=== PATIENT | male | born 1935 | race Asian ===

== ENCOUNTER 2017-01-23 07:30 | Inpatient (IN) | payer MEDICARE, OTHER ==
[~2017-01-23] VITALS: Ht 160 cm; Wt 57.1 kg
[2017-01-28 06:48] VITALS: Ht 160 cm; Wt 57.1 kg
[2017-01-28 06:52] VITALS: BP 150/90; PULSE 85; RESP 16
[2017-01-28] MEDS ORDERED: EPINEPHrine 0.1 MG/ML SYG ONE (07:00)
[2017-01-28] MEDS ORDERED: SUCCINYLCHOLINE CHLORIDE 100 MG/5 ML SYG IV ONE (07:00)
[2017-01-28] MEDS ORDERED: ETOMIDATE 20 MG INJ ONE ×2 (07:00→07:26)
[2017-01-28] MEDS ORDERED: MULT-7 PO (07:08)
[2017-01-28] MEDS ORDERED: CHOL400T29 PO (07:08)
[2017-01-28] MEDS ORDERED: LIPA1CAP4 PO (07:08)
[2017-01-28] MEDS ORDERED: CALC600T5 PO (07:08)
[2017-01-28] MEDS ORDERED: SIMV20TA2 PO (07:08)
[2017-01-28] MEDS ORDERED: VITA600C2 PO (07:08)
[2017-01-28] MEDS ORDERED: ALLO300T2 PO (07:08)
[2017-01-28] MEDS ORDERED: HYDR5TAB2 PO ×2 (07:08)
[2017-01-28] MEDS ORDERED: OMEG1CAP31 PO (07:08)
[2017-01-28] MEDS ORDERED: VIT500LI PO (07:08)
[2017-01-28] MEDS ORDERED: THROMBIN 5000 UNIT VIAL ONE (07:15)
[2017-01-28] MEDS ORDERED: OXYMETAZOLINE 0.05% 15 ML NAS SPRAY NASAL ONE (07:15)
[2017-01-28] MEDS ORDERED: LIDOCAINE 1% (MPF) 30 ML INJ ONE (07:15)
[2017-01-28] MEDS ORDERED: BACITRACIN/POLYMYXIN 28.35 GM OINT TOP ONE (07:16)
[2017-01-28] MEDS ORDERED: POVIDONE IODINE 10% 28.4 GM OINT ONE (07:17)
[2017-01-28] MEDS ORDERED: ROCURONIUM 50 MG INJ ONE (07:26)
[2017-01-28] MEDS ORDERED: MIDAZOLAM 1 MG/ML 2 ML INJ ONE (07:26)
[2017-01-28] MEDS ORDERED: FENTAnyl 50 MCG/ML VIAL ONE (07:27)
[2017-01-28] MEDS ORDERED: ONDANSETRON 4 MG INJ ONE (07:27)
[2017-01-28] MEDS ORDERED: METOCLOPRAMIDE 10 MG INJ ONE (07:27)
[2017-01-28] MEDS ORDERED: HYDROCORTISONE 100 MG INJ ONE (07:27)
[2017-01-28] MEDS ORDERED: POTASSIUM CHLORIDE 20 MEQ in SOD CHLORIDE 0.9% 1,000 ML IV SCH (07:40)
--- NOTE | 2017-01-28 07:40 | HPN ---
Date/Time of Note Date/Time of Note DATE: 01/28/17 TIME: 07:39 Interval H&P Admission Note Pt. seen H&P reviewed: No system changes Neurosurgery Preop Note Extensive d/w patient and family about all available options including surgery vs no surgery. Overall risk/complications discussed in detail at preprinted in my office consent. All questions answered and no guarantees given. STONEY RICHARDSON MD Jan 28, 2017 07:40
[2017-01-28] MEDS ORDERED: niCARdipine 25 MG in SOD CHLORIDE 0.9% 240 ML IV PRN (08:00)
[2017-01-28] MEDS ORDERED: ONDANSETRON 4 MG INJ IV SCH (08:00)
[2017-01-28] MEDS ORDERED: HYDROmorphONE 1 MG/ML SYG IV PRN (08:00)
[2017-01-28] MEDS ORDERED: HYDROCORTISONE 100 MG INJ IV SCH (08:00)
[2017-01-28 10:50] VITALS: BP 165/81; RESP 16
[2017-01-28 11:50] LABS: BASOPHILS % 0.2 % (0.0-2.0); EOSINOPHILS % 0.2 % (0.0-7.0); HEMATOCRIT 26.5 % (42.0-52.0); HEMOGLOBIN 8.9 g/dl (14.0-18.0); LYMPHOCYTES # 3.4 10^3/ul (0.8-2.9); LYMPHOCYTES % 33.6 % (15.0-51.0); MEAN CORPUSCULAR HGB CONC 33.6 g/dl (32.0-37.0); MEAN CORPUSCULAR VOLUME 98.1 fl (82.0-101.0); MEAN PLATELET VOLUME 9.7 fl (7.4-10.4); MONOCYTES % 9.4 % (0.0-11.0); NEUTROPHIL # 5.6 10^3/ul (1.6-7.5); NEUTROPHILS % 55.7 % (39.0-77.0); PLATELET COUNT 154 10^3/UL (140-415); RED CELL DISTRIBUTION WIDTH 13.5 % (11.5-14.5); WHITE BLOOD COUNT 10.1 10^3/ul (4.8-10.8)
[2017-01-28 12:12] LABS: CREATININE 1.83 mg/dl (0.61-1.24); POTASSIUM 4.3 mmol/L (3.5-5.1)
[2017-01-28] MEDS: CREON (12k-38k-60k) 1 CAP PO SCH ×2 (12:15→17:51)
--- NOTE | 2017-01-28 13:10 | HP ---
DATE OF ADMISSION: 01/28/2017 HISTORY OF PRESENT ILLNESS: The patient is a 81-year-old very pleasant gentleman with medical histo ry including hypertension, hyperlipidemia, pancreatic cancer, chronic kidney disease. Patient also with a pituitary adenoma that was diagnosed in 2012. Patient underwent transsphenoidal pituitary ad enoma resection by Dr. Richardson, which was followed by yearly MRI. The patient noted has mass increase d per last MRI. Patient also noted had mass effect upon optic chiasm, the patient also with progres tomas of visual field deficits. Patient is admitted for transsphenoidal pituitary adenoma resection, and the patient will undergo MRI for further mapping and will undergo surgery tomorrow. Patient cu rrently is awake, alert, denies any fever or chills. Denies any nausea, vomiting. Denies diarrhea, constipation. Denies any chest pain, denies shortness of breath. PAST MEDICAL HISTORY: Per HPI. PAST SURGICAL HISTORY: Status post pituitary adenoma resection in September 2012, status post cholecyste ctomy, status post cataract surgery. FAMILY HISTORY: Noncontributory. SOCIAL HISTORY: Patient is a , lives with his daughter. The patient denies any history of t obacco use, alcohol use or illicit drug use. ALLERGIES: NO KNOWN ALLERGIES. MEDICATIONS: 1. Allopurinol. 2. Vitamin D. 3. Hydrocortisone 4. Creon. 5. Calcium carbonate. 6. Multivitamins. 7. [place] 3 fish oil. 8. Simvastatin. 9. Vitamin E. 10. Vitamin C. REVIEW OF SYSTEMS: A 12-point review of systems is negative unless was mentioned in the HPI. PHYSICAL ASSESSMENT: GENERAL: Well-developed, well-nourished male in no acute distress. VITAL SIGNS: Temperature 98.3, pulse is 84, blood pressure 165/81, respiratory rate 16, oxygen satu ration 98% on room air. HEENT: Head is atraumatic, normocephalic. Pupils equal, reactive to light and accommodation. Oral mucosa is pink and moist. NECK: Supple, no cervical lymphadenopathy, no thyromegaly. CHEST: Lungs clear bilaterally. There is no rhonchi, wheezes, rales noted. CARDIOVASCULAR: Normal S1, S2. No murmurs, gallops, clicks, rubs noted. ABDOMEN: Round, soft, nondistended, nontender. Bowel sounds present. There is no guarding, no orly ound tenderness. EXTREMITIES: No edema, clubbing, cyanosis. Pulses equal bilaterally 2+. SKIN: There is no rash, petechiae noted. NEUROLOGIC: Patient is awake, alert and oriented x4. No focal deficits noted. Motor strength 5/5 in all extremities. LABORATORY DATA: On admission, CBC: White blood cells 10.1, hemoglobin 8.9, hematocrit 26.5, plate lets 154. Chemistry: Glucose 136. ASSESSMENT AND PLAN: 1. Transsphenoidal pituitary adenoma, plan for resection tomorrow after the patient will undergo MR I with contrast for mapping by Dr. Richardson. N.p.o. starting midnight. Continue IV fluids. Monitor e lectrolytes. Dr. Choe is asked to see patient in endocrinology consultation for postoperative ma nagement. 2. Pancreatic cancer. The patient follows with oncologist as an outpatient. Patient is aware that he will not be able to receive any treatment for 10 days after surgery. 3. Hypertension. We will continue hydralazine p.r.n. 4. Hyperlipidemia. Continue simvastatin. 5. Chronic kidney disease. Continue to monitor BUN and creatinine. 6. Would continue sequential compression device for deep venous thrombosis, stroke prophylaxis and Pepcid for peptic ulcer disease prophylaxis. Further recommendations based on clinical course. Francisca n of care discussed with Dr. Cannon. Dictated By: TITUS JAIMES REINFORCING STEEL PLACER for MARIAN CANNON MD SR/NTS Conf#: [id number] DID#: [id number] CC: STONEY RICHARDSON MD;*EndCC*
[2017-01-28 15:12] VITALS: BP 153/78; RESP 18
--- NOTE | 2017-01-28 18:05 | CONS ---
Date/Time of Note Date/Time of Note DATE: 01/28/17 TIME: 17:44 Assessment/Plan Assessment/Plan Problems: (1) Chronic kidney disease, stage III (moderate) Status: Chronic Comment: Per primary team. (2) Essential (primary) hypertension Status: Chronic Comment: Per primary team. BP elevated right now. No anti-hypertensives on home med list. Defer to primary team (3) Hyperlipidemia Status: Chronic Comment: Per primary team. Cont. statin (4) Pancreatic cancer Status: Chronic Comment: Per oncology following d/c (5) Hyperuricemia without signs of inflammatory arthritis and tophaceous disease Status: Chronic (6) Pituitary macroadenoma Status: Chronic Comment: This will not resolve with surgery. Based on its behavior, tumor will recur over its natural history. However, given the patient's other medical problems, his prognosis makes another recurrence unlikely in his lifetime. (7) Partial hypopituitarism Status: Chronic Comment: Based on the patient's medication list, it can be inferred that someone has previously felt patient has secondary hypoadrenalism following his initial surgery or prior to that. It is unlikely that he would have secondary hypoadrenalism but not secondary hypothyroidism. The patient is not the best historian so it is impossible to tell if he has been through a thorough evaluation for this or if he was simply placed on hydrocortisone as a matter of convenience. It is also difficult to tell how long he has been taking it. Nevertheless, based again only on inference, he has likely been taking this for some time. Therefore, the dosing should not be interrupted or we would be likely to cause an adrenal insufficiency. Pt. should also receive stress dose hydrocortisone or dexamethasone perioperatively including pre, intra, and post for 24 hours. Then he can be placed on twice normal dosing before being weaned to his usual home dosage of hydrocortisone. At this time there are no clinical , biochemical, or hematologic indications of adrenal insufficiency. Will monitor this closely. (8) Optic chiasm disorder with pituitary disease Status: Acute Comment: This is the indication for surgery. Pt. to have TSC. Pt. is at risk for SIADH/DI/SIADH again over the ensuing days to week or so. Will monitor salt and free water status post-operatively. Consultation Date/Type/Reason Admit Date/Time Jan 28, 2017 at 06:15 Date of Consultation: Jan 28, 2017 Type of Consultation: Endocrinology Reason for Consultation Pituitary macroadenoma Referring Provider: TITUS JAIMES Hx of Present Illness 81 y/o P M w/ h/o pancreatic CA, HTN, hyperlipidemia, CKD stage 3. In [facility] until 5-6 years ago when he was diagnosed w/ pituitary adenoma. Followed for a period of time and then 4 years ago had transsphenoidal craniotomy (TSC) to resect it. Subsequently w/ recurrence which has been growing over the last 3 years. Now again w/ chiasmal compression and lateral visual field defects. Will return for TSC again tomorrow. Endo consulted to monitor for post-op complications including DI/SIADH Constitutional: no complaints Eyes: no complaints, No visual change ENT: no complaints Respiratory: no complaints Cardiovascular: no complaints Gastrointestinal: no complaints Genitourinary: no complaints Musculoskeletal: no complaints Neurologic: no complaints Past Medical History Medical History: cancer (pancreas), high cholesterol, hypertension, renal disease Past Surgical History Past Surgical Hx: cholecystectomy, other (TSC, cataracts) Family History Significant Family History: heart disease (father) Social History jade Diaz, in [facility] 10 y, 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, , 3 children, lives w/ 1 of his children Alcohol Use: none Smoking Status: Never smoker Drug Use: none Exam/Review of Systems Vital Signs Vitals VS - Last 72 Hours, by Label Date Time Temp Pulse Resp B/P Pulse Ox O2 Delivery O2 Flow Rate FiO2 01/28/17 15:12 98.5 73 18 153/78 99 01/28/17 10:50 98.3 84 16 165/81 98 01/28/17 06:52 96.9 85 16 150/90 99 Room Air Vital Signs Date Time Temp Pulse Resp B/P Pulse Ox O2 Delivery O2 Flow Rate FiO2 01/28/17 15:12 98.5 73 18 153/78 99 01/28/17 06:52 Room Air Exam Constitutional: alert, oriented, well developed Psych: nl mood/affect, no complaints Eyes: EOMI, nl conjunctiva, No PERRL (L pupil post-op, eccentric), No nl sclera ((+) arcus senilis) ENMT: mucosa pink and moist, nl external ears & nose Neck: non-tender, supple, No bruits, No masses, No thyromegaly Respiratory: clear to auscultation, normal air movement Cardiovascular: nl pulses, regular rate and rhythm, No edema, No murmurs/extra sounds, No rub Gastrointestinal: bowel sounds, nl liver, spleen, non-tender, soft, No mass, No rebound or guarding Musculoskeletal: nl extremities to inspection Extremities: normal pulses, No clubbing, No cyanosis, No edema 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 intact, nl mental status, nl speech, nl strength Results Result Diagram: 01/28/17 1111 01/28/17 1111 Results 24 hrs Laboratory Tests Test 01/28/17 07:16 01/28/17 11:11 Bedside Glucose 136 White Blood Count 10.1 Red Blood Count 2.70 L Hemoglobin 8.9 L Hematocrit 26.5 L Mean Corpuscular Volume 98.1 Mean Corpuscular Hemoglobin 33.0 Mean Corpuscular Hemoglobin Concent 33.6 Red Cell Distribution Width 13.5 Platelet Count 154 Mean Platelet Volume 9.7 Neutrophils % 55.7 Lymphocytes % 33.6 Monocytes % 9.4 Eosinophils % 0.2 Basophils % 0.2 Nucleated Red Blood Cells % 0.0 Neutrophils # 5.6 Lymphocytes # 3.4 H Monocytes # 1.0 H Eosinophils # 0.0 Basophils # 0.0 Nucleated Red Blood Cells # 0.0 Activated Partial Thromboplast Time 27.9 Sodium Level 143 Potassium Level 4.3 Chloride Level 114 H Carbon Dioxide Level 21 Anion Gap 12 Blood Urea Nitrogen 33 H Creatinine 1.83 H Glucose Level 103 Calcium Level 9.0 Medications Medications Current Medications Sodium Chloride (NS) 1,000 ml @ 100 mls/hr Q10H IV ; Start 01/29/17 at 00:00 Hydralazine HCl (Apresoline) 10 mg Q6H PRN IV SBP>170; Start 01/28/17 at 12:30 KING RAO MD Jan 28, 2017 18:04
--- NOTE | 2017-01-28 19:14 | CONS ---
Date/Time of Note Date/Time of Note DATE: 01/28/17 TIME: 19:14 Assessment/Plan Assessment/Plan Additional Assessment/Plan 1. Acute vs CKD III, No previous Cr available to compare 2. Transsphenoidal pituitary adenoma, plan for resection tomorrow after the patient will undergo MRI with contrast 2. Pancreatic cancer. The patient follows with oncologist as an outpatient. 3. Hypertension. 4. Hyperlipidemia. Plan: apparently there is no previous Baseline Cr available, pt doesn't know any details of chronic kidney disease. His Renal US c/w medical renal disease so he has CKD this one likely is CKD Stage III, pt estimated Creatinine clearance is around 41 -42- Pt eGFR 40-41- it is ok to do MRI with contrast. he has been explained about risk and complications of contrast exposure with MRI. he has been explained that he has 10-15% risk of having DEJON with contrast exposure- and about 1-2% risk of having DEJON that can require Renal replacement therapy. He has been explained about extra renal risks of contrast exposure also. He understood it. all questions answered appropriately, he is willing to have MRI done and subsequent plan for surgery after that for pituitary adenoma. will proceed with gettign MRI with contrast conitnue iVF hydration at this point, there was no BMP ordered today am but I ordered BMP stat to follow up on that.. Consultation Date/Type/Reason Admit Date/Time Jan 28, 2017 at 06:15 Date of Consultation: Jan 28, 2017 Type of Consultation: NEPHROLOGY Reason for Consultation Acute kidney injury vs CKD, no previous Baseline Cr available Referring Provider: MARIAN CANNON MD Hx of Present Illness 81-year-old very pleasant gentleman with medical history including hypertension , hyperlipidemia, pancreatic cancer, chronic kidney disease. Patient also with a pituitary adenoma that was diagnosed in 2012. Patient underwent transsphenoidal pituitary adenoma resection by Dr. Rodriguez, which was followed by yearly MRI. The patient noted has mass increased per last MRI. 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 Patient is admitted for transsphenoidal pituitary adenoma resection, and the patient will undergo MRI for further mapping and will undergo surgery tomorrow. pt need MRI brain with contrast tomorrow 9 am and he is noted to have Cr 1.8- Renal has been consulted to evaluate his risk of NELDA. Constitutional: no complaints Eyes: no complaints, No visual change ENT: no complaints Respiratory: no complaints Cardiovascular: no complaints Gastrointestinal: no complaints Genitourinary: no complaints Musculoskeletal: no complaints Neurologic: no complaints Psychological: nl mood/affect, no complaints Past Medical History Medical History: cancer (pancreas), high cholesterol, hypertension, renal disease Past Surgical History Past Surgical Hx: cholecystectomy, other (TSC, cataracts) Social History Alcohol Use: none Smoking Status: Never smoker Drug Use: none Exam/Review of Systems Vital Signs Vitals Vital Signs Date Time Temp Pulse Resp B/P Pulse Ox O2 Delivery O2 Flow Rate FiO2 01/28/17 15:12 98.5 73 18 153/78 99 01/28/17 06:52 Room Air Exam Constitutional: alert Head: normocephalic Eyes: nl conjunctiva ENMT: nl external ears & nose Neck: non-tender, supple Respiratory: clear to auscultation, diminished breath sounds, normal air movement Cardiovascular: regular rate and rhythm Gastrointestinal: nl liver, spleen, non-tender, soft Musculoskeletal: joint tenderness, nl extremities to inspection, nl gait and stance Neurological: 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-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 intact, nl mental status, nl speech, nl strength Results Result Diagram: 01/28/17 1111 01/28/17 1111 Results 24 hrs Laboratory Tests Test 01/28/17 07:16 01/28/17 11:11 Bedside Glucose 136 White Blood Count 10.1 Red Blood Count 2.70 L Hemoglobin 8.9 L Hematocrit 26.5 L Mean Corpuscular Volume 98.1 Mean Corpuscular Hemoglobin 33.0 Mean Corpuscular Hemoglobin Concent 33.6 Red Cell Distribution Width 13.5 Platelet Count 154 Mean Platelet Volume 9.7 Neutrophils % 55.7 Lymphocytes % 33.6 Monocytes % 9.4 Eosinophils % 0.2 Basophils % 0.2 Nucleated Red Blood Cells % 0.0 Neutrophils # 5.6 Lymphocytes # 3.4 H Monocytes # 1.0 H Eosinophils # 0.0 Basophils # 0.0 Nucleated Red Blood Cells # 0.0 Activated Partial Thromboplast Time 27.9 Sodium Level 143 Potassium Level 4.3 Chloride Level 114 H Carbon Dioxide Level 21 Anion Gap 12 Blood Urea Nitrogen 33 H Creatinine 1.83 H Glucose Level 103 Calcium Level 9.0 Medications Medications Current Medications Sodium Chloride (NS) 1,000 ml @ 100 mls/hr Q10H IV ; Start 01/29/17 at 00:00 Hydralazine HCl (Apresoline) 10 mg Q6H PRN IV SBP>170; Start 01/28/17 at 12:30 Hydrocortisone (Solu-Cortef) 50 mg Q8 IV ; Start 01/28/17 at 22:00 ISRAEL OJEDA MD Jan 28, 2017 19:14
[2017-01-28 20:08] VITALS: BP 134/77; RESP 18
[2017-01-28] MEDS: METOPROLOL 25 MG TAB PO SCH (20:53)
[2017-01-28] MEDS: CEFTRIAXONE 1 GM/50 ML (PMX) 50 ML IVPB SCH (20:53)
[2017-01-28] MEDS: HYDROCORTISONE 100 MG INJ IV SCH (21:01)
[2017-01-28 23:20] LABS: PROTEIN/CREAT RATIO 1.29 RATIO
[2017-01-29] MEDS: SOD CHLORIDE 0.9% 1,000 ML IV SCH ×4 (00:31→20:58)
--- NOTE | 2017-01-29 00:31 | RADRPT ---
PROCEDURE: Renal US. CLINICAL INDICATION: Elevated Creatinine TECHNIQUE: Multiple sonographic images of the kidneys were obtained. The images were reviewed on a PACS workstation. COMPARISON: No prior studies are available for comparison. FINDINGS: The kidneys are well visualized. The right kidney measures 8.7 cm. The left kidney measures 8.7 cm. There is mild renal cortical thinning and increased echogenicity. There are areas of mild increased echogenicity associated with the mid right renal collecting system region which may reflect small st ones, or echogenic renal pelvic fat, measuring up to 7 mm, without visualized shadowing. There is no evidence for obstructive uropathy. The urinary bladder appears unremarkable, without focal mass or irregular wall thickening. IMPRESSION: 1. No hydronephrosis. 2. Mild renal cortical thinning and increased echogenicity suggestive of early medical renal diseas e. 2. Questionable 7 mm stones in the right mid renal collecting system, versus artifact from echogeni c renal fat. RPTAT: HBST . .Wilder Salcedo MD, MD Date Time Electronically viewed and signed by .Wilder Salcedo MD, on 01/29/2017 00:30 .T/
[2017-01-29 02:19] VITALS: BP 108/55; RESP 18
[2017-01-29] MEDS: HYDROCORTISONE 100 MG INJ IV SCH ×3 (05:21→21:07)
[2017-01-29 06:33] LABS: URIC ACID 4.2 mg/dl (3.1-7.9)
[2017-01-29 07:20] VITALS: BP 114/60; RESP 16
[2017-01-29 07:51] LABS: CALCIUM 8.4 mg/dl (8.4-10.2); CREATININE 1.91 mg/dl (0.61-1.24); POTASSIUM 4.4 mmol/L (3.5-5.1)
[2017-01-29] MEDS: CREON (12k-38k-60k) 1 CAP PO SCH ×3 (08:15→18:33)
--- NOTE | 2017-01-29 08:35 | CONS ---
Date/Time of Note Date/Time of Note DATE: 01/29/17 TIME: 08:34 Assessment/Plan Assessment/Plan Chief Complaint/Hosp Course 81-year-old very pleasant gentleman with medical history including hypertension , hyperlipidemia, pancreatic cancer, chronic kidney disease. Patient also with a pituitary adenoma that was diagnosed in 2012. Patient underwent transsphenoidal pituitary adenoma resection by Dr. Rodriguez, which was followed by yearly MRI. The patient noted has mass increased per last MRI. 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 Patient is admitted for transsphenoidal pituitary adenoma resection, and the patient will undergo MRI for further mapping and will undergo surgery tomorrow. pt need MRI brain with contrast tomorrow 9 am and he is noted to have Cr 1.8- Renal has been consulted to evaluate his risk of NELDA. Problems: Additional Assessment/Plan 1. Acute vs CKD III, No previous Cr available to compare 2. Transsphenoidal pituitary adenoma, plan for resection today after the patient will undergo MRI with contrast 2. Pancreatic cancer. The patient follows with oncologist as an outpatient. 3. Hypertension. 4. Hyperlipidemia. Plan: apparently there is no previous Baseline Cr available, pt doesn't know any details of chronic kidney disease. His Renal US c/w medical renal disease so he has CKD this one likely is CKD Stage III, pt estimated Creatinine clearance is around 41 -42- Cr 1.9 today which is also the same like yesterday Pt eGFR 40-41- it is ok to do MRI with contrast. he has been explained about risk and complications of contrast exposure with MRI. he has been explained that he has 10-15% risk of having DEJON with contrast exposure- and about 1-2% risk of having DEJON that can require Renal replacement therapy. He has been explained about extra renal risks of contrast exposure also. He understood it. all questions answered appropriately, he is willing to have MRI done and subsequent plan for surgery after that for pituitary adenoma. will proceed with getting MRI with contrast conitnue iVF hydration at this point, will continue to follow up. Consultation Date/Type/Reason Admit Date/Time Jan 28, 2017 at 06:15 Initial Consult Date 01/28/17 Type of Consultation: NEPHROLOGY Referring Provider: MARIAN CANNON MD 24 HR Interval Summary Free Text/Dictation BMP showed Cr 1.9, pt has hyperchoremic acidosis due to IVF NS Exam/Review of Systems Vital Signs Vitals Vital Signs Date Time Temp Pulse Resp B/P Pulse Ox O2 Delivery O2 Flow Rate FiO2 01/29/17 07:20 98.8 73 16 114/60 99 01/28/17 06:52 Room Air Intake and Output 01/28/17 01/28/17 01/29/17 15:00 23:00 07:00 Intake Total 50 ml 500 ml Balance 50 ml 500 ml Exam Constitutional: alert Respiratory: clear to auscultation, diminished breath sounds, normal air movement Cardiovascular: regular rate and rhythm Gastrointestinal: nl liver, spleen, non-tender, soft Musculoskeletal: joint tenderness, nl extremities to inspection, nl gait and stance 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, nl mental status, nl speech, nl strength Results Result Diagram: 01/28/17 1111 01/29/17 0537 Results 24 hrs Laboratory Tests Test 01/28/17 11:11 01/28/17 19:30 01/29/17 05:37 White Blood Count 10.1 Red Blood Count 2.70 L Hemoglobin 8.9 L Hematocrit 26.5 L Mean Corpuscular Volume 98.1 Mean Corpuscular Hemoglobin 33.0 Mean Corpuscular Hemoglobin Concent 33.6 Red Cell Distribution Width 13.5 Platelet Count 154 Mean Platelet Volume 9.7 Neutrophils % 55.7 Lymphocytes % 33.6 Monocytes % 9.4 Eosinophils % 0.2 Basophils % 0.2 Nucleated Red Blood Cells % 0.0 Neutrophils # 5.6 Lymphocytes # 3.4 H Monocytes # 1.0 H Eosinophils # 0.0 Basophils # 0.0 Nucleated Red Blood Cells # 0.0 Activated Partial Thromboplast Time 27.9 Sodium Level 143 143 Potassium Level 4.3 4.4 Chloride Level 114 H 112 H Carbon Dioxide Level 21 17 L Anion Gap 12 18 H Blood Urea Nitrogen 33 H 36 H Creatinine 1.83 H 1.91 H Glucose Level 103 116 Calcium Level 9.0 8.4 Urine Eosinophils % 0.0 Urine Random Creatinine 33.22 Urine Random Sodium 114 H Urine Protein/Creatinine Ratio 1.29 Urine Total Protein 43.0 H Uric Acid 4.2 Creatine Kinase 27 Medications Medications Current Medications Sodium Chloride (NS) 1,000 ml @ 100 mls/hr Q10H IV Last administered on t 00:31; Admin Dose 100 MLS/HR; Start 01/29/17 at 00:00 Hydralazine HCl (Apresoline) 10 mg Q6H PRN IV SBP>170; Start 01/28/17 at 12:30 Hydrocortisone (Solu-Cortef) 50 mg Q8 IV Last administered on 01/29/17 05:21 ; Admin Dose 50 MG; Start 01/28/17 at 22:00 Metoprolol Tartrate 25 mg 25 mg BID PO Last administered on 01/28/17 20:53; Admin Dose 25 MG; Start 01/28/17 at 21:00 Ceftriaxone Sodium (Rocephin) 50 ml @ 100 mls/hr Q24H IVPB Last administered on 01/28/17 20:53; Admin Dose 100 MLS/HR; Start 01/28/17 at 20:00 ISRAEL OJEDA MD Jan 29, 2017 08:35
[2017-01-29] MEDS: METOPROLOL 25 MG TAB PO SCH ×2 (09:00→21:00)
--- NOTE | 2017-01-29 11:50 | RADRPT ---
PROCEDURE: MRI Brain with and without contrast. CLINICAL INDICATION: 81-year-old male with pituitary adenoma, preoperative evaluation. TECHNIQUE: An MRI of the brain was performed with contrast utilizing the following sequences: Axi al T1 weighted pre and postcontrast evaluation for the purposes of stereotactic preoperative plannin g. 5 cc of Gadavist was given intravenously without complication. The images were reviewed on a hig h-resolution PACS workstation. COMPARISON: No prior studies are available for comparison. FINDINGS: The postcontrast images demonstrate a prominent 13 x 16 x 19 mm(AP x TR x CC) pituitary macroadenoma , with extension into the suprasellar cistern and mass effect on the adjacent optic chiasm. There is subtle enhancement involving the right aspect of the cavernous sinus, with possible invasion in thi s region. No additional areas of abnormal contrast enhancement is seen. There is mild to moderate pr ominence of the cerebral sulci, lateral and third ventricles. There is mild to moderate patchy periv entricular and subcortical white matter lesions, likely related to chronic microangiopathic changes. IMPRESSION: 1. Preop evaluation for stereotactic surgical planning for resection of a pituitary macroadenoma. 2. The study is adequate for presurgical planning, and comparison with prior diagnostic study is re commended. RPTAT: HGAS .Mati John MD, MD Date Time Electronically viewed and signed by .Mati John MD, on 01/29/2017 11:50 .S/
[2017-01-29 14:15] VITALS: BP 133/63; RESP 16
--- NOTE | 2017-01-29 15:13 | PN ---
Date/Time of Note Date/Time of Note DATE: 01/29/17 TIME: 15:10 Assessment/Plan VTE Prophylaxis VTE Prophylaxis Intervention: SCD's Lines/Catheters IV [facility] (from [facility] Peripheral IV Urinary Cath still in place: No Assessment/Plan Assessment/Plan - Transsphenoidal pituitary adenoma, plan for resection tomorrow , s/p MRI with contrast for mapping by Dr. Rodriguez. N.p.o. starting midnight. Continue IV fluids. Monitor electrolytes. Dr. Choe is following in endocrinology consultation. - Pancreatic cancer. The patient follows with oncologist as an outpatient. Patient is aware that he will not be able to receive any treatment for 10 days after surgery. - Hypertension. We will continue hydralazine p.r.n. - Hyperlipidemia. Continue simvastatin. - Chronic kidney disease stage III. Continue to monitor BUN and creatinine. Dr. Yan is following in nephrology consultation. Further recommendations based on clinical course. Plan of care discussed with Dr. Schulte. Exam/Review of Systems Vital Signs Vitals Vital Signs Date Time Temp Pulse Resp B/P Pulse Ox O2 Delivery O2 Flow Rate FiO2 01/29/17 14:15 98.9 72 16 133/63 99 01/28/17 06:52 Room Air Intake and Output 01/28/17 01/28/17 01/29/17 15:00 23:00 07:00 Intake Total 50 ml 500 ml Balance 50 ml 500 ml Exam Constitutional: alert, oriented Head: normocephalic Neck: supple Respiratory: normal air movement Cardiovascular: nl pulses Gastrointestinal: non-tender, soft Genitourinary - Male: nl penis Extremities: normal pulses Neurological: nl mental status Skin: nl turgor Results Result Diagram: 01/28/17 1111 01/29/17 0537 Results 24 hrs Laboratory Tests Test 01/28/17 19:30 01/29/17 05:37 Urine Eosinophils % 0.0 Urine Random Creatinine 33.22 Urine Random Sodium 114 H Urine Protein/Creatinine Ratio 1.29 Urine Total Protein 43.0 H Sodium Level 143 Potassium Level 4.4 Chloride Level 112 H Carbon Dioxide Level 17 L Anion Gap 18 H Blood Urea Nitrogen 36 H Creatinine 1.91 H Glucose Level 116 Uric Acid 4.2 Calcium Level 8.4 Creatine Kinase 27 Medications Medications Current Medications Sodium Chloride (NS) 1,000 ml @ 100 mls/hr Q10H IV Last administered on 10:42; Admin Dose 100 MLS/HR; Start 01/29/17 at 00:00 Hydralazine HCl (Apresoline) 10 mg Q6H PRN IV SBP>170; Start 01/28/17 at 12:30 Hydrocortisone (Solu-Cortef) 50 mg Q8 IV Last administered on 01/29/17 14:23 ; Admin Dose 50 MG; Start 01/28/17 at 22:00 Metoprolol Tartrate 25 mg 25 mg BID PO Last administered on 01/28/17 20:53; Admin Dose 25 MG; Start 01/28/17 at 21:00 Ceftriaxone Sodium (Rocephin) 50 ml @ 100 mls/hr Q24H IVPB Last administered on 01/28/17 20:53; Admin Dose 100 MLS/HR; Start 01/28/17 at 20:00 TITUS JAIMES Jan 29, 2017 15:13
--- NOTE | 2017-01-29 18:05 | CONS ---
Date/Time of Note Date/Time of Note DATE: 01/29/17 TIME: 18:02 Assessment/Plan Assessment/Plan Problems: (1) Partial hypopituitarism Status: Chronic Comment: Pt. stable on hydrocortisone 50 mg IV q8 stress dose. Will continue this through procedure tomorrow. Will wean back to home doses post-op. 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 Will monitor for hormonal imbalance post-op. Consultation Date/Type/Reason Admit Date/Time Jan 28, 2017 at 06:15 Initial Consult Date 01/28/17 Type of Consultation: Endocrinology Reason for Consultation Pituitary macroadenoma Referring Provider: MARIAN CANNON MD 24 HR Interval Summary Constitutional: no complaints Detailed Summary Respiratory: no complaints Cardiovascular: no complaints Gastrointestinal: no complaints Genitourinary: no complaints Musculoskeletal: no complaints Neurologic: no complaints Exam/Review of Systems Vital Signs Vitals VS - Last 72 Hours, by Label Date Time Temp Pulse Resp B/P Pulse Ox O2 Delivery O2 Flow Rate FiO2 01/29/17 14:15 98.9 72 16 133/63 99 01/29/17 07:20 98.8 73 16 114/60 99 01/29/17 02:19 98.5 65 18 108/55 100 01/28/17 20:08 98.6 74 18 134/77 99 01/28/17 15:12 98.5 73 18 153/78 99 01/28/17 10:50 98.3 84 16 165/81 98 01/28/17 06:52 96.9 85 16 150/90 99 Room Air Vital Signs Date Time Temp Pulse Resp B/P Pulse Ox O2 Delivery O2 Flow Rate FiO2 01/29/17 14:15 98.9 72 16 133/63 99 01/28/17 06:52 Room Air Intake and Output 01/28/17 01/28/17 01/29/17 15:00 23:00 07:00 Intake Total 50 ml 500 ml Balance 50 ml 500 ml Exam Constitutional: alert, oriented, well developed Psych: nl mood/affect, no complaints Respiratory: clear to auscultation, normal air movement Cardiovascular: nl pulses, regular rate and rhythm, No edema, No murmurs/extra sounds, No rub Gastrointestinal: bowel sounds, nl liver, spleen, non-tender, soft, No mass, No rebound or guarding Musculoskeletal: nl extremities to inspection Extremities: normal pulses, No clubbing, No cyanosis, No edema Neurological: TACTICAL AIR CONTROL PARTY MANAGER II-XII intact, nl mental status, nl speech, nl strength Results Result Diagram: 01/28/17 1111 01/29/17 0537 Results 24 hrs Laboratory Tests Test 01/28/17 19:30 01/29/17 05:37 Urine Eosinophils % 0.0 Urine Random Creatinine 33.22 Urine Random Sodium 114 H Urine Protein/Creatinine Ratio 1.29 Urine Total Protein 43.0 H Sodium Level 143 Potassium Level 4.4 Chloride Level 112 H Carbon Dioxide Level 17 L Anion Gap 18 H Blood Urea Nitrogen 36 H Creatinine 1.91 H Glucose Level 116 Uric Acid 4.2 Calcium Level 8.4 Creatine Kinase 27 Medications Medications Current Medications Sodium Chloride (NS) 1,000 ml @ 100 mls/hr Q10H IV Last administered on 10:42; Admin Dose 100 MLS/HR; Start 01/29/17 at 00:00 Hydralazine HCl (Apresoline) 10 mg Q6H PRN IV SBP>170; Start 01/28/17 at 12:30 Hydrocortisone (Solu-Cortef) 50 mg Q8 IV Last administered on 01/29/17 14:23 ; Admin Dose 50 MG; Start 01/28/17 at 22:00 Metoprolol Tartrate 25 mg 25 mg BID PO Last administered on 01/28/17 20:53; Admin Dose 25 MG; Start 01/28/17 at 21:00 Ceftriaxone Sodium (Rocephin) 50 ml @ 100 mls/hr Q24H IVPB Last administered on 01/28/17 20:53; Admin Dose 100 MLS/HR; Start 01/28/17 at 20:00 KING RAO MD Jan 29, 2017 18:05
[2017-01-29 19:38] VITALS: BP 112/56; RESP 20
[2017-01-29] MEDS: CEFTRIAXONE 1 GM/50 ML (PMX) 50 ML IVPB SCH (20:58)
[2017-01-30] VITALS (20 sets, daily range): BP systolic 114–146; BP diastolic 60–73; PULSE 40–134; RESP 10–37
[2017-01-30] MEDS: SOD CHLORIDE 0.9% 1,000 ML IV SCH ×2 (05:47→16:00)
[2017-01-30] MEDS: HYDROCORTISONE 100 MG INJ IV SCH ×5 (05:47→23:23)
[2017-01-30 06:24] LABS: BASOPHILS % 0.1 % (0.0-2.0); HEMATOCRIT 24.1 % (42.0-52.0); HEMOGLOBIN 8.1 g/dl (14.0-18.0); LYMPHOCYTES # 1.9 10^3/ul (0.8-2.9); LYMPHOCYTES % 20.8 % (15.0-51.0); MEAN CORPUSCULAR HEMOGLOBIN 32.7 pg (29.0-33.0); MEAN CORPUSCULAR HGB CONC 33.6 g/dl (32.0-37.0); MEAN CORPUSCULAR VOLUME 97.2 fl (82.0-101.0); MEAN PLATELET VOLUME 10.2 fl (7.4-10.4); MONOCYTE # 0.6 10^3/ul (0.3-0.9); MONOCYTES % 6.2 % (0.0-11.0); NEUTROPHIL # 6.5 10^3/ul (1.6-7.5); NEUTROPHILS % 72.1 % (39.0-77.0); PLATELET COUNT 140 10^3/UL (140-415); RED BLOOD COUNT 2.48 10^6/ul (4.70-6.10); RED CELL DISTRIBUTION WIDTH 13.4 % (11.5-14.5)
[2017-01-30 06:57] LABS: CALCIUM 8.1 mg/dl (8.4-10.2); CREATININE 1.91 mg/dl (0.61-1.24); POTASSIUM 3.8 mmol/L (3.5-5.1)
[2017-01-30] MEDS: CREON (12k-38k-60k) 1 CAP PO SCH ×3 (07:47→17:13)
[2017-01-30] MEDS: METOPROLOL 25 MG TAB PO SCH ×2 (08:51→21:00)
--- NOTE | 2017-01-30 10:34 | PN ---
Date/Time of Note Date/Time of Note DATE: 01/30/17 TIME: 10:31 Assessment/Plan VTE Prophylaxis VTE Prophylaxis Intervention: SCD's Lines/Catheters [facility]from [facility] Peripheral IV Urinary Cath still in place: No Assessment/Plan Chief Complaint/Hosp Course No complaints, stable vital signs, pending neurosurgery today. Assessment/Plan - Transsphenoidal pituitary adenoma, plan for resection todayby Dr. Rodriguez, s/p MRI with contrast for mapping N.p.o. Continue IV fluids. Monitor electrolytes. Dr. Choe is following in endocrinology consultation. - Pancreatic cancer. The patient follows with oncologist as an outpatient. Patient is aware that he will not be able to receive any treatment for 10 days after surgery. - Hypertension. We will continue hydralazine p.r.n. - Hyperlipidemia. Continue simvastatin. - Chronic kidney disease stage III. Continue to monitor BUN and creatinine. Dr. Yan is following in nephrology consultation. Further recommendations based on clinical course. Plan of care discussed with Dr. Schulte. Problems: Exam/Review of Systems Vital Signs Vitals Vital Signs Date Time Temp Pulse Resp B/P Pulse Ox O2 Delivery O2 Flow Rate FiO2 01/30/17 07:43 98.2 77 16 120/63 99 01/28/17 06:52 Room Air Intake and Output 01/29/17 01/29/17 01/30/17 15:00 23:00 07:00 Intake Total 500 ml 1260 ml 900 ml Balance 500 ml 1260 ml 900 ml Exam Constitutional: alert, oriented Respiratory: normal air movement Cardiovascular: nl pulses Gastrointestinal: non-tender, soft Extremities: normal pulses Neurological: nl mental status Results Result Diagram: 01/30/17 0508 01/30/17 0508 Results 24 hrs Laboratory Tests Test 01/30/17 05:08 White Blood Count 9.0 Red Blood Count 2.48 L Hemoglobin 8.1 L Hematocrit 24.1 L Mean Corpuscular Volume 97.2 Mean Corpuscular Hemoglobin 32.7 Mean Corpuscular Hemoglobin Concent 33.6 Red Cell Distribution Width 13.4 Platelet Count 140 Mean Platelet Volume 10.2 Neutrophils % 72.1 Lymphocytes % 20.8 Monocytes % 6.2 Eosinophils % 0.0 Basophils % 0.1 Nucleated Red Blood Cells % 0.0 Neutrophils # 6.5 Lymphocytes # 1.9 Monocytes # 0.6 Eosinophils # 0.0 Basophils # 0.0 Nucleated Red Blood Cells # 0.0 Sodium Level 146 H Potassium Level 3.8 Chloride Level 118 H Carbon Dioxide Level 19 L Anion Gap 13 Blood Urea Nitrogen 39 H Creatinine 1.91 H Glucose Level 152 Calcium Level 8.1 L Medications Medications Current Medications Sodium Chloride (NS) 1,000 ml @ 100 mls/hr Q10H IV Last administered on 05:47; Admin Dose 100 MLS/HR; Start 01/29/17 at 00:00 Hydralazine HCl (Apresoline) 10 mg Q6H PRN IV SBP>170; Start 01/28/17 at 12:30 Hydrocortisone (Solu-Cortef) 50 mg Q8 IV Last administered on 01/30/17 05:47 ; Admin Dose 50 MG; Start 01/28/17 at 22:00 Metoprolol Tartrate 25 mg 25 mg BID PO Last administered on 01/28/17 20:53; Admin Dose 25 MG; Start 01/28/17 at 21:00 Ceftriaxone Sodium (Rocephin) 50 ml @ 100 mls/hr Q24H IVPB Last administered on 01/29/17 20:58; Admin Dose 100 MLS/HR; Start 01/28/17 at 20:00 TITUS JAIMES Jan 30, 2017 10:34
--- NOTE | 2017-01-30 12:44 | CONS ---
Date/Time of Note Date/Time of Note DATE: 01/30/17 TIME: 12:42 Assessment/Plan Assessment/Plan Problems: (1) Partial hypopituitarism Status: Chronic Comment: Continue hydrocortisone 50 mg IV q8 through surgery today. Wean to twice home dosage after 24 hours post-op. Then wean to home dose on d/c. (2) Pituitary macroadenoma Status: Chronic Comment: To OR today. 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 Comment: To OR today Consultation Date/Type/Reason Admit Date/Time Jan 28, 2017 at 06:15 Initial Consult Date 01/28/17 Type of Consultation: Endocrinology Reason for Consultation Pituitary macroadenoma Referring Provider: MARIAN CANNON MD 24 HR Interval Summary Constitutional: no complaints Detailed Summary Respiratory: no complaints Cardiovascular: no complaints Gastrointestinal: no complaints Genitourinary: no complaints Musculoskeletal: no complaints Neurologic: no complaints Exam/Review of Systems Vital Signs Vitals VS - Last 72 Hours, by Label Date Time Temp Pulse Resp B/P Pulse Ox O2 Delivery O2 Flow Rate FiO2 01/30/17 07:43 98.2 77 16 120/63 99 01/30/17 03:31 98.5 73 20 124/60 98 01/29/17 19:38 98.4 82 20 112/56 100 01/29/17 14:15 98.9 72 16 133/63 99 01/29/17 07:20 98.8 73 16 114/60 99 01/29/17 02:19 98.5 65 18 108/55 100 01/28/17 20:08 98.6 74 18 134/77 99 01/28/17 15:12 98.5 73 18 153/78 99 01/28/17 10:50 98.3 84 16 165/81 98 01/28/17 06:52 96.9 85 16 150/90 99 Room Air Vital Signs Date Time Temp Pulse Resp B/P Pulse Ox O2 Delivery O2 Flow Rate FiO2 01/30/17 07:43 98.2 77 16 120/63 99 01/28/17 06:52 Room Air Intake and Output 01/29/17 01/29/17 01/30/17 15:00 23:00 07:00 Intake Total 500 ml 1260 ml 900 ml Balance 500 ml 1260 ml 900 ml Exam Constitutional: alert, oriented, well developed Psych: nl mood/affect, no complaints Respiratory: clear to auscultation, normal air movement Cardiovascular: nl pulses, regular rate and rhythm, No edema, No murmurs/extra sounds, No rub Gastrointestinal: bowel sounds, nl liver, spleen, non-tender, soft, No mass, No rebound or guarding Musculoskeletal: nl extremities to inspection Extremities: normal pulses, No clubbing, No cyanosis, No edema Neurological: PALLET RECTIFIER II-XII intact, nl mental status, nl speech, nl strength Results Result Diagram: 01/30/17 0508 01/30/17 0508 Results 24 hrs Laboratory Tests Test 01/30/17 05:08 White Blood Count 9.0 Red Blood Count 2.48 L Hemoglobin 8.1 L Hematocrit 24.1 L Mean Corpuscular Volume 97.2 Mean Corpuscular Hemoglobin 32.7 Mean Corpuscular Hemoglobin Concent 33.6 Red Cell Distribution Width 13.4 Platelet Count 140 Mean Platelet Volume 10.2 Neutrophils % 72.1 Lymphocytes % 20.8 Monocytes % 6.2 Eosinophils % 0.0 Basophils % 0.1 Nucleated Red Blood Cells % 0.0 Neutrophils # 6.5 Lymphocytes # 1.9 Monocytes # 0.6 Eosinophils # 0.0 Basophils # 0.0 Nucleated Red Blood Cells # 0.0 Sodium Level 146 H Potassium Level 3.8 Chloride Level 118 H Carbon Dioxide Level 19 L Anion Gap 13 Blood Urea Nitrogen 39 H Creatinine 1.91 H Glucose Level 152 Calcium Level 8.1 L Medications Medications Current Medications Sodium Chloride (NS) 1,000 ml @ 100 mls/hr Q10H IV Last administered on 05:47; Admin Dose 100 MLS/HR; Start 01/29/17 at 00:00 Hydralazine HCl (Apresoline) 10 mg Q6H PRN IV SBP>170; Start 01/28/17 at 12:30 Hydrocortisone (Solu-Cortef) 50 mg Q8 IV Last administered on 01/30/17 05:47 ; Admin Dose 50 MG; Start 01/28/17 at 22:00 Metoprolol Tartrate 25 mg 25 mg BID PO Last administered on 01/28/17 20:53; Admin Dose 25 MG; Start 01/28/17 at 21:00 Ceftriaxone Sodium (Rocephin) 50 ml @ 100 mls/hr Q24H IVPB Last administered on 01/29/17t 20:58; Admin Dose 100 MLS/HR; Start 01/28/17 at 20:00 KING RAO MD Jan 30, 2017 12:44
[2017-01-30] MEDS ORDERED: OXYMETAZOLINE 0.05% 15 ML NAS SPRAY NASAL ONE (14:06)
[2017-01-30] MEDS ORDERED: LIDOCAINE 1% (MPF) 30 ML INJ ONE (14:06)
[2017-01-30] MEDS ORDERED: THROMBIN 5000 UNIT VIAL ONE (14:06)
[2017-01-30] MEDS ORDERED: BACITRACIN/POLYMYXIN 28.35 GM OINT TOP ONE (14:07)
--- NOTE | 2017-01-30 14:24 | HPN ---
Date/Time of Note Date/Time of Note DATE: 01/30/17 TIME: 14:22 Interval H&P Admission Note Pt. seen H&P reviewed: No system changes Neurosurgery Brief Preop Note Pt Scheduled yesterday but per RN (Gely) accidently given food after 8am Pt completed MRI [facility] with fiducials and NPO since MN. ICU post op Extensive d/w patient and family previously about all available options including surgery vs no surgery Overall risk/complications thoroughly discussed. All questions answered and no guarantees given. STONEY RICHARDSON MD Jan 30, 2017 14:24
--- NOTE | 2017-01-30 14:33 | CONS ---
Date/Time of Note Date/Time of Note DATE: 01/30/17 TIME: 14:30 Assessment/Plan Assessment/Plan Additional Assessment/Plan 1. Acute vs CKD III, No previous Cr available to compare 2. Transsphenoidal pituitary adenoma, plan for resection today after the patient will undergo MRI with contrast 2. Pancreatic cancer. The patient follows with oncologist as an outpatient. 3. Hypertension. 4. Hyperlipidemia. Plan: apparently there is no previous Baseline Cr available, pt doesn't know any details of chronic kidney disease. His Renal US c/w medical renal disease so he has CKD this one likely is CKD Stage III, pt estimated Creatinine clearance is around 41 -42- s/p MRI contrast Cr stable, Na 146, Hco3 19- continue current care plan for surgery today, we will continue to follow up and monitor his Cr Consultation Date/Type/Reason Admit Date/Time Jan 28, 2017 at 06:15 Initial Consult Date 01/28/17 Type of Consultation: NEPHROLOGY Referring Provider: MARIAN CANNON MD 24 HR Interval Summary Free Text/Dictation s/p MRI with contrast Cr 1.9- BP stable, Na 146, HCo3 18 Exam/Review of Systems Vital Signs Vitals Vital Signs Date Time Temp Pulse Resp B/P Pulse Ox O2 Delivery O2 Flow Rate FiO2 01/30/17 13:15 97.9 66 142/67 98 01/30/17 07:43 16 01/28/17 06:52 Room Air Intake and Output 01/29/17 01/29/17 01/30/17 15:00 23:00 07:00 Intake Total 500 ml 1260 ml 900 ml Balance 500 ml 1260 ml 900 ml Exam Constitutional: alert Respiratory: clear to auscultation, diminished breath sounds, normal air movement Cardiovascular: regular rate and rhythm Gastrointestinal: nl liver, spleen, non-tender, soft Musculoskeletal: joint tenderness, nl extremities to inspection, nl gait and stance Neurological: STOCK CRANE OPERATOR II-XII intact, nl mental status, nl speech, nl strength Results Result Diagram: 01/30/17 0508 01/30/17 0508 Results 24 hrs Laboratory Tests Test 01/30/17 05:08 White Blood Count 9.0 Red Blood Count 2.48 L Hemoglobin 8.1 L Hematocrit 24.1 L Mean Corpuscular Volume 97.2 Mean Corpuscular Hemoglobin 32.7 Mean Corpuscular Hemoglobin Concent 33.6 Red Cell Distribution Width 13.4 Platelet Count 140 Mean Platelet Volume 10.2 Neutrophils % 72.1 Lymphocytes % 20.8 Monocytes % 6.2 Eosinophils % 0.0 Basophils % 0.1 Nucleated Red Blood Cells % 0.0 Neutrophils # 6.5 Lymphocytes # 1.9 Monocytes # 0.6 Eosinophils # 0.0 Basophils # 0.0 Nucleated Red Blood Cells # 0.0 Sodium Level 146 H Potassium Level 3.8 Chloride Level 118 H Carbon Dioxide Level 19 L Anion Gap 13 Blood Urea Nitrogen 39 H Creatinine 1.91 H Glucose Level 152 Calcium Level 8.1 L Medications Medications Current Medications Sodium Chloride (NS) 1,000 ml @ 100 mls/hr Q10H IV Last administered on 05:47; Admin Dose 100 MLS/HR; Start 01/29/17 at 00:00 Hydralazine HCl (Apresoline) 10 mg Q6H PRN IV SBP>170; Start 01/28/17 at 12:30 Hydrocortisone (Solu-Cortef) 50 mg Q8 IV Last administered on 01/30/17 13:38 ; Admin Dose 50 MG; Start 01/28/17 at 22:00 Metoprolol Tartrate 25 mg 25 mg BID PO Last administered on 01/28/17 20:53; Admin Dose 25 MG; Start 01/28/17 at 21:00 Ceftriaxone Sodium (Rocephin) 50 ml @ 100 mls/hr Q24H IVPB Last administered on 01/29/17 20:58; Admin Dose 100 MLS/HR; Start 01/28/17 at 20:00 ISRAEL OJEDA MD Jan 30, 2017 14:33
[2017-01-30] MEDS ORDERED: MIDAZOLAM 1 MG/ML 2 ML INJ ONE (15:18)
[2017-01-30] MEDS ORDERED: PHENYLephrine (100 MCG/ML) 5ML SYG ONE ×2 (15:22→16:36)
[2017-01-30] MEDS ORDERED: HYDROCORTISONE 100 MG INJ ONE (15:43)
[2017-01-30] MEDS ORDERED: LIDOCAINE 1%/EPI 30 ML INJ ONE (15:44)
[2017-01-30] MEDS ORDERED: POVIDONE IODINE 10% 28.4 GM OINT ONE (15:44)
[2017-01-30] MEDS ORDERED: hydrALAzine 20 MG INJ ONE ×2 (16:10→17:34)
[2017-01-30] MEDS ORDERED: GELATIN SIZE 100 SPONGE ONE (17:07)
[2017-01-30] MEDS ORDERED: BACITRACIN 50000 UNITS INJ ONE (17:11)
[2017-01-30] MEDS ORDERED: SODIUM CL BACTERIOSTATIC 30 ML INJ ONE (17:13)
[2017-01-30] MEDS ORDERED: ONDANSETRON 4 MG INJ ONE (17:27)
--- NOTE | 2017-01-30 17:38 | OPPN ---
Date/Time of Note Date/Time of Note DATE: 01/30/17 TIME: 17:36 Operative Report Preoperative Diagnosis Pituitary Adenoma - recurrent Postoperative Diagnosis same Operation/Procedure Performed Transsphenoidal Pituitary Adenoma Resection Surgeon see signature line assistant store manager sales MCKAYLA Bernal, ACNP-BC, Anesthesia: general Estimated blood loss: 0 - 10 ml's Transfusion Required none Specimen Pituitary Adenoma Grafts/Implants none Complications none STONEY RICHARDSON MD Jan 30, 2017 17:38
[2017-01-30] MEDS ORDERED: LIDOCAINE 2% (SDV) 5 ML INJ ONE (17:49)
[2017-01-30] MEDS ORDERED: ETOMIDATE 20 MG INJ ONE (17:49)
[2017-01-30] MEDS ORDERED: GLYCOPYRROLATE 0.4 MG INJ ONE (17:49)
[2017-01-30] MEDS ORDERED: ROCURONIUM 50 MG INJ ONE (17:49)
[2017-01-30] MEDS ORDERED: NEOSTIGMINE 3 MG/3 ML SYRINGE ONE (17:49)
[2017-01-30] MEDS ORDERED: ONDANSETRON 4 MG INJ IV PRN (19:00)
[2017-01-30] MEDS ORDERED: LORAZEPAM 2 MG INJ IV PRN (19:00)
[2017-01-30] MEDS ORDERED: morphine (1 MG/ML) 10ML SYRINGE IV PRN ×2 (19:00)
[2017-01-30] MEDS ORDERED: hydrALAzine 20 MG INJ IV PRN (19:00)
[2017-01-30] MEDS ORDERED: MIDAZOLAM 1 MG/ML 2 ML INJ IV PRN (19:00)
[2017-01-30] MEDS ORDERED: LABETALOL HCL 20MG INJ IV PRN (19:00)
[2017-01-30] MEDS: NS + KCL 20 MEQ 1,000 ML IV SCH (19:52)
[2017-01-30] MEDS: CEFTRIAXONE 1 GM/50 ML (PMX) 50 ML IVPB SCH (19:56)
[2017-01-30] MEDS: hydrALAzine 20 MG INJ IV PRN (19:57)
[2017-01-30 21:10] LABS: AADO2 Arterial 187.7 mmHg (7.0-24.0); Allen Test ACCEPTAB; Arterial Base Excess -12.4 mmol/L (-3.0-3); Arterial COHb 0.3 % (0.0-3.0); Arterial Fraction of Oxyhgb 95.6 % (93.0-99.0); Arterial HCO3 12.8 mmol/L (22.0-26.0); Arterial MetHb 0.3 % (0.0-1.5); Arterial Total Hemglobin 10.1 g/dl (12.0-18.0); Blood Gas PS 10; MODE MASK - CPAP
--- NOTE | 2017-01-30 22:00 | RADRPT ---
PROCEDURE: XR Chest. CLINICAL INDICATION: ETT placement TECHNIQUE: Single frontal view of the chest was obtained. COMPARISON: None available FINDINGS: The cardiomediastinal silhouette is normal size. Pulmonary vasculature is within normal limits. Th e lungs are clear. There is an endotracheal tube placed 4.5 cm from the omid. There is moderate to prominent aortic calcification. No signs of pleural fluid or pneumothorax are seen. There is an old right posterior upper rib deform ity. IMPRESSION: 1. Endotracheal tube in place, 4.5 cm from the omid. 2. Moderate to prominent aortic calcification. 3. No visualized consolidation or edema. RPTAT: HBST .Wilder Salcedo MD, Date Time Electronically viewed and signed by .Wilder Salcedo MD, on 01/30/2017 21:59 .T/
--- NOTE | 2017-01-30 22:17 | RADRPT ---
PROCEDURE: CT Head without. CLINICAL INDICATION: Postop evaluation. TECHNIQUE: The study was performed utilizing a multi-slice, multidetector CT scanner. Direct spira l 1 mm axial sections were obtained through the head without the use of intravenous contrast materia l. 1 or more of the following dose reduction techniques were utilized: Automated exposure control, adjustment of the mA and/or kV according to patient's size, iterative reconstruction technique. Co aide and sagittal reformations were obtained. The images were reviewed on a PACS workstation. DICOM images are available. RADIATION DOSE: CTDIvol: 43.6 mGyDLP: 720.2 mGy-cm COMPARISON: MRI brain 01/29/2017 FINDINGS: There are postoperative changes from transphenoidal resection of pituitary mass. There are pledgets in the bilateral nasal cavities. There is fluid/postoperative changes involving the sella turcica, w ith subtle hyperdense postoperative changes in the sella turcica. There is mild swelling of the infu ndibulum (coronal series image 47), measuring 6 mm diameter. There is no intracranial hemorrhage, ex tra-axial fluid collection, mass lesion, midline shift or hydrocephalus. There is mild prominence o f the cerebral sulci, lateral and third ventricles. There is mild periventricular and subcortical w surjit matter hypodensity. There is mild arteriosclerotic calcification of the parasellar internal ca rotid arteries. The chavez-white matter differentiation is preserved. The basal cisterns are patent. The midline structures are intact. There is bilateral aphakia. The orbits, calvarium and extracr anial soft tissues are normal in appearance. The visualized paranasal sinuses, mastoid air cells and middle ear cavities are normally aerated. IMPRESSION: 1. Postoperative changes from transphenoidal resection of pituitary mass, with postoperative change s in the sella bilateral sphenoid sinuses. 2. No acute intracranial abnormality. No intracranial hemorrhage, extra-axial fluid collection, ma ss lesion or hydrocephalous. 3. Mild peripheral and central cerebral volume loss. 4. Mild periventricular and subcortical white matter hypodensity, likely related to chronic microan giopathic changes. RPTAT: HGAS .Mati John MD, Date Time Electronically viewed and signed by .Mati John MD, on 01/30/2017 22:16 .S/
--- NOTE | 2017-01-30 22:59 | RADRPT ---
PROCEDURE: XR Chest. CLINICAL INDICATION: Shortness of breath. TECHNIQUE: AP Portable chest. COMPARISON: No pertinent prior examinations were submitted for comparison. FINDINGS: There is mild cardiomegaly. The lungs are clear. The osseous structures are unremarkable. An endotracheal tube tip is in the mid trachea. IMPRESSION: No acute findings. RPTAT: HIKT .Art Miller MD, MD Date Time Electronically viewed and signed by .Art Miller MD, MD on 01/30/2017 22:59 .T/
[2017-01-30] MEDS ORDERED: morphine 2 MG INJ IV PRN (23:30)
[2017-01-31] VITALS (41 sets, daily range): BP systolic 110–135; BP diastolic 66–73; PULSE 63–102; RESP 7–21
[2017-01-31] MEDS: SOD CHLORIDE 0.9% 1,000 ML IV SCH (02:00)
[2017-01-31 03:37] LABS: AADO2 Arterial 252.7 mmHg (7.0-24.0); Allen Test ACCEPTAB; Arterial Base Excess -15.3 mmol/L (-3.0-3); Arterial COHb 0.3 % (0.0-3.0); Arterial Fraction of Oxyhgb 98.2 % (93.0-99.0); Arterial HCO3 10.4 mmol/L (22.0-26.0); Arterial MetHb 0.3 % (0.0-1.5); Arterial Total Hemglobin 9.9 g/dl (12.0-18.0); MODE VENT - AC
[2017-01-31] MEDS: NS + KCL 20 MEQ 1,000 ML IV SCH ×2 (04:00→07:24)
[2017-01-31] MEDS: HYDROCORTISONE 100 MG INJ IV SCH ×3 (05:57→18:15)
[2017-01-31 06:42] LABS: ABNORMAL IP MESSAGE 1; BASOPHILS % 0.1 % (0.0-2.0); HEMATOCRIT 27.1 % (42.0-52.0); HEMOGLOBIN 8.8 g/dl (14.0-18.0); LYMPHOCYTES # 1.1 10^3/ul (0.8-2.9); LYMPHOCYTES % 6.1 % (15.0-51.0); MEAN CORPUSCULAR HEMOGLOBIN 32.5 pg (29.0-33.0); MEAN CORPUSCULAR HGB CONC 32.5 g/dl (32.0-37.0); MONOCYTE # 1.6 10^3/ul (0.3-0.9); MONOCYTES % 9.2 % (0.0-11.0); NEUTROPHIL # 14.5 10^3/ul (1.6-7.5); NEUTROPHILS % 83.2 % (39.0-77.0); NUCLEATED RED BLOOD CELLS% 0.1 /100WBC (0.0-0.0); PLATELET COUNT 134 10^3/UL (140-415); POSITIVE DIFF @See below; RED BLOOD COUNT 2.71 10^6/ul (4.70-6.10); RED CELL DISTRIBUTION WIDTH 14.6 % (11.5-14.5); WHITE BLOOD COUNT 17.4 10^3/ul (4.8-10.8)
[2017-01-31 07:13] LABS: CALCIUM 7.7 mg/dl (8.4-10.2); CREATININE 1.91 mg/dl (0.61-1.24); POTASSIUM 4.2 mmol/L (3.5-5.1)
[2017-01-31] MEDS: CREON (12k-38k-60k) 1 CAP PO SCH ×3 (07:35→16:23)
[2017-01-31] MEDS: METOPROLOL 25 MG TAB PO SCH ×2 (09:00→21:00)
--- NOTE | 2017-01-31 09:41 | PN ---
Date/Time of Note Date/Time of Note DATE: 01/31/17 TIME: 09:37 Assessment/Plan VTE Prophylaxis VTE Prophylaxis Intervention: SCD's Lines/Catheters IV Catheter Type (from Nrs): Peripheral IV Central line still needed: Yes Urinary Cath still in place: Yes Reason Cath still needed: urinary retention Assessment/Plan Assessment/Plan Impression s/p Transsphenoidal tumor resection . POD #1 Reintubated last night Plan Subjective 24 Hr Interval Summary Free Text/Dictation Neurosurgery S: S/P Transsphenoidal Pituitary Adenoma Resection (Recurrent) . POD #1 Required reintubation last night d/w RN Exam/Review of Systems Vital Signs Vitals Vital Signs Date Time Temp Pulse Resp B/P Pulse Ox O2 Delivery O2 Flow Rate FiO2 01/31/17 09:00 73 10 122/70 100 Mechanical Ventilator 01/31/17 07:45 97.8 01/31/17 05:12 40 01/30/17 22:00 10.0 Intake and Output 01/30/17 01/30/17 01/31/17 14:59 22:59 06:59 Intake Total 800 ml 1050 ml 800 ml Output Total 750 ml 1150 ml 390 ml Balance 50 ml -100 ml 410 ml Exam Neurological: other (Gen: intubated MS: opening eyes spont. regards examiner CN; EFRAIN M: FC x 4, no focal def. noted. ) Results [place] [address] Radiology Main Line: [phone] DIAGNOSTIC IMAGING REPORT Patient: JEFFERY PUCKETT : 1935 Age: 81 Sex: M MR #: [id number] DOS: 01/30/17 0000 Ordering MD: STONEY RICHARDSON MD Location: ICU Room/Bed: [facility] ([place]) PROCEDURE: CT Head without. CLINICAL INDICATION: Postop evaluation. TECHNIQUE: The study was performed utilizing a multi-slice, multidetector CT scanner. Direct spiral 1 mm axial sections were obtained through the head without the use of intravenous contrast material. 1 or more of the following dose reduction techniques were utilized: Automated exposure control, adjustment of the mA and/or kV according to patient's size, iterative reconstruction technique. Coronal and sagittal reformations were obtained. The images were reviewed on a PACS workstation. DICOM images are available. RADIATION DOSE: CTDIvol: 43.6 mGy DLP: 720.2 mGy-cm COMPARISON: MRI brain 01/29/2017 FINDINGS: There are postoperative changes from transphenoidal resection of pituitary mass. There are pledgets in the bilateral nasal cavities. There is fluid/ postoperative changes involving the sella turcica, with subtle hyperdense postoperative changes in the sella turcica. There is mild swelling of the infundibulum (coronal series image 47), measuring 6 mm diameter. There is no intracranial hemorrhage, extra-axial fluid collection, mass lesion, midline shift or hydrocephalus. There is mild prominence of the cerebral sulci, lateral and third ventricles. There is mild periventricular and subcortical white matter hypodensity. There is mild arteriosclerotic calcification of the parasellar internal carotid arteries. The chavez-white matter differentiation is preserved. The basal cisterns are patent. The midline structures are intact. There is bilateral aphakia. The orbits, calvarium and extracranial soft tissues are normal in appearance. The visualized paranasal sinuses, mastoid air cells and middle ear cavities are normally aerated. IMPRESSION: 1. Postoperative changes from transphenoidal resection of pituitary mass, with postoperative changes in the sella bilateral sphenoid sinuses. 2. No acute intracranial abnormality. No intracranial hemorrhage, extra-axial fluid collection, mass lesion or hydrocephalous. 3. Mild peripheral and central cerebral volume loss. 4. Mild periventricular and subcortical white matter hypodensity, likely related to chronic microangiopathic changes. Result Diagram: 01/31/17 0548 01/31/17 0548 Results 24 hrs Laboratory Tests Test 01/30/17 21:00 01/30/17 23:15 01/31/17 05:48 Blood Gas Specimen Source Blood arterial Blood arterial Arterial Blood Date Drawn 01/30/2017 9:00:57 PM 01/30/2017 11:58:23 PM Arterial Blood pH (Temp corrected) 7.289 *L 7.246 *L Arterial Blood pCO2 (Temp correct) 27.3 L 24.6 L Arterial Blood pO2 (Temp corrected) 102.1 H 435.7 H Arterial Blood HCO3 12.8 L 10.4 L Arterial Blood Base Excess -12.4 L -15.3 L Arterial Blood Oxygen Saturation 96.2 98.8 Yuri Test ACCEPTAB ACCEPTAB Arterial Blood Gas Puncture Site Right Radial Right Radial Arterial Blood Carboxyhemoglobin 0.3 0.3 Arterial Blood Methemoglobin 0.3 0.3 Blood Gas A-a O2 Differential 187.7 H 252.7 H Oxyhemoglobin Percent 95.6 98.2 Total Hemoglobin 10.1 L 9.9 L Blood Gas Temperature 37.0 37.0 Blood Gas Actual Respiration Rate 19 20 Blood Gas Modality MASK - CPAP VENT - AC FiO2 45.0 100.0 Blood Gas Low PEEP Setting 5.0 Blood Gas Pressure Support 10 Blood Gas Critical Value Read Back SGRAY KWABENA CHAVEZ,KWABENA Blood Gas Notified Whom MA MG Blood Gas Notified Time 01/30/2017 9:10:43 PM 01/31/2017 12:09:53 AM Blood Gas Respiration Rate 14.0 Blood Gas Tidal Volume 500.0 Blood Gas Inspiratory Pressure 15.0 White Blood Count 17.4 #H Red Blood Count 2.71 L Hemoglobin 8.8 L Hematocrit 27.1 L Mean Corpuscular Volume 100.0 Mean Corpuscular Hemoglobin 32.5 Mean Corpuscular Hemoglobin Concent 32.5 Red Cell Distribution Width 14.6 H Platelet Count 134 L Mean Platelet Volume 10.0 Neutrophils % 83.2 H Lymphocytes % 6.1 L Monocytes % 9.2 Eosinophils % 0.0 Basophils % 0.1 Nucleated Red Blood Cells % 0.1 H Neutrophils # 14.5 H Lymphocytes # 1.1 Monocytes # 1.6 H Eosinophils # 0.0 Basophils # 0.0 Nucleated Red Blood Cells # 0.0 Sodium Level 149 H Potassium Level 4.2 Chloride Level 119 H Carbon Dioxide Level 13 L Anion Gap 21 #H Blood Urea Nitrogen 34 H Creatinine 1.91 H Glucose Level 172 Calcium Level 7.7 L Medications Medications Current Medications Sodium Chloride (NS) 1,000 ml @ 100 mls/hr Q10H IV Last administered on 05:47; Admin Dose 100 MLS/HR; Start 01/29/17 at 00:00 Hydralazine HCl (Apresoline) 10 mg Q6H PRN IV SBP>170 Last administered on 19:57; Admin Dose 10 MG; Start 01/28/17 at 12:30 Metoprolol Tartrate 25 mg 25 mg BID PO Last administered on 01/28/17 20:53; Admin Dose 25 MG; Start 01/28/17 at 21:00 Ceftriaxone Sodium 50 ml @ 100 mls/hr Q24H IVPB Last administered on 19:56; Admin Dose 100 MLS/HR; Start 01/28/17 at 20:00 Potassium Chloride/Sodium Chloride (NS-KCl 20 Meq) 1,000 ml @ 100 mls/hr Q10H IV Last administered on 01/31/17 07:24; Admin Dose 100 MLS/HR; Start at 18:00 Hydrocortisone (Solu-Cortef) 50 mg Q6H IV Last administered on 01/31/17 05:57 ; Admin Dose 50 MG; Start 01/30/17 at 18:00 Morphine Sulfate (morphine) 2 mg Q2H PRN IV PAIN Last administered on 23:34; Admin Dose 2 MG; Start 01/30/17 at 23:30 Famotidine (Pepcid Iv) 10 mg DAILY IV ; Start 01/31/17 at 09:30 STONEY RICHARDSON MD Jan 31, 2017 09:41
--- NOTE | 2017-01-31 11:47 | CONS ---
DATE OF ADMISSION: 01/28/2017 DATE OF CONSULTATION: 01/31/2017 REASON FOR CONSULTATION: Respiratory failure. Thank you, Dr. Schulte, for this consultation. HISTORY OF PRESENT ILLNESS: This is a 81-year-old gentleman with history of hypertension, hyperlipi demia, pancreatic cancer, pituitary adenoma, underwent transsphenoidal adenoma resection yesterday. Post-extubation in recovery, had respiratory distress requiring emergent reintubation, transferred to intensive care unit where he was maintained on mechanical ventilation. This morning, he is awake , alert and oriented. CPAP trial was attempted; however, patient became immediately apneic, requiri ng resumption of assist controlled mechanical ventilation. PAST MEDICAL HISTORY: Pituitary adenoma, history of cholecystectomy, history of cataract surgery. MEDICATIONS: Per chart. ALLERGIES: NONE. SOCIAL HISTORY: Nonsmoker, no alcohol, no history of drug use. FAMILY HISTORY: Noncontributory. SYSTEMS REVIEW: A 12-point review of systems was negative other than that mentioned above. PHYSICAL EXAMINATION: GENERAL: Well-nourished, well-developed gentleman, comfortable at rest, no acute distress. VITAL SIGNS: Currently afebrile, pulse is 73, blood pressure 122/70, O2 sat 96% on FIO2 of 40%. NECK: Supple. No JVD or lymphadenopathy. CARDIAC: S1, S2, no added sounds or murmurs. CHEST: Diminished air entry bilaterally. ABDOMEN: Soft, nontender. No guarding or rebound. EXTREMITIES: No cyanosis, clubbing, 1+ edema. NEUROLOGIC: Unable to assess. LABORATORY DATA: White count 17.4, hemoglobin 8.8, platelets 134. BUN 34, creatinine 1.91. ABG: pH 7.24, pCO2 of 24, pO2 of 435, bicarb was 10. IMAGING: Chest x-ray was clear, no infiltrates or effusions. IMPRESSION AND PLAN: 1. Status post transsphenoidal pituitary tumor resection. 2. Significant metabolic acidosis, unclear etiology. 3. Chronic renal insufficiency. 4. Hypoxemic respiratory failure. 5. Apneic episodes, possibly secondary to cerebral edema, although patient remains neurologically i ntact. PLAN: 1. Continue mechanical ventilation. 2. Repeat arterial blood gas. 3. Trial of SIMV. 4. Neurosurgical recommendations. 5. DVT and GI prophylaxis. Dictated By: STEF WOOD/MARLON Conf#: [id number] DID#: [id number] CC: STONEY RICHARDSON MD;*[facility]*
--- NOTE | 2017-01-31 12:26 | CONS ---
Date/Time of Note Date/Time of Note DATE: 01/31/17 TIME: 12:18 Assessment/Plan Assessment/Plan Additional Assessment/Plan 1. Acute vs CKD III, No previous Cr available to compare 2. Transsphenoidal pituitary adenoma, s/p Transsphenoidal resection of pituiatry adenoma on 01/30/17 2. Pancreatic cancer. The patient follows with oncologist as an outpatient. 3. Hypertension. 4. Hyperlipidemia. 5. Hypernatremia 6. Metabolic acidosis 7. Post Failed extubation- pt had a code blue and required reintubation- currently on ventilator Plan: apparently there is no previous Baseline Cr available, pt doesn't know any details of chronic kidney disease. His Renal US c/w medical renal disease so he has CKD this one likely is CKD Stage III, pt estimated Creatinine clearance is around 41 -42- Cr 1.91, Na trending up ,Hco3 low Afebrile will d/c NS with KCL start D5W with 10meQ KCL at 80 cc/hr will continue follow up Consultation Date/Type/Reason Admit Date/Time Jan 28, 2017 at 06:15 Initial Consult Date 01/28/17 Type of Consultation: NEPHROLOGY Referring Provider: MARIAN CANNON MD 24 HR Interval Summary Free Text/Dictation s/p Pituitary adenoma resectio, Na trending up, HCo3 low pt is on IVF NS - pt had a code blue yesterday for apnea after extuation postop- he is intubated on ventilator again Exam/Review of Systems Vital Signs Vitals Vital Signs Date Time Temp Pulse Resp B/P Pulse Ox O2 Delivery O2 Flow Rate FiO2 01/31/17 11:34 70 16 100 40 01/31/17 09:00 122/70 Mechanical Ventilator 01/31/17 07:45 97.8 01/30/17 22:00 10.0 Intake and Output 01/30/17 01/30/17 01/31/17 15:00 23:00 07:00 Intake Total 800 ml 1150 ml 700 ml Output Total 750 ml 1200 ml 340 ml Balance 50 ml -50 ml 360 ml Exam Constitutional: alert HEENT: ET tube in place , No JVD Respiratory: Bilateral Coarse BS+ Cardiovascular: regular rate and rhythm Gastrointestinal: nl liver, spleen, non-tender, soft Musculoskeletal: joint tenderness, nl extremities to inspection, nl gait and stance Neurological: awake,alert, Results Result Diagram: 01/31/17 0548 01/31/17 0548 Results 24 hrs Laboratory Tests Test 01/30/17 21:00 01/30/17 23:15 01/31/17 05:48 Blood Gas Specimen Source Blood arterial Blood arterial Arterial Blood Date Drawn 01/30/2017 9:00:57 PM 01/30/2017 11:58:23 PM Arterial Blood pH (Temp corrected) 7.289 *L 7.246 *L Arterial Blood pCO2 (Temp correct) 27.3 L 24.6 L Arterial Blood pO2 (Temp corrected) 102.1 H 435.7 H Arterial Blood HCO3 12.8 L 10.4 L Arterial Blood Base Excess -12.4 L -15.3 L Arterial Blood Oxygen Saturation 96.2 98.8 Yuri Test ACCEPTAB ACCEPTAB Arterial Blood Gas Puncture Site Right Radial Right Radial Arterial Blood Carboxyhemoglobin 0.3 0.3 Arterial Blood Methemoglobin 0.3 0.3 Blood Gas A-a O2 Differential 187.7 H 252.7 H Oxyhemoglobin Percent 95.6 98.2 Total Hemoglobin 10.1 L 9.9 L Blood Gas Temperature 37.0 37.0 Blood Gas Actual Respiration Rate 19 20 Blood Gas Modality MASK - CPAP VENT - AC FiO2 45.0 100.0 Blood Gas Low PEEP Setting 5.0 Blood Gas Pressure Support 10 Blood Gas Critical Value Read Back SGRAY KWABENA EPSTEIN RN Blood Gas Notified Whom [place] MG Blood Gas Notified Time 01/30/2017 9:10:43 PM 01/31/2017 12:09:53 AM Blood Gas Respiration Rate 14.0 Blood Gas Tidal Volume 500.0 Blood Gas Inspiratory Pressure 15.0 White Blood Count 17.4 #H Red Blood Count 2.71 L Hemoglobin 8.8 L Hematocrit 27.1 L Mean Corpuscular Volume 100.0 Mean Corpuscular Hemoglobin 32.5 Mean Corpuscular Hemoglobin Concent 32.5 Red Cell Distribution Width 14.6 H Platelet Count 134 L Mean Platelet Volume 10.0 Neutrophils % 83.2 H Lymphocytes % 6.1 L Monocytes % 9.2 Eosinophils % 0.0 Basophils % 0.1 Nucleated Red Blood Cells % 0.1 H Neutrophils # 14.5 H Lymphocytes # 1.1 Monocytes # 1.6 H Eosinophils # 0.0 Basophils # 0.0 Nucleated Red Blood Cells # 0.0 Sodium Level 149 H Potassium Level 4.2 Chloride Level 119 H Carbon Dioxide Level 13 L Anion Gap 21 #H Blood Urea Nitrogen 34 H Creatinine 1.91 H Glucose Level 172 Calcium Level 7.7 L Medications Medications Current Medications Hydralazine HCl (Apresoline) 10 mg Q6H PRN IV SBP>170 Last administered on 19:57; Admin Dose 10 MG; Start 01/28/17 at 12:30 Metoprolol Tartrate 25 mg 25 mg BID PO Last administered on 01/28/17 20:53; Admin Dose 25 MG; Start 01/28/17 at 21:00 Ceftriaxone Sodium 50 ml @ 100 mls/hr Q24H IVPB Last administered on 19:56; Admin Dose 100 MLS/HR; Start 01/28/17 at 20:00 Potassium Chloride/Sodium Chloride (NS-KCl 20 Meq) 1,000 ml @ 100 mls/hr Q10H IV Last administered on 01/31/17 07:24; Admin Dose 100 MLS/HR; Start at 18:00 Hydrocortisone (Solu-Cortef) 50 mg Q6H IV Last administered on 01/31/17 05:57 ; Admin Dose 50 MG; Start 01/30/17 at 18:00 Morphine Sulfate (morphine) 2 mg Q2H PRN IV PAIN Last administered on 23:34; Admin Dose 2 MG; Start 01/30/17 at 23:30 Famotidine (Pepcid Iv) 10 mg DAILY IV ; Start 01/31/17 at 09:30 ISRAEL OJEDA MD Jan 31, 2017 12:26
[2017-01-31 12:40] LABS: AADO2 Arterial 81.5 mmHg (7.0-24.0); Allen Test ACCEPTAB; Arterial Base Excess -7.6 mmol/L (-3.0-3); Arterial COHb 0 % (0.0-3.0); Arterial Fraction of Oxyhgb 97.9 % (93.0-99.0); Arterial HCO3 15.7 mmol/L (22.0-26.0); Arterial MetHb 0.3 % (0.0-1.5); Arterial Total Hemglobin 8.9 g/dl (12.0-18.0); MODE VENT - AC
--- NOTE | 2017-01-31 13:24 | EN ---
Date/Time of Note Date/Time of Note DATE: 01/30/17 TIME: 10:00PM ER Progress Note S: A CODE BLUE was called and I went to the patient's bedside. I assumed care at that time. Briefly, this is a 81-year-old male with a past medical history of hypertension, hyperlipidemia, pancreatic cancer, chronic kidney disease and a pituitary adenoma requiring repeat transsphenoidal resection during this admission who is presenting in cardiac arrest. When I arrived. The patient had been given 1 round of epinephrine, and compressions were being completed. Reportedly, the patient was extubated this morning and had been doing very well. However, he had an event of apnea with bradycardia and the patient went into a PEA arrest at that time reportedly. He was found to be pulseless and chest compressions were initiated. EMR: Reviewed O: Vital signs reviewed Const: Unresponsive, in Cardiac Arrest Head: Normocephalic, Atraumatic Eyes: Normal Conjunctiva. ENT: Normal External Ears. Dry mucous membranes. Scant bleeding around the nares at surgical site. Resp: Symmetric chest wall colmenares with BVM ventilations Cardio: Heartbeat was not initially auscultated Abd: Non distended Skin: No petechiae or rashes Ext: No cyanosis, or edema Neur: Initially unresponsive, but started to move his arms spontaneously. Psych: Normal mood and affect A: PEA Cardiac Arrest, AHRF, status post transsphenoidal pituitary adenoma resection MDM The patient's presentation warrants further investigation. The patient presented and PEA cardiac arrest. 1 mg of epinephrine had already been given immediately prior to my arrival. I requested that I be notified after 2 minutes for a pulse check. The patient was being bag valve masked. His oxygen levels were initially in the 80s. While setting up for intubation, the patient started to move his extremities. CPR was stopped and a pulse check was completed at that time. He did have pulses. He was still unresponsive, and there was concern of him protecting his airway. The decision was made at this time to intubate. I initially attempted intubation without RSI medications as the patient was unresponsive. However, the patient was breathing on his own with vocal cord movement. I do not want to damage his vocal cords. The decision was made at that time to utilize the RSI protocol. Endotracheal Intubation by me: Pre assessment performed. Pre-oxygenation performed with 100% oxygen RSI: Performed w/o complication or hypoxic events. Medications as ordered. Blade: Glidoscope ET Tube: 7.5 Depth: 23 cm at the lip Intubation confirmed by colorimetric CO2, equal breath sounds, quiet over the stomach. LABS: Reviewed TREATMENT/DISPOSITION During resuscitative efforts, Dr. Fang, the on-call hospitalist in the evening did also come to bedside. After intubation, the patient was with stable vital signs and oxygenating very well. Dr. Fang assumed care at this time. CRITICAL CARE NOTE Time: 30 minutes excluding all billable procedures. Treatments/Evaluations: Evaluation of the patient's medical record including previous records & current laboratory/imaging studies, close monitoring, potential interventions if hemodynamically unstable or cardiopulmonary decline or neurologic decline, maintaining tight fluid balance, any discussions with the family regarding the patient's status and prognosis. Disclaimer: Inadvertent spelling and grammatical errors are likely due to EHR/ dictation software use and do not reflect on the overall quality of patient care. Note that the electronic time recorded on this note does not necessarily reflect the actual time of the patient encounter. LAYO TORO MD Jan 31, 2017 13:23
--- NOTE | 2017-01-31 13:35 | PN ---
Date/Time of Note Date/Time of Note DATE: 01/31/17 TIME: 13:29 Assessment/Plan VTE Prophylaxis VTE Prophylaxis Intervention: SCD's Lines/Catheters IV C[facility]ter Type (from [facility]): Peripheral IV Urinary Cath still in place: Yes Reason Cath still needed: urinary retention Assessment/Plan Chief Complaint/Hosp Course Patient was extubated last night however had CODE BLUE overnight and required reintubation. Patient is currently on ventilatory support awake alert denies pain. Assessment/Plan - Transsphenoidal pituitary adenoma, s/p transsphenoidal tumor resection on by Dr. Rodriguez. Dr. Choe is following in endocrinology consultation. - Postoperative respiratory failure requiring reintubation, s/p code blue - Metabolic acidosis - Pancreatic cancer. The patient follows with oncologist as an outpatient. Patient is aware that he will not be able to receive any treatment for 10 days after surgery. - Hypertension. We will continue hydralazine p.r.n. - Hyperlipidemia. Continue simvastatin. - Chronic kidney disease stage III. Continue to monitor BUN and creatinine. Dr. Yan is following in nephrology consultation. Further recommendations based on clinical course. Plan of care discussed with Dr. Schulte. Problems: Exam/Review of Systems Vital Signs Vitals Vital Signs Date Time Temp Pulse Resp B/P Pulse Ox O2 Delivery O2 Flow Rate FiO2 01/31/17 11:34 70 16 100 40 01/31/17 09:00 122/70 Mechanical Ventilator 01/31/17 07:45 97.8 01/30/17 22:00 10.0 Intake and Output 01/30/17 01/30/17 01/31/17 15:00 23:00 07:00 Intake Total 800 ml 1150 ml 700 ml Output Total 750 ml 1200 ml 340 ml Balance 50 ml -50 ml 360 ml Exam Constitutional: alert ENMT: other (ETT to vent ) Respiratory: clear to auscultation Cardiovascular: nl pulses, regular rate and rhythm Gastrointestinal: non-tender, soft Extremities: normal pulses Neurological: nl mental status Skin: nl turgor Results Result Diagram: 01/31/17 0548 01/31/1748 Results 24 hrs Laboratory Tests Test 01/30/17 21:00 01/30/17 23:15 01/31/17 05:48 01/31/17 11:30 Blood Gas Specimen Source Blood arterial Blood arterial Blood arterial Arterial Blood Date Drawn 01/30/2017 9:00:57 PM 01/30/2017 11:58:23 PM 01/31/2017 12:25:01 PM Arterial Blood pH (Temp corrected) 7.289 *L 7.246 *L 7.422 Arterial Blood pCO2 (Temp correct) 27.3 L 24.6 L 24.6 L Arterial Blood pO2 (Temp corrected) 102.1 H 435.7 H 175.4 H Arterial Blood HCO3 12.8 L 10.4 L 15.7 L Arterial Blood Base Excess -12.4 L -15.3 L -7.6 L Arterial Blood Oxygen Saturation 96.2 98.8 98.2 Yuri Test ACCEPTAB ACCEPTAB ACCEPTAB Arterial Blood Gas Puncture Site Right Radial Right Radial Right Radial Arterial Blood Carboxyhemoglobin 0.3 0.3 0 Arterial Blood Methemoglobin 0.3 0.3 0.3 Blood Gas A-a O2 Differential 187.7 H 252.7 H 81.5 H Oxyhemoglobin Percent 95.6 98.2 97.9 Total Hemoglobin 10.1 L 9.9 L 8.9 L Blood Gas Temperature 37.0 37.0 37.0 Blood Gas Actual Respiration Rate 19 20 16 Blood Gas Modality MASK - CPAP VENT - AC VENT - AC FiO2 45.0 100.0 40.0 Blood Gas Low PEEP Setting 5.0 5.0 Blood Gas Pressure Support 10 Blood Gas Critical Value Read Back SGRAY KWABENA EPSTEIN,RN Blood Gas Notified Whom LAN FISHER JLD Blood Gas Notified Time 01/30/2017 9:10:43 PM 01/31/2017 12:09:53 AM 01/31/2017 12:40:42 PM Blood Gas Respiration Rate 14.0 10.0 Blood Gas Tidal Volume 500.0 500.0 Blood Gas Inspiratory Pressure 15.0 White Blood Count 17.4 #H Red Blood Count 2.71 L Hemoglobin 8.8 L Hematocrit 27.1 L Mean Corpuscular Volume 100.0 Mean Corpuscular Hemoglobin 32.5 Mean Corpuscular Hemoglobin Concent 32.5 Red Cell Distribution Width 14.6 H Platelet Count 134 L Mean Platelet Volume 10.0 Neutrophils % 83.2 H Lymphocytes % 6.1 L Monocytes % 9.2 Eosinophils % 0.0 Basophils % 0.1 Nucleated Red Blood Cells % 0.1 H Neutrophils # 14.5 H Lymphocytes # 1.1 Monocytes # 1.6 H Eosinophils # 0.0 Basophils # 0.0 Nucleated Red Blood Cells # 0.0 Sodium Level 149 H Potassium Level 4.2 Chloride Level 119 H Carbon Dioxide Level 13 L Anion Gap 21 #H Blood Urea Nitrogen 34 H Creatinine 1.91 H Glucose Level 172 Calcium Level 7.7 L Medications Medications Current Medications Hydralazine HCl (Apresoline) 10 mg Q6H PRN IV SBP>170 Last administered on 19:57; Admin Dose 10 MG; Start 01/28/17 at 12:30 Metoprolol Tartrate 25 mg 25 mg BID PO Last administered on 01/28/17 20:53; Admin Dose 25 MG; Start 01/28/17 at 21:00 Ceftriaxone Sodium (Rocephin) 50 ml @ 100 mls/hr Q24H IVPB Last administered on 01/30/17 19:56; Admin Dose 100 MLS/HR; Start 01/28/17 at 20:00 Hydrocortisone (Solu-Cortef) 50 mg Q6H IV Last administered on 01/31/17 05:57 ; Admin Dose 50 MG; Start 01/30/17 at 18:00 Morphine Sulfate (morphine) 2 mg Q2H PRN IV PAIN Last administered on 23:34; Admin Dose 2 MG; Start 01/30/17 at 23:30 Famotidine 10 mg 10 mg DAILY IV ; Start 01/31/17 at 09:30 Potassium Chloride/Dextrose (KCl/D5W) 1,005 ml @ 80 mls/hr [id number] IV ; Start 01/31/17 at 14:00 TITUS JAIMES Jan 31, 2017 13:35
[2017-01-31] MEDS: FAMOTIDINE 20 MG INJ IV SCH (13:51)
[2017-01-31] MEDS: POTASSIUM CHLORIDE 10 MEQ in DEXTROSE 5% 1,000 ML IV SCH (14:01)
--- NOTE | 2017-01-31 14:06 | CONS ---
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 Sodium 149 mEq/dL this am. Reeval now and make sure not rising or falling acutely. (2) Partial hypopituitarism Status: Chronic Comment: Pt. w/ code blue last night, PEA and required chest compressions and intubation. Given acuity of patient's condition, would increase hydrocortisone from 50 mg to 100 mg IV q6. Can be weaned when pt. more stable. Consultation Date/Type/Reason Admit Date/Time Jan 28, 2017 at 06:15 Initial Consult Date 01/28/17 Type of Consultation: Endocrinology Reason for Consultation Pituitary macroadenoma Referring Provider: MARIAN CANNON MD 24 HR Interval Summary Subjective hx not possible: pt non-verbal, pt critical status Exam/Review of Systems Vital Signs Vitals VS - Last 72 Hours, by Label Date Time Temp Pulse Resp B/P Pulse Ox O2 Delivery O2 Flow Rate FiO2 01/31/17 13:38 81 12 100 40 01/31/17 11:34 70 16 100 40 01/31/17 10:16 10 40 01/31/17 10:03 65 10 100 40 01/31/17 09:55 68 8 100 40 01/31/17 09:00 73 10 122/70 100 Mechanical Ventilator 01/31/17 08:30 74 11 125/69 100 Mechanical Ventilator 01/31/17 08:10 76 13 100 40 01/31/17 08:00 Bag Valve Mask 01/31/17 08:00 69 01/31/17 08:00 71 10 118/68 100 Mechanical Ventilator 01/31/17 07:45 97.8 70 10 100 01/31/17 07:30 67 10 122/67 100 Mechanical Ventilator 01/31/17 06:00 79 11 119/71 100 Mechanical Ventilator 01/31/17 05:12 71 16 100 40 01/31/17 05:00 72 15 111/69 100 Mechanical Ventilator 01/31/17 04:00 97.5 96 21 127/71 100 Mechanical Ventilator 01/31/17 04:00 50 01/31/17 04:00 Bag Valve Mask 01/31/17 04:00 102 01/31/17 03:04 78 21 100 40 01/31/17 03:00 84 15 118/70 100 Mechanical Ventilator 01/31/17 02:00 85 10 135/71 100 Mechanical Ventilator 01/31/17 01:44 80 18 100 50 01/31/17 01:00 90 20 134/72 100 Mechanical Ventilator 01/31/17 00:25 87 20 100 50 01/31/17 00:00 97.9 85 21 133/72 100 Mechanical Ventilator 01/31/17 00:00 82 01/31/17 00:00 Bag Valve Mask 01/31/17 00:00 50 01/30/17 23:50 87 20 100 100 01/30/17 23:00 86 20 127/72 100 Mechanical Ventilator 01/30/17 22:30 93 16 100 100 01/30/17 22:11 133 01/30/17 22:10 50 01/30/17 22:08 40 01/30/17 22:08 134 01/30/17 22:04 90 01/30/17 22:03 111 01/30/17 22:00 97 37 146/72 98 Mechanical Ventilator 01/30/17 22:00 100 10.0 01/30/17 22:00 100 10.0 60 01/30/17 21:53 82 01/30/17 21:37 80 01/30/17 21:00 80 17 114/65 100 Mechanical Ventilator 01/30/17 20:15 79 17 100 45 01/30/17 20:00 40 01/30/17 20:00 74 01/30/17 20:00 Bag Valve Mask 01/30/17 20:00 97.8 75 17 135/73 100 Mechanical Ventilator 01/30/17 19:09 75 14 100 100 01/30/17 19:00 78 13 127/70 100 Mechanical Ventilator 01/30/17 18:50 82 01/30/17 18:37 82 10 100 100 01/30/17 13:15 97.9 66 142/67 98 01/30/17 07:43 98.2 77 16 120/63 99 01/30/17 03:31 98.5 73 20 124/60 98 01/29/17 19:38 98.4 82 20 112/56 100 01/29/17 14:15 98.9 72 16 133/63 99 01/29/17 07:20 98.8 73 16 114/60 99 01/29/17 02:19 98.5 65 18 108/55 100 01/28/17 20:08 98.6 74 18 134/77 99 01/28/17 15:12 98.5 73 18 153/78 99 Vital Signs Date Time Temp Pulse Resp B/P Pulse Ox O2 Delivery O2 Flow Rate FiO2 01/31/17 13:38 81 12 100 40 01/31/17 09:00 122/70 Mechanical Ventilator 01/31/17 07:45 97.8 01/30/17 22:00 10.0 Intake and Output 01/30/17 01/30/17 01/31/17 15:00 23:00 07:00 Intake Total 800 ml 1150 ml 700 ml Output Total 750 ml 1200 ml 340 ml Balance 50 ml -50 ml 360 ml Exam Constitutional: alert, oriented, well developed Psych: nl mood/affect, no complaints ENMT: intubated Respiratory: clear to auscultation, normal air movement Cardiovascular: nl pulses, regular rate and rhythm, No edema, No murmurs/extra sounds, No rub Gastrointestinal: bowel sounds, nl liver, spleen, non-tender, soft, No mass, No rebound or guarding Musculoskeletal: nl extremities to inspection Extremities: normal pulses, No cyanosis, No edema, No pitting pedal edema Neurological: [employer] II-XII intact, nl mental status, nl speech, nl strength Results Result Diagram: 01/31/17 0548 01/31/17 0548 Results 24 hrs Laboratory Tests Test 01/30/17 21:00 01/30/17 23:15 01/31/17 05:48 01/31/17 11:30 Blood Gas Specimen Source Blood arterial Blood arterial Blood arterial Arterial Blood Date Drawn 01/30/2017 9:00:57 PM 01/30/2017 11:58:23 PM 01/31/2017 12:25:01 PM Arterial Blood pH (Temp corrected) 7.289 *L 7.246 *L 7.422 Arterial Blood pCO2 (Temp correct) 27.3 L 24.6 L 24.6 L Arterial Blood pO2 (Temp corrected) 102.1 H 435.7 H 175.4 H Arterial Blood HCO3 12.8 L 10.4 L 15.7 L Arterial Blood Base Excess -12.4 L -15.3 L -7.6 L Arterial Blood Oxygen Saturation 96.2 98.8 98.2 Yuri Test ACCEPTAB ACCEPTAB ACCEPTAB Arterial Blood Gas Puncture Site Right Radial Right Radial Right Radial Arterial Blood Carboxyhemoglobin 0.3 0.3 0 Arterial Blood Methemoglobin 0.3 0.3 0.3 Blood Gas A-a O2 Differential 187.7 H 252.7 H 81.5 H Oxyhemoglobin Percent 95.6 98.2 97.9 Total Hemoglobin 10.1 L 9.9 L 8.9 L Blood Gas Temperature 37.0 37.0 37.0 Blood Gas Actual Respiration Rate 19 20 16 Blood Gas Modality MASK - CPAP VENT - AC VENT - AC FiO2 45.0 100.0 40.0 Blood Gas Low PEEP Setting 5.0 5.0 Blood Gas Pressure Support 10 Blood Gas Critical Value Read Back SGRAY KWABENA EPSTEIN,RN Blood Gas Notified Whom LAN FISHER JLMerrill Blood Gas Notified Time 01/30/2017 9:10:43 PM 01/31/2017 12:09:53 AM 01/31/2017 12:40:42 PM Blood Gas Respiration Rate 14.0 10.0 Blood Gas Tidal Volume 500.0 500.0 Blood Gas Inspiratory Pressure 15.0 White Blood Count 17.4 #H Red Blood Count 2.71 L Hemoglobin 8.8 L Hematocrit 27.1 L Mean Corpuscular Volume 100.0 Mean Corpuscular Hemoglobin 32.5 Mean Corpuscular Hemoglobin Concent 32.5 Red Cell Distribution Width 14.6 H Platelet Count 134 L Mean Platelet Volume 10.0 Neutrophils % 83.2 H Lymphocytes % 6.1 L Monocytes % 9.2 Eosinophils % 0.0 Basophils % 0.1 Nucleated Red Blood Cells % 0.1 H Neutrophils # 14.5 H Lymphocytes # 1.1 Monocytes # 1.6 H Eosinophils # 0.0 Basophils # 0.0 Nucleated Red Blood Cells # 0.0 Sodium Level 149 H Potassium Level 4.2 Chloride Level 119 H Carbon Dioxide Level 13 L Anion Gap 21 #H Blood Urea Nitrogen 34 H Creatinine 1.91 H Glucose Level 172 Calcium Level 7.7 L Medications Medications Current Medications Hydralazine HCl (Apresoline) 10 mg Q6H PRN IV SBP>170 Last administered on t 19:57; Admin Dose 10 MG; Start 01/28/17 at 12:30 Metoprolol Tartrate 25 mg 25 mg BID PO Last administered on 01/28/17 20:53; Admin Dose 25 MG; Start 01/28/17 at 21:00 Ceftriaxone Sodium (Rocephin) 50 ml @ 100 mls/hr Q24H IVPB Last administered on 01/30/17 19:56; Admin Dose 100 MLS/HR; Start 01/28/17 at 20:00 Morphine Sulfate (morphine) 2 mg Q2H PRN IV PAIN Last administered on 23:34; Admin Dose 2 MG; Start 01/30/17 at 23:30 Famotidine 10 mg 10 mg DAILY IV Last administered on 01/31/17 13:51; Admin Dose 10 MG; Start 01/31/17 at 09:30 Potassium Chloride/Dextrose (KCl/D5W) 1,005 ml @ 80 mls/hr [id number] IV ; Start 01/31/17 at 14:00 Hydrocortisone (Solu-Cortef) 100 mg Q6H IV ; Start 01/31/17 at 18:00; Status KING HECTOR MD Jan 31, 2017 14:06
[2017-01-31 14:22] LABS: CALCIUM 8.3 mg/dl (8.4-10.2); CREATININE 2.04 mg/dl (0.61-1.24)
[2017-01-31] MEDS: CEFTRIAXONE 1 GM/50 ML (PMX) 50 ML IVPB SCH (20:26)
[2017-01-31 20:30] LABS: CALCIUM 7.9 mg/dl (8.4-10.2); CREATININE 2.1 mg/dl (0.61-1.24); POTASSIUM 4.3 mmol/L (3.5-5.1)
[2017-02-01] VITALS (34 sets, daily range): BP systolic 117–150; BP diastolic 66–84; PULSE 64–76; RESP 9–18
[2017-02-01 00:23] LABS: CREATININE 2.02 mg/dl (0.61-1.24); POTASSIUM 3.9 mmol/L (3.5-5.1)
[2017-02-01] MEDS: HYDROCORTISONE 100 MG INJ IV SCH ×4 (00:42→18:06)
[2017-02-01] MEDS: POTASSIUM CHLORIDE 10 MEQ in DEXTROSE 5% 1,000 ML IV SCH ×2 (03:18→15:50)
[2017-02-01] MEDS: CREON (12k-38k-60k) 1 CAP PO SCH ×3 (06:08→17:35)
[2017-02-01 06:25] LABS: BASOPHILS % 0.1 % (0.0-2.0); HEMATOCRIT 25.7 % (42.0-52.0); HEMOGLOBIN 8.6 g/dl (14.0-18.0); LYMPHOCYTES # 1.2 10^3/ul (0.8-2.9); LYMPHOCYTES % 9.9 % (15.0-51.0); MEAN CORPUSCULAR HEMOGLOBIN 33.2 pg (29.0-33.0); MEAN CORPUSCULAR HGB CONC 33.5 g/dl (32.0-37.0); MEAN CORPUSCULAR VOLUME 99.2 fl (82.0-101.0); MEAN PLATELET VOLUME 10.5 fl (7.4-10.4); MONOCYTE # 0.5 10^3/ul (0.3-0.9); MONOCYTES % 3.8 % (0.0-11.0); NEUTROPHIL # 10.1 10^3/ul (1.6-7.5); NEUTROPHILS % 85.4 % (39.0-77.0); PLATELET COUNT 103 10^3/UL (140-415); RED BLOOD COUNT 2.59 10^6/ul (4.70-6.10); RED CELL DISTRIBUTION WIDTH 14.6 % (11.5-14.5); WHITE BLOOD COUNT 11.8 10^3/ul (4.8-10.8)
[2017-02-01 07:28] LABS: CREATININE 2.03 mg/dl (0.61-1.24); PHOSPHORUS 4.2 mg/dl (2.5-4.9)
--- NOTE | 2017-02-01 07:33 | CONS ---
Date/Time of Note Date/Time of Note DATE: 02/01/17 TIME: 07:28 Assessment/Plan Assessment/Plan Problems: (1) S/P transsphenoidal hypophysectomy Onset Date: ~ 01/30/2017 Status: Acute Comment: At this time he appears to be more stable. Etiology behind the respiratory failure requiring reintubation is not immediately clear to this practitioner. He is being treated presumptively for adrenal insufficiency on the basis of the pituitary surgery. Once he is stabilized and we can look at tapering down on a steroid dosing. It does not appear to be having diabetes insipidus at this time. (2) Open-angle glaucoma Status: Chronic Qualifiers: Open angle glaucoma type: primary Laterality: bilateral Glaucoma stage: mild stage Qualified Code: H40.1131 - Primary open angle glaucoma (POAG) of both eyes, mild stage (3) Diabetic nephropathy associated with type 2 diabetes mellitus Status: Chronic Comment: Reading through the preop H&P that was sent over for him it appears this is a chronic issue and in fact his outpatient creatinine was 2.17 on January 21, 2017. There is implication in reading that note that this is stable although we were given any further data from the primary team that was taking care of him at [facility] (4) Chronic kidney disease, stage III (moderate) Status: Chronic Comment: As above. Nephrology is following the patient that he appears to be stable (5) Essential (primary) hypertension Status: Chronic Comment: Adequate control. 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 Resumption of allopurinol after he is extubated. (8) Optic chiasm disorder with pituitary disease Status: Resolved Comment: Noted. He is now postop and hopefully this will be improved. (9) Pituitary macroadenoma Status: Chronic Comment: Again he is postop. (10) Diabetes mellitus type 2 in nonobese Status: Chronic Comment: Follow Accu-Cheks. (11) Pancreatic cancer Status: Chronic Comment: The status on this is unclear. Certainly this is an ominous historical finding Qualifiers: Pancreatic malignancy location: unspecified Qualified Code: C25.9 - Malignant neoplasm of pancreas, unspecified location of malignancy Consultation Date/Type/Reason Admit Date/Time Jan 28, 2017 at 06:15 Initial Consult Date 01/28/17 Type of Consultation: Endocrinology Reason for Consultation Charming gentleman who is awake and responsive appropriately but is intubated. He indicates no headache he denies any chest pain denies shortness of breath denies any abdominal pain or nausea Referring Provider: MARIAN CANNON MD 24 HR Interval Summary Constitutional: no complaints Detailed Summary ENT: sore throat (Secondary to intubation) Respiratory: no complaints Cardiovascular: no complaints Gastrointestinal: no complaints Musculoskeletal: no complaints Exam/Review of Systems Vital Signs Vitals Vital Signs Date Time Temp Pulse Resp B/P Pulse Ox O2 Delivery O2 Flow Rate FiO2 02/01/17 05:52 76 15 100 30 02/01/17 04:00 97.6 127/69 Mechanical Ventilator 01/30/17 22:00 10.0 Intake and Output 01/31/17 01/31/17 02/01/17 15:00 23:00 07:00 Intake Total 460 ml 610 ml 560 ml Output Total 335 ml 420 ml 290 ml Balance 125 ml 190 ml 270 ml Exam Constitutional: alert, non-verbal, oriented ENMT: intubated Respiratory: clear to auscultation, normal air movement Cardiovascular: nl pulses, regular rate and rhythm Gastrointestinal: nl liver, spleen, non-tender, soft Results Result Diagram: 01/31/17 0548 01/31/17 2356 Results 24 hrs Laboratory Tests Test 01/31/17 11:30 01/31/17 13:37 01/31/17 19:46 01/31/17 23:56 Blood Gas Specimen Source Blood arterial Arterial Blood Date Drawn 01/31/2017 12:25:01 PM Arterial Blood pH (Temp corrected) 7.422 Arterial Blood pCO2 (Temp correct) 24.6 L Arterial Blood pO2 (Temp corrected) 175.4 H Arterial Blood HCO3 15.7 L Arterial Blood Base Excess -7.6 L Arterial Blood Oxygen Saturation 98.2 Yuri Test ACCEPTAB Arterial Blood Gas Puncture Site Right Radial Arterial Blood Carboxyhemoglobin 0 Arterial Blood Methemoglobin 0.3 Blood Gas A-a O2 Differential 81.5 H Oxyhemoglobin Percent 97.9 Total Hemoglobin 8.9 L Blood Gas Temperature 37.0 Blood Gas Respiration Rate 10.0 Blood Gas Actual Respiration Rate 16 Blood Gas Modality VENT - AC FiO2 40.0 Blood Gas Tidal Volume 500.0 Blood Gas Low PEEP Setting 5.0 Blood Gas Notified Whom JLD Blood Gas Notified Time 01/31/2017 12:40:42 PM Sodium Level 149 H 149 H 144 Potassium Level 4.0 4.3 3.9 Chloride Level 121 H 118 H 118 H Carbon Dioxide Level 17 L 18 L 18 L Anion Gap 15 17 H 12 Blood Urea Nitrogen 35 H 35 H 36 H Creatinine 2.04 H 2.10 H 2.02 H Glucose Level 133 166 169 Calcium Level 8.3 L 7.9 L 8.0 L Test 02/01/17 06:14 White Blood Count Pending Red Blood Count Pending Hemoglobin Pending Hematocrit Pending Mean Corpuscular Volume Pending Mean Corpuscular Hemoglobin Pending Mean Corpuscular Hemoglobin Concent Pending Red Cell Distribution Width Pending Platelet Count Pending Mean Platelet Volume Pending Medications Medications Current Medications Hydralazine HCl (Apresoline) 10 mg Q6H PRN IV SBP>170 Last administered on 19:57; Admin Dose 10 MG; Start 01/28/17 at 12:30 Metoprolol Tartrate 25 mg 25 mg BID PO Last administered on 01/28/17 20:53; Admin Dose 25 MG; Start 01/28/17 at 21:00 Ceftriaxone Sodium (Rocephin) 50 ml @ 100 mls/hr Q24H IVPB Last administered on 01/31/17 20:26; Admin Dose 100 MLS/HR; Start 01/28/17 at 20:00 Morphine Sulfate (morphine) 2 mg Q2H PRN IV PAIN Last administered on 23:34; Admin Dose 2 MG; Start 01/30/17 at 23:30 Famotidine 10 mg 10 mg DAILY IV Last administered on 01/31/17 13:51; Admin Dose 10 MG; Start 01/31/17 at 09:30 Potassium Chloride/Dextrose (KCl/D5W) 1,005 ml @ 80 mls/hr [id number] IV Last administered on 02/01/17 03:18; Admin Dose 80 MLS/HR; Start 01/31/17 at 14:00 Hydrocortisone (Solu-Cortef) 100 mg Q6 IV Last administered on 02/01/17t 06:08 ; Admin Dose 100 MG; Start 01/31/17 at 18:00 STEPHANIE ZAMORA MD Feb 01, 2017 07:33
[2017-02-01] MEDS ORDERED: INSULIN ASPART [NOVOLOG] 3 ML PEN SC SCH (07:35)
[2017-02-01] MEDS ORDERED: DEXTROSE 50% 50 ML SYRINGE IV PRN ×2 (08:00)
[2017-02-01] MEDS ORDERED: GLUCOSE GEL 15 GRAM TUBE PO PRN ×2 (08:00)
[2017-02-01] MEDS ORDERED: GLUCAGON 1 MG INJ IM PRN (08:00)
[2017-02-01] MEDS ORDERED: GLUCOSE GEL 15 GRAM TUBE BUCCAL PRN (08:00)
[2017-02-01] MEDS: METOPROLOL 25 MG TAB PO SCH ×2 (09:00→20:24)
--- NOTE | 2017-02-01 09:07 | PN ---
Date/Time of Note Date/Time of Note DATE: 02/01/17 TIME: 09:03 Assessment/Plan VTE Prophylaxis VTE Prophylaxis Intervention: SCD's Lines/Catheters IV Catheter Type (from Nrsg): Peripheral IV Urinary Cath still in place: Yes Reason Cath still needed: urinary retention Assessment/Plan Assessment/Plan s/p transsphenoidal tumor resection. POD #2 failed weaning trials per staff yesterday plan cont supportive care discuss with icu team and will keep intubated overnight and attempt to wean in am Endo following for possible post op DI and steroid management. Nasal Packing removal on POD #3-4 Subjective 24 Hr Interval Summary Free Text/Dictation S: s/p Transsphenoidal tumor resection. POD #2 failed weaning trials yesterday remains intubated. Exam/Review of Systems Vital Signs Vitals Vital Signs Date Time Temp Pulse Resp B/P Pulse Ox O2 Delivery O2 Flow Rate FiO2 02/01/17 05:52 76 15 100 30 02/01/17 04:00 97.6 127/69 Mechanical Ventilator 01/30/17 22:00 10.0 Intake and Output 01/31/17 01/31/17 02/01/17 14:59 22:59 06:59 Intake Total 380 ml 610 ml 640 ml Output Total 305 ml 400 ml 340 ml Balance 75 ml 210 ml 300 ml Exam Neurological: other (Gen: intubated, awake MS: opening eyes spont. regards examiner M: fc x 4 , no focal def. ) Results Result Diagram: 02/01/17 0614 02/01/17 0614 Results 24 hrs Laboratory Tests Test 01/31/17 11:30 01/31/17 13:37 01/31/17 19:46 01/31/17 23:56 Blood Gas Specimen Source Blood arterial Arterial Blood Date Drawn 01/31/2017 12:25:01 PM Arterial Blood pH (Temp corrected) 7.422 Arterial Blood pCO2 (Temp correct) 24.6 L Arterial Blood pO2 (Temp corrected) 175.4 H Arterial Blood HCO3 15.7 L Arterial Blood Base Excess -7.6 L Arterial Blood Oxygen Saturation 98.2 Yuri Test ACCEPTAB Arterial Blood Gas Puncture Site Right Radial Arterial Blood Carboxyhemoglobin 0 Arterial Blood Methemoglobin 0.3 Blood Gas A-a O2 Differential 81.5 H Oxyhemoglobin Percent 97.9 Total Hemoglobin 8.9 L Blood Gas Temperature 37.0 Blood Gas Respiration Rate 10.0 Blood Gas Actual Respiration Rate 16 Blood Gas Modality VENT - AC FiO2 40.0 Blood Gas Tidal Volume 500.0 Blood Gas Low PEEP Setting 5.0 Blood Gas Notified Whom JLD Blood Gas Notified Time 01/31/2017 12:40:42 PM Sodium Level 149 H 149 H 144 Potassium Level 4.0 4.3 3.9 Chloride Level 121 H 118 H 118 H Carbon Dioxide Level 17 L 18 L 18 L Anion Gap 15 17 H 12 Blood Urea Nitrogen 35 H 35 H 36 H Creatinine 2.04 H 2.10 H 2.02 H Glucose Level 133 166 169 Calcium Level 8.3 L 7.9 L 8.0 L Test 02/01/17 06:14 White Blood Count 11.8 #H Red Blood Count 2.59 L Hemoglobin 8.6 L Hematocrit 25.7 L Mean Corpuscular Volume 99.2 Mean Corpuscular Hemoglobin 33.2 H Mean Corpuscular Hemoglobin Concent 33.5 Red Cell Distribution Width 14.6 H Platelet Count 103 #L Mean Platelet Volume 10.5 H Neutrophils % 85.4 H Lymphocytes % 9.9 L Monocytes % 3.8 Eosinophils % 0.0 Basophils % 0.1 Nucleated Red Blood Cells % 0.0 Neutrophils # 10.1 H Lymphocytes # 1.2 Monocytes # 0.5 Eosinophils # 0.0 Basophils # 0.0 Nucleated Red Blood Cells # 0.0 Sodium Level 146 H Potassium Level 4.0 Chloride Level 116 H Carbon Dioxide Level 17 L Anion Gap 17 H Blood Urea Nitrogen 36 H Creatinine 2.03 H Glucose Level 178 Calcium Level 8.0 L Phosphorus Level 4.2 Magnesium Level 2.0 Medications Medications Current Medications Hydralazine HCl (Apresoline) 10 mg Q6H PRN IV SBP>170 Last administered on 19:57; Admin Dose 10 MG; Start 01/28/17 at 12:30 Metoprolol Tartrate 25 mg 25 mg BID PO Last administered on 01/28/17 20:53; Admin Dose 25 MG; Start 01/28/17 at 21:00 Ceftriaxone Sodium (Rocephin) 50 ml @ 100 mls/hr Q24H IVPB Last administered on 01/31/17 20:26; Admin Dose 100 MLS/HR; Start 01/28/17 at 20:00 Morphine Sulfate (morphine) 2 mg Q2H PRN IV PAIN Last administered on 23:34; Admin Dose 2 MG; Start 01/30/17 at 23:30 Famotidine 10 mg 10 mg DAILY IV Last administered on 01/31/17 13:51; Admin Dose 10 MG; Start 01/31/17 at 09:30 Potassium Chloride/Dextrose (KCl/D5W) 1,005 ml @ 80 mls/hr [id number] IV Last administered on 02/01/17 03:18; Admin Dose 80 MLS/HR; Start 01/31/17 at 14:00 Hydrocortisone (Solu-Cortef) 100 mg Q6 IV Last administered on 02/01/17 06:08 ; Admin Dose 100 MG; Start 01/31/17 at 18:00 Dorzolamide/ Timolol (Cosopt) 1 drop BID BOTH EYES ; Start 02/01/17 at 09:00 Allopurinol (Zyloprim) 300 mg DAILY PO ; Start 02/02/17 at 09:00 Atorvastatin Calcium (Lipitor) 20 mg HS PO ; Start 02/01/17 at 21:00 Miscellaneous Information 1 ea NOTE XX ; Start 02/01/17 at 08:00 Glucose (Glutose) 15 gm Q15M PRN PO DECREASED GLUCOSE; Start 02/01/17 at 08:00 Glucose (Glutose) 22.5 gm Q15M PRN PO DECREASED GLUCOSE; Start 02/01/17 at 08: 00 Dextrose (D50w Syringe) 25 ml Q15M PRN IV DECREASED GLUCOSE; Start 02/01/17 at 08:00 Dextrose (D50w Syringe) 50 ml Q15M PRN IV DECREASED GLUCOSE; Start 02/01/17 at 08:00 Glucagon (Glucagen) 1 mg Q15M PRN IM DECREASED GLUCOSE; Start 02/01/17 at 08: 00 Glucose (Glutose) 15 gm Q15M PRN BUCCAL DECREASED GLUCOSE; Start 02/01/17 at 08:00 Insulin Aspart (Novolog Insulin Pen) NOVOLOG *MILD* ALGORI... Q6 SC ; Start at 12:00 AGNIESZKA MUNGUIA NP Feb 01, 2017 09:07
--- NOTE | 2017-02-01 09:07 | RADRPT ---
PROCEDURE: XR Chest. CLINICAL INDICATION: Pneumonia. CHF. TECHNIQUE: Frontal chest x-ray was obtained. COMPARISON: Chest x-ray January 30 FINDINGS: There is an endotracheal tube with the tip 3 cm above the oimd. Heart is not enlarged. Mediastinum is not widened. No hilar masses seen. Lungs are clear of any infi ltrates. There is no effusion or pneumothorax. IMPRESSION: No evidence for active cardiopulmonary disease. .Alexis Diamond MD, MD Date Time Electronically viewed and signed by .Alexis Diamond MD, on 02/01/2017 09:07 .A/
[2017-02-01 09:15] LABS: AADO2 Arterial 35.1 mmHg (7.0-24.0); Allen Test ACCEPTAB; Arterial COHb 0 % (0.0-3.0); Arterial Fraction of Oxyhgb 97.7 % (93.0-99.0); Arterial HCO3 17.5 mmol/L (22.0-26.0); Arterial MetHb 0.3 % (0.0-1.5); Arterial Total Hemglobin 10.1 g/dl (12.0-18.0); MODE VENT - AC
[2017-02-01] MEDS ORDERED: ACCU-CHEK XX SCH (09:35)
[2017-02-01] MEDS: FAMOTIDINE 20 MG INJ IV SCH (10:01)
[2017-02-01] MEDS: DORZOLAMIDE/TIMOLOL 10 ML OPH BOTH EYES SCH ×2 (10:01→20:20)
--- NOTE | 2017-02-01 11:05 | CONS ---
Date/Time of Note Date/Time of Note DATE: 02/01/17 TIME: 11:02 Assessment/Plan Assessment/Plan Additional Assessment/Plan Chest x-ray was reviewed from today which is totally clear. Ventilator setting; AC of 10, tidal volume 500, PEEP of 5, 30% FiO2. Assessment and recommendations; 1. Patient admitted for transsphenoidal pituitary surgery for adenoma, surgery was uneventful. Patient however has been unable to be weaned off from ventilator due to severe apnea. 2. Patient again was given a CPAP trial at bedside but has low spontaneous minute ventilation due to low spontaneous respiratory rate. Next 3. Mild anemia and thrombocytopenia. 4. Patient on replacement corticosteroid therapy. 5. History of hypertension, pancreatic insufficiency and gout. Continue current ventilator settings. Patient will be given a weaning trial in another 24 hours. Consultation Date/Type/Reason Admit Date/Time Jan 28, 2017 at 06:15 Initial Consult Date 01/28/17 Type of Consultation: Pulmonary/critical care Referring Provider: MARIAN CANNON MD 24 HR Interval Summary Free Text/Dictation Patient condition is stable. Remains completely awake and alert. Patient however has been unable to be weaned off from invasive mechanical ventilation due to apneic episodes. Patient has failed postop extubation trial. General exam; elderly male, orally intubated, awake and alert. Currently in no distress. Exam/Review of Systems Vital Signs Vitals Vital Signs Date Time Temp Pulse Resp B/P Pulse Ox O2 Delivery O2 Flow Rate FiO2 02/01/17 10:00 69 11 136/75 100 Mechanical Ventilator 02/01/17 08:00 99.2 02/01/17 05:52 30 01/30/17 22:00 10.0 Intake and Output 01/31/17 01/31/17 02/01/17 14:59 22:59 06:59 Intake Total 380 ml 610 ml 640 ml Output Total 305 ml 400 ml 340 ml Balance 75 ml 210 ml 300 ml Exam HEENT exam; supple neck, no JVD. No lymphadenopathy. Midline trachea. No thyromegaly. Orally intubated. Bilateral nasal packing is in place. Chest exam; clear to auscultation. S1-S2 audible, no murmurs. Regular rhythm. Abdomen exam; soft, nontender. No organomegaly. Bowel sounds audible. Extremity exam; no peripheral edema. Pulses 1+ bilaterally. [employer]IT[employer] exam; no focal deficit. Results Result Diagram: 02/01/17 0614 02/01/17 0614 Results 24 hrs Laboratory Tests Test 01/31/17 11:30 01/31/17 13:37 01/31/17 19:46 01/31/17 23:56 Blood Gas Specimen Source Blood arterial Arterial Blood Date Drawn 01/31/2017 12:25:01 PM Arterial Blood pH (Temp corrected) 7.422 Arterial Blood pCO2 (Temp correct) 24.6 L Arterial Blood pO2 (Temp corrected) 175.4 H Arterial Blood HCO3 15.7 L Arterial Blood Base Excess -7.6 L Arterial Blood Oxygen Saturation 98.2 Yuri Test ACCEPTAB Arterial Blood Gas Puncture Site Right Radial Arterial Blood Carboxyhemoglobin 0 Arterial Blood Methemoglobin 0.3 Blood Gas A-a O2 Differential 81.5 H Oxyhemoglobin Percent 97.9 Total Hemoglobin 8.9 L Blood Gas Temperature 37.0 Blood Gas Respiration Rate 10.0 Blood Gas Actual Respiration Rate 16 Blood Gas Modality VENT - AC FiO2 40.0 Blood Gas Tidal Volume 500.0 Blood Gas Low PEEP Setting 5.0 Blood Gas Notified Whom JLD Blood Gas Notified Time 01/31/2017 12:40:42 PM Sodium Level 149 H 149 H 144 Potassium Level 4.0 4.3 3.9 Chloride Level 121 H 118 H 118 H Carbon Dioxide Level 17 L 18 L 18 L Anion Gap 15 17 H 12 Blood Urea Nitrogen 35 H 35 H 36 H Creatinine 2.04 H 2.10 H 2.02 H Glucose Level 133 166 169 Calcium Level 8.3 L 7.9 L 8.0 L Test 02/01/17 06:14 02/01/17 07:00 White Blood Count 11.8 #H Red Blood Count 2.59 L Hemoglobin 8.6 L Hematocrit 25.7 L Mean Corpuscular Volume 99.2 Mean Corpuscular Hemoglobin 33.2 H Mean Corpuscular Hemoglobin Concent 33.5 Red Cell Distribution Width 14.6 H Platelet Count 103 #L Mean Platelet Volume 10.5 H Neutrophils % 85.4 H Lymphocytes % 9.9 L Monocytes % 3.8 Eosinophils % 0.0 Basophils % 0.1 Nucleated Red Blood Cells % 0.0 Neutrophils # 10.1 H Lymphocytes # 1.2 Monocytes # 0.5 Eosinophils # 0.0 Basophils # 0.0 Nucleated Red Blood Cells # 0.0 Sodium Level 146 H Potassium Level 4.0 Chloride Level 116 H Carbon Dioxide Level 17 L Anion Gap 17 H Blood Urea Nitrogen 36 H Creatinine 2.03 H Glucose Level 178 Calcium Level 8.0 L Phosphorus Level 4.2 Magnesium Level 2.0 Blood Gas Specimen Source Blood arterial Arterial Blood Date Drawn 02/01/2017 8:50:25 AM Arterial Blood pH (Temp corrected) 7.416 Arterial Blood pCO2 (Temp correct) 27.8 L Arterial Blood pO2 (Temp corrected) 146.1 H Arterial Blood HCO3 17.5 L Arterial Blood Base Excess -6.0 L Arterial Blood Oxygen Saturation 98.0 Yuri Test ACCEPTAB Arterial Blood Gas Puncture Site Right Radial Arterial Blood Carboxyhemoglobin 0 Arterial Blood Methemoglobin 0.3 Blood Gas A-a O2 Differential 35.1 H Oxyhemoglobin Percent 97.7 Total Hemoglobin 10.1 L Blood Gas Temperature 37.0 Blood Gas Respiration Rate 10.0 Blood Gas Actual Respiration Rate 16 Blood Gas Modality VENT - AC FiO2 30.0 Blood Gas Tidal Volume 500.0 Blood Gas Low PEEP Setting 5.0 Blood Gas Notified Whom DT Blood Gas Notified Time 02/01/2017 9:14:25 AM Medications Medications Current Medications Hydralazine HCl (Apresoline) 10 mg Q6H PRN IV SBP>170 Last administered on 19:57; Admin Dose 10 MG; Start 01/28/17 at 12:30 Metoprolol Tartrate 25 mg 25 mg BID PO Last administered on 01/28/17 20:53; Admin Dose 25 MG; Start 01/28/17 at 21:00 Ceftriaxone Sodium (Rocephin) 50 ml @ 100 mls/hr Q24H IVPB Last administered on 01/31/17 20:26; Admin Dose 100 MLS/HR; Start 01/28/17 at 20:00 Morphine Sulfate (morphine) 2 mg Q2H PRN IV PAIN Last administered on 23:34; Admin Dose 2 MG; Start 01/30/17 at 23:30 Famotidine 10 mg 10 mg DAILY IV Last administered on 02/01/17 10:01; Admin Dose 10 MG; Start 01/31/17 at 09:30 Potassium Chloride/Dextrose (KCl/D5W) 1,005 ml @ 80 mls/hr [id number] IV Last administered on 02/01/17 03:18; Admin Dose 80 MLS/HR; Start 01/31/17 at 14:00 Hydrocortisone (Solu-Cortef) 100 mg Q6 IV Last administered on 02/01/17 06:08 ; Admin Dose 100 MG; Start 01/31/17 at 18:00 Dorzolamide/ Timolol (Cosopt) 1 drop BID BOTH EYES Last administered on 10:01; Admin Dose 1 DROP; Start 02/01/17 at 09:00 Allopurinol (Zyloprim) 300 mg DAILY PO ; Start 02/02/17 at 09:00 Atorvastatin Calcium (Lipitor) 20 mg HS PO ; Start 02/01/17 at 21:00 Miscellaneous Information 1 ea NOTE XX ; Start 02/01/17 at 08:00 Glucose (Glutose) 15 gm Q15M PRN PO DECREASED GLUCOSE; Start 02/01/17 at 08:00 Glucose (Glutose) 22.5 gm Q15M PRN PO DECREASED GLUCOSE; Start 02/01/17 at 08: 00 Dextrose (D50w Syringe) 25 ml Q15M PRN IV DECREASED GLUCOSE; Start 02/01/17 at 08:00 Dextrose (D50w Syringe) 50 ml Q15M PRN IV DECREASED GLUCOSE; Start 02/01/17 at 08:00 Glucagon (Glucagen) 1 mg Q15M PRN IM DECREASED GLUCOSE; Start 02/01/17 at 08: 00 Glucose (Glutose) 15 gm Q15M PRN BUCCAL DECREASED GLUCOSE; Start 02/01/17 at 08:00 Insulin Aspart (Novolog Insulin Pen) NOVOLOG *MILD* ALGORI... Q6 SC ; Start at 12:00 RUBY KHAN Feb 01, 2017 11:05
--- NOTE | 2017-02-01 12:16 | CONS ---
Date/Time of Note Date/Time of Note DATE: 02/01/17 TIME: 12:14 Assessment/Plan Assessment/Plan Additional Assessment/Plan 1. Acute vs CKD III, No previous Cr available to compare 2. Transsphenoidal pituitary adenoma, s/p Transsphenoidal resection of pituiatry adenoma on 01/30/17 2. Pancreatic cancer. The patient follows with oncologist as an outpatient. 3. Hypertension. 4. Hyperlipidemia. 5. Hypernatremia 6. Metabolic acidosis 7. Post Failed extubation- pt had a code blue and required reintubation- currently on ventilator Plan: Cr 2.03, Na 146- pt has hyperchloremic metabolic acidosis- continue D5W with KCL 10mEQ at 80 cc.hr , good urine output 1045ml pt remains intubated because he becomes apneic on CPAP trial continue D5W with 10meQ KCL at 80 cc/hr will continue follow up Consultation Date/Type/Reason Admit Date/Time Jan 28, 2017 at 06:15 Initial Consult Date 01/28/17 Type of Consultation: NEPHROLOGY Referring Provider: MARIAN CANNON MD 24 HR Interval Summary Free Text/Dictation Na improved to 144 then again 146, HCo3 stable, pt still has hypechloremic metabolic acidosis pt remains intubated because he becomes apneic on CPAP trial Exam/Review of Systems Vital Signs Vitals Vital Signs Date Time Temp Pulse Resp B/P Pulse Ox O2 Delivery O2 Flow Rate FiO2 02/01/17 10:00 69 11 136/75 100 Mechanical Ventilator 02/01/17 08:00 30 02/01/17 08:00 99.2 01/30/17 22:00 10.0 Intake and Output 01/31/17 01/31/17 02/01/17 15:00 23:00 07:00 Intake Total 460 ml 610 ml 640 ml Output Total 335 ml 420 ml 290 ml Balance 125 ml 190 ml 350 ml Exam Constitutional: alert HEENT: ET tube in place , No JVD Respiratory: Bilateral Coarse BS+ Cardiovascular: regular rate and rhythm Gastrointestinal: nl liver, spleen, non-tender, soft Musculoskeletal: joint tenderness, nl extremities to inspection, nl gait and stance Neurological: awake,alert, Results Result Diagram: 02/01/17 0614 02/01/17 0614 Results 24 hrs Laboratory Tests Test 01/31/17 13:37 01/31/17 19:46 01/31/17 23:56 02/01/17 06:14 Sodium Level 149 H 149 H 144 146 H Potassium Level 4.0 4.3 3.9 4.0 Chloride Level 121 H 118 H 118 H 116 H Carbon Dioxide Level 17 L 18 L 18 L 17 L Anion Gap 15 17 H 12 17 H Blood Urea Nitrogen 35 H 35 H 36 H 36 H Creatinine 2.04 H 2.10 H 2.02 H 2.03 H Glucose Level 133 166 169 178 Calcium Level 8.3 L 7.9 L 8.0 L 8.0 L White Blood Count 11.8 #H Red Blood Count 2.59 L Hemoglobin 8.6 L Hematocrit 25.7 L Mean Corpuscular Volume 99.2 Mean Corpuscular Hemoglobin 33.2 H Mean Corpuscular Hemoglobin Concent 33.5 Red Cell Distribution Width 14.6 H Platelet Count 103 #L Mean Platelet Volume 10.5 H Neutrophils % 85.4 H Lymphocytes % 9.9 L Monocytes % 3.8 Eosinophils % 0.0 Basophils % 0.1 Nucleated Red Blood Cells % 0.0 Neutrophils # 10.1 H Lymphocytes # 1.2 Monocytes # 0.5 Eosinophils # 0.0 Basophils # 0.0 Nucleated Red Blood Cells # 0.0 Phosphorus Level 4.2 Magnesium Level 2.0 Test 02/01/17 07:00 Blood Gas Specimen Source Blood arterial Arterial Blood Date Drawn 02/01/2017 8:50:25 AM Arterial Blood pH (Temp corrected) 7.416 Arterial Blood pCO2 (Temp correct) 27.8 L Arterial Blood pO2 (Temp corrected) 146.1 H Arterial Blood HCO3 17.5 L Arterial Blood Base Excess -6.0 L Arterial Blood Oxygen Saturation 98.0 Yuri Test ACCEPTAB Arterial Blood Gas Puncture Site Right Radial Arterial Blood Carboxyhemoglobin 0 Arterial Blood Methemoglobin 0.3 Blood Gas A-a O2 Differential 35.1 H Oxyhemoglobin Percent 97.7 Total Hemoglobin 10.1 L Blood Gas Temperature 37.0 Blood Gas Respiration Rate 10.0 Blood Gas Actual Respiration Rate 16 Blood Gas Modality VENT - AC FiO2 30.0 Blood Gas Tidal Volume 500.0 Blood Gas Low PEEP Setting 5.0 Blood Gas Notified Whom DT Blood Gas Notified Time 02/01/2017 9:14:25 AM Medications Medications Current Medications Hydralazine HCl (Apresoline) 10 mg Q6H PRN IV SBP>170 Last administered on 19:57; Admin Dose 10 MG; Start 01/28/17 at 12:30 Metoprolol Tartrate 25 mg 25 mg BID PO Last administered on 01/28/17 20:53; Admin Dose 25 MG; Start 01/28/17 at 21:00 Ceftriaxone Sodium (Rocephin) 50 ml @ 100 mls/hr Q24H IVPB Last administered on 01/31/17 20:26; Admin Dose 100 MLS/HR; Start 01/28/17 at 20:00 Morphine Sulfate (morphine) 2 mg Q2H PRN IV PAIN Last administered on 23:34; Admin Dose 2 MG; Start 01/30/17 at 23:30 Famotidine 10 mg 10 mg DAILY IV Last administered on 02/01/17 10:01; Admin Dose 10 MG; Start 01/31/17 at 09:30 Potassium Chloride/Dextrose (KCl/D5W) 1,005 ml @ 80 mls/hr [id number] IV Last administered on 02/01/17 03:18; Admin Dose 80 MLS/HR; Start 01/31/17 at 14:00 Hydrocortisone (Solu-Cortef) 100 mg Q6 IV Last administered on 02/01/17 06:08 ; Admin Dose 100 MG; Start 01/31/17 at 18:00 Dorzolamide/ Timolol (Cosopt) 1 drop BID BOTH EYES Last administered on 10:01; Admin Dose 1 DROP; Start 02/01/17 at 09:00 Allopurinol (Zyloprim) 300 mg DAILY PO ; Start 02/02/17 at 09:00 Atorvastatin Calcium (Lipitor) 20 mg HS PO ; Start 02/01/17 at 21:00 Miscellaneous Information 1 ea NOTE XX ; Start 02/01/17 at 08:00 Glucose (Glutose) 15 gm Q15M PRN PO DECREASED GLUCOSE; Start 02/01/17 at 08:00 Glucose (Glutose) 22.5 gm Q15M PRN PO DECREASED GLUCOSE; Start 02/01/17 at 08: 00 Dextrose (D50w Syringe) 25 ml Q15M PRN IV DECREASED GLUCOSE; Start 02/01/17 at 08:00 Dextrose (D50w Syringe) 50 ml Q15M PRN IV DECREASED GLUCOSE; Start 02/01/17 at 08:00 Glucagon (Glucagen) 1 mg Q15M PRN IM DECREASED GLUCOSE; Start 02/01/17 at 08: 00 Glucose (Glutose) 15 gm Q15M PRN BUCCAL DECREASED GLUCOSE; Start 02/01/17 at 08:00 Insulin Aspart (Novolog Insulin Pen) NOVOLOG *MILD* ALGORI... Q6 SC ; Start at 12:00 ISRAEL OJEDA MD Feb 01, 2017 12:16
[2017-02-01] MEDS: INSULIN ASPART [NOVOLOG] 3 ML PEN SC SCH ×2 (12:25→18:13)
[2017-02-01] MEDS: CEFTRIAXONE 1 GM/50 ML (PMX) 50 ML IVPB SCH (20:20)
[2017-02-01] MEDS: ATORVASTATIN 20 MG TAB PO SCH (20:24)
[2017-02-02] VITALS (35 sets, daily range): BP systolic 123–161; BP diastolic 70–86; PULSE 55–75; RESP 5–16
[2017-02-02] MEDS: HYDROCORTISONE 100 MG INJ IV SCH ×4 (00:24→18:32)
[2017-02-02] MEDS: INSULIN ASPART [NOVOLOG] 3 ML PEN SC SCH ×4 (00:27→18:40)
[2017-02-02] MEDS ORDERED: ACCU-CHEK XX SCH ×2 (02:00)
[2017-02-02] MEDS: POTASSIUM CHLORIDE 10 MEQ in DEXTROSE 5% 1,000 ML IV SCH ×2 (04:13→18:32)
[2017-02-02] MEDS: CREON (12k-38k-60k) 1 CAP PO SCH ×3 (07:35→17:35)
--- NOTE | 2017-02-02 08:49 | CONS ---
Date/Time of Note Date/Time of Note DATE: 02/02/17 TIME: 08:46 Assessment/Plan Assessment/Plan Problems: (1) S/P transsphenoidal hypophysectomy Onset Date: ~ 01/30/2017 Status: Acute Comment: He had respiratory failure postop and was intubated. They had some difficulty and challenges getting him extubated in that when he put him on CPAP trial he appears not to breathe very well. He is otherwise fully awake alert oriented and neurologically intact. To repeat the study. However he is not on any medications that should interfere with his ability to be extubated (2) Hyperuricemia Status: Chronic Comment: Noted. When he is able to swallow he will go back on his allopurinol (3) Diabetic nephropathy associated with type 2 diabetes mellitus Status: Chronic Comment: Noted. His renal function appears to be stable within the limits of the information we have (4) Diabetes mellitus type 2 in nonobese Status: Chronic Comment: Adequate control under the current circumstances (5) E. 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 (9) Pancreatic cancer Status: Chronic Comment: He is treated at the [facility]. Management will be as per their expertise Qualifiers: Pancreatic malignancy location: unspecified Qualified Code: C25.9 - Malignant neoplasm of pancreas, unspecified location of malignancy Consultation Date/Type/Reason Admit Date/Time Jan 28, 2017 at 06:15 Initial Consult Date 01/28/17 Type of Consultation: Endocrinology Reason for Consultation Status post transsphenoidal hypophysectomy Referring Provider: MARIAN CANNON MD 24 HR Interval Summary Free Text/Dictation She is intubated but is able to communicate. Responds to questions appropriately. Subjective hx not possible: pt non-verbal Detailed Summary Respiratory: no complaints Cardiovascular: no complaints Gastrointestinal: no complaints Genitourinary: no complaints Neurologic: no complaints Exam/Review of Systems Vital Signs Vitals Vital Signs Date Time Temp Pulse Resp B/P Pulse Ox O2 Delivery O2 Flow Rate FiO2 02/02/17 06:00 62 12 130/74 100 Mechanical Ventilator 02/02/17 05:41 30 02/02/17 04:00 98.0 01/30/17 22:00 10.0 Intake and Output 02/01/17 02/01/17 02/02/17 14:59 22:59 06:59 Intake Total 640 ml 588 ml 640 ml Output Total 600 ml 520 ml 350 ml Balance 40 ml 68 ml 290 ml Exam Constitutional: alert Eyes: EOMI, PERRL, nl conjunctiva, nl lids, nl sclera ENMT: intubated, mucosa pink and moist, nl external ears & nose, nl lips & teeth, other (Bilateral nasal packings) Respiratory: clear to auscultation, normal air movement Cardiovascular: nl pulses, regular rate and rhythm Gastrointestinal: nl liver, spleen, non-tender, soft Results Result Diagram: 02/01/17 0614 02/02/17 0047 Results 24 hrs Laboratory Tests Test 02/01/17 12:21 02/01/17 14:06 02/01/17 16:35 02/01/17 18:05 Bedside Glucose 192 167 Sodium Level 144 142 Test 02/01/17 21:16 02/02/17 00:23 02/02/17 00:47 02/02/17 06:43 Sodium Level 141 140 Bedside Glucose 175 178 Medications Medications Current Medications Hydralazine HCl (Apresoline) 10 mg Q6H PRN IV SBP>170 Last administered on 19:57; Admin Dose 10 MG; Start 01/28/17 at 12:30 Metoprolol Tartrate 25 mg 25 mg BID PO Last administered on 01/28/17 20:53; Admin Dose 25 MG; Start 01/28/17 at 21:00 Ceftriaxone Sodium (Rocephin) 50 ml @ 100 mls/hr Q24H IVPB Last administered on 02/01/17 20:20; Admin Dose 100 MLS/HR; Start 01/28/17 at 20:00 Morphine Sulfate (morphine) 2 mg Q2H PRN IV PAIN Last administered on 23:34; Admin Dose 2 MG; Start 01/30/17 at 23:30 Famotidine 10 mg 10 mg DAILY IV Last administered on 02/01/17 10:01; Admin Dose 10 MG; Start 01/31/17 at 09:30 Potassium Chloride/Dextrose (KCl/D5W) 1,005 ml @ 80 mls/hr [id number] IV Last administered on 02/02/17 04:13; Admin Dose 80 MLS/HR; Start 01/31/17 at 14:00 Hydrocortisone (Solu-Cortef) 100 mg Q6 IV Last administered on 02/02/17 06:43 ; Admin Dose 100 MG; Start 01/31/17 at 18:00 Dorzolamide/ Timolol (Cosopt) 1 drop BID BOTH EYES Last administered on 20:20; Admin Dose 1 DROP; Start 02/01/17 at 09:00 Allopurinol (Zyloprim) 300 mg DAILY PO ; Start 02/02/17 at 09:00 Atorvastatin Calcium (Lipitor) 20 mg HS PO ; Start 02/01/17 at 21:00 Miscellaneous Information 1 ea NOTE XX ; Start 02/01/17 at 08:00 Glucose (Glutose) 15 gm Q15M PRN PO DECREASED GLUCOSE; Start 02/01/17 at 08:00 Glucose (Glutose) 22.5 gm Q15M PRN PO DECREASED GLUCOSE; Start 02/01/17 at 08: 00 Dextrose (D50w Syringe) 25 ml Q15M PRN IV DECREASED GLUCOSE; Start 02/01/17 at 08:00 Dextrose (D50w Syringe) 50 ml Q15M PRN IV DECREASED GLUCOSE; Start 02/01/17 at 08:00 Glucagon (Glucagen) 1 mg Q15M PRN IM DECREASED GLUCOSE; Start 02/01/17 at 08: 00 Glucose (Glutose) 15 gm Q15M PRN BUCCAL DECREASED GLUCOSE; Start 02/01/17 at 08:00 Insulin Aspart (Novolog Insulin Pen) NOVOLOG *MILD* ALGORI... Q6 SC Last administered on 02/02/17 06:52; Admin Dose 1 UNIT; Start 02/01/17 at 12:00 STEPHANIE ZAMORA MD Feb 02, 2017 08:49
[2017-02-02 08:59] LABS: ABNORMAL IP MESSAGE 1; HEMATOCRIT 22.2 % (42.0-52.0); HEMOGLOBIN 7.7 g/dl (14.0-18.0); MEAN CORPUSCULAR HEMOGLOBIN 33.2 pg (29.0-33.0); MEAN CORPUSCULAR HGB CONC 34.7 g/dl (32.0-37.0); MEAN CORPUSCULAR VOLUME 95.7 fl (82.0-101.0); MEAN PLATELET VOLUME 10.5 fl (7.4-10.4); PLATELET COUNT 86 10^3/UL (140-415); POSITIVE DIFF @See below; RED BLOOD COUNT 2.32 10^6/ul (4.70-6.10); RED CELL DISTRIBUTION WIDTH 13.9 % (11.5-14.5); WHITE BLOOD COUNT 8.8 10^3/ul (4.8-10.8)
[2017-02-02] MEDS: METOPROLOL 25 MG TAB PO SCH ×2 (09:00→20:44)
[2017-02-02] MEDS: ALLOPURINOL 300 MG TAB PO SCH (09:00)
[2017-02-02 09:11] LABS: ALBUMIN 2.5 g/dl (3.3-4.9); ALBUMIN/GLOBULIN RATIO 0.89; BILIRUBIN,INDIRECT 0.2 mg/dl (0-1.1); BILIRUBIN,TOTAL 0.2 mg/dl (0.2-1.3); CALCIUM 7.9 mg/dl (8.4-10.2); CREATININE 1.73 mg/dl (0.61-1.24); POTASSIUM 3.5 mmol/L (3.5-5.1); TOTAL PROTEIN 5.3 g/dl (6.1-8.1)
[2017-02-02 09:44] LABS: ANISOCYTOSIS 1+ (0-0); BURR CELLS 1+ (0-0); MONOCYTES % (M) 5 % (0-11); OVALOCYTES 1+ (0-0); PLATELET ESTIMATE DECREASED; POIKILOCYTOSIS 2+ (0-0); POLYCHROMASIA 1+ (0-0)
[2017-02-02] MEDS: DORZOLAMIDE/TIMOLOL 10 ML OPH BOTH EYES SCH ×2 (09:51→20:43)
[2017-02-02] MEDS: FAMOTIDINE 20 MG INJ IV SCH (09:51)
--- NOTE | 2017-02-02 10:50 | CONS ---
Date/Time of Note Date/Time of Note DATE: 02/02/17 TIME: 10:47 Assessment/Plan Assessment/Plan Additional Assessment/Plan Ventilator setting; AC of 10, tidal volume 500, PEEP of 5, 30% FiO2. Assessment and recommendations; 1. Patient admitted for trans sphenoidal pituitary surgery due to adenoma. Surgery was uneventful. 2. Patient has been unable to be extubated and failed one extubation trial due to severe apnea. Etiology of apneic episodes is unclear at this point. 3. Anemia and thrombocytopenia. 4. Mild renal insufficiency. Give the patient another CPAP trial. Failing that, I would recommend switching him to SIMV mode with a rate of 12, and pressure support of 10. Meanwhile continue current supportive care. Consultation Date/Type/Reason Admit Date/Time Jan 28, 2017 at 06:15 Initial Consult Date 01/28/17 Type of Consultation: Pulmonary/critical care Referring Provider: MARIAN CANNON MD 24 HR Interval Summary Free Text/Dictation Patient's condition remains tenuous at best. Patient however has remained hemodynamically stable. Remains completely awake and alert. Patient however has been unable to be weaned off from invasive Ventilation due to episodes of apnea. General exam; elderly male, awake alert, orally intubated, currently in no distress. Exam/Review of Systems Vital Signs Vitals Vital Signs Date Time Temp Pulse Resp B/P Pulse Ox O2 Delivery O2 Flow Rate FiO2 02/02/17 08:00 64 02/02/17 06:00 12 130/74 100 Mechanical Ventilator 02/02/17 05:41 30 02/02/17 04:00 98.0 01/30/17 22:00 10.0 Intake and Output 02/01/17 02/01/17 02/02/17 15:00 23:00 07:00 Intake Total 640 ml 588 ml 560 ml Output Total 600 ml 570 ml 300 ml Balance 40 ml 18 ml 260 ml Exam HEENT exam; supple neck, no JVD. No lymphadenopathy. Midline trachea. No thyromegaly. Orally intubated. Bilateral nasal packing is in place. Chest exam; clear to auscultation. S1-S2 audible, no murmurs. Regular rhythm. Abdomen exam; soft, nontender. No organomegaly. Bowel sounds audible. Extremity exam; no edema. [employer] exam; no focal deficit. Results Result Diagram: 02/02/17 0839 02/02/17 0839 Results 24 hrs Laboratory Tests Test 02/01/17 12:21 02/01/17 14:06 02/01/17 16:35 02/01/17 18:05 Bedside Glucose 192 167 Sodium Level 144 142 Test 02/01/17 21:16 02/02/17 00:23 02/02/17 00:47 02/02/17 06:43 Sodium Level 141 140 Bedside Glucose 175 178 Test 02/02/17 08:39 White Blood Count 8.8 # Red Blood Count 2.32 L Hemoglobin 7.7 L Hematocrit 22.2 L Mean Corpuscular Volume 95.7 Mean Corpuscular Hemoglobin 33.2 H Mean Corpuscular Hemoglobin Concent 34.7 Red Cell Distribution Width 13.9 Platelet Count 86 L Mean Platelet Volume 10.5 H Neutrophils % Segmented Neutrophils % (Manual) 88 H Lymphocytes % Lymphocytes % (Manual) 7 L Monocytes % Monocytes % (Manual) 5 Eosinophils % Basophils % Nucleated Red Blood Cells % 0.0 Neutrophils # Absolute Lymphocytes (Manual) 0.6 L Lymphocytes # Monocytes # Absolute Monocytes (Manual) 0.4 Eosinophils # Basophils # Nucleated Red Blood Cells # Platelet Estimate DECREASED Polychromasia 1+ Poikilocytosis 2+ Anisocytosis 1+ Ovalocytes 1+ Sodium Level 138 Potassium Level 3.5 Chloride Level 111 H Carbon Dioxide Level 19 L Anion Gap 12 Blood Urea Nitrogen 36 H Creatinine 1.73 H Glucose Level 175 Calcium Level 7.9 L Total Bilirubin 0.2 Direct Bilirubin 0.00 Indirect Bilirubin 0.2 Aspartate Amino Transf (AST/SGOT) 39 Alanine Aminotransferase (ALT/SGPT) 66 Alkaline Phosphatase 39 L Total Protein 5.3 L Albumin 2.5 L Globulin 2.80 Albumin/Globulin Ratio 0.89 Medications Medications Current Medications Hydralazine HCl (Apresoline) 10 mg Q6H PRN IV SBP>170 Last administered on 19:57; Admin Dose 10 MG; Start 01/28/17 at 12:30 Metoprolol Tartrate 25 mg 25 mg BID PO Last administered on 01/28/17 20:53; Admin Dose 25 MG; Start 01/28/17 at 21:00 Ceftriaxone Sodium (Rocephin) 50 ml @ 100 mls/hr Q24H IVPB Last administered on 02/01/17 20:20; Admin Dose 100 MLS/HR; Start 01/28/17 at 20:00 Morphine Sulfate (morphine) 2 mg Q2H PRN IV PAIN Last administered on 23:34; Admin Dose 2 MG; Start 01/30/17 at 23:30 Famotidine 10 mg 10 mg DAILY IV Last administered on 02/02/17 09:51; Admin Dose 10 MG; Start 01/31/17 at 09:30 Potassium Chloride/Dextrose (KCl/D5W) 1,005 ml @ 80 mls/hr [id number] IV Last administered on 02/02/17 04:13; Admin Dose 80 MLS/HR; Start 01/31/17 at 14:00 Hydrocortisone (Solu-Cortef) 100 mg Q6 IV Last administered on 02/02/17 06:43 ; Admin Dose 100 MG; Start 01/31/17 at 18:00 Dorzolamide/ Timolol (Cosopt) 1 drop BID BOTH EYES Last administered on 09:51; Admin Dose 1 DROP; Start 02/01/17 at 09:00 Allopurinol (Zyloprim) 300 mg DAILY PO ; Start 02/02/17 at 09:00 Atorvastatin Calcium (Lipitor) 20 mg HS PO ; Start 02/01/17 at 21:00 Miscellaneous Information 1 ea NOTE XX ; Start 02/01/17 at 08:00 Glucose (Glutose) 15 gm Q15M PRN PO DECREASED GLUCOSE; Start 02/01/17 at 08:00 Glucose (Glutose) 22.5 gm Q15M PRN PO DECREASED GLUCOSE; Start 02/01/17 at 08: 00 Dextrose (D50w Syringe) 25 ml Q15M PRN IV DECREASED GLUCOSE; Start 02/01/17 at 08:00 Dextrose (D50w Syringe) 50 ml Q15M PRN IV DECREASED GLUCOSE; Start 02/01/17 at 08:00 Glucagon (Glucagen) 1 mg Q15M PRN IM DECREASED GLUCOSE; Start 02/01/17 at 08: 00 Glucose (Glutose) 15 gm Q15M PRN BUCCAL DECREASED GLUCOSE; Start 02/01/17 at 08:00 Insulin Aspart (Novolog Insulin Pen) NOVOLOG *MILD* ALGORI... Q6 SC Last administered on 02/02/17 06:52; Admin Dose 1 UNIT; Start 02/01/17 at 12:00 RUBY KHAN Feb 02, 2017 10:50
--- NOTE | 2017-02-02 11:29 | CONS ---
Date/Time of Note Date/Time of Note DATE: 02/02/17 TIME: 11:26 Assessment/Plan Assessment/Plan Additional Assessment/Plan 1. Acute kidney injury vs DEJON on CKD III, No previous Cr available to compare 2. Transsphenoidal pituitary adenoma, s/p Transsphenoidal resection of pituiatry adenoma on 01/30/17 2. Pancreatic cancer. The patient follows with oncologist as an outpatient. 3. Hypertension. 4. Hyperlipidemia. 5. Hypernatremia 6. Metabolic acidosis 7. Post Failed extubation- pt had a code blue and required reintubation- currently on ventilator Plan: Cr 1.73, Na 138,HCo3 19- - continue D5W with KCL 10mEQ at 80 cc.hr , good urine output 1470 ml pt remains intubated because he becomes apneic on CPAP trial - weanign plan as per pulmonary will continue follow up Consultation Date/Type/Reason Admit Date/Time Jan 28, 2017 at 06:15 Initial Consult Date 01/28/17 Type of Consultation: NEPHROLOGY Referring Provider: MARIAN CANNON MD 24 HR Interval Summary Free Text/Dictation pt remained on ventilator, Na normal today, BUN/Cr improving,g ood urine output Exam/Review of Systems Vital Signs Vitals Vital Signs Date Time Temp Pulse Resp B/P Pulse Ox O2 Delivery O2 Flow Rate FiO2 02/02/17 11:00 61 12 136/72 100 Mechanical Ventilator 02/02/17 08:00 99.2 02/02/17 08:00 30 01/30/17 22:00 10.0 Intake and Output 02/01/17 02/01/17 02/02/17 15:00 23:00 07:00 Intake Total 640 ml 588 ml 560 ml Output Total 600 ml 570 ml 300 ml Balance 40 ml 18 ml 260 ml Exam Constitutional: alert HEENT: ET tube in place , No JVD Respiratory: Bilateral Coarse BS+ Cardiovascular: regular rate and rhythm Gastrointestinal: nl liver, spleen, non-tender, soft Musculoskeletal: no clubbing/cyanosis/edema Neurological: awake,alert, Results Result Diagram: 02/02/17 0839 02/02/17 0839 Results 24 hrs Laboratory Tests Test 02/01/17 12:21 02/01/17 14:06 02/01/17 16:35 02/01/17 18:05 Bedside Glucose 192 167 Sodium Level 144 142 Test 02/01/17 21:16 02/02/17 00:23 02/02/17 00:47 02/02/17 06:43 Sodium Level 141 140 Bedside Glucose 175 178 Test 02/02/17 08:39 White Blood Count 8.8 # Red Blood Count 2.32 L Hemoglobin 7.7 L Hematocrit 22.2 L Mean Corpuscular Volume 95.7 Mean Corpuscular Hemoglobin 33.2 H Mean Corpuscular Hemoglobin Concent 34.7 Red Cell Distribution Width 13.9 Platelet Count 86 L Mean Platelet Volume 10.5 H Neutrophils % Segmented Neutrophils % (Manual) 88 H Lymphocytes % Lymphocytes % (Manual) 7 L Monocytes % Monocytes % (Manual) 5 Eosinophils % Basophils % Nucleated Red Blood Cells % 0.0 Neutrophils # Absolute Lymphocytes (Manual) 0.6 L Lymphocytes # Monocytes # Absolute Monocytes (Manual) 0.4 Eosinophils # Basophils # Nucleated Red Blood Cells # Platelet Estimate DECREASED Polychromasia 1+ Poikilocytosis 2+ Anisocytosis 1+ Ovalocytes 1+ Sodium Level 138 Potassium Level 3.5 Chloride Level 111 H Carbon Dioxide Level 19 L Anion Gap 12 Blood Urea Nitrogen 36 H Creatinine 1.73 H Glucose Level 175 Calcium Level 7.9 L Total Bilirubin 0.2 Direct Bilirubin 0.00 Indirect Bilirubin 0.2 Aspartate Amino Transf (AST/SGOT) 39 Alanine Aminotransferase (ALT/SGPT) 66 Alkaline Phosphatase 39 L Total Protein 5.3 L Albumin 2.5 L Globulin 2.80 Albumin/Globulin Ratio 0.89 Medications Medications Current Medications Hydralazine HCl (Apresoline) 10 mg Q6H PRN IV SBP>170 Last administered on 19:57; Admin Dose 10 MG; Start 01/28/17 at 12:30 Metoprolol Tartrate 25 mg 25 mg BID PO Last administered on 01/28/17 20:53; Admin Dose 25 MG; Start 01/28/17 at 21:00 Ceftriaxone Sodium (Rocephin) 50 ml @ 100 mls/hr Q24H IVPB Last administered on 02/01/17 20:20; Admin Dose 100 MLS/HR; Start 01/28/17 at 20:00 Morphine Sulfate (morphine) 2 mg Q2H PRN IV PAIN Last administered on 23:34; Admin Dose 2 MG; Start 01/30/17 at 23:30 Famotidine 10 mg 10 mg DAILY IV Last administered on 02/02/17 09:51; Admin Dose 10 MG; Start 01/31/17 at 09:30 Potassium Chloride/Dextrose (KCl/D5W) 1,005 ml @ 80 mls/hr [id number] IV Last administered on 02/02/17 04:13; Admin Dose 80 MLS/HR; Start 01/31/17 at 14:00 Hydrocortisone (Solu-Cortef) 100 mg Q6 IV Last administered on 02/02/17 06:43 ; Admin Dose 100 MG; Start 01/31/17 at 18:00 Dorzolamide/ Timolol (Cosopt) 1 drop BID BOTH EYES Last administered on 09:51; Admin Dose 1 DROP; Start 02/01/17 at 09:00 Allopurinol (Zyloprim) 300 mg DAILY PO ; Start 02/02/17 at 09:00 Atorvastatin Calcium (Lipitor) 20 mg HS PO ; Start 02/01/17 at 21:00 Miscellaneous Information 1 ea NOTE XX ; Start 02/01/17 at 08:00 Glucose (Glutose) 15 gm Q15M PRN PO DECREASED GLUCOSE; Start 02/01/17 at 08:00 Glucose (Glutose) 22.5 gm Q15M PRN PO DECREASED GLUCOSE; Start 02/01/17 at 08: 00 Dextrose (D50w Syringe) 25 ml Q15M PRN IV DECREASED GLUCOSE; Start 02/01/17 at 08:00 Dextrose (D50w Syringe) 50 ml Q15M PRN IV DECREASED GLUCOSE; Start 02/01/17 at 08:00 Glucagon (Glucagen) 1 mg Q15M PRN IM DECREASED GLUCOSE; Start 02/01/17 at 08: 00 Glucose (Glutose) 15 gm Q15M PRN BUCCAL DECREASED GLUCOSE; Start 02/01/17 at 08:00 Insulin Aspart (Novolog Insulin Pen) NOVOLOG *MILD* ALGORI... Q6 SC Last administered on 02/02/17 06:52; Admin Dose 1 UNIT; Start 02/01/17 at 12:00 ISRAEL OJEDA MD Feb 02, 2017 11:29
--- NOTE | 2017-02-02 19:00 | PN ---
Date/Time of Note Date/Time of Note DATE: 02/02/17 TIME: 18:58 Assessment/Plan VTE Prophylaxis VTE Prophylaxis Intervention: other Lines/Catheters IV [facility] Peripheral IV Urinary Cath still in place: Yes Reason Cath still needed: urinary retention Assessment/Plan Assessment/Plan - Transsphenoidal pituitary adenoma, s/p transsphenoidal tumor resection on by Dr. Rodriguez. - per endocrinology - Postoperative respiratory failure requiring reintubation, s/p code blue - Metabolic acidosis - Pancreatic cancer. The patient follows with oncologist as an outpatient. Patient is aware that he will not be able to receive any treatment for 10 days after surgery. - Hypertension. We will continue hydralazine p.r.n. - Hyperlipidemia. Continue simvastatin. - Chronic kidney disease stage III. Continue to monitor BUN and creatinine. - per nephrology consultation. Further recommendations based on clinical course. Total critical care time spent is 40 mins. Plan of care discussed with Dr. Schulte. Subjective 24 Hr Interval Summary Free Text/Dictation remains orally intubated, alert, responsive, denies any complaints- staff Constitutional: requiring IVF Respiratory: no complaints Cardiovascular: no complaints Gastrointestinal: no complaints Genitourinary: no complaints Exam/Review of Systems Vital Signs Vitals Vital Signs Date Time Temp Pulse Resp B/P Pulse Ox O2 Delivery O2 Flow Rate FiO2 02/02/17 16:00 59 02/02/17 15:50 13 100 30 02/02/17 14:00 153/78 Mechanical Ventilator 02/02/17 12:00 99.0 01/30/17 22:00 10.0 Intake and Output 02/01/17 02/01/17 02/02/17 14:59 22:59 06:59 Intake Total 640 ml 588 ml 640 ml Output Total 600 ml 520 ml 350 ml Balance 40 ml 68 ml 290 ml Exam Constitutional: alert Psych: nl mood/affect Respiratory: diminished breath sounds Cardiovascular: nl pulses Gastrointestinal: non-tender, soft Musculoskeletal: nl extremities to inspection Extremities: normal pulses Neurological: nl mental status Results Result Diagram: 02/02/17 0839 02/02/17 1753 Results 24 hrs Laboratory Tests Test 02/01/17 21:16 02/02/17 00:23 02/02/17 00:47 02/02/17 06:43 Sodium Level 141 140 Bedside Glucose 175 178 Test 02/02/17 08:39 02/02/17 13:01 02/02/17 13:52 02/02/17 17:53 White Blood Count 8.8 # Red Blood Count 2.32 L Hemoglobin 7.7 L Hematocrit 22.2 L Mean Corpuscular Volume 95.7 Mean Corpuscular Hemoglobin 33.2 H Mean Corpuscular Hemoglobin Concent 34.7 Red Cell Distribution Width 13.9 Platelet Count 86 L Mean Platelet Volume 10.5 H Neutrophils % Segmented Neutrophils % (Manual) 88 H Lymphocytes % Lymphocytes % (Manual) 7 L Monocytes % Monocytes % (Manual) 5 Eosinophils % Basophils % Nucleated Red Blood Cells % 0.0 Neutrophils # Absolute Lymphocytes (Manual) 0.6 L Lymphocytes # Monocytes # Absolute Monocytes (Manual) 0.4 Eosinophils # Basophils # Nucleated Red Blood Cells # Platelet Estimate DECREASED Polychromasia 1+ Poikilocytosis 2+ Anisocytosis 1+ Ovalocytes 1+ Sodium Level 138 138 141 Potassium Level 3.5 Chloride Level 111 H Carbon Dioxide Level 19 L Anion Gap 12 Blood Urea Nitrogen 36 H Creatinine 1.73 H Glucose Level 175 Calcium Level 7.9 L Total Bilirubin 0.2 Direct Bilirubin 0.00 Indirect Bilirubin 0.2 Aspartate Amino Transf (AST/SGOT) 39 Alanine Aminotransferase (ALT/SGPT) 66 Alkaline Phosphatase 39 L Total Protein 5.3 L Albumin 2.5 L Globulin 2.80 Albumin/Globulin Ratio 0.89 Bedside Glucose 180 Test 02/02/17 18:31 Bedside Glucose 179 Medications Medications Current Medications Hydralazine HCl (Apresoline) 10 mg Q6H PRN IV SBP>170 Last administered on 19:57; Admin Dose 10 MG; Start 01/28/17 at 12:30 Metoprolol Tartrate 25 mg 25 mg BID PO Last administered on 01/28/17 20:53; Admin Dose 25 MG; Start 01/28/17 at 21:00 Ceftriaxone Sodium (Rocephin) 50 ml @ 100 mls/hr Q24H IVPB Last administered on 02/01/17 20:20; Admin Dose 100 MLS/HR; Start 01/28/17 at 20:00 Morphine Sulfate (morphine) 2 mg Q2H PRN IV PAIN Last administered on 23:34; Admin Dose 2 MG; Start 01/30/17 at 23:30 Famotidine 10 mg 10 mg DAILY IV Last administered on 02/02/17 09:51; Admin Dose 10 MG; Start 01/31/17 at 09:30 Potassium Chloride/Dextrose (KCl/D5W) 1,005 ml @ 80 mls/hr [id number] IV Last administered on 02/02/17 18:32; Admin Dose 80 MLS/HR; Start 01/31/17 at 14:00 Hydrocortisone (Solu-Cortef) 100 mg Q6 IV Last administered on 02/02/17 18:32 ; Admin Dose 100 MG; Start 01/31/17 at 18:00 Dorzolamide/ Timolol (Cosopt) 1 drop BID BOTH EYES Last administered on 09:51; Admin Dose 1 DROP; Start 02/01/17 at 09:00 Allopurinol (Zyloprim) 300 mg DAILY PO ; Start 02/02/17 at 09:00 Atorvastatin Calcium (Lipitor) 20 mg HS PO ; Start 02/01/17 at 21:00 Miscellaneous Information 1 ea NOTE XX ; Start 02/01/17 at 08:00 Glucose (Glutose) 15 gm Q15M PRN PO DECREASED GLUCOSE; Start 02/01/17 at 08:00 Glucose (Glutose) 22.5 gm Q15M PRN PO DECREASED GLUCOSE; Start 02/01/17 at 08: 00 Dextrose (D50w Syringe) 25 ml Q15M PRN IV DECREASED GLUCOSE; Start 02/01/17 at 08:00 Dextrose (D50w Syringe) 50 ml Q15M PRN IV DECREASED GLUCOSE; Start 02/01/17 at 08:00 Glucagon (Glucagen) 1 mg Q15M PRN IM DECREASED GLUCOSE; Start 02/01/17 at 08: 00 Glucose (Glutose) 15 gm Q15M PRN BUCCAL DECREASED GLUCOSE; Start 02/01/17 at 08:00 Insulin Aspart (Novolog Insulin Pen) NOVOLOG *MILD* ALGORI... Q6 SC Last administered on 02/02/17 18:40; Admin Dose 1 UNIT; Start 02/01/17 at 12:[address] Feb 02, 2017 19:00
--- NOTE | 2017-02-02 19:14 | PN ---
Date/Time of Note Date/Time of Note DATE: 02/02/17 TIME: 19:13 Assessment/Plan VTE Prophylaxis VTE Prophylaxis Intervention: SCD's Lines/Catheters IV Catheter Type (from Nrs): Peripheral IV Central line still needed: No Urinary Cath still in place: Yes Reason Cath still needed: urinary retention Assessment/Plan Assessment/Plan impression s/p Transsphenoidal tumor resection. POD #3 intubated for resp failure . Failed weaned vent trials but lasted longer per RN following commands plan cont supportive care dc nasal packing in am resp and endo following Subjective 24 Hr Interval Summary Free Text/Dictation S: s/p Transsphenoidal tumor resection (recurrent) . POD #3 nasal packing intact. Per staffing clerk, pt did better today with vent weaning trials Exam/Review of Systems Vital Signs Vitals Vital Signs Date Time Temp Pulse Resp B/P Pulse Ox O2 Delivery O2 Flow Rate FiO2 02/02/17 19:00 67 16 154/84 100 Mechanical Ventilator 02/02/17 16:00 98.9 02/02/17 15:50 30 01/30/17 22:00 10.0 Intake and Output 02/01/17 02/01/17 02/02/17 15:00 23:00 07:00 Intake Total 640 ml 588 ml 640 ml Output Total 600 ml 570 ml 300 ml Balance 40 ml 18 ml 340 ml Exam Neurological: other (MS: Intubated, opening eyes spont, regards examiner CN : JELENA ZUNIGA M: FC x4, no focal def. ) Results Result Diagram: 02/02/17 0839 02/02/17 1753 Results 24 hrs Laboratory Tests Test 02/01/17 21:16 02/02/17 00:23 02/02/17 00:47 02/02/17 06:43 Sodium Level 141 140 Bedside Glucose 175 178 Test 02/02/17 08:39 02/02/17 13:01 02/02/17 13:52 02/02/17 17:53 White Blood Count 8.8 # Red Blood Count 2.32 L Hemoglobin 7.7 L Hematocrit 22.2 L Mean Corpuscular Volume 95.7 Mean Corpuscular Hemoglobin 33.2 H Mean Corpuscular Hemoglobin Concent 34.7 Red Cell Distribution Width 13.9 Platelet Count 86 L Mean Platelet Volume 10.5 H Neutrophils % Segmented Neutrophils % (Manual) 88 H Lymphocytes % Lymphocytes % (Manual) 7 L Monocytes % Monocytes % (Manual) 5 Eosinophils % Basophils % Nucleated Red Blood Cells % 0.0 Neutrophils # Absolute Lymphocytes (Manual) 0.6 L Lymphocytes # Monocytes # Absolute Monocytes (Manual) 0.4 Eosinophils # Basophils # Nucleated Red Blood Cells # Platelet Estimate DECREASED Polychromasia 1+ Poikilocytosis 2+ Anisocytosis 1+ Ovalocytes 1+ Sodium Level 138 138 141 Potassium Level 3.5 Chloride Level 111 H Carbon Dioxide Level 19 L Anion Gap 12 Blood Urea Nitrogen 36 H Creatinine 1.73 H Glucose Level 175 Calcium Level 7.9 L Total Bilirubin 0.2 Direct Bilirubin 0.00 Indirect Bilirubin 0.2 Aspartate Amino Transf (AST/SGOT) 39 Alanine Aminotransferase (ALT/SGPT) 66 Alkaline Phosphatase 39 L Total Protein 5.3 L Albumin 2.5 L Globulin 2.80 Albumin/Globulin Ratio 0.89 Bedside Glucose 180 Test 02/02/17 18:31 Bedside Glucose 179 Medications Medications Current Medications Hydralazine HCl (Apresoline) 10 mg Q6H PRN IV SBP>170 Last administered on 19:57; Admin Dose 10 MG; Start 01/28/17 at 12:30 Metoprolol Tartrate 25 mg 25 mg BID PO Last administered on 01/28/17 20:53; Admin Dose 25 MG; Start 01/28/17 at 21:00 Ceftriaxone Sodium (Rocephin) 50 ml @ 100 mls/hr Q24H IVPB Last administered on 02/01/17 20:20; Admin Dose 100 MLS/HR; Start 01/28/17 at 20:00 Morphine Sulfate (morphine) 2 mg Q2H PRN IV PAIN Last administered on 23:34; Admin Dose 2 MG; Start 01/30/17 at 23:30 Famotidine 10 mg 10 mg DAILY IV Last administered on 02/02/17 09:51; Admin Dose 10 MG; Start 01/31/17 at 09:30 Potassium Chloride/Dextrose (KCl/D5W) 1,005 ml @ 80 mls/hr [id number] IV Last administered on 02/02/17 18:32; Admin Dose 80 MLS/HR; Start 01/31/17 at 14:00 Hydrocortisone (Solu-Cortef) 100 mg Q6 IV Last administered on 02/02/17 18:32 ; Admin Dose 100 MG; Start 01/31/17 at 18:00 Dorzolamide/ Timolol (Cosopt) 1 drop BID BOTH EYES Last administered on 09:51; Admin Dose 1 DROP; Start 02/01/17 at 09:00 Allopurinol (Zyloprim) 300 mg DAILY PO ; Start 02/02/17 at 09:00 Atorvastatin Calcium (Lipitor) 20 mg HS PO ; Start 02/01/17 at 21:00 Miscellaneous Information 1 ea NOTE XX ; Start 02/01/17 at 08:00 Glucose (Glutose) 15 gm Q15M PRN PO DECREASED GLUCOSE; Start 02/01/17 at 08:00 Glucose (Glutose) 22.5 gm Q15M PRN PO DECREASED GLUCOSE; Start 02/01/17 at 08: 00 Dextrose (D50w Syringe) 25 ml Q15M PRN IV DECREASED GLUCOSE; Start 02/01/17 at 08:00 Dextrose (D50w Syringe) 50 ml Q15M PRN IV DECREASED GLUCOSE; Start 02/01/17 at 08:00 Glucagon (Glucagen) 1 mg Q15M PRN IM DECREASED GLUCOSE; Start 02/01/17 at 08: 00 Glucose (Glutose) 15 gm Q15M PRN BUCCAL DECREASED GLUCOSE; Start 02/01/17 at 08:00 Insulin Aspart (Novolog Insulin Pen) NOVOLOG *MILD* ALGORI... Q6 SC Last administered on 02/02/17 18:40; Admin Dose 1 UNIT; Start 02/01/17 at 12:00 AGNIESZKA MUNGUIA NP Feb 02, 2017 19:14
[2017-02-02] MEDS: CEFTRIAXONE 1 GM/50 ML (PMX) 50 ML IVPB SCH (20:42)
[2017-02-02] MEDS: ATORVASTATIN 20 MG TAB PO SCH (20:43)
[2017-02-03] VITALS (37 sets, daily range): BP systolic 142–176; BP diastolic 69–97; PULSE 50–97; RESP 7–23
[2017-02-03] MEDS: HYDROCORTISONE 100 MG INJ IV SCH ×4 (00:45→17:52)
[2017-02-03] MEDS: INSULIN ASPART [NOVOLOG] 3 ML PEN SC SCH ×4 (00:49→17:46)
[2017-02-03] MEDS: POTASSIUM CHLORIDE 10 MEQ in DEXTROSE 5% 1,000 ML IV SCH ×3 (05:54→20:51)
[2017-02-03 06:39] LABS: BASOPHILS % 0.1 % (0.0-2.0); HEMATOCRIT 29.2 % (42.0-52.0); HEMOGLOBIN 9.9 g/dl (14.0-18.0); LYMPHOCYTES # 1.2 10^3/ul (0.8-2.9); LYMPHOCYTES % 9.9 % (15.0-51.0); MEAN CORPUSCULAR HEMOGLOBIN 32.1 pg (29.0-33.0); MEAN CORPUSCULAR HGB CONC 33.9 g/dl (32.0-37.0); MEAN CORPUSCULAR VOLUME 94.8 fl (82.0-101.0); MEAN PLATELET VOLUME 10.8 fl (7.4-10.4); MONOCYTE # 0.4 10^3/ul (0.3-0.9); MONOCYTES % 3.4 % (0.0-11.0); NEUTROPHILS % 85.6 % (39.0-77.0); PLATELET COUNT 113 10^3/UL (140-415); RED BLOOD COUNT 3.08 10^6/ul (4.70-6.10); RED CELL DISTRIBUTION WIDTH 13.4 % (11.5-14.5); WHITE BLOOD COUNT 11.7 10^3/ul (4.8-10.8)
[2017-02-03 07:28] LABS: CALCIUM 8.2 mg/dl (8.4-10.2); CREATININE 1.6 mg/dl (0.61-1.24); POTASSIUM 3.3 mmol/L (3.5-5.1)
--- NOTE | 2017-02-03 07:28 | PN ---
DATE: 02/01/2017 SUBJECTIVE AND INTERVAL HISTORY: Follow up on transsphenoidal pituitary tumor resection, postop res piratory failure, dyslipidemia, history pancreatic cancer, chronic kidney disease and anemia. The p atient postoperatively had multiple failed attempts at weaning, in fact this morning also was tried on CPAP but could not maintain oxygenation, in fact could not breathe. The patient will be continue d on vent support. The patient remains awake, alert and is moving all extremities and is following simple commands. No reported fever or chills. No reported vomiting. No reported abdominal distent ion, no acute skin rash. PHYSICAL EXAMINATION: GENERAL: The patient is conscious, awake, alert. VITAL SIGNS: Temperature 97.6, pulse 72, respirations 16. Patient is on assist control at 10 and i s not overbreathing the vent, blood pressure 127/69, O2 saturation 100% on FIO2 of 30%. HEENT: Conjunctivae and lids normal. Extraocular movement intact. NECK: No mass, no JVD. CHEST: Fairly clear. No use of accessory muscles. CARDIOVASCULAR: Regular rate and rhythm. S1, S2 normal. No murmur, gallop, or rub. ABDOMEN: Soft, nondistended, nontender. No palpable mass. EXTREMITIES: No leg edema. Pedal pulses palpable. SKIN: Without acute rash. NEUROLOGIC: The patient is awake, alert, follows simple commands. LABORATORY DATA: WBC 11.8, hemoglobin 8.6, platelets 103, down from 134. Sodium 146, potassium 4, BUN 36, creatinine 2, magnesium 2, phosphorus 4.2, calcium 8. IMPRESSION: 1. Postoperative acute respiratory failure. Continue ventilator support. The patient is being see n by Dr. Jorge from pulmonary standpoint. 2. Status post transsphenoidal , continue stress dose of steroids. 3. Diabetes. Continue sliding scale insulin. The patient is being followed by chef de partie. 4. Hypertension. Continue metoprolol. 5. Chronic kidney disease stage III. The patient is seen by Dr. Huong Yan. We will continue to mon itor electrolytes closely. 6. Hyperuricemia. Continue allopurinol. 7. Dyslipidemia. Continue Lipitor. 8. Recent urinary tract infection sensitive to Rocephin. Continue IV Rocephin. Plan of care discu ssed with nursing staff. The patient remains in ICU. Total critical care time spent 35 minutes. Dictated By: MARIAN RICH/MARLON Conf#: [id number] DID#: [id number] CC: STONEY RICHARDSON MD;*EndCC*
[2017-02-03] MEDS: CREON (12k-38k-60k) 1 CAP PO SCH ×3 (07:35→17:16)
[2017-02-03] MEDS: METOPROLOL 25 MG TAB PO SCH ×2 (09:00→20:49)
[2017-02-03] MEDS: ALLOPURINOL 300 MG TAB PO SCH (09:00)
--- NOTE | 2017-02-03 09:15 | CONS ---
Date/Time of Note Date/Time of Note DATE: 02/03/17 TIME: 09:13 Consult Date/Type/Reason Admit Date/Time Jan 28, 2017 at 06:15 Initial Consult Date 01/28/17 Type of Consultation: Pulmonary Ordering Provider: MARIAN CANNON MD Subjective Awake alert on mechanical ventilation. Follow simple commands. Apneic on CPAP weaning trial. Objective Vital Signs Date Time Temp Pulse Resp B/P Pulse Ox O2 Delivery O2 Flow Rate FiO2 02/03/17 08:00 98.5 81 23 158/97 100 Mechanical Ventilator 02/03/17 05:20 30 01/30/17 22:00 10.0 Intake and Output 02/02/17 02/02/17 02/03/17 14:59 22:59 06:59 Intake Total 640 ml 495 ml 640 ml Output Total 430 ml 995 ml 465 ml Balance 210 ml -500 ml 175 ml Results/Medications Result Diagram: 02/03/17 0555 02/03/17 0555 Results 24 hrs Laboratory Tests Test 02/02/17 13:01 02/02/17 13:52 02/02/17 17:53 02/02/17 18:31 Bedside Glucose 180 179 Sodium Level 138 141 Test 02/03/17 00:47 02/03/17 05:52 02/03/17 05:55 Bedside Glucose 194 200 White Blood Count 11.7 #H Red Blood Count 3.08 #L Hemoglobin 9.9 #L Hematocrit 29.2 #L Mean Corpuscular Volume 94.8 Mean Corpuscular Hemoglobin 32.1 Mean Corpuscular Hemoglobin Concent 33.9 Red Cell Distribution Width 13.4 Platelet Count 113 #L Mean Platelet Volume 10.8 H Neutrophils % 85.6 H Lymphocytes % 9.9 L Monocytes % 3.4 Eosinophils % 0.0 Basophils % 0.1 Nucleated Red Blood Cells % 0.0 Neutrophils # 10.0 H Lymphocytes # 1.2 Monocytes # 0.4 Eosinophils # 0.0 Basophils # 0.0 Nucleated Red Blood Cells # 0.0 Sodium Level 139 Potassium Level 3.3 L Chloride Level 108 Carbon Dioxide Level 21 Anion Gap 13 Blood Urea Nitrogen 35 H Creatinine 1.60 H Glucose Level 169 Calcium Level 8.2 L Medications Current Medications Hydralazine HCl (Apresoline) 10 mg Q6H PRN IV SBP>170 Last administered on 19:57; Admin Dose 10 MG; Start 01/28/17 at 12:30 Metoprolol Tartrate 25 mg 25 mg BID PO Last administered on 01/28/17 20:53; Admin Dose 25 MG; Start 01/28/17 at 21:00 Ceftriaxone Sodium (Rocephin) 50 ml @ 100 mls/hr Q24H IVPB Last administered on 02/02/17 20:42; Admin Dose 100 MLS/HR; Start 01/28/17 at 20:00 Morphine Sulfate (morphine) 2 mg Q2H PRN IV PAIN Last administered on 23:34; Admin Dose 2 MG; Start 01/30/17 at 23:30 Famotidine 10 mg 10 mg DAILY IV Last administered on 02/02/17 09:51; Admin Dose 10 MG; Start 01/31/17 at 09:30 Potassium Chloride/Dextrose (KCl/D5W) 1,005 ml @ 80 mls/hr [id number] IV Last administered on 02/03/17 05:54; Admin Dose 80 MLS/HR; Start 01/31/17 at 14:00 Dorzolamide/ Timolol (Cosopt) 1 drop BID BOTH EYES Last administered on 20:43; Admin Dose 1 DROP; Start 02/01/17 at 09:00 Allopurinol (Zyloprim) 300 mg DAILY PO ; Start 02/02/17 at 09:00 Atorvastatin Calcium (Lipitor) 20 mg HS PO ; Start 02/01/17 at 21:00 Miscellaneous Information 1 ea NOTE XX ; Start 02/01/17 at 08:00 Glucose (Glutose) 15 gm Q15M PRN PO DECREASED GLUCOSE; Start 02/01/17 at 08:00 Glucose (Glutose) 22.5 gm Q15M PRN PO DECREASED GLUCOSE; Start 02/01/17 at 08: 00 Dextrose (D50w Syringe) 25 ml Q15M PRN IV DECREASED GLUCOSE; Start 02/01/17 at 08:00 Dextrose (D50w Syringe) 50 ml Q15M PRN IV DECREASED GLUCOSE; Start 02/01/17 at 08:00 Glucagon (Glucagen) 1 mg Q15M PRN IM DECREASED GLUCOSE; Start 02/01/17 at 08: 00 Glucose (Glutose) 15 gm Q15M PRN BUCCAL DECREASED GLUCOSE; Start 02/01/17 at 08:00 Insulin Aspart (Novolog Insulin Pen) NOVOLOG *MILD* ALGORI... Q6 SC Last administered on 02/03/17t 06:02; Admin Dose 2 UNIT; Start 02/01/17 at 12:00 Hydrocortisone (Solu-Cortef) 50 mg Q6 IV ; Start 02/03/17 at 12:00; Status UNV Assessment/Plan Chief Complaint/Hosp Course Assessment 1. Status post resection of pituitary adenoma 2. Postop respiratory failure on mechanical ventilation. Patient has significant apnea despite neurologically intact. Plan 1. CPAP trial again. If fails will attempt SIMV. Hopefully this will stimulate patient to breathe. 2. Remove nasal packing. 3. Tube feeding as tolerated. Problems: STEF AGUILAR MD, [facility] Feb 03, 2017 09:15
[2017-02-03] MEDS: DORZOLAMIDE/TIMOLOL 10 ML OPH BOTH EYES SCH ×2 (09:26→20:49)
[2017-02-03] MEDS: FAMOTIDINE 20 MG INJ IV SCH (09:26)
[2017-02-03] MEDS ORDERED: POTASSIUM CHLORIDE 250 ML IVPB ONE (10:00)
--- NOTE | 2017-02-03 11:16 | CONS ---
Date/Time of Note Date/Time of Note DATE: 02/03/17 TIME: 11:10 Assessment/Plan Assessment/Plan Problems: (1) Partial hypopituitarism Status: Chronic Comment: Although remains intubated w/ apneas on CPAP setting, pt. is well enough to tolerate a reduction in hydrocortisone. Will decrease from 100 mg IV q6 to 50 mg IV q6. Plan to wean again tomorrow if stable. (2) Pituitary macroadenoma Status: Chronic Comment: S/p TSC for this. Sodium has normalized. However, RN reports increased UOP, possibly due to glucose but more likely due to DI. Monitor sodium and insure that does not rise. If it does, will add free H2O (3) Diabetes mellitus type 2 in nonobese Status: Chronic Comment: BG slightly above goal due to hydrocortisone. Begin weaning dose and monitor BG Consultation Date/Type/Reason Admit Date/Time Jan 28, 2017 at 06:15 Initial Consult Date 01/28/17 Type of Consultation: Endocrinology Reason for Consultation Pituitary macroadenoma Referring Provider: MARIAN CANNON MD 24 HR Interval Summary Subjective hx not possible: pt non-verbal, pt critical status Exam/Review of Systems Vital Signs Vitals VS - Last 72 Hours, by Label Date Time Temp Pulse Resp B/P Pulse Ox O2 Delivery O2 Flow Rate FiO2 02/03/17 08:00 30 02/03/17 08:00 84 02/03/17 08:00 98.5 81 23 158/97 100 Mechanical Ventilator 02/03/17 07:00 77 12 149/86 100 Mechanical Ventilator 02/03/17 06:01 97 17 154/91 100 Mechanical Ventilator 02/03/17 05:20 57 12 100 30 02/03/17 05:00 57 12 143/75 100 Mechanical Ventilator 02/03/17 04:00 50 02/03/17 04:00 98.0 58 11 154/75 100 Mechanical Ventilator 02/03/17 03:05 59 15 100 30 02/03/17 03:00 60 13 153/76 100 Mechanical Ventilator 02/03/17 02:00 56 13 149/69 100 Mechanical Ventilator 02/03/17 01:05 58 12 100 30 02/03/17 01:00 60 14 149/72 100 Mechanical Ventilator 02/03/17 00:00 97.6 65 17 161/87 100 Mechanical Ventilator 02/03/17 00:00 58 02/02/17 23:20 56 13 100 30 02/02/17 23:00 58 12 157/78 100 Mechanical Ventilator 02/02/17 22:00 55 10 156/74 100 Mechanical Ventilator 02/02/17 21:20 57 12 100 30 02/02/17 21:00 60 13 156/75 100 Mechanical Ventilator 02/02/17 20:00 98.0 69 15 158/78 100 Mechanical Ventilator 02/02/17 20:00 30 02/02/17 19:40 67 16 100 30 02/02/17 19:00 67 16 154/84 100 Mechanical Ventilator 02/02/17 18:00 61 13 161/84 100 Mechanical Ventilator 02/02/17 17:00 63 14 155/75 100 Mechanical Ventilator 02/02/17 16:00 59 02/02/17 16:00 98.9 59 15 149/76 100 Mechanical Ventilator 02/02/17 15:50 59 13 100 30 02/02/17 15:00 65 15 153/74 100 Mechanical Ventilator 02/02/17 14:00 66 12 153/78 100 Mechanical Ventilator 02/02/17 13:00 56 13 131/73 100 Mechanical Ventilator 02/02/17 12:52 61 13 100 30 02/02/17 12:50 58 13 100 30 02/02/17 12:00 59 02/02/17 12:00 99.0 61 5 143/74 100 Mechanical Ventilator 02/02/17 11:35 61 12 100 30 02/02/17 11:25 30 02/02/17 11:00 61 12 136/72 100 Mechanical Ventilator 02/02/17 10:00 60 9 131/73 100 Mechanical Ventilator 02/02/17 09:45 60 10 100 02/02/17 09:00 63 11 129/70 100 Mechanical Ventilator 02/02/17 08:00 99.2 64 12 140/76 100 Mechanical Ventilator 02/02/17 08:00 30 02/02/17 08:00 64 02/02/17 07:00 70 16 137/76 100 Mechanical Ventilator 02/02/17 07:00 63 12 100 30 02/02/17 06:00 62 12 130/74 100 Mechanical Ventilator 02/02/17 05:41 64 12 99 30 02/02/17 05:00 63 11 133/76 100 Mechanical Ventilator 02/02/17 04:00 65 11/19/17 04:00 98.0 75 13 139/86 100 Mechanical Ventilator 02/02/17 03:17 68 11 100 30 02/02/17 03:00 64 11 134/73 100 Mechanical Ventilator 02/02/17 02:00 63 10 128/71 100 Mechanical Ventilator 02/02/17 01:18 65 12 100 30 02/02/17 01:00 66 12 132/75 100 Mechanical Ventilator 02/02/17 00:00 97.8 65 10 123/70 100 Mechanical Ventilator 02/02/17 00:00 68 17 23:15 66 16 100 30 17 23:00 65 10 126/66 100 Mechanical Ventilator 02/01/17 22:00 71 11 132/74 100 Mechanical Ventilator 17 21:22 67 14 100 30 17 21:00 66 9 138/74 100 Mechanical Ventilator 02/01/17 20:00 68 02/01/17 20:00 97.4 66 10 150/77 100 Mechanical Ventilator 02/01/17 20:00 30 02/01/17 19:52 64 11 100 30 17 18:00 64 11 136/77 100 Mechanical Ventilator 17 17:15 70 16 100 30 17 17:00 68 10 142/78 100 Mechanical Ventilator 17 16:00 67 02/01/17 16:00 98.9 68 11 135/70 100 Mechanical Ventilator 02/01/17 15:12 74 18 100 30 17 15:00 71 11 146/84 100 Mechanical Ventilator 02/01/17 14:00 72 10 140/80 100 Mechanical Ventilator 17 13:05 76 12 100 30 17 13:00 68 10 143/81 100 Mechanical Ventilator 17 12:00 98.9 74 12 145/81 100 Mechanical Ventilator 17 12:00 74 17 11:00 67 11 137/76 100 Mechanical Ventilator 18/17 11:00 70 11 100 30 17 10:00 69 11 136/75 100 Mechanical Ventilator 1817 09:08 69 13 100 30 18/17 09:00 73 11 133/75 100 Mechanical Ventilator 18/17 08:00 30 11/18/17 08:00 74 02/01/17 08:00 99.2 73 11 133/73 100 Mechanical Ventilator 02/01/17 07:10 71 15 100 30 02/01/17 07:00 69 10 128/76 100 Mechanical Ventilator 02/01/17 06:00 74 10 130/72 100 Mechanical Ventilator 02/01/17 05:52 76 15 100 30 02/01/17 05:00 68 11 123/74 100 Mechanical Ventilator 02/01/17 04:00 97.6 72 11 127/69 100 Mechanical Ventilator 02/01/17 04:00 50 02/01/17 04:00 76 02/01/17 03:20 79 15 100 30 02/01/17 03:00 72 15 118/67 100 Mechanical Ventilator 02/01/17 02:00 68 11 119/75 100 Mechanical Ventilator 02/01/17 01:55 68 14 100 30 02/01/17 01:00 67 10 121/74 100 Mechanical Ventilator 02/01/17 00:00 97.6 69 10 117/66 100 Mechanical Ventilator 02/01/17 00:00 67 02/01/17 00:00 50 01/31/17 23:20 65 12 100 40 01/31/17 23:00 63 11 110/70 100 Mechanical Ventilator 01/31/17 22:00 63 7 118/67 100 Mechanical Ventilator 01/31/17 21:03 64 13 100 40 01/31/17 21:00 50 01/31/17 21:00 66 10 117/69 100 01/31/17 20:00 98.2 75 12 119/73 100 Mechanical Ventilator 01/31/17 20:00 71 01/31/17 19:16 69 16 100 40 01/31/17 19:00 68 10 115/67 100 Mechanical Ventilator 01/31/17 18:00 68 10 126/68 100 Mechanical Ventilator 01/31/17 17:10 66 11 100 40 01/31/17 17:00 70 12 124/73 100 Mechanical Ventilator 01/31/17 16:52 50 17 16:00 65 01/31/17 16:00 98.8 64 14 128/70 100 Mechanical Ventilator 01/31/17 15:35 69 10 100 40 17 15:00 65 12 121/68 100 Mechanical Ventilator 01/31/17 14:00 65 12 122/68 100 Mechanical Ventilator 01/31/17 13:38 81 12 100 40 01/31/17 13:00 66 12 100 Mechanical Ventilator 01/31/17 12:00 50 01/31/17 12:00 98.4 65 127/66 100 Mechanical Ventilator 01/31/17 12:00 66 01/31/17 11:34 70 16 100 40 Vital Signs Date Time Temp Pulse Resp B/P Pulse Ox O2 Delivery O2 Flow Rate FiO2 02/03/17 08:00 30 02/03/17 08:00 84 02/03/17 08:00 98.5 23 158/97 100 Mechanical Ventilator 01/30/17 22:00 10.0 Intake and Output 02/02/17 02/02/17 02/03/17 14:59 22:59 06:59 Intake Total 640 ml 495 ml 640 ml Output Total 430 ml 995 ml 465 ml Balance 210 ml -500 ml 175 ml Exam Constitutional: alert ENMT: intubated Respiratory: clear to auscultation, normal air movement Cardiovascular: nl pulses, regular rate and rhythm, No edema, No murmurs/extra sounds, No rub Gastrointestinal: bowel sounds, nl liver, spleen, non-tender, soft, No mass, No rebound or guarding Musculoskeletal: nl extremities to inspection Extremities: normal pulses, No clubbing, No cyanosis, No edema Neurological: [employer] II-XII intact, nl mental status, nl speech, nl strength Additional Comments Bedside Glucose - 72 Hours Test 02/01/17 12:21 02/01/17 18:05 02/02/17 00:23 02/02/17 06:43 Bedside Glucose 192mg/dL (70-220) 167mg/dL (70-220) 175mg/dL (70-220) 178mg/dL (70-220) Test 02/02/17 13:01 02/02/17 18:31 02/03/17 00:47 02/03/17 05:52 Bedside Glucose 180mg/dL (70-220) 179mg/dL (70-220) 194mg/dL (70-220) 200mg/dL (70-220) Results Result Diagram: 02/03/17 0555 02/03/17 0555 Results 24 hrs Laboratory Tests Test 02/02/17 13:01 02/02/17 13:52 02/02/17 17:53 02/02/17 18:31 Bedside Glucose 180 179 Sodium Level 138 141 Test 02/03/17 00:47 02/03/17 05:52 02/03/17 05:55 Bedside Glucose 194 200 White Blood Count 11.7 #H Red Blood Count 3.08 #L Hemoglobin 9.9 #L Hematocrit 29.2 #L Mean Corpuscular Volume 94.8 Mean Corpuscular Hemoglobin 32.1 Mean Corpuscular Hemoglobin Concent 33.9 Red Cell Distribution Width 13.4 Platelet Count 113 #L Mean Platelet Volume 10.8 H Neutrophils % 85.6 H Lymphocytes % 9.9 L Monocytes % 3.4 Eosinophils % 0.0 Basophils % 0.1 Nucleated Red Blood Cells % 0.0 Neutrophils # 10.0 H Lymphocytes # 1.2 Monocytes # 0.4 Eosinophils # 0.0 Basophils # 0.0 Nucleated Red Blood Cells # 0.0 Sodium Level 139 Potassium Level 3.3 L Chloride Level 108 Carbon Dioxide Level 21 Anion Gap 13 Blood Urea Nitrogen 35 H Creatinine 1.60 H Glucose Level 169 Calcium Level 8.2 L Medications Medications Current Medications Hydralazine HCl (Apresoline) 10 mg Q6H PRN IV SBP>170 Last administered on 19:57; Admin Dose 10 MG; Start 01/28/17 at 12:30 Metoprolol Tartrate 25 mg 25 mg BID PO Last administered on 01/28/17 20:53; Admin Dose 25 MG; Start 01/28/17 at 21:00 Ceftriaxone Sodium (Rocephin) 50 ml @ 100 mls/hr Q24H IVPB Last administered on 02/02/17 20:42; Admin Dose 100 MLS/HR; Start 01/28/17 at 20:00 Morphine Sulfate (morphine) 2 mg Q2H PRN IV PAIN Last administered on 23:34; Admin Dose 2 MG; Start 01/30/17 at 23:30 Famotidine 10 mg 10 mg DAILY IV Last administered on 02/03/17 09:26; Admin Dose 10 MG; Start 01/31/17 at 09:30 Potassium Chloride/Dextrose (KCl/D5W) 1,005 ml @ 80 mls/hr [id number] IV Last administered on 02/03/17 05:54; Admin Dose 80 MLS/HR; Start 01/31/17 at 14:00 Dorzolamide/ Timolol (Cosopt) 1 drop BID BOTH EYES Last administered on 09:26; Admin Dose 1 DROP; Start 02/01/17 at 09:00 Allopurinol (Zyloprim) 300 mg DAILY PO ; Start 02/02/17 at 09:00 Atorvastatin Calcium (Lipitor) 20 mg HS PO ; Start 02/01/17 at 21:00 Miscellaneous Information 1 ea NOTE XX ; Start 02/01/17 at 08:00 Glucose (Glutose) 15 gm Q15M PRN PO DECREASED GLUCOSE; Start 02/01/17 at 08:00 Glucose (Glutose) 22.5 gm Q15M PRN PO DECREASED GLUCOSE; Start 02/01/17 at 08: 00 Dextrose (D50w Syringe) 25 ml Q15M PRN IV DECREASED GLUCOSE; Start 02/01/17 at 08:00 Dextrose (D50w Syringe) 50 ml Q15M PRN IV DECREASED GLUCOSE; Start 02/01/17 at 08:00 Glucagon (Glucagen) 1 mg Q15M PRN IM DECREASED GLUCOSE; Start 02/01/17 at 08: 00 Glucose (Glutose) 15 gm Q15M PRN BUCCAL DECREASED GLUCOSE; Start 02/01/17 at 08:00 Insulin Aspart (Novolog Insulin Pen) NOVOLOG *MILD* ALGORI... Q6 SC Last administered on 02/03/17 06:02; Admin Dose 2 UNIT; Start 02/01/17 at 12:00 Hydrocortisone 50 mg 50 mg Q6 IV ; Start 02/03/17 at 12:00 Potassium Chloride (KCl 40 MEQ/250 ML NS) 250 ml @ 62.5 mls/hr ONCE ONCE IVPB ; Start 02/03/17 at 10:00; Stop 02/03/17 at 13:59 KING RAO MD Feb 03, 2017 11:16
--- NOTE | 2017-02-03 11:36 | CONS ---
Date/Time of Note Date/Time of Note DATE: 02/03/17 TIME: 11:33 Assessment/Plan Assessment/Plan Additional Assessment/Plan 1. Acute kidney injury vs DEJON on CKD III, No previous Cr available to compare 2. Transsphenoidal pituitary adenoma, s/p Transsphenoidal resection of pituitary adenoma on 01/30/17 2. Pancreatic cancer. The patient follows with oncologist as an outpatient. 3. Hypertension. 4. Hyperlipidemia. 5. Hypernatremia 6. Metabolic acidosis 7. Post Surgery Failed extubation- pt had a code blue and required reintubation - currently on ventilator Plan: Cr 1.6, Na 139,HCo3 19- - continue D5W with KCL 10mEQ at 80 cc.hr , good urine output 1.8 liter, if continues to have high urine output and Na trending up, will add free water pt remains intubated because he becomes apneic on CPAP trial - weaning plan as per pulmonary will continue follow up Consultation Date/Type/Reason Admit Date/Time Jan 28, 2017 at 06:15 Initial Consult Date 01/28/17 Type of Consultation: NEPHROLOGY Referring Provider: MARIAN CANNON MD 24 HR Interval Summary Free Text/Dictation Pt remains intubated, K low, Cr improved to 1.6 Exam/Review of Systems Vital Signs Vitals Vital Signs Date Time Temp Pulse Resp B/P Pulse Ox O2 Delivery O2 Flow Rate FiO2 02/03/17 08:00 30 02/03/17 08:00 84 02/03/17 08:00 98.5 23 158/97 100 Mechanical Ventilator 01/30/17 22:00 10.0 Intake and Output 02/02/17 02/02/17 02/03/17 15:00 23:00 07:00 Intake Total 640 ml 495 ml 560 ml Output Total 430 ml 1075 ml 485 ml Balance 210 ml -580 ml 75 ml Exam Constitutional: alert HEENT: ET tube in place , No JVD Respiratory: Bilateral Coarse BS+ Cardiovascular: regular rate and rhythm Gastrointestinal: nl liver, spleen, non-tender, soft Musculoskeletal: no clubbing/cyanosis/edema Neurological: awake,alert, Results Result Diagram: 02/03/17 0555 02/03/17 0555 Results 24 hrs Laboratory Tests Test 02/02/17 13:01 02/02/17 13:52 02/02/17 17:53 02/02/17 18:31 Bedside Glucose 180 179 Sodium Level 138 141 Test 02/03/17 00:47 02/03/17 05:52 02/03/17 05:55 Bedside Glucose 194 200 White Blood Count 11.7 #H Red Blood Count 3.08 #L Hemoglobin 9.9 #L Hematocrit 29.2 #L Mean Corpuscular Volume 94.8 Mean Corpuscular Hemoglobin 32.1 Mean Corpuscular Hemoglobin Concent 33.9 Red Cell Distribution Width 13.4 Platelet Count 113 #L Mean Platelet Volume 10.8 H Neutrophils % 85.6 H Lymphocytes % 9.9 L Monocytes % 3.4 Eosinophils % 0.0 Basophils % 0.1 Nucleated Red Blood Cells % 0.0 Neutrophils # 10.0 H Lymphocytes # 1.2 Monocytes # 0.4 Eosinophils # 0.0 Basophils # 0.0 Nucleated Red Blood Cells # 0.0 Sodium Level 139 Potassium Level 3.3 L Chloride Level 108 Carbon Dioxide Level 21 Anion Gap 13 Blood Urea Nitrogen 35 H Creatinine 1.60 H Glucose Level 169 Calcium Level 8.2 L Medications Medications Current Medications Hydralazine HCl (Apresoline) 10 mg Q6H PRN IV SBP>170 Last administered on 19:57; Admin Dose 10 MG; Start 01/28/17 at 12:30 Metoprolol Tartrate 25 mg 25 mg BID PO Last administered on 01/28/17 20:53; Admin Dose 25 MG; Start 01/28/17 at 21:00 Ceftriaxone Sodium (Rocephin) 50 ml @ 100 mls/hr Q24H IVPB Last administered on 02/02/17 20:42; Admin Dose 100 MLS/HR; Start 01/28/17 at 20:00 Morphine Sulfate (morphine) 2 mg Q2H PRN IV PAIN Last administered on 23:34; Admin Dose 2 MG; Start 01/30/17 at 23:30 Famotidine 10 mg 10 mg DAILY IV Last administered on 02/03/17 09:26; Admin Dose 10 MG; Start 01/31/17 at 09:30 Potassium Chloride/Dextrose (KCl/D5W) 1,005 ml @ 80 mls/hr [id number] IV Last administered on 02/03/17 05:54; Admin Dose 80 MLS/HR; Start 01/31/17 at 14:00 Dorzolamide/ Timolol (Cosopt) 1 drop BID BOTH EYES Last administered on 09:26; Admin Dose 1 DROP; Start 02/01/17 at 09:00 Allopurinol (Zyloprim) 300 mg DAILY PO ; Start 02/02/17 at 09:00 Atorvastatin Calcium (Lipitor) 20 mg HS PO ; Start 02/01/17 at 21:00 Miscellaneous Information 1 ea NOTE XX ; Start 02/01/17 at 08:00 Glucose (Glutose) 15 gm Q15M PRN PO DECREASED GLUCOSE; Start 02/01/17 at 08:00 Glucose (Glutose) 22.5 gm Q15M PRN PO DECREASED GLUCOSE; Start 02/01/17 at 08: 00 Dextrose (D50w Syringe) 25 ml Q15M PRN IV DECREASED GLUCOSE; Start 02/01/17 at 08:00 Dextrose (D50w Syringe) 50 ml Q15M PRN IV DECREASED GLUCOSE; Start 02/01/17 at 08:00 Glucagon (Glucagen) 1 mg Q15M PRN IM DECREASED GLUCOSE; Start 02/01/17 at 08: 00 Glucose (Glutose) 15 gm Q15M PRN BUCCAL DECREASED GLUCOSE; Start 02/01/17 at 08:00 Insulin Aspart (Novolog Insulin Pen) NOVOLOG *MILD* ALGORI... Q6 SC Last administered on 02/03/17 06:02; Admin Dose 2 UNIT; Start 02/01/17 at 12:00 Hydrocortisone 50 mg 50 mg Q6 IV ; Start 02/03/17 at 12:00 Potassium Chloride (KCl 40 MEQ/250 ML NS) 250 ml @ 62.5 mls/hr ONCE ONCE IVPB Last administered on 02/03/17 11:29; Admin Dose 62.5 MLS/HR; Start at 10:00; Stop 02/03/17 at 13:59 ISRAEL OJEDA MD Feb 03, 2017 11:36
--- NOTE | 2017-02-03 13:14 | PN ---
Date/Time of Note Date/Time of Note DATE: 02/03/17 TIME: 13:10 Assessment/Plan VTE Prophylaxis VTE Prophylaxis Intervention: SCD's Lines/Catheters IV Catheter Type (from Nrs): Peripheral IV Urinary Cath still in place: Yes Reason Cath still needed: urinary retention Assessment/Plan Assessment/Plan impression s/p transsphenoidal tumor resection. POD#4 intubated for resp. failure awake, alert, regards examiner pt watching tv hypokalemia plan steroid therapy per Endo Pulmonary following and will attempt to wean off vent today dc nasal packing replace K. Subjective 24 Hr Interval Summary Free Text/Dictation S:intubated on simv awake and watching Tv Exam/Review of Systems Vital Signs Vitals Vital Signs Date Time Temp Pulse Resp B/P Pulse Ox O2 Delivery O2 Flow Rate FiO2 02/03/17 12:00 98.3 60 9 157/79 100 02/03/17 08:00 30 02/03/17 08:00 Mechanical Ventilator 01/30/17 22:00 10.0 Intake and Output 02/02/17 02/02/17 02/03/17 15:00 23:00 07:00 Intake Total 640 ml 495 ml 560 ml Output Total 430 ml 1075 ml 485 ml Balance 210 ml -580 ml 75 ml Exam Neurological: other (Gen:intubated , off sedation MS: awake, alert, following commands CN: PERRL, visual acuity improving) Results Result Diagram: 02/03/17 0555 02/03/17 0555 Results 24 hrs Laboratory Tests Test 02/02/17 13:52 02/02/17 17:53 02/02/17 18:31 02/03/17 00:47 Sodium Level 138 141 Bedside Glucose 179 194 Test 02/03/17 05:52 02/03/17 05:55 02/03/17 11:41 Bedside Glucose 200 174 White Blood Count 11.7 #H Red Blood Count 3.08 #L Hemoglobin 9.9 #L Hematocrit 29.2 #L Mean Corpuscular Volume 94.8 Mean Corpuscular Hemoglobin 32.1 Mean Corpuscular Hemoglobin Concent 33.9 Red Cell Distribution Width 13.4 Platelet Count 113 #L Mean Platelet Volume 10.8 H Neutrophils % 85.6 H Lymphocytes % 9.9 L Monocytes % 3.4 Eosinophils % 0.0 Basophils % 0.1 Nucleated Red Blood Cells % 0.0 Neutrophils # 10.0 H Lymphocytes # 1.2 Monocytes # 0.4 Eosinophils # 0.0 Basophils # 0.0 Nucleated Red Blood Cells # 0.0 Sodium Level 139 Potassium Level 3.3 L Chloride Level 108 Carbon Dioxide Level 21 Anion Gap 13 Blood Urea Nitrogen 35 H Creatinine 1.60 H Glucose Level 169 Calcium Level 8.2 L Medications Medications Current Medications Hydralazine HCl (Apresoline) 10 mg Q6H PRN IV SBP>170 Last administered on 19:57; Admin Dose 10 MG; Start 01/28/17 at 12:30 Metoprolol Tartrate 25 mg 25 mg BID PO Last administered on 01/28/17 20:53; Admin Dose 25 MG; Start 01/28/17 at 21:00 Ceftriaxone Sodium (Rocephin) 50 ml @ 100 mls/hr Q24H IVPB Last administered on 02/02/17 20:42; Admin Dose 100 MLS/HR; Start 01/28/17 at 20:00 Morphine Sulfate (morphine) 2 mg Q2H PRN IV PAIN Last administered on 23:34; Admin Dose 2 MG; Start 01/30/17 at 23:30 Famotidine 10 mg 10 mg DAILY IV Last administered on 02/03/17 09:26; Admin Dose 10 MG; Start 01/31/17 at 09:30 Potassium Chloride/Dextrose (KCl/D5W) 1,005 ml @ 80 mls/hr [id number] IV Last administered on 02/03/17 05:54; Admin Dose 80 MLS/HR; Start 01/31/17 at 14:00 Dorzolamide/ Timolol (Cosopt) 1 drop BID BOTH EYES Last administered on 09:26; Admin Dose 1 DROP; Start 02/01/17 at 09:00 Allopurinol (Zyloprim) 300 mg DAILY PO ; Start 02/02/17 at 09:00 Atorvastatin Calcium (Lipitor) 20 mg HS PO ; Start 02/01/17 at 21:00 Miscellaneous Information 1 ea NOTE XX ; Start 02/01/17 at 08:00 Glucose (Glutose) 15 gm Q15M PRN PO DECREASED GLUCOSE; Start 02/01/17 at 08:00 Glucose (Glutose) 22.5 gm Q15M PRN PO DECREASED GLUCOSE; Start 02/01/17 at 08: 00 Dextrose (D50w Syringe) 25 ml Q15M PRN IV DECREASED GLUCOSE; Start 02/01/17 at 08:00 Dextrose (D50w Syringe) 50 ml Q15M PRN IV DECREASED GLUCOSE; Start 02/01/17 at 08:00 Glucagon (Glucagen) 1 mg Q15M PRN IM DECREASED GLUCOSE; Start 02/01/17 at 08: 00 Glucose (Glutose) 15 gm Q15M PRN BUCCAL DECREASED GLUCOSE; Start 02/01/17 at 08:00 Insulin Aspart (Novolog Insulin Pen) NOVOLOG *MILD* ALGORI... Q6 SC Last administered on 02/03/17 11:45; Admin Dose 1 UNIT; Start 02/01/17 at 12:00 Hydrocortisone 50 mg 50 mg Q6 IV Last administered on 02/03/17 11:46; Admin Dose 50 MG; Start 02/03/17 at 12:00 Potassium Chloride (KCl 40 MEQ/250 ML NS) 250 ml @ 62.5 mls/hr ONCE ONCE IVPB Last administered on 02/03/17 11:29; Admin Dose 62.5 MLS/HR; Start at 10:00; Stop 02/03/17 at 13:59 AGNIESZKA MUNGUIA NP Feb 03, 2017 13:14
--- NOTE | 2017-02-03 17:43 | PN ---
Date/Time of Note Date/Time of Note DATE: 02/03/17 TIME: 17:43 Assessment/Plan Lines/Catheters IV [facility] Type (from [facility]): Peripheral IV Urinary Cath still in place: Yes Assessment/Plan Assessment/Plan - Transsphenoidal pituitary adenoma, s/p transsphenoidal tumor resection on by Dr. Rodriguez. - per endocrinology - Postoperative respiratory failure requiring reintubation, s/p code blue - Metabolic acidosis - Pancreatic cancer. The patient follows with oncologist as an outpatient. Patient is aware that he will not be able to receive any treatment for 10 days after surgery. - Hypertension. We will continue hydralazine p.r.n. - Hyperlipidemia. Continue simvastatin. - Chronic kidney disease stage III. Continue to monitor BUN and creatinine. - per nephrology consultation. Further recommendations based on clinical course. Total critical care time spent is 40 mins. Plan of care discussed with Dr. Schutle. Exam/Review of Systems Vital Signs Vitals Vital Signs Date Time Temp Pulse Resp B/P Pulse Ox O2 Delivery O2 Flow Rate FiO2 02/03/17 16:20 68 9 100 30 02/03/17 15:00 163/81 Mechanical Ventilator 02/03/17 12:00 98.3 01/30/17 22:00 10.0 Intake and Output 02/02/17 02/02/17 02/03/17 14:59 22:59 06:59 Intake Total 640 ml 495 ml 640 ml Output Total 430 ml 995 ml 465 ml Balance 210 ml -500 ml 175 ml Results Result Diagram: 02/03/17 0555 02/03/17 0555 Results 24 hrs Laboratory Tests Test 02/02/17 17:53 02/02/17 18:31 02/03/17 00:47 02/03/17 05:52 Sodium Level 141 Bedside Glucose 179 194 200 Test 02/03/17 05:55 02/03/17 11:41 White Blood Count 11.7 #H Red Blood Count 3.08 #L Hemoglobin 9.9 #L Hematocrit 29.2 #L Mean Corpuscular Volume 94.8 Mean Corpuscular Hemoglobin 32.1 Mean Corpuscular Hemoglobin Concent 33.9 Red Cell Distribution Width 13.4 Platelet Count 113 #L Mean Platelet Volume 10.8 H Neutrophils % 85.6 H Lymphocytes % 9.9 L Monocytes % 3.4 Eosinophils % 0.0 Basophils % 0.1 Nucleated Red Blood Cells % 0.0 Neutrophils # 10.0 H Lymphocytes # 1.2 Monocytes # 0.4 Eosinophils # 0.0 Basophils # 0.0 Nucleated Red Blood Cells # 0.0 Sodium Level 139 Potassium Level 3.3 L Chloride Level 108 Carbon Dioxide Level 21 Anion Gap 13 Blood Urea Nitrogen 35 H Creatinine 1.60 H Glucose Level 169 Calcium Level 8.2 L Bedside Glucose 174 Medications Medications Current Medications Hydralazine HCl (Apresoline) 10 mg Q6H PRN IV SBP>170 Last administered on 19:57; Admin Dose 10 MG; Start 01/28/17 at 12:30 Metoprolol Tartrate 25 mg 25 mg BID PO Last administered on 01/28/17 20:53; Admin Dose 25 MG; Start 01/28/17 at 21:00 Ceftriaxone Sodium (Rocephin) 50 ml @ 100 mls/hr Q24H IVPB Last administered on 02/02/17 20:42; Admin Dose 100 MLS/HR; Start 01/28/17 at 20:00 Morphine Sulfate 2 mg 2 mg Q2H PRN IV PAIN Last administered on 01/30/17 23: 34; Admin Dose 2 MG; Start 01/30/17 at 23:30 Potassium Chloride/Dextrose (KCl/D5W) 1,005 ml @ 80 mls/hr [id number] IV Last administered on 02/03/17 05:54; Admin Dose 80 MLS/HR; Start 01/31/17 at 14:00 Dorzolamide/ Timolol (Cosopt) 1 drop BID BOTH EYES Last administered on 09:26; Admin Dose 1 DROP; Start 02/01/17 at 09:00 Allopurinol (Zyloprim) 300 mg DAILY PO ; Start 02/02/17 at 09:00 Atorvastatin Calcium (Lipitor) 20 mg HS PO ; Start 02/01/17 at 21:00 Miscellaneous Information 1 ea NOTE XX ; Start 02/01/17 at 08:00 Glucose (Glutose) 15 gm Q15M PRN PO DECREASED GLUCOSE; Start 02/01/17 at 08:00 Glucose (Glutose) 22.5 gm Q15M PRN PO DECREASED GLUCOSE; Start 02/01/17 at 08: 00 Dextrose (D50w Syringe) 25 ml Q15M PRN IV DECREASED GLUCOSE; Start 02/01/17 at 08:00 Dextrose (D50w Syringe) 50 ml Q15M PRN IV DECREASED GLUCOSE; Start 02/01/17 at 08:00 Glucagon (Glucagen) 1 mg Q15M PRN IM DECREASED GLUCOSE; Start 02/01/17 at 08: 00 Glucose (Glutose) 15 gm Q15M PRN BUCCAL DECREASED GLUCOSE; Start 02/01/17 at 08:00 Insulin Aspart (Novolog Insulin Pen) NOVOLOG *MILD* ALGORI... Q6 SC Last administered on 02/03/17 11:45; Admin Dose 1 UNIT; Start 02/01/17 at 12:00 Hydrocortisone (Solu-Cortef) 50 mg Q6 IV Last administered on 02/03/17 11:46 ; Admin Dose 50 MG; Start 02/03/17 at 12:00 Famotidine (Pepcid Iv) 20 mg DAILY IV ; Start 02/04/17 at 09:[address] Feb 03, 2017 17:43
[2017-02-03 17:48] LABS: AADO2 Arterial 40.4 mmHg (7.0-24.0); Allen Test ACCEPTAB; Arterial Base Excess -1.6 mmol/L (-3.0-3); Arterial COHb 0.3 % (0.0-3.0); Arterial Fraction of Oxyhgb 97.4 % (93.0-99.0); Arterial HCO3 20.6 mmol/L (22.0-26.0); Arterial MetHb 0.3 % (0.0-1.5); Arterial Total Hemglobin 9.4 g/dl (12.0-18.0); Blood Gas PS 10; MODE VENT - PSV
[2017-02-03] MEDS: CEFTRIAXONE 1 GM/50 ML (PMX) 50 ML IVPB SCH (20:47)
[2017-02-03] MEDS: ATORVASTATIN 20 MG TAB PO SCH (20:48)
[2017-02-04] VITALS (48 sets, daily range): BP systolic 131–172; BP diastolic 80–97; PULSE 65–81; RESP 9–31
[2017-02-04] MEDS: INSULIN ASPART [NOVOLOG] 3 ML PEN SC SCH ×4 (03:08→16:54)
[2017-02-04] MEDS: HYDROCORTISONE 100 MG INJ IV SCH ×5 (05:38→21:24)
[2017-02-04 06:00] LABS: BASOPHILS % 0.1 % (0.0-2.0); HEMOGLOBIN 9.5 g/dl (14.0-18.0); LYMPHOCYTES # 0.9 10^3/ul (0.8-2.9); LYMPHOCYTES % 8.4 % (15.0-51.0); MEAN CORPUSCULAR HEMOGLOBIN 32.5 pg (29.0-33.0); MEAN CORPUSCULAR HGB CONC 33.9 g/dl (32.0-37.0); MEAN CORPUSCULAR VOLUME 95.9 fl (82.0-101.0); MEAN PLATELET VOLUME 10.5 fl (7.4-10.4); MONOCYTES % 8.8 % (0.0-11.0); NEUTROPHIL # 8.8 10^3/ul (1.6-7.5); NEUTROPHILS % 81.6 % (39.0-77.0); PLATELET COUNT 100 10^3/UL (140-415); RED BLOOD COUNT 2.92 10^6/ul (4.70-6.10); RED CELL DISTRIBUTION WIDTH 13.5 % (11.5-14.5); WHITE BLOOD COUNT 10.8 10^3/ul (4.8-10.8)
[2017-02-04 07:06] LABS: CALCIUM 8.1 mg/dl (8.4-10.2); CREATININE 1.56 mg/dl (0.61-1.24); POTASSIUM 3.6 mmol/L (3.5-5.1)
[2017-02-04] MEDS: CREON (12k-38k-60k) 1 CAP PO SCH ×3 (07:35→16:05)
[2017-02-04] MEDS: DORZOLAMIDE/TIMOLOL 10 ML OPH BOTH EYES SCH ×2 (08:10→21:23)
[2017-02-04] MEDS: FAMOTIDINE 20 MG INJ IV SCH (08:10)
[2017-02-04] MEDS: METOPROLOL 25 MG TAB PO SCH ×2 (08:12→21:00)
[2017-02-04] MEDS: ALLOPURINOL 300 MG TAB PO SCH (08:12)
--- NOTE | 2017-02-04 08:59 | CONS ---
Date/Time of Note Date/Time of Note DATE: 02/04/17 TIME: 08:56 Assessment/Plan Assessment/Plan Additional Assessment/Plan 1. Acute kidney injury vs DEJON on CKD III, No previous Cr available to compare 2. Transsphenoidal pituitary adenoma, s/p Transsphenoidal resection of pituitary adenoma on 01/30/17 2. Pancreatic cancer. The patient follows with oncologist as an outpatient. 3. Hypertension. 4. Hyperlipidemia. 5. Hypernatremia 6. Metabolic acidosis 7. Post Surgery Failed extubation- pt had a code blue and required reintubation - currently on ventilator Plan: Cr 1.56, Na 140,HCo3 25- - continue D5W with KCL 10mEQ- decreased rate to 60 cc /hr , good urine output 1.9 liter, if continues to have high urine output and Na trending up, will add free water weaning plan as per pulmoanry, currently on CPAP trial will continue follow up Consultation Date/Type/Reason Admit Date/Time Jan 28, 2017 at 06:15 Initial Consult Date 01/28/17 Type of Consultation: NEPHROLOGY Referring Provider: MARIAN CANNON MD 24 HR Interval Summary Free Text/Dictation on CPAP trial doing ok, BP stable, Na and Cr stable , U/o 1.9 L Exam/Review of Systems Vital Signs Vitals Vital Signs Date Time Temp Pulse Resp B/P Pulse Ox O2 Delivery O2 Flow Rate FiO2 02/04/17 06:00 68 14 157/97 100 Mechanical Ventilator 02/04/17 05:05 30 02/04/17 04:00 98.9 Intake and Output 02/03/17 02/03/17 02/04/17 15:00 23:00 07:00 Intake Total 480 ml 940 ml 560 ml Output Total 1250 ml 315 ml 250 ml Balance -770 ml 625 ml 310 ml Exam Constitutional: alert, awake o nCPAP trial HEENT: ET tube in place , No JVD Respiratory: Bilateral Coarse BS+ Cardiovascular: regular rate and rhythm Gastrointestinal: nl liver, spleen, non-tender, soft Musculoskeletal: no clubbing/cyanosis/edema Neurological: awake,alert, Results Result Diagram: 02/04/17 0520 02/04/17 0520 Results 24 hrs Laboratory Tests Test 02/03/17 11:41 02/03/17 17:02 02/03/17 17:30 02/03/17 17:43 Bedside Glucose 174 136 Sodium Level 138 Blood Gas Specimen Source Blood arterial Arterial Blood Date Drawn 02/03/2017 5:36:14 PM Arterial Blood pH (Temp corrected) 7.510 H Arterial Blood pCO2 (Temp correct) 26.4 L Arterial Blood pO2 (Temp corrected) 142.5 H Arterial Blood HCO3 20.6 L Arterial Blood Base Excess -1.6 Arterial Blood Oxygen Saturation 98.0 Yuri Test ACCEPTAB Arterial Blood Gas Puncture Site Right Radial Arterial Blood Carboxyhemoglobin 0.3 Arterial Blood Methemoglobin 0.3 Blood Gas A-a O2 Differential 40.4 H Oxyhemoglobin Percent 97.4 Total Hemoglobin 9.4 L Blood Gas Temperature 37.0 Blood Gas Actual Respiration Rate 16 Blood Gas Modality VENT - PSV FiO2 30.0 Blood Gas Tidal Volume 500.0 Blood Gas Inspiratory Pressure 15.0 Blood Gas Pressure Support 10 Blood Gas Notified Whom R ALEXCHI Blood Gas Notified Time 02/03/2017 5:48:14 PM Test 02/04/17 03:04 02/04/17 05:17 02/04/17 05:20 02/04/17 05:29 Bedside Glucose 169 144 Sodium Level 140 141 Potassium Level 3.6 Chloride Level 108 Carbon Dioxide Level 25 Anion Gap 11 Blood Urea Nitrogen 32 H Creatinine 1.56 H Glucose Level 135 Calcium Level 8.1 L White Blood Count 10.8 Red Blood Count 2.92 L Hemoglobin 9.5 L Hematocrit 28.0 L Mean Corpuscular Volume 95.9 Mean Corpuscular Hemoglobin 32.5 Mean Corpuscular Hemoglobin Concent 33.9 Red Cell Distribution Width 13.5 Platelet Count 100 L Mean Platelet Volume 10.5 H Neutrophils % 81.6 H Lymphocytes % 8.4 L Monocytes % 8.8 Eosinophils % 0.0 Basophils % 0.1 Nucleated Red Blood Cells % 0.0 Neutrophils # 8.8 H Lymphocytes # 0.9 Monocytes # 1.0 H Eosinophils # 0.0 Basophils # 0.0 Nucleated Red Blood Cells # 0.0 Medications Medications Current Medications Hydralazine HCl (Apresoline) 10 mg Q6H PRN IV SBP>170 Last administered on 19:57; Admin Dose 10 MG; Start 01/28/17 at 12:30 Metoprolol Tartrate 25 mg 25 mg BID PO Last administered on 01/28/17 20:53; Admin Dose 25 MG; Start 01/28/17 at 21:00 Ceftriaxone Sodium (Rocephin) 50 ml @ 100 mls/hr Q24H IVPB Last administered on 02/03/17 20:47; Admin Dose 100 MLS/HR; Start 01/28/17 at 20:00 Morphine Sulfate 2 mg 2 mg Q2H PRN IV PAIN Last administered on 01/30/17 23: 34; Admin Dose 2 MG; Start 01/30/17 at 23:30 Potassium Chloride/Dextrose (KCl/D5W) 1,005 ml @ 80 mls/hr [id number] IV Last administered on 02/03/17 20:51; Admin Dose 80 MLS/HR; Start 01/31/17 at 14:00 Dorzolamide/ Timolol (Cosopt) 1 drop BID BOTH EYES Last administered on 08:10; Admin Dose 1 DROP; Start 02/01/17 at 09:00 Allopurinol (Zyloprim) 300 mg DAILY PO ; Start 02/02/17 at 09:00 Atorvastatin Calcium (Lipitor) 20 mg HS PO ; Start 02/01/17 at 21:00 Miscellaneous Information 1 ea NOTE XX ; Start 02/01/17 at 08:00 Glucose (Glutose) 15 gm Q15M PRN PO DECREASED GLUCOSE; Start 02/01/17 at 08:00 Glucose (Glutose) 22.5 gm Q15M PRN PO DECREASED GLUCOSE; Start 02/01/17 at 08: 00 Dextrose (D50w Syringe) 25 ml Q15M PRN IV DECREASED GLUCOSE; Start 02/01/17 at 08:00 Dextrose (D50w Syringe) 50 ml Q15M PRN IV DECREASED GLUCOSE; Start 02/01/17 at 08:00 Glucagon (Glucagen) 1 mg Q15M PRN IM DECREASED GLUCOSE; Start 02/01/17 at 08: 00 Glucose (Glutose) 15 gm Q15M PRN BUCCAL DECREASED GLUCOSE; Start 02/01/17 at 08:00 Insulin Aspart (Novolog Insulin Pen) NOVOLOG *MILD* ALGORI... Q6 SC Last administered on 02/04/17 05:35; Admin Dose 1 UNIT; Start 02/01/17 at 12:00 Hydrocortisone (Solu-Cortef) 50 mg Q6 IV Last administered on 02/04/17 05:38 ; Admin Dose 50 MG; Start 02/03/17 at 12:00 Famotidine (Pepcid Iv) 20 mg DAILY IV Last administered on 02/04/17 08:10; Admin Dose 20 MG; Start 02/04/17 at 09:00 ISRAEL OJEDA MD Feb 04, 2017 08:59
[2017-02-04 09:47] LABS: AADO2 Arterial 45.1 mmHg (7.0-24.0); Allen Test ACCEPTAB; Arterial Base Excess -3.3 mmol/L (-3.0-3); Arterial COHb 0.3 % (0.0-3.0); Arterial Fraction of Oxyhgb 97.3 % (93.0-99.0); Arterial MetHb 0.3 % (0.0-1.5); Arterial Total Hemglobin 10.1 g/dl (12.0-18.0); Blood Gas PS 10; MODE VENT - CPAP
[2017-02-04] MEDS: POTASSIUM CHLORIDE 10 MEQ in DEXTROSE 5% 1,000 ML IV SCH ×2 (10:39→15:59)
--- NOTE | 2017-02-04 12:08 | PN ---
Date/Time of Note Date/Time of Note DATE: 02/04/17 TIME: 12:06 Assessment/Plan VTE Prophylaxis VTE Prophylaxis Intervention: SCD's Lines/Catheters IV [facility] Peripheral IV Urinary Cath still in place: Yes Reason Cath still needed: urinary retention Assessment/Plan Chief Complaint/Hosp Course Patient was extubated at 10 AM, currently is awake alert comfortable on supplemental oxygen via nasal cannula, pending swallow evaluation. Assessment/Plan - Transsphenoidal pituitary adenoma, s/p transsphenoidal tumor resection on by Dr. Rodriguez. Dr. Choe is following in endocrinology consultation. - Postoperative respiratory failure requiring reintubation, resolved - S/p code blue - Metabolic acidosis, resolved. - Pancreatic cancer. The patient follows with oncologist as an outpatient. Patient is aware that he will not be able to receive any treatment for 10 days after surgery. - Hypertension. We will continue hydralazine p.r.n. - Hyperlipidemia. Continue simvastatin. - Chronic kidney disease stage III. Continue to monitor BUN and creatinine. Dr. Yan is following in nephrology consultation. Further recommendations based on clinical course. Plan of care discussed with Dr. Schulte. Problems: Exam/Review of Systems Vital Signs Vitals Vital Signs Date Time Temp Pulse Resp B/P Pulse Ox O2 Delivery O2 Flow Rate FiO2 02/04/17 10:20 100 2.0 02/04/17 09:00 69 11 30 02/04/17 08:00 98.7 157/93 Mechanical Ventilator Intake and Output 02/03/17 02/03/17 02/04/17 14:59 22:59 06:59 Intake Total 480 ml 860 ml 640 ml Output Total 1250 ml 375 ml 290 ml Balance -770 ml 485 ml 350 ml Exam Constitutional: alert, oriented Head: normocephalic Neck: supple Respiratory: normal air movement Cardiovascular: nl pulses, regular rate and rhythm Gastrointestinal: non-tender, soft Extremities: normal pulses Neurological: nl mental status Results Result Diagram: 02/04/17 0520 02/04/17 0520 Results 24 hrs Laboratory Tests Test 02/03/17 17:02 02/03/17 17:30 02/03/17 17:43 02/04/17 03:04 Sodium Level 138 Blood Gas Specimen Source Blood arterial Arterial Blood Date Drawn 02/03/2017 5:36:14 PM Arterial Blood pH (Temp corrected) 7.510 H Arterial Blood pCO2 (Temp correct) 26.4 L Arterial Blood pO2 (Temp corrected) 142.5 H Arterial Blood HCO3 20.6 L Arterial Blood Base Excess -1.6 Arterial Blood Oxygen Saturation 98.0 Yuri Test ACCEPTAB Arterial Blood Gas Puncture Site Right Radial Arterial Blood Carboxyhemoglobin 0.3 Arterial Blood Methemoglobin 0.3 Blood Gas A-a O2 Differential 40.4 H Oxyhemoglobin Percent 97.4 Total Hemoglobin 9.4 L Blood Gas Temperature 37.0 Blood Gas Actual Respiration Rate 16 Blood Gas Modality VENT - PSV FiO2 30.0 Blood Gas Tidal Volume 500.0 Blood Gas Inspiratory Pressure 15.0 Blood Gas Pressure Support 10 Blood Gas Notified Whom R LYLE Blood Gas Notified Time 02/03/2017 5:48:14 PM Bedside Glucose 136 169 Test 02/04/17 05:17 02/04/17 05:20 02/04/17 05:29 02/04/17 09:00 Sodium Level 140 141 Potassium Level 3.6 Chloride Level 108 Carbon Dioxide Level 25 Anion Gap 11 Blood Urea Nitrogen 32 H Creatinine 1.56 H Glucose Level 135 Calcium Level 8.1 L White Blood Count 10.8 Red Blood Count 2.92 L Hemoglobin 9.5 L Hematocrit 28.0 L Mean Corpuscular Volume 95.9 Mean Corpuscular Hemoglobin 32.5 Mean Corpuscular Hemoglobin Concent 33.9 Red Cell Distribution Width 13.5 Platelet Count 100 L Mean Platelet Volume 10.5 H Neutrophils % 81.6 H Lymphocytes % 8.4 L Monocytes % 8.8 Eosinophils % 0.0 Basophils % 0.1 Nucleated Red Blood Cells % 0.0 Neutrophils # 8.8 H Lymphocytes # 0.9 Monocytes # 1.0 H Eosinophils # 0.0 Basophils # 0.0 Nucleated Red Blood Cells # 0.0 Bedside Glucose 144 Blood Gas Specimen Source Blood arterial Arterial Blood Date Drawn 02/04/2017 9:20:56 AM Arterial Blood pH (Temp corrected) 7.489 H Arterial Blood pCO2 (Temp correct) 25.5 L Arterial Blood pO2 (Temp corrected) 138.8 H Arterial Blood HCO3 19.0 L Arterial Blood Base Excess -3.3 L Arterial Blood Oxygen Saturation 97.9 Yuri Test ACCEPTAB Arterial Blood Gas Puncture Site Right Radial Arterial Blood Carboxyhemoglobin 0.3 Arterial Blood Methemoglobin 0.3 Blood Gas A-a O2 Differential 45.1 H Oxyhemoglobin Percent 97.3 Total Hemoglobin 10.1 L Blood Gas Temperature 37.0 Blood Gas Actual Respiration Rate 11 Blood Gas Modality VENT - CPAP FiO2 30.0 Blood Gas Low PEEP Setting 5.0 Blood Gas Pressure Support 10 Blood Gas Notified Whom JLD Blood Gas Notified Time 02/04/2017 9:47:46 AM Test 02/04/17 11:31 Bedside Glucose 162 Medications Medications Current Medications Hydralazine HCl (Apresoline) 10 mg Q6H PRN IV SBP>170 Last administered on 19:57; Admin Dose 10 MG; Start 01/28/17 at 12:30 Metoprolol Tartrate 25 mg 25 mg BID PO Last administered on 01/28/17 20:53; Admin Dose 25 MG; Start 01/28/17 at 21:00 Ceftriaxone Sodium (Rocephin) 50 ml @ 100 mls/hr Q24H IVPB Last administered on 02/03/17 20:47; Admin Dose 100 MLS/HR; Start 01/28/17 at 20:00 Morphine Sulfate 2 mg 2 mg Q2H PRN IV PAIN Last administered on 01/30/17 23: 34; Admin Dose 2 MG; Start 01/30/17 at 23:30 Potassium Chloride/Dextrose (KCl/D5W) 1,005 ml @ 60 mls/hr [id number] IV Last administered on 02/04/17 10:39; Admin Dose 60 MLS/HR; Start 01/31/17 at 14:00 Dorzolamide/ Timolol (Cosopt) 1 drop BID BOTH EYES Last administered on 08:10; Admin Dose 1 DROP; Start 02/01/17 at 09:00 Allopurinol (Zyloprim) 300 mg DAILY PO ; Start 02/02/17 at 09:00 Atorvastatin Calcium (Lipitor) 20 mg HS PO ; Start 02/01/17 at 21:00 Miscellaneous Information 1 ea NOTE XX ; Start 02/01/17 at 08:00 Glucose (Glutose) 15 gm Q15M PRN PO DECREASED GLUCOSE; Start 02/01/17 at 08:00 Glucose (Glutose) 22.5 gm Q15M PRN PO DECREASED GLUCOSE; Start 11/18/17 at 08: 00 Dextrose (D50w Syringe) 25 ml Q15M PRN IV DECREASED GLUCOSE; Start 02/01/17 at 08:00 Dextrose (D50w Syringe) 50 ml Q15M PRN IV DECREASED GLUCOSE; Start 02/01/17 at 08:00 Glucagon (Glucagen) 1 mg Q15M PRN IM DECREASED GLUCOSE; Start 02/01/17 at 08: 00 Glucose (Glutose) 15 gm Q15M PRN BUCCAL DECREASED GLUCOSE; Start 02/01/17 at 08:00 Insulin Aspart (Novolog Insulin Pen) NOVOLOG *MILD* ALGORI... Q6 SC Last administered on 02/04/17 11:40; Admin Dose 1 UNIT; Start 02/01/17 at 12:00 Hydrocortisone (Solu-Cortef) 50 mg Q6 IV Last administered on 02/04/17 11:34 ; Admin Dose 50 MG; Start 02/03/17 at 12:00 Famotidine (Pepcid Iv) 20 mg DAILY IV Last administered on 02/04/17 08:10; Admin Dose 20 MG; Start 02/04/17 at 09:00 TITUS JAIMES Feb 04, 2017 12:07
--- NOTE | 2017-02-04 12:39 | CONS ---
Date/Time of Note Date/Time of Note DATE: 02/04/17 TIME: 12:37 Assessment/Plan Assessment/Plan Additional Assessment/Plan Patient currently on CPAP with pressure support of 1030% FiO2. Next Assessment and recommendations; 1. Patient admitted for surgery of pituitary adenoma status post trans- sphenoidal resection. 2. Postop respiratory failure due to what appears to be central sleep apnea. Patient however doing very well on CPAP mode today for the last several hours. 3. Mild anemia and thrombocytopenia. 4. Chronic renal insufficiency. 5. Adrenal insufficiency. Currently on appropriate replacement therapy. Patient is doing very well on CPAP mode today. Patient will be extubated shortly. Will monitor closely and will put on overnight BiPAP with a backup rate of 12. Patient may need to have a sleep study done on outpatient basis. Consultation Date/Type/Reason Admit Date/Time Jan 28, 2017 at 06:15 Initial Consult Date 01/28/17 Type of Consultation: Pulmonary/critical care Referring Provider: MARIAN CANNON MD 24 HR Interval Summary Free Text/Dictation Patient's condition is stable. Doing very well on CPAP for the last several hours. Patient not exhibiting any further apneic episodes. Patient has remained hemodynamically stable. General exam; elderly male, orally intubated, awake and alert. Watching television. Exam/Review of Systems Vital Signs Vitals Vital Signs Date Time Temp Pulse Resp B/P Pulse Ox O2 Delivery O2 Flow Rate FiO2 02/04/17 12:00 66 02/04/17 10:20 100 2.0 02/04/17 09:00 11 30 02/04/17 08:00 98.7 157/93 Mechanical Ventilator Intake and Output 02/03/17 02/03/17 02/04/17 15:00 23:00 07:00 Intake Total 480 ml 940 ml 560 ml Output Total 1250 ml 315 ml 350 ml Balance -770 ml 625 ml 210 ml Exam HEENT exam; supple neck, no JVD. No lymphadenopathy. Midline trachea. No thyromegaly. Orally intubated. Nasal packing has been removed. Patient has fair dentition. Has bilateral intraocular lens implants. Chest exam; clear to auscultation. S1-S2 audible, no murmurs. Regular rhythm. Abdomen exam; soft, nontender. No organomegaly. Bowel sounds audible. Extremity exam; no edema. No clubbing. [employer] exam; no focal deficit. Results Result Diagram: 02/04/17 0520 02/04/17 0520 Results 24 hrs Laboratory Tests Test 02/03/17 17:02 02/03/17 17:30 02/03/17 17:43 02/04/17 03:04 Sodium Level 138 Blood Gas Specimen Source Blood arterial Arterial Blood Date Drawn 02/03/2017 5:36:14 PM Arterial Blood pH (Temp corrected) 7.510 H Arterial Blood pCO2 (Temp correct) 26.4 L Arterial Blood pO2 (Temp corrected) 142.5 H Arterial Blood HCO3 20.6 L Arterial Blood Base Excess -1.6 Arterial Blood Oxygen Saturation 98.0 Yuri Test ACCEPTAB Arterial Blood Gas Puncture Site Right Radial Arterial Blood Carboxyhemoglobin 0.3 Arterial Blood Methemoglobin 0.3 Blood Gas A-a O2 Differential 40.4 H Oxyhemoglobin Percent 97.4 Total Hemoglobin 9.4 L Blood Gas Temperature 37.0 Blood Gas Actual Respiration Rate 16 Blood Gas Modality VENT - PSV FiO2 30.0 Blood Gas Tidal Volume 500.0 Blood Gas Inspiratory Pressure 15.0 Blood Gas Pressure Support 10 Blood Gas Notified Whom R [facility] Blood Gas Notified Time 02/03/2017 5:48:14 PM Bedside Glucose 136 169 Test 02/04/17 05:17 02/04/17 05:20 02/04/17 05:29 02/04/17 09:00 Sodium Level 140 141 Potassium Level 3.6 Chloride Level 108 Carbon Dioxide Level 25 Anion Gap 11 Blood Urea Nitrogen 32 H Creatinine 1.56 H Glucose Level 135 Calcium Level 8.1 L White Blood Count 10.8 Red Blood Count 2.92 L Hemoglobin 9.5 L Hematocrit 28.0 L Mean Corpuscular Volume 95.9 Mean Corpuscular Hemoglobin 32.5 Mean Corpuscular Hemoglobin Concent 33.9 Red Cell Distribution Width 13.5 Platelet Count 100 L Mean Platelet Volume 10.5 H Neutrophils % 81.6 H Lymphocytes % 8.4 L Monocytes % 8.8 Eosinophils % 0.0 Basophils % 0.1 Nucleated Red Blood Cells % 0.0 Neutrophils # 8.8 H Lymphocytes # 0.9 Monocytes # 1.0 H Eosinophils # 0.0 Basophils # 0.0 Nucleated Red Blood Cells # 0.0 Bedside Glucose 144 Blood Gas Specimen Source Blood arterial Arterial Blood Date Drawn 02/04/2017 9:20:56 AM Arterial Blood pH (Temp corrected) 7.489 H Arterial Blood pCO2 (Temp correct) 25.5 L Arterial Blood pO2 (Temp corrected) 138.8 H Arterial Blood HCO3 19.0 L Arterial Blood Base Excess -3.3 L Arterial Blood Oxygen Saturation 97.9 Yuri Test ACCEPTAB Arterial Blood Gas Puncture Site Right Radial Arterial Blood Carboxyhemoglobin 0.3 Arterial Blood Methemoglobin 0.3 Blood Gas A-a O2 Differential 45.1 H Oxyhemoglobin Percent 97.3 Total Hemoglobin 10.1 L Blood Gas Temperature 37.0 Blood Gas Actual Respiration Rate 11 Blood Gas Modality VENT - CPAP FiO2 30.0 Blood Gas Low PEEP Setting 5.0 Blood Gas Pressure Support 10 Blood Gas Notified Whom JLD Blood Gas Notified Time 02/04/2017 9:47:46 AM Test 02/04/17 11:31 Bedside Glucose 162 Medications Medications Current Medications Hydralazine HCl (Apresoline) 10 mg Q6H PRN IV SBP>170 Last administered on 19:57; Admin Dose 10 MG; Start 01/28/17 at 12:30 Metoprolol Tartrate 25 mg 25 mg BID PO Last administered on 01/28/17 20:53; Admin Dose 25 MG; Start 01/28/17 at 21:00 Ceftriaxone Sodium (Rocephin) 50 ml @ 100 mls/hr Q24H IVPB Last administered on 02/03/17 20:47; Admin Dose 100 MLS/HR; Start 01/28/17 at 20:00 Morphine Sulfate 2 mg 2 mg Q2H PRN IV PAIN Last administered on 01/30/17 23: 34; Admin Dose 2 MG; Start 01/30/17 at 23:30 Potassium Chloride/Dextrose (KCl/D5W) 1,005 ml @ 60 mls/hr [id number] IV Last administered on 02/04/17 10:39; Admin Dose 60 MLS/HR; Start 01/31/17 at 14:00 Dorzolamide/ Timolol (Cosopt) 1 drop BID BOTH EYES Last administered on 08:10; Admin Dose 1 DROP; Start 02/01/17 at 09:00 Allopurinol (Zyloprim) 300 mg DAILY PO ; Start 02/02/17 at 09:00 Atorvastatin Calcium (Lipitor) 20 mg HS PO ; Start 02/01/17 at 21:00 Miscellaneous Information 1 ea NOTE XX ; Start 02/01/17 at 08:00 Glucose (Glutose) 15 gm Q15M PRN PO DECREASED GLUCOSE; Start 02/01/17 at 08:00 Glucose (Glutose) 22.5 gm Q15M PRN PO DECREASED GLUCOSE; Start 02/01/17 at 08: 00 Dextrose (D50w Syringe) 25 ml Q15M PRN IV DECREASED GLUCOSE; Start 02/01/17 at 08:00 Dextrose (D50w Syringe) 50 ml Q15M PRN IV DECREASED GLUCOSE; Start 02/01/17 at 08:00 Glucagon (Glucagen) 1 mg Q15M PRN IM DECREASED GLUCOSE; Start 02/01/17 at 08: 00 Glucose (Glutose) 15 gm Q15M PRN BUCCAL DECREASED GLUCOSE; Start 02/01/17 at 08:00 Insulin Aspart (Novolog Insulin Pen) NOVOLOG *MILD* ALGORI... Q6 SC Last administered on 02/04/17 11:40; Admin Dose 1 UNIT; Start 02/01/17 at 12:00 Hydrocortisone (Solu-Cortef) 50 mg Q6 IV Last administered on 02/04/17 11:34 ; Admin Dose 50 MG; Start 02/03/17 at 12:00 Famotidine (Pepcid Iv) 20 mg DAILY IV Last administered on 02/04/17 08:10; Admin Dose 20 MG; Start 02/04/17 at 09:00 RUBY KHAN Feb 04, 2017 12:39
--- NOTE | 2017-02-04 13:56 | CONS ---
Date/Time of Note Date/Time of Note DATE: 02/04/17 TIME: 13:53 Assessment/Plan Assessment/Plan Problems: (1) Pituitary macroadenoma Status: Chronic Comment: Doing well post-TSC. Despite polyuria sodium levels have been in normal range. Cont. to monitor for signs of DI or SIADH (2) Partial hypopituitarism Status: Chronic Comment: Now extubated. Increasingly medically stable. Will wean hydrocortisone from 50 mg IV q6 to 25 mg IV q8. Reeval stability tomorrow. Attempt to wean to home doses. 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 Will monitor. Consultation Date/Type/Reason Admit Date/Time Jan 28, 2017 at 06:15 Initial Consult Date 01/28/17 Type of Consultation: Endocrinology Reason for Consultation Pituitary macroadenoma Referring Provider: MARIAN CANNON MD 24 HR Interval Summary Constitutional: improved (s/p extubation), no complaints Detailed Summary Respiratory: no complaints Cardiovascular: no complaints Gastrointestinal: no complaints Genitourinary: no complaints Musculoskeletal: no complaints Neurologic: no complaints Exam/Review of Systems Vital Signs Vitals VS - Last 72 Hours, by Label Date Time Temp Pulse Resp B/P Pulse Ox O2 Delivery O2 Flow Rate FiO2 02/04/17 12:00 66 02/04/17 10:20 100 2.0 02/04/17 09:00 69 11 100 30 02/04/17 08:00 98.7 71 15 157/93 100 Mechanical Ventilator 02/04/17 08:00 75 02/04/17 07:15 72 14 100 30 02/04/17 07:00 73 15 162/96 100 Mechanical Ventilator 02/04/17 06:00 68 14 157/97 100 Mechanical Ventilator 02/04/17 05:05 71 12 100 30 02/04/17 05:00 72 14 155/94 100 Mechanical Ventilator 02/04/17 04:00 98.9 68 14 159/91 100 Mechanical Ventilator 02/04/17 04:00 68 02/04/17 03:02 86 13 100 30 02/04/17 03:00 68 14 164/85 100 Mechanical Ventilator 02/04/17 02:00 73 14 146/85 100 Mechanical Ventilator 02/04/17 01:56 30 02/04/17 01:20 100 2.0 02/04/17 01:00 65 11 100 30 02/04/17 01:00 67 10 161/90 100 Mechanical Ventilator 02/04/17 00:00 70 02/04/17 00:00 98.4 68 11 151/84 100 Mechanical Ventilator 02/03/17 23:41 72 11 100 30 02/03/17 23:00 75 18 160/84 100 Mechanical Ventilator 02/03/17 22:00 72 11 176/90 100 Mechanical Ventilator 02/03/17 21:00 68 12 168/94 100 02/03/17 20:01 96 13 100 30 02/03/17 20:00 98.7 66 11 154/85 100 Mechanical Ventilator 02/03/17 20:00 65 02/03/17 20:00 30 02/03/17 19:37 67 11 100 30 02/03/17 19:00 70 11 165/83 100 Mechanical Ventilator 02/03/17 18:16 30 02/03/17 18:00 66 9 160/84 100 Mechanical Ventilator 02/03/17 17:48 63 8 100 30 02/03/17 17:00 74 13 165/86 100 Mechanical Ventilator 02/03/17 16:20 68 9 100 30 02/03/17 16:00 98.4 63 11 150/85 100 Mechanical Ventilator 02/03/17 16:00 63 02/03/17 15:10 64 13 100 30 02/03/17 15:00 69 13 163/81 100 Mechanical Ventilator 02/03/17 14:00 64 10 160/91 100 Mechanical Ventilator 02/03/17 13:28 66 14 100 30 02/03/17 13:00 68 8 163/86 100 Mechanical Ventilator 02/03/17 12:00 30 02/03/17 12:00 62 02/03/17 12:00 98.3 60 9 157/79 100 02/03/17 11:00 59 7 142/78 100 02/03/17 11:00 58 10 100 30 02/03/17 10:00 59 7 150/82 100 02/03/17 09:00 69 10 162/90 100 02/03/17 08:42 70 10 100 30 02/03/17 08:35 78 8 100 30 02/03/17 08:00 30 02/03/17 08:00 84 02/03/17 08:00 98.5 81 23 158/97 100 Mechanical Ventilator 02/03/17 07:56 71 16 100 30 02/03/17 07:00 77 12 149/86 100 Mechanical Ventilator 02/03/17 06:01 97 17 154/91 100 Mechanical Ventilator 02/03/17 05:20 57 12 100 30 02/03/17 05:00 57 12 143/75 100 Mechanical Ventilator 02/03/17 04:00 50 02/03/17 04:00 98.0 58 11 154/75 100 Mechanical Ventilator 02/03/17 03:05 59 15 100 30 02/03/17 03:00 60 13 153/76 100 Mechanical Ventilator 02/03/17 02:00 56 13 149/69 100 Mechanical Ventilator 02/03/17 01:05 58 12 100 30 02/03/17 01:00 60 14 149/72 100 Mechanical Ventilator 02/03/17 00:00 97.6 65 17 161/87 100 Mechanical Ventilator 02/03/17 00:00 58 02/02/17 23:20 56 13 100 30 02/02/17 23:00 58 12 157/78 100 Mechanical Ventilator 02/02/17 22:00 55 10 156/74 100 Mechanical Ventilator 02/02/17 21:20 57 12 100 30 02/02/17 21:00 60 13 156/75 100 Mechanical Ventilator 02/02/17 20:00 98.0 69 15 158/78 100 Mechanical Ventilator 02/02/17 20:00 30 02/02/17 19:40 67 16 100 30 02/02/17 19:00 67 16 154/84 100 Mechanical Ventilator 02/02/17 18:00 61 13 161/84 100 Mechanical Ventilator 02/02/17 17:00 63 14 155/75 100 Mechanical Ventilator 02/02/17 16:00 59 02/02/17 16:00 98.9 59 15 149/76 100 Mechanical Ventilator 02/02/17 15:50 59 13 100 30 02/02/17 15:00 65 15 153/74 100 Mechanical Ventilator 02/02/17 14:00 66 12 153/78 100 Mechanical Ventilator 02/02/17 13:00 56 13 131/73 100 Mechanical Ventilator 02/02/17 12:52 61 13 100 30 02/02/17 12:50 58 13 100 30 02/02/17 12:00 59 02/02/17 12:00 99.0 61 5 143/74 100 Mechanical Ventilator 02/02/17 11:35 61 12 100 30 02/02/17 11:25 30 02/02/17 11:00 61 12 136/72 100 Mechanical Ventilator 02/02/17 10:00 60 9 131/73 100 Mechanical Ventilator 02/02/17 09:45 60 10 100 02/02/17 09:00 63 11 129/70 100 Mechanical Ventilator 02/02/17 08:00 99.2 64 12 140/76 100 Mechanical Ventilator 02/02/17 08:00 30 02/02/17 08:00 64 02/02/17 07:00 70 16 137/76 100 Mechanical Ventilator 02/02/17 07:00 63 12 100 30 02/02/17 06:00 62 12 130/74 100 Mechanical Ventilator 02/02/17 05:41 64 12 99 30 02/02/17 05:00 63 11 133/76 100 Mechanical Ventilator 02/02/17 04:00 65 02/02/17 04:00 98.0 75 13 139/86 100 Mechanical Ventilator 02/02/17 03:17 68 11 100 30 02/02/17 03:00 64 11 134/73 100 Mechanical Ventilator 02/02/17 02:00 63 10 128/71 100 Mechanical Ventilator 02/02/17 01:18 65 12 100 30 02/02/17 01:00 66 12 132/75 100 Mechanical Ventilator 02/02/17 00:00 97.8 65 10 123/70 100 Mechanical Ventilator 02/02/17 00:00 68 02/01/17 23:15 66 16 100 30 02/01/17 23:00 65 10 126/66 100 Mechanical Ventilator 02/01/17 22:00 71 11 132/74 100 Mechanical Ventilator 17 21:22 67 14 100 30 17 21:00 66 9 138/74 100 Mechanical Ventilator 02/01/17 20:00 68 17 20:00 97.4 66 10 150/77 100 Mechanical Ventilator 17 20:00 30 18/17 19:52 64 11 100 30 18/17 18:00 64 11 136/77 100 Mechanical Ventilator 17 17:15 70 16 100 30 18/17 17:00 68 10 142/78 100 Mechanical Ventilator 1817 16:00 67 11/18/17 16:00 98.9 68 11 135/70 100 Mechanical Ventilator 02/01/17 15:12 74 18 100 30 02/01/17 15:00 71 11 146/84 100 Mechanical Ventilator 02/01/17 14:00 72 10 140/80 100 Mechanical Ventilator Vital Signs Date Time Temp Pulse Resp B/P Pulse Ox O2 Delivery O2 Flow Rate FiO2 02/04/17 12:00 66 02/04/17 10:20 100 2.0 02/04/17 09:00 11 30 02/04/17 08:00 98.7 157/93 Mechanical Ventilator Intake and Output 02/03/17 02/03/17 02/04/17 14:59 22:59 06:59 Intake Total 480 ml 860 ml 640 ml Output Total 1250 ml 375 ml 290 ml Balance -770 ml 485 ml 350 ml Exam Constitutional: alert, oriented, well developed Psych: nl mood/affect, no complaints Respiratory: clear to auscultation, normal air movement Cardiovascular: nl pulses, regular rate and rhythm, No edema, No murmurs/extra sounds, No rub Gastrointestinal: bowel sounds, nl liver, spleen, non-tender, soft, No mass, No rebound or guarding Musculoskeletal: nl extremities to inspection Extremities: normal pulses, No clubbing, No cyanosis, No edema 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, nl mental status, nl speech, nl strength Additional Comments Bedside Glucose - 72 Hours Test 02/01/17 18:05 02/02/17 00:23 02/02/17 06:43 02/02/17 13:01 Bedside Glucose 167mg/dL (70-220) 175mg/dL (70-220) 178mg/dL (70-220) 180mg/dL (70-220) Test 02/02/17 18:31 02/03/17 00:47 02/03/17 05:52 02/03/17 11:41 Bedside Glucose 179mg/dL (70-220) 194mg/dL (70-220) 200mg/dL (70-220) 174mg/dL (70-220) Test 02/03/17 17:43 02/04/17 03:04 02/04/17 05:29 02/04/17 11:31 Bedside Glucose 136mg/dL (70-220) 169mg/dL (70-220) 144mg/dL (70-220) 162mg/dL (70-220) Results Result Diagram: 02/04/17 0520 02/04/17 0520 Results 24 hrs Laboratory Tests Test 02/03/17 17:02 02/03/17 17:30 02/03/17 17:43 02/04/17 03:04 Sodium Level 138 Blood Gas Specimen Source Blood arterial Arterial Blood Date Drawn 02/03/2017 5:36:14 PM Arterial Blood pH (Temp corrected) 7.510 H Arterial Blood pCO2 (Temp correct) 26.4 L Arterial Blood pO2 (Temp corrected) 142.5 H Arterial Blood HCO3 20.6 L Arterial Blood Base Excess -1.6 Arterial Blood Oxygen Saturation 98.0 Yrui Test ACCEPTAB Arterial Blood Gas Puncture Site Right Radial Arterial Blood Carboxyhemoglobin 0.3 Arterial Blood Methemoglobin 0.3 Blood Gas A-a O2 Differential 40.4 H Oxyhemoglobin Percent 97.4 Total Hemoglobin 9.4 L Blood Gas Temperature 37.0 Blood Gas Actual Respiration Rate 16 Blood Gas Modality VENT - PSV FiO2 30.0 Blood Gas Tidal Volume 500.0 Blood Gas Inspiratory Pressure 15.0 Blood Gas Pressure Support 10 Blood Gas Notified [facility] Gas Notified Time 02/03/2017 5:48:14 PM Bedside Glucose 136 169 Test 02/04/17 05:17 02/04/17 05:20 02/04/17 05:29 02/04/17 09:00 Sodium Level 140 141 Potassium Level 3.6 Chloride Level 108 Carbon Dioxide Level 25 Anion Gap 11 Blood Urea Nitrogen 32 H Creatinine 1.56 H Glucose Level 135 Calcium Level 8.1 L White Blood Count 10.8 Red Blood Count 2.92 L Hemoglobin 9.5 L Hematocrit 28.0 L Mean Corpuscular Volume 95.9 Mean Corpuscular Hemoglobin 32.5 Mean Corpuscular Hemoglobin Concent 33.9 Red Cell Distribution Width 13.5 Platelet Count 100 L Mean Platelet Volume 10.5 H Neutrophils % 81.6 H Lymphocytes % 8.4 L Monocytes % 8.8 Eosinophils % 0.0 Basophils % 0.1 Nucleated Red Blood Cells % 0.0 Neutrophils # 8.8 H Lymphocytes # 0.9 Monocytes # 1.0 H Eosinophils # 0.0 Basophils # 0.0 Nucleated Red Blood Cells # 0.0 Bedside Glucose 144 Blood Gas Specimen Source Blood arterial Arterial Blood Date Drawn 02/04/2017 9:20:56 AM Arterial Blood pH (Temp corrected) 7.489 H Arterial Blood pCO2 (Temp correct) 25.5 L Arterial Blood pO2 (Temp corrected) 138.8 H Arterial Blood HCO3 19.0 L Arterial Blood Base Excess -3.3 L Arterial Blood Oxygen Saturation 97.9 Yuri Test ACCEPTAB Arterial Blood Gas Puncture Site Right Radial Arterial Blood Carboxyhemoglobin 0.3 Arterial Blood Methemoglobin 0.3 Blood Gas A-a O2 Differential 45.1 H Oxyhemoglobin Percent 97.3 Total Hemoglobin 10.1 L Blood Gas Temperature 37.0 Blood Gas Actual Respiration Rate 11 Blood Gas Modality VENT - CPAP FiO2 30.0 Blood Gas Low PEEP Setting 5.0 Blood Gas Pressure Support 10 Blood Gas Notified Whom JLD Blood Gas Notified Time 02/04/2017 9:47:46 AM Test 02/04/17 11:31 Bedside Glucose 162 Medications Medications Current Medications Hydralazine HCl (Apresoline) 10 mg Q6H PRN IV SBP>170 Last administered on 19:57; Admin Dose 10 MG; Start 01/28/17 at 12:30 Metoprolol Tartrate 25 mg 25 mg BID PO Last administered on 01/28/17 20:53; Admin Dose 25 MG; Start 01/28/17 at 21:00 Ceftriaxone Sodium (Rocephin) 50 ml @ 100 mls/hr Q24H IVPB Last administered on 02/03/17 20:47; Admin Dose 100 MLS/HR; Start 01/28/17 at 20:00 Morphine Sulfate 2 mg 2 mg Q2H PRN IV PAIN Last administered on 01/30/17 23: 34; Admin Dose 2 MG; Start 01/30/17 at 23:30 Potassium Chloride/Dextrose (KCl/D5W) 1,005 ml @ 60 mls/hr [id number] IV Last administered on 02/04/17 10:39; Admin Dose 60 MLS/HR; Start 01/31/17 at 14:00 Dorzolamide/ Timolol (Cosopt) 1 drop BID BOTH EYES Last administered on 08:10; Admin Dose 1 DROP; Start 02/01/17 at 09:00 Allopurinol (Zyloprim) 300 mg DAILY PO ; Start 02/02/17 at 09:00 Atorvastatin Calcium (Lipitor) 20 mg HS PO ; Start 02/01/17 at 21:00 Miscellaneous Information 1 ea NOTE XX ; Start 02/01/17 at 08:00 Glucose (Glutose) 15 gm Q15M PRN PO DECREASED GLUCOSE; Start 02/01/17 at 08:00 Glucose (Glutose) 22.5 gm Q15M PRN PO DECREASED GLUCOSE; Start 02/01/17 at 08: 00 Dextrose (D50w Syringe) 25 ml Q15M PRN IV DECREASED GLUCOSE; Start 02/01/17 at 08:00 Dextrose (D50w Syringe) 50 ml Q15M PRN IV DECREASED GLUCOSE; Start 02/01/17 at 08:00 Glucagon (Glucagen) 1 mg Q15M PRN IM DECREASED GLUCOSE; Start 02/01/17 at 08: 00 Glucose (Glutose) 15 gm Q15M PRN BUCCAL DECREASED GLUCOSE; Start 02/01/17 at 08:00 Insulin Aspart (Novolog Insulin Pen) NOVOLOG *MILD* ALGORI... Q6 SC Last administered on 02/04/17 11:40; Admin Dose 1 UNIT; Start 02/01/17 at 12:00 Famotidine (Pepcid Iv) 20 mg DAILY IV Last administered on 02/04/17 08:10; Admin Dose 20 MG; Start 02/04/17 at 09:00 Hydrocortisone (Solu-Cortef) 25 mg Q8 IV ; Start 02/04/17 at 14:00 KING RAO MD Feb 04, 2017 13:56
--- NOTE | 2017-02-04 14:35 | PN ---
Date/Time of Note Date/Time of Note DATE: 02/04/17 TIME: 14:34 Assessment/Plan VTE Prophylaxis VTE Prophylaxis Intervention: SCD's Lines/Catheters IV Catheter Type (from Nrsg): Peripheral IV Central line still needed: No Urinary Cath still in place: No Assessment/Plan Assessment/Plan s/p transsphenoidal tumor resection . POD #5 doing well extubated and doing well denies sob or chest pain pt reports vision improving plan cont supportive care downgrade and dc planning home okay from NS point of view follow up [place] [address] barriga pt advised not to blow nose x 3 months steroid management per Endo upon discharge. Subjective 24 Hr Interval Summary Free Text/Dictation S: Pt now extubated No nasal leaking reported or noted vision improving and no c/o chest pain or sob Exam/Review of Systems Vital Signs Vitals Vital Signs Date Time Temp Pulse Resp B/P Pulse Ox O2 Delivery O2 Flow Rate FiO2 02/04/17 13:00 66 160/81 100 Nasal Cannula 02/04/17 12:00 98.4 02/04/17 10:20 2.0 02/04/17 09:00 18 02/04/17 09:00 30 Intake and Output 02/03/17 02/03/17 02/04/17 15:00 23:00 07:00 Intake Total 480 ml 940 ml 560 ml Output Total 1250 ml 315 ml 350 ml Balance -770 ml 625 ml 210 ml Exam Neurological: other (MS: AAOX4 CN: PERRL M: fC x 4 ) Results Result Diagram: 02/04/17 0520 02/04/17 0520 Results 24 hrs Laboratory Tests Test 02/03/17 17:02 02/03/17 17:30 02/03/17 17:43 02/04/17 03:04 Sodium Level 138 Blood Gas Specimen Source Blood arterial Arterial Blood Date Drawn 02/03/2017 5:36:14 PM Arterial Blood pH (Temp corrected) 7.510 H Arterial Blood pCO2 (Temp correct) 26.4 L Arterial Blood pO2 (Temp corrected) 142.5 H Arterial Blood HCO3 20.6 L Arterial Blood Base Excess -1.6 Arterial Blood Oxygen Saturation 98.0 Yuri Test ACCEPTAB Arterial Blood Gas Puncture Site Right Radial Arterial Blood Carboxyhemoglobin 0.3 Arterial Blood Methemoglobin 0.3 Blood Gas A-a O2 Differential 40.4 H Oxyhemoglobin Percent 97.4 Total Hemoglobin 9.4 L Blood Gas Temperature 37.0 Blood Gas Actual Respiration Rate 16 Blood Gas Modality VENT - PSV FiO2 30.0 Blood Gas Tidal Volume 500.0 Blood Gas Inspiratory Pressure 15.0 Blood Gas Pressure Support 10 Blood Gas Notified Whom Horace ALVARENGA Blood Gas Notified Time 02/03/2017 5:48:14 PM Bedside Glucose 136 169 Test 02/04/17 05:17 02/04/17 05:20 02/04/17 05:29 02/04/17 09:00 Sodium Level 140 141 Potassium Level 3.6 Chloride Level 108 Carbon Dioxide Level 25 Anion Gap 11 Blood Urea Nitrogen 32 H Creatinine 1.56 H Glucose Level 135 Calcium Level 8.1 L White Blood Count 10.8 Red Blood Count 2.92 L Hemoglobin 9.5 L Hematocrit 28.0 L Mean Corpuscular Volume 95.9 Mean Corpuscular Hemoglobin 32.5 Mean Corpuscular Hemoglobin Concent 33.9 Red Cell Distribution Width 13.5 Platelet Count 100 L Mean Platelet Volume 10.5 H Neutrophils % 81.6 H Lymphocytes % 8.4 L Monocytes % 8.8 Eosinophils % 0.0 Basophils % 0.1 Nucleated Red Blood Cells % 0.0 Neutrophils # 8.8 H Lymphocytes # 0.9 Monocytes # 1.0 H Eosinophils # 0.0 Basophils # 0.0 Nucleated Red Blood Cells # 0.0 Bedside Glucose 144 Blood Gas Specimen Source Blood arterial Arterial Blood Date Drawn 02/04/2017 9:20:56 AM Arterial Blood pH (Temp corrected) 7.489 H Arterial Blood pCO2 (Temp correct) 25.5 L Arterial Blood pO2 (Temp corrected) 138.8 H Arterial Blood HCO3 19.0 L Arterial Blood Base Excess -3.3 L Arterial Blood Oxygen Saturation 97.9 Yuri Test ACCEPTAB Arterial Blood Gas Puncture Site Right Radial Arterial Blood Carboxyhemoglobin 0.3 Arterial Blood Methemoglobin 0.3 Blood Gas A-a O2 Differential 45.1 H Oxyhemoglobin Percent 97.3 Total Hemoglobin 10.1 L Blood Gas Temperature 37.0 Blood Gas Actual Respiration Rate 11 Blood Gas Modality VENT - CPAP FiO2 30.0 Blood Gas Low PEEP Setting 5.0 Blood Gas Pressure Support 10 Blood Gas Notified Whom JLD Blood Gas Notified Time 02/04/2017 9:47:46 AM Test 02/04/17 11:31 Bedside Glucose 162 Medications Medications Current Medications Hydralazine HCl (Apresoline) 10 mg Q6H PRN IV SBP>170 Last administered on 19:57; Admin Dose 10 MG; Start 01/28/17 at 12:30 Metoprolol Tartrate 25 mg 25 mg BID PO Last administered on 01/28/17 20:53; Admin Dose 25 MG; Start 01/28/17 at 21:00 Ceftriaxone Sodium (Rocephin) 50 ml @ 100 mls/hr Q24H IVPB Last administered on 02/03/17 20:47; Admin Dose 100 MLS/HR; Start 01/28/17 at 20:00 Morphine Sulfate 2 mg 2 mg Q2H PRN IV PAIN Last administered on 01/30/17 23: 34; Admin Dose 2 MG; Start 01/30/17 at 23:30 Potassium Chloride/Dextrose (KCl/D5W) 1,005 ml @ 60 mls/hr [id number] IV Last administered on 02/04/17 10:39; Admin Dose 60 MLS/HR; Start 01/31/17 at 14:00 Dorzolamide/ Timolol (Cosopt) 1 drop BID BOTH EYES Last administered on 08:10; Admin Dose 1 DROP; Start 02/01/17 at 09:00 Allopurinol (Zyloprim) 300 mg DAILY PO ; Start 02/02/17 at 09:00 Atorvastatin Calcium (Lipitor) 20 mg HS PO ; Start 02/01/17 at 21:00 Miscellaneous Information 1 ea NOTE XX ; Start 02/01/17 at 08:00 Glucose (Glutose) 15 gm Q15M PRN PO DECREASED GLUCOSE; Start 02/01/17 at 08:00 Glucose (Glutose) 22.5 gm Q15M PRN PO DECREASED GLUCOSE; Start 02/01/17 at 08: 00 Dextrose (D50w Syringe) 25 ml Q15M PRN IV DECREASED GLUCOSE; Start 02/01/17 at 08:00 Dextrose (D50w Syringe) 50 ml Q15M PRN IV DECREASED GLUCOSE; Start 02/01/17 at 08:00 Glucagon (Glucagen) 1 mg Q15M PRN IM DECREASED GLUCOSE; Start 02/01/17 at 08: 00 Glucose (Glutose) 15 gm Q15M PRN BUCCAL DECREASED GLUCOSE; Start 02/01/17 at 08:00 Insulin Aspart (Novolog Insulin Pen) NOVOLOG *MILD* ALGORI... Q6 SC Last administered on 02/04/17 11:40; Admin Dose 1 UNIT; Start 02/01/17 at 12:00 Famotidine (Pepcid Iv) 20 mg DAILY IV Last administered on 02/04/17 08:10; Admin Dose 20 MG; Start 02/04/17 at 09:00 Hydrocortisone (Solu-Cortef) 25 mg Q8 IV ; Start 02/04/17 at 14:00 AGNIESZKA MUNGUIA NP Feb 04, 2017 14:35
[2017-02-04] MEDS: ATORVASTATIN 20 MG TAB PO SCH (21:00)
[2017-02-04] MEDS: CEFTRIAXONE 1 GM/50 ML (PMX) 50 ML IVPB SCH (21:23)
[2017-02-05] VITALS (30 sets, daily range): BP systolic 124–183; BP diastolic 62–100; PULSE 59–83; RESP 10–23
[2017-02-05] MEDS: POTASSIUM CHLORIDE 10 MEQ in DEXTROSE 5% 1,000 ML IV SCH ×2 (01:08→18:07)
[2017-02-05] MEDS: INSULIN ASPART [NOVOLOG] 3 ML PEN SC SCH ×4 (01:13→18:00)
[2017-02-05 05:36] LABS: HEMATOCRIT 28.2 % (42.0-52.0); HEMOGLOBIN 9.7 g/dl (14.0-18.0); LYMPHOCYTES # 1.3 10^3/ul (0.8-2.9); LYMPHOCYTES % 12.2 % (15.0-51.0); MEAN CORPUSCULAR HEMOGLOBIN 32.6 pg (29.0-33.0); MEAN CORPUSCULAR HGB CONC 34.4 g/dl (32.0-37.0); MEAN CORPUSCULAR VOLUME 94.6 fl (82.0-101.0); MEAN PLATELET VOLUME 11.3 fl (7.4-10.4); MONOCYTES % 9.4 % (0.0-11.0); NEUTROPHIL # 8.1 10^3/ul (1.6-7.5); NEUTROPHILS % 77.2 % (39.0-77.0); PLATELET COUNT 109 10^3/UL (140-415); RED BLOOD COUNT 2.98 10^6/ul (4.70-6.10); RED CELL DISTRIBUTION WIDTH 13.4 % (11.5-14.5); WHITE BLOOD COUNT 10.4 10^3/ul (4.8-10.8)
[2017-02-05] MEDS: HYDROCORTISONE 100 MG INJ IV SCH ×2 (05:42→21:48)
[2017-02-05 06:06] LABS: CALCIUM 8.2 mg/dl (8.4-10.2); CREATININE 1.43 mg/dl (0.61-1.24); POTASSIUM 3.3 mmol/L (3.5-5.1)
[2017-02-05] MEDS: CREON (12k-38k-60k) 1 CAP PO SCH ×3 (07:35→18:13)
--- NOTE | 2017-02-05 09:46 | CONS ---
Date/Time of Note Date/Time of Note DATE: 02/05/17 TIME: 09:44 Consult Date/Type/Reason Admit Date/Time Jan 28, 2017 at 06:15 Initial Consult Date 01/28/17 Type of Consultation: Pulmonary Ordering Provider: MARIAN CANNON MD Subjective Patient stable following extubation. Awake alert comfortable no respiratory distress. Speech therapy evaluation pending. Objective Vital Signs Date Time Temp Pulse Resp B/P Pulse Ox O2 Delivery O2 Flow Rate FiO2 02/05/17 08:30 59 12 100 02/05/17 08:00 98.4 163/83 Nasal Cannula 2.0 02/04/17 09:00 30 Intake and Output 02/04/17 02/04/17 02/05/17 15:00 23:00 07:00 Intake Total 584 ml 530 ml 540 ml Output Total 800 ml 1100 ml 900 ml Balance -216 ml -570 ml -360 ml Exam GENERAL: Well-nourished well-developed gentleman comfortable at rest no acute distress VITAL SIGNS: per chart NECK: Supple. No JVD or lymphadenopathy. CARDIAC EXAM: S1, S2. No added sounds or murmurs. CHEST: clear bilaterally, No added sounds, rales or wheezes ABDOMEN: Soft, nontender. No guarding or rebound. EXTREMITIES: No cyanosis, clubbing or edema. NEUROLOGIC: Generalized weakness. No focal deficits. Results/Medications Result Diagram: 02/05/17 0505 02/05/17 0505 Results 24 hrs Laboratory Tests Test 02/04/17 11:31 02/04/17 16:45 02/04/17 16:49 02/05/17 01:07 Bedside Glucose 162 151 148 Sodium Level 138 Test 02/05/17 05:05 02/05/17 05:41 White Blood Count 10.4 Red Blood Count 2.98 L Hemoglobin 9.7 L Hematocrit 28.2 L Mean Corpuscular Volume 94.6 Mean Corpuscular Hemoglobin 32.6 Mean Corpuscular Hemoglobin Concent 34.4 Red Cell Distribution Width 13.4 Platelet Count 109 L Mean Platelet Volume 11.3 H Neutrophils % 77.2 H Lymphocytes % 12.2 L Monocytes % 9.4 Eosinophils % 0.0 Basophils % 0.0 Nucleated Red Blood Cells % 0.0 Neutrophils # 8.1 H Lymphocytes # 1.3 Monocytes # 1.0 H Eosinophils # 0.0 Basophils # 0.0 Nucleated Red Blood Cells # 0.0 Sodium Level 141 Potassium Level 3.3 L Chloride Level 102 Carbon Dioxide Level 29 Anion Gap 13 Blood Urea Nitrogen 30 H Creatinine 1.43 H Glucose Level 151 Calcium Level 8.2 L Bedside Glucose 143 Medications Current Medications Hydralazine HCl (Apresoline) 10 mg Q6H PRN IV SBP>170 Last administered on 19:57; Admin Dose 10 MG; Start 01/28/17 at 12:30 Metoprolol Tartrate 25 mg 25 mg BID PO Last administered on 01/28/17 20:53; Admin Dose 25 MG; Start 01/28/17 at 21:00 Ceftriaxone Sodium (Rocephin) 50 ml @ 100 mls/hr Q24H IVPB Last administered on 02/04/17 21:23; Admin Dose 100 MLS/HR; Start 01/28/17 at 20:00 Morphine Sulfate 2 mg 2 mg Q2H PRN IV PAIN Last administered on 01/30/17 23: 34; Admin Dose 2 MG; Start 01/30/17 at 23:30 Potassium Chloride/Dextrose (KCl/D5W) 1,005 ml @ 60 mls/hr [id number] IV Last administered on 02/05/17 01:08; Admin Dose 60 MLS/HR; Start 01/31/17 at 14:00 Dorzolamide/ Timolol (Cosopt) 1 drop BID BOTH EYES Last administered on 21:23; Admin Dose 1 DROP; Start 02/01/17 at 09:00 Allopurinol (Zyloprim) 300 mg DAILY PO ; Start 02/02/17 at 09:00 Atorvastatin Calcium (Lipitor) 20 mg HS PO ; Start 02/01/17 at 21:00 Miscellaneous Information 1 ea NOTE XX ; Start 02/01/17 at 08:00 Glucose (Glutose) 15 gm Q15M PRN PO DECREASED GLUCOSE; Start 02/01/17 at 08:00 Glucose (Glutose) 22.5 gm Q15M PRN PO DECREASED GLUCOSE; Start 02/01/17 at 08: 00 Dextrose (D50w Syringe) 25 ml Q15M PRN IV DECREASED GLUCOSE; Start 02/01/17 at 08:00 Dextrose (D50w Syringe) 50 ml Q15M PRN IV DECREASED GLUCOSE; Start 02/01/17 at 08:00 Glucagon (Glucagen) 1 mg Q15M PRN IM DECREASED GLUCOSE; Start 02/01/17 at 08: 00 Glucose (Glutose) 15 gm Q15M PRN BUCCAL DECREASED GLUCOSE; Start 02/01/17 at 08:00 Insulin Aspart (Novolog Insulin Pen) NOVOLOG *MILD* ALGORI... Q6 SC Last administered on 02/05/17 05:46; Admin Dose 1 UNIT; Start 02/01/17 at 12:00 Famotidine (Pepcid Iv) 20 mg DAILY IV Last administered on 02/04/17 08:10; Admin Dose 20 MG; Start 02/04/17 at 09:00 Hydrocortisone (Solu-Cortef) 25 mg Q12 IV ; Start 02/05/17 at 21:00 Assessment/Plan Chief Complaint/Hosp Course Assessment 1. Status post resection of pituitary adenoma 2. Postop respiratory failure on mechanical ventilation. Patient castro no safely extubated. Remains comfortable significant apnea despite neurologically intact. Plan 1. Incentive spirometry 2. Speech therapy recommendations advance diet as tolerated 3. Endocrinology and neurosurgery recommendations 4. Transfer to [facility] encourage out of bed DC planning okay from pulmonary standpoint Problems: ST[facility] AGUILAR [facility] Feb 05, 2017 09:46
[2017-02-05] MEDS: DORZOLAMIDE/TIMOLOL 10 ML OPH BOTH EYES SCH ×2 (12:13→21:48)
[2017-02-05] MEDS: METOPROLOL 25 MG TAB PO SCH ×2 (12:14→21:49)
[2017-02-05] MEDS: FAMOTIDINE 20 MG INJ IV SCH (12:14)
[2017-02-05] MEDS: ALLOPURINOL 300 MG TAB PO SCH (12:14)
[2017-02-05] MEDS: hydrALAzine 20 MG INJ IV PRN (12:38)
--- NOTE | 2017-02-05 13:05 | PN ---
Date/Time of Note Date/Time of Note DATE: 02/05/17 TIME: 13:00 Assessment/Plan VTE Prophylaxis VTE Prophylaxis Intervention: SCD's Lines/Catheters IV C[facility] Type ([facility] [place] [facility] Urinary Cath still in place: Yes Reason Cath still needed: urinary retention Assessment/Plan Chief Complaint/Hosp Course Patient passed swallow evaluation, will start diet, patient is awake alert without distress Assessment/Plan - Transsphenoidal pituitary adenoma, s/p transsphenoidal tumor resection on by Dr. Rodriguez. - Partial hypopituitarism. Dr. Choe is following in endocrinology consultation. - Postoperative respiratory failure requiring reintubation, resolved. Dr. Ospina is following in pulmonology consultation. - S/p code blue - Metabolic acidosis, resolved. - Pancreatic cancer. The patient follows with oncologist as an outpatient. Patient is aware that he will not be able to receive any treatment for 10 days after surgery. - Hypertension. Continue metoprolol and hydralazine p.r.n. - Hyperlipidemia. Continue simvastatin. - Chronic kidney disease stage III. Continue to monitor BUN and creatinine. Dr. Yan is following in nephrology consultation. Further recommendations based on clinical course. Plan of care discussed with Dr. Schulte. Problems: Exam/Review of Systems Vital Signs Vitals Vital Signs Date Time Temp Pulse Resp B/P Pulse Ox O2 Delivery O2 Flow Rate FiO2 02/05/17 12:00 97.8 72 12 181/100 100 Nasal Cannula 2.0 02/04/17 09:00 30 Intake and Output 02/04/17 02/04/17 02/05/17 14:59 22:59 06:59 Intake Total 584 ml 470 ml 540 ml Output Total 900 ml 1000 ml 1000 ml Balance -316 ml -530 ml -460 ml Exam Constitutional: alert, oriented Head: normocephalic Neck: supple Cardiovascular: nl pulses, regular rate and rhythm Gastrointestinal: non-tender, soft Extremities: normal pulses Neurological: nl mental status Results Result Diagram: 02/05/17 0505 02/05/17 0505 Results 24 hrs Laboratory Tests Test 02/04/17 16:45 02/04/17 16:49 02/05/17 01:07 02/05/17 05:05 Sodium Level 138 141 Bedside Glucose 151 148 White Blood Count 10.4 Red Blood Count 2.98 L Hemoglobin 9.7 L Hematocrit 28.2 L Mean Corpuscular Volume 94.6 Mean Corpuscular Hemoglobin 32.6 Mean Corpuscular Hemoglobin Concent 34.4 Red Cell Distribution Width 13.4 Platelet Count 109 L Mean Platelet Volume 11.3 H Neutrophils % 77.2 H Lymphocytes % 12.2 L Monocytes % 9.4 Eosinophils % 0.0 Basophils % 0.0 Nucleated Red Blood Cells % 0.0 Neutrophils # 8.1 H Lymphocytes # 1.3 Monocytes # 1.0 H Eosinophils # 0.0 Basophils # 0.0 Nucleated Red Blood Cells # 0.0 Potassium Level 3.3 L Chloride Level 102 Carbon Dioxide Level 29 Anion Gap 13 Blood Urea Nitrogen 30 H Creatinine 1.43 H Glucose Level 151 Calcium Level 8.2 L Test 02/05/17 05:41 02/05/17 12:12 Bedside Glucose 143 158 Medications Medications Current Medications Hydralazine HCl (Apresoline) 10 mg Q6H PRN IV SBP>170 Last administered on 12:38; Admin Dose 10 MG; Start 01/28/17 at 12:30 Metoprolol Tartrate 25 mg 25 mg BID PO Last administered on 02/05/17 12:14; Admin Dose 25 MG; Start 01/28/17 at 21:00 Ceftriaxone Sodium (Rocephin) 50 ml @ 100 mls/hr Q24H IVPB Last administered on 02/04/17 21:23; Admin Dose 100 MLS/HR; Start 01/28/17 at 20:00 Morphine Sulfate 2 mg 2 mg Q2H PRN IV PAIN Last administered on 01/30/17 23: 34; Admin Dose 2 MG; Start 01/30/17 at 23:30 Potassium Chloride/Dextrose (KCl/D5W) 1,005 ml @ 60 mls/hr [id number] IV Last administered on 02/05/17 01:08; Admin Dose 60 MLS/HR; Start 01/31/17 at 14:00 Dorzolamide/ Timolol (Cosopt) 1 drop BID BOTH EYES Last administered on 12:13; Admin Dose 1 DROP; Start 02/01/17 at 09:00 Allopurinol (Zyloprim) 300 mg DAILY PO Last administered on 02/05/17 12:14; Admin Dose 300 MG; Start 02/02/17 at 09:00 Atorvastatin Calcium (Lipitor) 20 mg HS PO ; Start 02/01/17 at 21:00 Miscellaneous Information 1 ea NOTE XX ; Start 02/01/17 at 08:00 Glucose (Glutose) 15 gm Q15M PRN PO DECREASED GLUCOSE; Start 02/01/17 at 08:00 Glucose (Glutose) 22.5 gm Q15M PRN PO DECREASED GLUCOSE; Start 02/01/17 at 08: 00 Dextrose (D50w Syringe) 25 ml Q15M PRN IV DECREASED GLUCOSE; Start 02/01/17 at 08:00 Dextrose (D50w Syringe) 50 ml Q15M PRN IV DECREASED GLUCOSE; Start 02/01/17 at 08:00 Glucagon (Glucagen) 1 mg Q15M PRN IM DECREASED GLUCOSE; Start 02/01/17 at 08: 00 Glucose (Glutose) 15 gm Q15M PRN BUCCAL DECREASED GLUCOSE; Start 02/01/17 at 08:00 Insulin Aspart (Novolog Insulin Pen) NOVOLOG *MILD* ALGORI... Q6 SC Last administered on 02/05/17 12:21; Admin Dose 1 UNIT; Start 02/01/17 at 12:00 Famotidine (Pepcid Iv) 20 mg DAILY IV Last administered on 02/05/17 12:14; Admin Dose 20 MG; Start 02/04/17 at 09:00 Hydrocortisone (Solu-Cortef) 25 mg Q12 IV ; Start 02/05/17 at 21:00 ITTUS JAIMES Feb 05, 2017 13:04
--- NOTE | 2017-02-05 14:15 | CONS ---
Date/Time of Note Date/Time of Note DATE: 02/05/17 TIME: 14:12 Assessment/Plan Assessment/Plan Problems: (1) Pituitary macroadenoma Status: Chronic Comment: Doing well post-op. Maintaining eunatremia. Will monitor (2) Partial hypopituitarism Status: Chronic Comment: Hemodynamically stable. Will wean hydrocortisone to 25 mg IV q12. Change to po tomorrow and continue to wean (3) Diabetes mellitus type 2 in nonobese Status: Chronic Comment: Good glycemic control on only ISS. Likely to improve as hydrocortisone weaned Consultation Date/Type/Reason Admit Date/Time Jan 28, 2017 at 06:15 Initial Consult Date 01/28/17 Type of Consultation: Endocrinology Reason for Consultation Pituitary macroadenoma Referring Provider: MARIAN CANNON MD 24 HR Interval Summary Constitutional: improved, no complaints Detailed Summary Respiratory: no complaints Cardiovascular: no complaints Gastrointestinal: no complaints Genitourinary: no complaints Musculoskeletal: no complaints Neurologic: no complaints Exam/Review of Systems Vital Signs Vitals VS - Last 72 Hours, by Label Date Time Temp Pulse Resp B/P Pulse Ox O2 Delivery O2 Flow Rate FiO2 02/05/17 12:00 74 02/05/17 12:00 97.8 72 12 181/100 100 Nasal Cannula 2.0 02/05/17 11:00 63 10 183/91 100 Nasal Cannula 2.0 02/05/17 10:00 65 23 146/76 100 Nasal Cannula 2.0 02/05/17 09:00 68 17 156/79 100 Nasal Cannula 2.0 02/05/17 08:30 59 12 100 02/05/17 08:00 98.4 65 12 163/83 100 Nasal Cannula 2.0 02/05/17 08:00 Nasal Cannula 2.0 02/05/17 08:00 63 02/05/17 07:30 63 13 100 02/05/17 07:00 64 15 159/87 100 Nasal Cannula 2.0 02/05/17 06:30 2.0 02/05/17 06:00 68 14 147/81 100 Nasal Cannula 2.0 02/05/17 05:30 62 13 100 02/05/17 05:00 77 19 140/78 100 02/05/17 04:30 73 13 100 02/05/17 04:00 98.0 75 12 142/80 100 Nasal Cannula 02/05/17 04:00 72 02/05/17 03:30 62 13 100 02/05/17 03:00 75 12 152/93 100 Nasal Cannula 02/05/17 02:30 72 13 100 02/05/17 02:00 63 13 151/90 100 Nasal Cannula 02/05/17 01:30 76 14 100 02/05/17 01:00 76 14 156/97 100 Nasal Cannula 02/05/17 00:30 77 13 100 02/05/17 00:00 76 02/05/17 00:00 98.0 76 14 158/92 100 Nasal Cannula 02/04/17 23:58 2.0 02/04/17 23:30 78 12 100 02/04/17 23:00 71 13 159/91 100 Nasal Cannula 2.0 02/04/17 22:30 81 11 100 02/04/17 22:00 78 18 172/89 100 Nasal Cannula 2.0 02/04/17 21:30 78 17 100 02/04/17 21:00 68 15 151/82 100 Nasal Cannula 2.0 02/04/17 20:30 73 14 100 02/04/17 20:00 Nasal Cannula 2.0 02/04/17 20:00 77 02/04/17 20:00 98.0 75 13 158/89 100 Nasal Cannula 2.0 02/04/17 19:30 70 12 100 02/04/17 19:00 69 14 163/81 100 Nasal Cannula 2.0 02/04/17 18:33 131/85 02/04/17 18:30 69 15 100 02/04/17 18:15 81 20 100 02/04/17 18:00 70 12 165/90 100 02/04/17 17:45 77 14 100 02/04/17 17:30 68 14 100 02/04/17 17:30 68 14 100 02/04/17 17:22 100 2.0 02/04/17 17:15 77 13 100 02/04/17 17:15 77 13 100 02/04/17 17:00 69 13 164/88 100 02/04/17 17:00 69 13 164/88 100 02/04/17 16:45 68 16 100 02/04/17 16:30 72 15 100 02/04/17 16:15 71 12 100 02/04/17 16:00 70 02/04/17 16:00 72 15 157/88 100 02/04/17 15:54 98.2 02/04/17 15:49 Nasal Cannula 2.0 02/04/17 15:49 Nasal Cannula 2.0 02/04/17 15:45 70 13 100 02/04/17 15:30 74 31 100 02/04/17 15:30 74 31 100 02/04/17 15:15 72 13 100 02/04/17 15:00 71 22 100 02/04/17 15:00 71 22 100 02/04/17 14:45 71 9 100 02/04/17 14:37 Nasal Cannula 2.0 02/04/17 14:37 Nasal Cannula 2.0 02/04/17 14:30 68 10 100 02/04/17 14:30 68 10 100 02/04/17 14:30 68 10 100 02/04/17 14:15 66 100 02/04/17 14:00 72 168/93 100 02/04/17 14:00 72 168/93 100 02/04/17 14:00 72 168/93 100 02/04/17 13:30 67 100 02/04/17 13:00 66 160/81 100 Nasal Cannula 02/04/17 13:00 66 160/81 100 02/04/17 12:00 98.4 65 155/80 100 Nasal Cannula 02/04/17 12:00 66 02/04/17 11:00 69 153/85 100 Nasal Cannula 02/04/17 10:20 100 2.0 02/04/17 10:00 69 164/89 100 Mechanical Ventilator 02/04/17 09:00 70 18 171/91 100 Mechanical Ventilator 02/04/17 09:00 69 11 100 30 02/04/17 08:00 98.7 71 15 157/93 100 Mechanical Ventilator 02/04/17 08:00 75 02/04/17 07:15 72 14 100 30 02/04/17 07:00 73 15 162/96 100 Mechanical Ventilator 02/04/17 06:00 68 14 157/97 100 Mechanical Ventilator 02/04/17 05:05 71 12 100 30 02/04/17 05:00 72 14 155/94 100 Mechanical Ventilator 02/04/17 04:00 98.9 68 14 159/91 100 Mechanical Ventilator 02/04/17 04:00 68 02/04/17 03:02 86 13 100 30 02/04/17 03:00 68 14 164/85 100 Mechanical Ventilator 02/04/17 02:00 73 14 146/85 100 Mechanical Ventilator 02/04/17 01:56 30 02/04/17 01:20 100 2.0 02/04/17 01:00 65 11 100 30 02/04/17 01:00 67 10 161/90 100 Mechanical Ventilator 02/04/17 00:00 70 02/04/17 00:00 98.4 68 11 151/84 100 Mechanical Ventilator 02/03/17 23:41 72 11 100 30 02/03/17 23:00 75 18 160/84 100 Mechanical Ventilator 02/03/17 22:00 72 11 176/90 100 Mechanical Ventilator 02/03/17 21:00 68 12 168/94 100 02/03/17 20:01 96 13 100 30 02/03/17 20:00 98.7 66 11 154/85 100 Mechanical Ventilator 02/03/17 20:00 65 02/03/17 20:00 30 02/03/17 19:37 67 11 100 30 02/03/17 19:00 70 11 165/83 100 Mechanical Ventilator 02/03/17 18:16 30 02/03/17 18:00 66 9 160/84 100 Mechanical Ventilator 02/03/17 17:48 63 8 100 30 02/03/17 17:00 74 13 165/86 100 Mechanical Ventilator 02/03/17 16:20 68 9 100 30 02/03/17 16:00 98.4 63 11 150/85 100 Mechanical Ventilator 02/03/17 16:00 63 02/03/17 15:10 64 13 100 30 02/03/17 15:00 69 13 163/81 100 Mechanical Ventilator 02/03/17 14:00 64 10 160/91 100 Mechanical Ventilator 02/03/17 13:28 66 14 100 30 02/03/17 13:00 68 8 163/86 100 Mechanical Ventilator 02/03/17 12:00 30 02/03/17 12:00 62 02/03/17 12:00 98.3 60 9 157/79 100 02/03/17 11:00 59 7 142/78 100 02/03/17 11:00 58 10 100 30 02/03/17 10:00 59 7 150/82 100 02/03/17 09:00 69 10 162/90 100 02/03/17 08:42 70 10 100 30 02/03/17 08:35 78 8 100 30 02/03/17 08:00 30 02/03/17 08:00 84 02/03/17 08:00 98.5 81 23 158/97 100 Mechanical Ventilator 02/03/17 07:56 71 16 100 30 02/03/17 07:00 77 12 149/86 100 Mechanical Ventilator 02/03/17 06:01 97 17 154/91 100 Mechanical Ventilator 02/03/17 05:20 57 12 100 30 02/03/17 05:00 57 12 143/75 100 Mechanical Ventilator 02/03/17 04:00 50 02/03/17 04:00 98.0 58 11 154/75 100 Mechanical Ventilator 02/03/17 03:05 59 15 100 30 02/03/17 03:00 60 13 153/76 100 Mechanical Ventilator 02/03/17 02:00 56 13 149/69 100 Mechanical Ventilator 02/03/17 01:05 58 12 100 30 02/03/17 01:00 60 14 149/72 100 Mechanical Ventilator 02/03/17 00:00 97.6 65 17 161/87 100 Mechanical Ventilator 02/03/17 00:00 58 02/02/17 23:20 56 13 100 30 02/02/17 23:00 58 12 157/78 100 Mechanical Ventilator 02/02/17 22:00 55 10 156/74 100 Mechanical Ventilator 02/02/17 21:20 57 12 100 30 02/02/17 21:00 60 13 156/75 100 Mechanical Ventilator 02/02/17 20:00 98.0 69 15 158/78 100 Mechanical Ventilator 02/02/17 20:00 30 02/02/17 19:40 67 16 100 30 02/02/17 19:00 67 16 154/84 100 Mechanical Ventilator 02/02/17 18:00 61 13 161/84 100 Mechanical Ventilator 02/02/17 17:00 63 14 155/75 100 Mechanical Ventilator 02/02/17 16:00 59 02/02/17 16:00 98.9 59 15 149/76 100 Mechanical Ventilator 02/02/17 15:50 59 13 100 30 02/02/17 15:00 65 15 153/74 100 Mechanical Ventilator Vital Signs Date Time Temp Pulse Resp B/P Pulse Ox O2 Delivery O2 Flow Rate FiO2 02/05/17 12:00 74 02/05/17 12:00 97.8 12 181/100 100 Nasal Cannula 2.0 02/04/17 09:00 30 Intake and Output 02/04/17 02/04/17 02/05/17 15:00 23:00 07:00 Intake Total 584 ml 530 ml 540 ml Output Total 800 ml 1100 ml 970 ml Balance -216 ml -570 ml -430 ml Exam Constitutional: alert, oriented, well developed Psych: nl mood/affect, no complaints Respiratory: clear to auscultation, normal air movement Cardiovascular: nl pulses, regular rate and rhythm, No edema, No murmurs/extra sounds, No rub Gastrointestinal: bowel sounds, nl liver, spleen, non-tender, soft, No mass, No rebound or guarding Musculoskeletal: nl extremities to inspection Extremities: No clubbing, No cyanosis, No edema 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, nl mental status, nl speech, nl strength Additional Comments Bedside Glucose - 72 Hours Test 02/02/17 18:31 02/03/17 00:47 02/03/17 05:52 02/03/17 11:41 Bedside Glucose 179mg/dL (70-220) 194mg/dL (70-220) 200mg/dL (70-220) 174mg/dL (70-220) Test 02/03/17 17:43 02/04/17 03:04 02/04/17 05:29 02/04/17 11:31 Bedside Glucose 136mg/dL (70-220) 169mg/dL (70-220) 144mg/dL (70-220) 162mg/dL (70-220) Test 02/04/17 16:49 02/05/17 01:07 02/05/17 05:41 02/05/17 12:12 Bedside Glucose 151mg/dL (70-220) 148mg/dL (70-220) 143mg/dL (70-220) 158mg/dL (70-220) Results Result Diagram: 02/05/17 0505 02/05/17 0505 Results 24 hrs Laboratory Tests Test 02/04/17 16:45 02/04/17 16:49 02/05/17 01:07 02/05/17 05:05 Sodium Level 138 141 Bedside Glucose 151 148 White Blood Count 10.4 Red Blood Count 2.98 L Hemoglobin 9.7 L Hematocrit 28.2 L Mean Corpuscular Volume 94.6 Mean Corpuscular Hemoglobin 32.6 Mean Corpuscular Hemoglobin Concent 34.4 Red Cell Distribution Width 13.4 Platelet Count 109 L Mean Platelet Volume 11.3 H Neutrophils % 77.2 H Lymphocytes % 12.2 L Monocytes % 9.4 Eosinophils % 0.0 Basophils % 0.0 Nucleated Red Blood Cells % 0.0 Neutrophils # 8.1 H Lymphocytes # 1.3 Monocytes # 1.0 H Eosinophils # 0.0 Basophils # 0.0 Nucleated Red Blood Cells # 0.0 Potassium Level 3.3 L Chloride Level 102 Carbon Dioxide Level 29 Anion Gap 13 Blood Urea Nitrogen 30 H Creatinine 1.43 H Glucose Level 151 Calcium Level 8.2 L Test 02/05/17 05:41 02/05/17 12:12 Bedside Glucose 143 158 Medications Medications Current Medications Hydralazine HCl (Apresoline) 10 mg Q6H PRN IV SBP>170 Last administered on 12:38; Admin Dose 10 MG; Start 01/28/17 at 12:30 Metoprolol Tartrate 25 mg 25 mg BID PO Last administered on 02/05/17 12:14; Admin Dose 25 MG; Start 01/28/17 at 21:00 Ceftriaxone Sodium (Rocephin) 50 ml @ 100 mls/hr Q24H IVPB Last administered on 02/04/17 21:23; Admin Dose 100 MLS/HR; Start 01/28/17 at 20:00 Morphine Sulfate 2 mg 2 mg Q2H PRN IV PAIN Last administered on 01/30/17 23: 34; Admin Dose 2 MG; Start 01/30/17 at 23:30 Potassium Chloride/Dextrose (KCl/D5W) 1,005 ml @ 60 mls/hr [id number] IV Last administered on 02/05/17 01:08; Admin Dose 60 MLS/HR; Start 01/31/17 at 14:00 Dorzolamide/ Timolol (Cosopt) 1 drop BID BOTH EYES Last administered on 12:13; Admin Dose 1 DROP; Start 02/01/17 at 09:00 Allopurinol (Zyloprim) 300 mg DAILY PO Last administered on 02/05/17 12:14; Admin Dose 300 MG; Start 02/02/17 at 09:00 Atorvastatin Calcium (Lipitor) 20 mg HS PO ; Start 02/01/17 at 21:00 Miscellaneous Information 1 ea NOTE XX ; Start 02/01/17 at 08:00 Glucose (Glutose) 15 gm Q15M PRN PO DECREASED GLUCOSE; Start 02/01/17 at 08:00 Glucose (Glutose) 22.5 gm Q15M PRN PO DECREASED GLUCOSE; Start 02/01/17 at 08: 00 Dextrose (D50w Syringe) 25 ml Q15M PRN IV DECREASED GLUCOSE; Start 02/01/17 at 08:00 Dextrose (D50w Syringe) 50 ml Q15M PRN IV DECREASED GLUCOSE; Start 02/01/17 at 08:00 Glucagon (Glucagen) 1 mg Q15M PRN IM DECREASED GLUCOSE; Start 02/01/17 at 08: 00 Glucose (Glutose) 15 gm Q15M PRN BUCCAL DECREASED GLUCOSE; Start 02/01/17 at 08:00 Insulin Aspart (Novolog Insulin Pen) NOVOLOG *MILD* ALGORI... Q6 SC Last administered on 02/05/17 12:21; Admin Dose 1 UNIT; Start 02/01/17 at 12:00 Famotidine (Pepcid Iv) 20 mg DAILY IV Last administered on 02/05/17 12:14; Admin Dose 20 MG; Start 02/04/17 at 09:00 Hydrocortisone (Solu-Cortef) 25 mg Q12 IV ; Start 02/05/17 at 21:00 KING RAO MD Feb 05, 2017 14:14
--- NOTE | 2017-02-05 21:31 | CONS ---
Date/Time of Note Date/Time of Note DATE: 02/05/17 TIME: 21:28 Assessment/Plan Assessment/Plan Additional Assessment/Plan 1. Acute kidney injury vs DEJON on CKD III, No previous Cr available to compare 2. Transsphenoidal pituitary adenoma, s/p Transsphenoidal resection of pituitary adenoma on 01/30/17 2. Pancreatic cancer. The patient follows with oncologist as an outpatient. 3. Hypertension. 4. Hyperlipidemia. 5. Hypernatremia 6. Metabolic acidosis 7. Post Surgery Failed extubation- pt had a code blue and required reintubation - s/p Extubation 02/04/17 Plan: Cr 1.43, Na 141,HCo3 29- - continue D5W with KCL 10mEQ at 60 cc/hr , good urine output 2.9 liter, if continues to have high urine output and Na trending up, will add free water s/p extubation doing well, Passed swallow evaluation today will continue follow up Consultation Date/Type/Reason Admit Date/Time Jan 28, 2017 at 06:15 Initial Consult Date 01/28/17 Type of Consultation: NEPHROLOGY Referring Provider: MARIAN CANNON MD 24 HR Interval Summary Free Text/Dictation s/p Extubation, transferred to floor, BP stable, afebrile, Good urine output Exam/Review of Systems Vital Signs Vitals Vital Signs Date Time Temp Pulse Resp B/P Pulse Ox O2 Delivery O2 Flow Rate FiO2 02/05/17 20:49 98.7 83 20 151/87 98 02/05/17 20:00 Room Air 02/05/17 16:08 2.0 02/04/17 09:00 30 Intake and Output 02/04/17 02/04/17 02/05/17 14:59 22:59 06:59 Intake Total 584 ml 470 ml 540 ml Output Total 900 ml 1000 ml 1000 ml Balance -316 ml -530 ml -460 ml Exam GENERAL: Well-nourished well-developed gentleman comfortable at rest no acute distress NECK: Supple. No JVD or lymphadenopathy. CARDIAC EXAM: S1, S2. No added sounds or murmurs. CHEST: clear bilaterally, No added sounds, rales or wheezes ABDOMEN: Soft, nontender. No guarding or rebound. EXTREMITIES: No cyanosis, clubbing or edema. NEUROLOGIC: Generalized weakness. No focal deficits Results Result Diagram: 02/05/17 0505 02/05/17 1655 Results 24 hrs Laboratory Tests Test 02/05/17 01:07 02/05/17 05:05 02/05/17 05:41 02/05/17 12:12 Bedside Glucose 148 143 158 White Blood Count 10.4 Red Blood Count 2.98 L Hemoglobin 9.7 L Hematocrit 28.2 L Mean Corpuscular Volume 94.6 Mean Corpuscular Hemoglobin 32.6 Mean Corpuscular Hemoglobin Concent 34.4 Red Cell Distribution Width 13.4 Platelet Count 109 L Mean Platelet Volume 11.3 H Neutrophils % 77.2 H Lymphocytes % 12.2 L Monocytes % 9.4 Eosinophils % 0.0 Basophils % 0.0 Nucleated Red Blood Cells % 0.0 Neutrophils # 8.1 H Lymphocytes # 1.3 Monocytes # 1.0 H Eosinophils # 0.0 Basophils # 0.0 Nucleated Red Blood Cells # 0.0 Sodium Level 141 Potassium Level 3.3 L Chloride Level 102 Carbon Dioxide Level 29 Anion Gap 13 Blood Urea Nitrogen 30 H Creatinine 1.43 H Glucose Level 151 Calcium Level 8.2 L Test 02/05/17 16:55 02/05/17 18:14 Sodium Level 135 Bedside Glucose 115 Medications Medications Current Medications Hydralazine HCl (Apresoline) 10 mg Q6H PRN IV SBP>170 Last administered on 12:38; Admin Dose 10 MG; Start 01/28/17 at 12:30 Metoprolol Tartrate (Lopressor) 25 mg BID PO Last administered on 02/05/17 12 :14; Admin Dose 25 MG; Start 01/28/17 at 21:00 Morphine Sulfate 2 mg 2 mg Q2H PRN IV PAIN Last administered on 01/30/17 23: 34; Admin Dose 2 MG; Start 01/30/17 at 23:30 Potassium Chloride/Dextrose (KCl/D5W) 1,005 ml @ 60 mls/hr [id number] IV Last administered on 02/05/17 18:07; Admin Dose 60 MLS/HR; Start 01/31/17 at 14:00 Dorzolamide/ Timolol (Cosopt) 1 drop BID BOTH EYES Last administered on 12:13; Admin Dose 1 DROP; Start 02/01/17 at 09:00 Allopurinol (Zyloprim) 300 mg DAILY PO Last administered on 02/05/17 12:14; Admin Dose 300 MG; Start 02/02/17 at 09:00 Atorvastatin Calcium (Lipitor) 20 mg HS PO ; Start 02/01/17 at 21:00 Miscellaneous Information 1 ea NOTE XX ; Start 02/01/17 at 08:00 Glucose (Glutose) 15 gm Q15M PRN PO DECREASED GLUCOSE; Start 02/01/17 at 08:00 Glucose (Glutose) 22.5 gm Q15M PRN PO DECREASED GLUCOSE; Start 02/01/17 at 08: 00 Dextrose (D50w Syringe) 25 ml Q15M PRN IV DECREASED GLUCOSE; Start 02/01/17 at 08:00 Dextrose (D50w Syringe) 50 ml Q15M PRN IV DECREASED GLUCOSE; Start 02/01/17 at 08:00 Glucagon (Glucagen) 1 mg Q15M PRN IM DECREASED GLUCOSE; Start 02/01/17 at 08: 00 Glucose (Glutose) 15 gm Q15M PRN BUCCAL DECREASED GLUCOSE; Start 02/01/17 at 08:00 Insulin Aspart (Novolog Insulin Pen) NOVOLOG *MILD* ALGORI... Q6 SC Last administered on 02/05/17 12:21; Admin Dose 1 UNIT; Start 02/01/17 at 12:00 Famotidine (Pepcid Iv) 20 mg DAILY IV Last administered on 02/05/17 12:14; Admin Dose 20 MG; Start 02/04/17 at 09:00 Hydrocortisone (Solu-Cortef) 25 mg Q12 IV ; Start 02/05/17 at 21:00 ISRAEL JOEDA MD Feb 05, 2017 21:31
[2017-02-05] MEDS: ATORVASTATIN 20 MG TAB PO SCH (21:48)
[2017-02-06 02:00] VITALS: BP 122/59; RESP 20
[2017-02-06] MEDS: hydrALAzine 20 MG INJ IV PRN (02:18)
[2017-02-06] MEDS: INSULIN ASPART [NOVOLOG] 3 ML PEN SC SCH ×3 (06:00→12:00)
[2017-02-06 06:28] LABS: EOSINOPHILS % 0.2 % (0.0-7.0); HEMATOCRIT 28.1 % (42.0-52.0); HEMOGLOBIN 9.9 g/dl (14.0-18.0); LYMPHOCYTES # 1.5 10^3/ul (0.8-2.9); LYMPHOCYTES % 11.4 % (15.0-51.0); MEAN CORPUSCULAR HGB CONC 35.2 g/dl (32.0-37.0); MEAN CORPUSCULAR VOLUME 93.7 fl (82.0-101.0); MEAN PLATELET VOLUME 11.3 fl (7.4-10.4); MONOCYTE # 1.2 10^3/ul (0.3-0.9); MONOCYTES % 9.3 % (0.0-11.0); NEUTROPHIL # 9.9 10^3/ul (1.6-7.5); NEUTROPHILS % 77.8 % (39.0-77.0); PLATELET COUNT 122 10^3/UL (140-415); RED CELL DISTRIBUTION WIDTH 13.6 % (11.5-14.5); WHITE BLOOD COUNT 12.8 10^3/ul (4.8-10.8)
[2017-02-06 07:06] LABS: CALCIUM 7.8 mg/dl (8.4-10.2); CREATININE 1.47 mg/dl (0.61-1.24)
[2017-02-06 07:32] LABS: POTASSIUM 2.5 mmol/L (3.5-5.1)
[2017-02-06 07:33] VITALS: BP 135/66; RESP 16
[2017-02-06] MEDS: ALLOPURINOL 300 MG TAB PO SCH (08:27)
[2017-02-06] MEDS: CREON (12k-38k-60k) 1 CAP PO SCH ×3 (08:28→17:19)
[2017-02-06] MEDS: HYDROCORTISONE 5 MG TAB PO SCH ×3 (08:28→21:08)
[2017-02-06] MEDS: FAMOTIDINE 20 MG INJ IV SCH (08:29)
[2017-02-06] MEDS: METOPROLOL 25 MG TAB PO SCH ×2 (08:29→21:09)
[2017-02-06] MEDS: HYDROCORTISONE 100 MG INJ IV SCH (08:31)
[2017-02-06] MEDS ORDERED: ALLOPURINOL 300 MG TAB PO SCH (09:00)
--- NOTE | 2017-02-06 09:11 | CONS ---
Date/Time of Note Date/Time of Note DATE: 02/06/17 TIME: 09:09 Assessment/Plan Assessment/Plan Problems: (1) Hyperlipidemia Status: Chronic Comment: Stable on statin therapy continue treatment Qualifiers: Hyperlipidemia type: pure hypercholesterolemia Qualified Code: E78.00 - Pure hypercholesterolemia (2) Essential (primary) hypertension Status: Chronic Comment: Adequate control (3) Pancreatic cancer Status: Chronic Comment: Level of control of this issue is unclear and the patient does not know Qualifiers: Pancreatic malignancy location: unspecified Qualified Code: C25.9 - Malignant neoplasm of pancreas, unspecified location of malignancy (4) Pituitary macroadenoma Status: Chronic Comment: Status post surgery. (5) Diabetic nephropathy associated with type 2 diabetes mellitus Status: Chronic Comment: Stable and on adequate prophylactic therapy (6) S/P transsphenoidal hypophysectomy Onset Date: ~ 01/30/2017 Status: Acute Comment: Patient does not appear to have significant pituitary dysfunction and does not have diabetes insipidus. 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 Referring Provider: MARIAN CANNON MD 24 HR Interval Summary Constitutional: no complaints Detailed Summary Respiratory: no complaints Cardiovascular: no complaints Gastrointestinal: no complaints Exam/Review of Systems Vital Signs Vitals Vital Signs Date Time Temp Pulse Resp B/P Pulse Ox O2 Delivery O2 Flow Rate FiO2 02/06/17 07:33 98.1 76 16 135/66 98 02/05/17 23:13 2.0 02/05/17 20:00 Room Air 02/04/17 09:00 30 Intake and Output 02/05/17 02/05/17 02/06/17 15:00 23:00 07:00 Intake Total 1340 ml 240 ml 840 ml Output Total 490 ml 150 ml 300 ml Balance 850 ml 90 ml 540 ml Exam Constitutional: alert, oriented Respiratory: clear to auscultation, normal air movement Cardiovascular: nl pulses, regular rate and rhythm Gastrointestinal: nl liver, spleen, non-tender, soft Results Result Diagram: 02/06/17 0536 02/06/17 0536 Results 24 hrs Laboratory Tests Test 02/05/17 12:12 02/05/17 16:55 02/05/17 18:14 02/06/17 00:56 Bedside Glucose 158 115 116 Sodium Level 135 Test 02/06/17 05:36 02/06/17 06:38 White Blood Count 12.8 #H Red Blood Count 3.00 L Hemoglobin 9.9 L Hematocrit 28.1 L Mean Corpuscular Volume 93.7 Mean Corpuscular Hemoglobin 33.0 Mean Corpuscular Hemoglobin Concent 35.2 Red Cell Distribution Width 13.6 Platelet Count 122 L Mean Platelet Volume 11.3 H Neutrophils % 77.8 H Lymphocytes % 11.4 L Monocytes % 9.3 Eosinophils % 0.2 Basophils % 0.0 Nucleated Red Blood Cells % 0.0 Neutrophils # 9.9 H Lymphocytes # 1.5 Monocytes # 1.2 H Eosinophils # 0.0 Basophils # 0.0 Nucleated Red Blood Cells # 0.0 Sodium Level 135 Potassium Level 2.5 *L Chloride Level 98 Carbon Dioxide Level 28 Anion Gap 12 Blood Urea Nitrogen 33 H Creatinine 1.47 H Glucose Level 112 Calcium Level 7.8 L Bedside Glucose 113 Medications Medications Current Medications Hydralazine HCl (Apresoline) 10 mg Q6H PRN IV SBP>170 Last administered on 02:18; Admin Dose 10 MG; Start 01/28/17 at 12:30 Metoprolol Tartrate (Lopressor) 25 mg BID PO Last administered on 02/06/17 08 :29; Admin Dose 25 MG; Start 01/28/17 at 21:00 Morphine Sulfate 2 mg 2 mg Q2H PRN IV PAIN Last administered on 01/30/17 23: 34; Admin Dose 2 MG; Start 01/30/17 at 23:30 Potassium Chloride/Dextrose (KCl/D5W) 1,005 ml @ 60 mls/hr [id number] IV Last administered on 02/05/17 18:07; Admin Dose 60 MLS/HR; Start 01/31/17 at 14:00 Dorzolamide/ Timolol (Cosopt) 1 drop BID BOTH EYES Last administered on 21:48; Admin Dose 1 DROP; Start 02/01/17 at 09:00 Allopurinol (Zyloprim) 300 mg DAILY PO Last administered on 02/06/17 08:27; Admin Dose 300 MG; Start 02/02/17 at 09:00 Atorvastatin Calcium (Lipitor) 20 mg HS PO Last administered on 02/05/17 21: 48; Admin Dose 20 MG; Start 02/01/17 at 21:00 Miscellaneous Information 1 ea NOTE XX ; Start 02/01/17 at 08:00 Glucose (Glutose) 15 gm Q15M PRN PO DECREASED GLUCOSE; Start 02/01/17 at 08:00 Glucose (Glutose) 22.5 gm Q15M PRN PO DECREASED GLUCOSE; Start 02/01/17 at 08: 00 Dextrose (D50w Syringe) 25 ml Q15M PRN IV DECREASED GLUCOSE; Start 02/01/17 at 08:00 Dextrose (D50w Syringe) 50 ml Q15M PRN IV DECREASED GLUCOSE; Start 02/01/17 at 08:00 Glucagon (Glucagen) 1 mg Q15M PRN IM DECREASED GLUCOSE; Start 02/01/17 at 08: 00 Glucose (Glutose) 15 gm Q15M PRN BUCCAL DECREASED GLUCOSE; Start 02/01/17 at 08:00 Insulin Aspart (Novolog Insulin Pen) NOVOLOG *MILD* ALGORI... Q6 SC Last administered on 02/05/17 12:21; Admin Dose 1 UNIT; Start 02/01/17 at 12:00 Famotidine (Pepcid Iv) 20 mg DAILY IV Last administered on 02/06/17 08:29; Admin Dose 20 MG; Start 02/04/17 at 09:00 Hydrocortisone (Solu-Cortef) 25 mg Q12 IV Last administered on 02/06/17 08:31 ; Admin Dose 25 MG; Start 02/05/17 at 21:00 STEPHANIE ZAMORA MD Feb 06, 2017 09:11
[2017-02-06] MEDS: DORZOLAMIDE/TIMOLOL 10 ML OPH BOTH EYES SCH ×2 (09:54→21:09)
[2017-02-06] MEDS ORDERED: POTASSIUM CHLORIDE (SR) 20 MEQ TAB PO STA ×2 (10:56→13:09)
[2017-02-06] MEDS ORDERED: POTASSIUM CHLORIDE 250 ML IVPB ONE (11:00)
--- NOTE | 2017-02-06 11:01 | CONS ---
Date/Time of Note Date/Time of Note DATE: 02/06/17 TIME: 11:00 Consult Date/Type/Reason Admit Date/Time Jan 28, 2017 at 06:15 Initial Consult Date 01/28/17 Type of Consultation: Pulmonary Ordering Provider: MARIAN CANNON MD Subjective Patient comfortable this morning. No respiratory distress. Objective Vital Signs Date Time Temp Pulse Resp B/P Pulse Ox O2 Delivery O2 Flow Rate FiO2 02/06/17 07:33 98.1 76 16 135/66 98 02/05/17 23:13 2.0 02/05/17 20:00 Room Air 02/04/17 09:00 30 Intake and Output 02/05/17 02/05/17 02/06/17 15:00 23:00 07:00 Intake Total 1340 ml 240 ml 840 ml Output Total 490 ml 150 ml 300 ml Balance 850 ml 90 ml 540 ml Exam GENERAL: Well-nourished well-developed gentleman comfortable at rest no acute distress VITAL SIGNS: per chart NECK: Supple. No JVD or lymphadenopathy. CARDIAC EXAM: S1, S2. No added sounds or murmurs. CHEST: clear bilaterally, No added sounds, rales or wheezes ABDOMEN: Soft, nontender. No guarding or rebound. EXTREMITIES: No cyanosis, clubbing or edema. NEUROLOGIC: Generalized weakness. No focal deficits. Results/Medications Result Diagram: 02/06/17 0536 02/06/17 0536 Results 24 hrs Laboratory Tests Test 02/05/17 12:12 02/05/17 16:55 02/05/17 18:14 02/06/17 00:56 Bedside Glucose 158 115 116 Sodium Level 135 Test 02/06/17 05:36 02/06/17 06:38 White Blood Count 12.8 #H Red Blood Count 3.00 L Hemoglobin 9.9 L Hematocrit 28.1 L Mean Corpuscular Volume 93.7 Mean Corpuscular Hemoglobin 33.0 Mean Corpuscular Hemoglobin Concent 35.2 Red Cell Distribution Width 13.6 Platelet Count 122 L Mean Platelet Volume 11.3 H Neutrophils % 77.8 H Lymphocytes % 11.4 L Monocytes % 9.3 Eosinophils % 0.2 Basophils % 0.0 Nucleated Red Blood Cells % 0.0 Neutrophils # 9.9 H Lymphocytes # 1.5 Monocytes # 1.2 H Eosinophils # 0.0 Basophils # 0.0 Nucleated Red Blood Cells # 0.0 Sodium Level 135 Potassium Level 2.5 *L Chloride Level 98 Carbon Dioxide Level 28 Anion Gap 12 Blood Urea Nitrogen 33 H Creatinine 1.47 H Glucose Level 112 Calcium Level 7.8 L Bedside Glucose 113 Medications Current Medications Hydralazine HCl (Apresoline) 10 mg Q6H PRN IV SBP>170 Last administered on 02:18; Admin Dose 10 MG; Start 01/28/17 at 12:30 Metoprolol Tartrate (Lopressor) 25 mg BID PO Last administered on 02/06/17 08 :29; Admin Dose 25 MG; Start 01/28/17 at 21:00 Morphine Sulfate 2 mg 2 mg Q2H PRN IV PAIN Last administered on 01/30/17 23: 34; Admin Dose 2 MG; Start 01/30/17 at 23:30 Potassium Chloride/Dextrose (KCl/D5W) 1,005 ml @ 60 mls/hr [id number] IV Last administered on 02/05/17 18:07; Admin Dose 60 MLS/HR; Start 01/31/17 at 14:00 Dorzolamide/ Timolol (Cosopt) 1 drop BID BOTH EYES Last administered on 09:54; Admin Dose 1 DROP; Start 02/01/17 at 09:00 Allopurinol (Zyloprim) 300 mg DAILY PO Last administered on 02/06/17 08:27; Admin Dose 300 MG; Start 02/02/17 at 09:00 Atorvastatin Calcium (Lipitor) 20 mg HS PO Last administered on 02/05/17 21: 48; Admin Dose 20 MG; Start 02/01/17 at 21:00 Miscellaneous Information 1 ea NOTE XX ; Start 02/01/17 at 08:00 Glucose (Glutose) 15 gm Q15M PRN PO DECREASED GLUCOSE; Start 02/01/17 at 08:00 Glucose (Glutose) 22.5 gm Q15M PRN PO DECREASED GLUCOSE; Start 02/01/17 at 08: 00 Dextrose (D50w Syringe) 25 ml Q15M PRN IV DECREASED GLUCOSE; Start 02/01/17 at 08:00 Dextrose (D50w Syringe) 50 ml Q15M PRN IV DECREASED GLUCOSE; Start 02/01/17 at 08:00 Glucagon (Glucagen) 1 mg Q15M PRN IM DECREASED GLUCOSE; Start 02/01/17 at 08: 00 Glucose (Glutose) 15 gm Q15M PRN BUCCAL DECREASED GLUCOSE; Start 02/01/17 at 08:00 Insulin Aspart (Novolog Insulin Pen) NOVOLOG *MILD* ALGORI... Q6 SC Last administered on 02/05/17 12:21; Admin Dose 1 UNIT; Start 02/01/17 at 12:00 Famotidine (Pepcid Iv) 20 mg DAILY IV Last administered on 02/06/17 08:29; Admin Dose 20 MG; Start 02/04/17 at 09:00 Hydrocortisone (Cortef) 2.5 mg QHS PO ; Start 02/06/17 at 21:00 Assessment/Plan Chief Complaint/Hosp Course Assessment 1. Status post resection of pituitary adenoma 2. Postop respiratory failure on mechanical ventilation. Patient castro no safely extubated. Remains comfortable significant apnea despite neurologically intact. 3. Hypokalemia Plan 1. Incentive spirometry 2. Speech therapy recommendations advance diet as tolerated 3. Endocrinology and neurosurgery recommendations 4. Replace potassium DC planning okay from pulmonary standpoint Problems: STEF AGUILAR MD, [facility] Feb 06, 2017 11:01
[2017-02-06] MEDS: POTASSIUM CHLORIDE 10 MEQ in DEXTROSE 5% 1,000 ML IV SCH (12:05)
--- NOTE | 2017-02-06 12:27 | PN ---
Date/Time of Note Date/Time of Note DATE: 02/06/17 TIME: 12:12 Assessment/Plan VTE Prophylaxis VTE Prophylaxis Intervention: other Lines/Catheters [facility] Peripheral IV Urinary Cath still in place: Yes Assessment/Plan Assessment/Plan - Severe hypokalemia- replet K, am BMP - Transsphenoidal pituitary adenoma, s/p transsphenoidal tumor resection on by Dr. Rodriguez. - Partial hypopituitarism. Dr. Choe is following in endocrinology consultation. - Postoperative respiratory failure requiring reintubation, resolved. Dr. Ospina is following in pulmonology consultation. - S/p code blue - Metabolic acidosis, resolved. - Pancreatic cancer. The patient follows with oncologist as an outpatient. Patient is aware that he will not be able to receive any treatment for 10 days after surgery. - Hypertension. Continue metoprolol and hydralazine p.r.n. - Hyperlipidemia. Continue simvastatin. - Chronic kidney disease stage III. Continue to monitor BUN and creatinine. Dr. Yan is following in nephrology consultation. Further recommendations based on clinical course. Plan of care discussed with Dr. Schulte. Subjective 24 Hr Interval Summary Free Text/Dictation NAD, having lunch, denies any complaints. dw staff Respiratory: no complaints Cardiovascular: no complaints Gastrointestinal: no complaints Genitourinary: no complaints Musculoskeletal: no complaints Exam/Review of Systems Vital Signs Vitals Vital Signs Date Time Temp Pulse Resp B/P Pulse Ox O2 Delivery O2 Flow Rate FiO2 02/06/17 07:33 98.1 76 16 135/66 98 02/05/17 23:13 2.0 02/05/17 20:00 Room Air 02/04/17 09:00 30 Intake and Output 02/05/17 02/05/17 02/06/17 15:00 23:00 07:00 Intake Total 1340 ml 240 ml 840 ml Output Total 490 ml 150 ml 300 ml Balance 850 ml 90 ml 540 ml Exam Constitutional: alert, oriented, well developed Psych: nl mood/affect Respiratory: clear to auscultation, normal air movement Cardiovascular: nl pulses Gastrointestinal: non-tender, soft Musculoskeletal: nl extremities to inspection Extremities: normal pulses Neurological: nl mental status, nl speech Results Result Diagram: 02/06/1736 02/06/17 0536 Results 24 hrs Laboratory Tests Test 02/05/17 16:55 02/05/17 18:14 02/06/17 00:56 02/06/17 05:36 Sodium Level 135 135 Bedside Glucose 115 116 White Blood Count 12.8 #H Red Blood Count 3.00 L Hemoglobin 9.9 L Hematocrit 28.1 L Mean Corpuscular Volume 93.7 Mean Corpuscular Hemoglobin 33.0 Mean Corpuscular Hemoglobin Concent 35.2 Red Cell Distribution Width 13.6 Platelet Count 122 L Mean Platelet Volume 11.3 H Neutrophils % 77.8 H Lymphocytes % 11.4 L Monocytes % 9.3 Eosinophils % 0.2 Basophils % 0.0 Nucleated Red Blood Cells % 0.0 Neutrophils # 9.9 H Lymphocytes # 1.5 Monocytes # 1.2 H Eosinophils # 0.0 Basophils # 0.0 Nucleated Red Blood Cells # 0.0 Potassium Level 2.5 *L Chloride Level 98 Carbon Dioxide Level 28 Anion Gap 12 Blood Urea Nitrogen 33 H Creatinine 1.47 H Glucose Level 112 Calcium Level 7.8 L Test 02/06/17 06:38 02/06/17 12:08 Bedside Glucose 113 126 Medications Medications Current Medications Hydralazine HCl (Apresoline) 10 mg Q6H PRN IV SBP>170 Last administered on 02:18; Admin Dose 10 MG; Start 01/28/17 at 12:30 Metoprolol Tartrate (Lopressor) 25 mg BID PO Last administered on 02/06/17 08 :29; Admin Dose 25 MG; Start 01/28/17 at 21:00 Morphine Sulfate 2 mg 2 mg Q2H PRN IV PAIN Last administered on 01/30/17 23: 34; Admin Dose 2 MG; Start 01/30/17 at 23:30 Potassium Chloride/Dextrose (KCl/D5W) 1,005 ml @ 60 mls/hr [id number] IV Last administered on 02/05/17 18:07; Admin Dose 60 MLS/HR; Start 01/31/17 at 14:00 Dorzolamide/ Timolol (Cosopt) 1 drop BID BOTH EYES Last administered on 09:54; Admin Dose 1 DROP; Start 02/01/17 at 09:00 Allopurinol (Zyloprim) 300 mg DAILY PO Last administered on 02/06/17 08:27; Admin Dose 300 MG; Start 02/02/17 at 09:00 Atorvastatin Calcium (Lipitor) 20 mg HS PO Last administered on 02/05/17 21: 48; Admin Dose 20 MG; Start 02/01/17 at 21:00 Miscellaneous Information 1 ea NOTE XX ; Start 02/01/17 at 08:00 Glucose (Glutose) 15 gm Q15M PRN PO DECREASED GLUCOSE; Start 02/01/17 at 08:00 Glucose (Glutose) 22.5 gm Q15M PRN PO DECREASED GLUCOSE; Start 02/01/17 at 08: 00 Dextrose (D50w Syringe) 25 ml Q15M PRN IV DECREASED GLUCOSE; Start 02/01/17 at 08:00 Dextrose (D50w Syringe) 50 ml Q15M PRN IV DECREASED GLUCOSE; Start 02/01/17 at 08:00 Glucagon (Glucagen) 1 mg Q15M PRN IM DECREASED GLUCOSE; Start 02/01/17 at 08: 00 Glucose (Glutose) 15 gm Q15M PRN BUCCAL DECREASED GLUCOSE; Start 02/01/17 at 08:00 Insulin Aspart (Novolog Insulin Pen) NOVOLOG *MILD* ALGORI... Q6 SC Last administered on 02/05/17 12:21; Admin Dose 1 UNIT; Start 02/01/17 at 12:00 Famotidine (Pepcid Iv) 20 mg DAILY IV Last administered on 02/06/17 08:29; Admin Dose 20 MG; Start 02/04/17 at 09:00 Hydrocortisone 2.5 mg 2.5 mg QHS PO ; Start 02/06/17 at 21:00 Potassium Chloride (KCl 40 MEQ/250 ML NS) 250 ml @ 62.5 mls/hr ONCE ONCE IVPB ; Start 02/06/17 at 11:00; Stop 02/06/17 at 14:[address] Feb 06, 2017 12:26
--- NOTE | 2017-02-06 12:58 | PN ---
Date/Time of Note Date/Time of Note DATE: 02/06/17 TIME: 12:56 Assessment/Plan VTE Prophylaxis VTE Prophylaxis Intervention: SCD's Lines/Catheters IV Catheter Type (from Nrs): Peripheral IV Urinary Cath still in place: Yes Subjective 24 Hr Interval Summary Free Text/Dictation 81 yr old post pituitary tumor resection.now on po hydroortisone schedule. blood sugars ok, will chnge to accucheck q am only sodium ok but potassium low, given one iv and one po dose, may need more. sx of weakness in legs, not getting up, will get p.t. evaluation alert, lungs clear, no edema, vs ok Exam/Review of Systems Vital Signs Vitals Vital Signs Date Time Temp Pulse Resp B/P Pulse Ox O2 Delivery O2 Flow Rate FiO2 02/06/17 07:33 98.1 76 16 135/66 98 02/05/17 23:13 2.0 02/05/17 20:00 Room Air 02/04/17 09:00 30 Intake and Output 02/05/17 02/05/17 02/06/17 15:00 23:00 07:00 Intake Total 1340 ml 240 ml 840 ml Output Total 490 ml 150 ml 300 ml Balance 850 ml 90 ml 540 ml Results Result Diagram: 02/06/17 0536 02/06/17 0536 Results 24 hrs Laboratory Tests Test 02/05/17 16:55 02/05/17 18:14 02/06/17 00:56 02/06/17 05:36 Sodium Level 135 135 Bedside Glucose 115 116 White Blood Count 12.8 #H Red Blood Count 3.00 L Hemoglobin 9.9 L Hematocrit 28.1 L Mean Corpuscular Volume 93.7 Mean Corpuscular Hemoglobin 33.0 Mean Corpuscular Hemoglobin Concent 35.2 Red Cell Distribution Width 13.6 Platelet Count 122 L Mean Platelet Volume 11.3 H Neutrophils % 77.8 H Lymphocytes % 11.4 L Monocytes % 9.3 Eosinophils % 0.2 Basophils % 0.0 Nucleated Red Blood Cells % 0.0 Neutrophils # 9.9 H Lymphocytes # 1.5 Monocytes # 1.2 H Eosinophils # 0.0 Basophils # 0.0 Nucleated Red Blood Cells # 0.0 Potassium Level 2.5 *L Chloride Level 98 Carbon Dioxide Level 28 Anion Gap 12 Blood Urea Nitrogen 33 H Creatinine 1.47 H Glucose Level 112 Calcium Level 7.8 L Test 02/06/17 06:38 02/06/17 12:08 Bedside Glucose 113 126 Medications Medications Current Medications Hydralazine HCl (Apresoline) 10 mg Q6H PRN IV SBP>170 Last administered on 02:18; Admin Dose 10 MG; Start 01/28/17 at 12:30 Metoprolol Tartrate (Lopressor) 25 mg BID PO Last administered on 02/06/17 08 :29; Admin Dose 25 MG; Start 01/28/17 at 21:00 Morphine Sulfate 2 mg 2 mg Q2H PRN IV PAIN Last administered on 01/30/17 23: 34; Admin Dose 2 MG; Start 01/30/17 at 23:30 Potassium Chloride/Dextrose (KCl/D5W) 1,005 ml @ 60 mls/hr [id number] IV Last administered on 02/06/17 12:05; Admin Dose 60 MLS/HR; Start 01/31/17 at 14:00 Dorzolamide/ Timolol (Cosopt) 1 drop BID BOTH EYES Last administered on 09:54; Admin Dose 1 DROP; Start 02/01/17 at 09:00 Allopurinol (Zyloprim) 300 mg DAILY PO Last administered on 02/06/17 08:27; Admin Dose 300 MG; Start 02/02/17 at 09:00 Atorvastatin Calcium (Lipitor) 20 mg HS PO Last administered on 02/05/17 21: 48; Admin Dose 20 MG; Start 02/01/17 at 21:00 Miscellaneous Information 1 ea NOTE XX ; Start 02/01/17 at 08:00 Glucose (Glutose) 15 gm Q15M PRN PO DECREASED GLUCOSE; Start 02/01/17 at 08:00 Glucose (Glutose) 22.5 gm Q15M PRN PO DECREASED GLUCOSE; Start 02/01/17 at 08: 00 Dextrose (D50w Syringe) 25 ml Q15M PRN IV DECREASED GLUCOSE; Start 02/01/17 at 08:00 Dextrose (D50w Syringe) 50 ml Q15M PRN IV DECREASED GLUCOSE; Start 02/01/17 at 08:00 Glucagon (Glucagen) 1 mg Q15M PRN IM DECREASED GLUCOSE; Start 02/01/17 at 08: 00 Glucose (Glutose) 15 gm Q15M PRN BUCCAL DECREASED GLUCOSE; Start 02/01/17 at 08:00 Insulin Aspart (Novolog Insulin Pen) NOVOLOG *MILD* ALGORI... Q6 SC Last administered on 02/05/17 12:21; Admin Dose 1 UNIT; Start 02/01/17 at 12:00 Famotidine (Pepcid Iv) 20 mg DAILY IV Last administered on 02/06/17 08:29; Admin Dose 20 MG; Start 02/04/17 at 09:00 Hydrocortisone 2.5 mg 2.5 mg QHS PO ; Start 02/06/17 at 21:00 Potassium Chloride (KCl 40 MEQ/250 ML NS) 250 ml @ 62.5 mls/hr ONCE ONCE IVPB Last administered on 02/06/17 12:44; Admin Dose 62.5 MLS/HR; Start at 11:00; Stop 02/06/17 at 14:59 ZENAIDA HAND MD Feb 06, 2017 12:58
[2017-02-06 13:57] LABS: EOSINOPHILS % 0.1 % (0.0-7.0); HEMATOCRIT 28.3 % (42.0-52.0); HEMOGLOBIN 9.6 g/dl (14.0-18.0); LYMPHOCYTES # 0.9 10^3/ul (0.8-2.9); LYMPHOCYTES % 7.7 % (15.0-51.0); MEAN CORPUSCULAR HEMOGLOBIN 32.4 pg (29.0-33.0); MEAN CORPUSCULAR HGB CONC 33.9 g/dl (32.0-37.0); MEAN CORPUSCULAR VOLUME 95.6 fl (82.0-101.0); MEAN PLATELET VOLUME 10.7 fl (7.4-10.4); MONOCYTE # 0.6 10^3/ul (0.3-0.9); MONOCYTES % 5.4 % (0.0-11.0); NEUTROPHIL # 9.6 10^3/ul (1.6-7.5); NEUTROPHILS % 85.6 % (39.0-77.0); PLATELET COUNT 109 10^3/UL (140-415); RED BLOOD COUNT 2.96 10^6/ul (4.70-6.10); RED CELL DISTRIBUTION WIDTH 13.8 % (11.5-14.5); WHITE BLOOD COUNT 11.2 10^3/ul (4.8-10.8)
[2017-02-06 14:09] VITALS: BP 143/73; RESP 16
--- NOTE | 2017-02-06 15:54 | CONS ---
Date/Time of Note Date/Time of Note DATE: 02/06/17 TIME: 15:51 Assessment/Plan Assessment/Plan Additional Assessment/Plan 1. Acute kidney injury vs DEJON on CKD III, No previous Cr available to compare 2. Transsphenoidal pituitary adenoma, s/p Transsphenoidal resection of pituitary adenoma on 01/30/17 2. Pancreatic cancer. The patient follows with oncologist as an outpatient. 3. Hypertension. 4. Hyperlipidemia. 5. Hypernatremia 6. Metabolic acidosis 7. Post Surgery Failed extubation- pt had a code blue and required reintubation - s/p Extubation 02/04/17 Plan: Cr 1.47, K 2.5 KCl 40mEQ IV x 1 then continue D5W with KCL 10mEQ at 60 cc/hr , good urine output 1.1 liter, if continues to have high urine output and Na trending up, will add free water s/p extubation doing well, Passed swallow evaluation will continue follow up Consultation Date/Type/Reason Admit Date/Time Jan 28, 2017 at 06:15 Initial Consult Date 01/28/17 Type of Consultation: NEPHROLOGY Referring Provider: MARIAN CANNON MD 24 HR Interval Summary Free Text/Dictation Cr 1.47, K 2.5, Making good urine output Exam/Review of Systems Vital Signs Vitals Vital Signs Date Time Temp Pulse Resp B/P Pulse Ox O2 Delivery O2 Flow Rate FiO2 02/06/17 14:09 98.5 67 16 143/73 98 02/05/17 23:13 2.0 02/05/17 20:00 Room Air 02/04/17 09:00 30 Intake and Output 02/05/17 02/05/17 02/06/17 15:00 23:00 07:00 Intake Total 1340 ml 240 ml 840 ml Output Total 490 ml 150 ml 300 ml Balance 850 ml 90 ml 540 ml Exam GENERAL: awake,alert no acute distress NECK: Supple. No JVD or lymphadenopathy. CARDIAC EXAM: S1, S2. No added sounds or murmurs. CHEST: clear bilaterally, No added sounds, rales or wheezes ABDOMEN: Soft, nontender. No guarding or rebound. EXTREMITIES: No cyanosis, clubbing or edema. NEUROLOGIC: Generalized weakness. No focal deficits Results Result Diagram: 02/06/17 1331 02/06/17 0536 Results 24 hrs Laboratory Tests Test 02/05/17 16:55 02/05/17 18:14 02/06/17 00:56 02/06/17 05:36 Sodium Level 135 135 Bedside Glucose 115 116 White Blood Count 12.8 #H Red Blood Count 3.00 L Hemoglobin 9.9 L Hematocrit 28.1 L Mean Corpuscular Volume 93.7 Mean Corpuscular Hemoglobin 33.0 Mean Corpuscular Hemoglobin Concent 35.2 Red Cell Distribution Width 13.6 Platelet Count 122 L Mean Platelet Volume 11.3 H Neutrophils % 77.8 H Lymphocytes % 11.4 L Monocytes % 9.3 Eosinophils % 0.2 Basophils % 0.0 Nucleated Red Blood Cells % 0.0 Neutrophils # 9.9 H Lymphocytes # 1.5 Monocytes # 1.2 H Eosinophils # 0.0 Basophils # 0.0 Nucleated Red Blood Cells # 0.0 Potassium Level 2.5 *L Chloride Level 98 Carbon Dioxide Level 28 Anion Gap 12 Blood Urea Nitrogen 33 H Creatinine 1.47 H Glucose Level 112 Calcium Level 7.8 L Test 02/06/17 06:38 02/06/17 12:08 02/06/17 13:31 Bedside Glucose 113 126 White Blood Count 11.2 H Red Blood Count 2.96 L Hemoglobin 9.6 L Hematocrit 28.3 L Mean Corpuscular Volume 95.6 Mean Corpuscular Hemoglobin 32.4 Mean Corpuscular Hemoglobin Concent 33.9 Red Cell Distribution Width 13.8 Platelet Count 109 L Mean Platelet Volume 10.7 H Neutrophils % 85.6 H Lymphocytes % 7.7 L Monocytes % 5.4 Eosinophils % 0.1 Basophils % 0.0 Nucleated Red Blood Cells % 0.0 Neutrophils # 9.6 H Lymphocytes # 0.9 Monocytes # 0.6 Eosinophils # 0.0 Basophils # 0.0 Nucleated Red Blood Cells # 0.0 Medications Medications Current Medications Hydralazine HCl (Apresoline) 10 mg Q6H PRN IV SBP>170 Last administered on 02:18; Admin Dose 10 MG; Start 01/28/17 at 12:30 Metoprolol Tartrate (Lopressor) 25 mg BID PO Last administered on 02/06/17 08 :29; Admin Dose 25 MG; Start 01/28/17 at 21:00 Morphine Sulfate 2 mg 2 mg Q2H PRN IV PAIN Last administered on 01/30/17 23: 34; Admin Dose 2 MG; Start 01/30/17 at 23:30 Potassium Chloride/Dextrose (KCl/D5W) 1,005 ml @ 60 mls/hr [id number] IV Last administered on 02/06/17 12:05; Admin Dose 60 MLS/HR; Start 01/31/17 at 14:00 Dorzolamide/ Timolol (Cosopt) 1 drop BID BOTH EYES Last administered on 09:54; Admin Dose 1 DROP; Start 02/01/17 at 09:00 Allopurinol (Zyloprim) 300 mg DAILY PO Last administered on 02/06/17 08:27; Admin Dose 300 MG; Start 02/02/17 at 09:00 Atorvastatin Calcium (Lipitor) 20 mg HS PO Last administered on 02/05/17 21: 48; Admin Dose 20 MG; Start 02/01/17 at 21:00 Miscellaneous Information 1 ea NOTE XX ; Start 02/01/17 at 08:00 Glucose (Glutose) 15 gm Q15M PRN PO DECREASED GLUCOSE; Start 02/01/17 at 08:00 Glucose (Glutose) 22.5 gm Q15M PRN PO DECREASED GLUCOSE; Start 02/01/17 at 08: 00 Dextrose (D50w Syringe) 25 ml Q15M PRN IV DECREASED GLUCOSE; Start 02/01/17 at 08:00 Dextrose (D50w Syringe) 50 ml Q15M PRN IV DECREASED GLUCOSE; Start 02/01/17 at 08:00 Glucagon (Glucagen) 1 mg Q15M PRN IM DECREASED GLUCOSE; Start 02/01/17 at 08: 00 Glucose (Glutose) 15 gm Q15M PRN BUCCAL DECREASED GLUCOSE; Start 02/01/17 at 08:00 Hydrocortisone (Cortef) 2.5 mg QHS PO ; Start 02/06/17 at 21:00 Famotidine (Pepcid) 20 mg DAILY PO ; Start 02/07/17 at 09:00 ISRAEL OJEDA MD Feb 06, 2017 15:54
[2017-02-06 19:38] VITALS: BP 123/60; RESP 18
[2017-02-06] MEDS: ATORVASTATIN 20 MG TAB PO SCH (21:08)
[2017-02-07 02:07] VITALS: BP 122/57; RESP 18
[2017-02-07] MEDS: POTASSIUM CHLORIDE 10 MEQ in DEXTROSE 5% 1,000 ML IV SCH ×2 (06:26→22:45)
[2017-02-07 06:37] LABS: CALCIUM 7.6 mg/dl (8.4-10.2); CREATININE 1.5 mg/dl (0.61-1.24); MAGNESIUM 1.9 mg/dl (1.7-2.5)
[2017-02-07 07:49] VITALS: BP 154/75; RESP 18
[2017-02-07] MEDS: INSULIN ASPART [NOVOLOG] 3 ML PEN SC SCH (08:00)
[2017-02-07] MEDS: FAMOTIDINE 20 MG TAB PO SCH (08:05)
[2017-02-07] MEDS: CREON (12k-38k-60k) 1 CAP PO SCH ×3 (08:05→17:33)
[2017-02-07] MEDS: ALLOPURINOL 300 MG TAB PO SCH (08:08)
[2017-02-07] MEDS: HYDROCORTISONE 5 MG TAB PO SCH ×3 (08:08→21:24)
[2017-02-07] MEDS: METOPROLOL 25 MG TAB PO SCH ×2 (08:08→21:25)
[2017-02-07] MEDS: DORZOLAMIDE/TIMOLOL 10 ML OPH BOTH EYES SCH ×2 (08:09→21:25)
--- NOTE | 2017-02-07 09:41 | CONS ---
Date/Time of Note Date/Time of Note DATE: 02/07/17 TIME: 09:41 Consult Date/Type/Reason Admit Date/Time Jan 28, 2017 at 06:15 Initial Consult Date 01/28/17 Type of Consultation: Pulmonary Ordering Provider: MARIAN CANNON MD Subjective Patient remains comfortable no new events. Objective Vital Signs Date Time Temp Pulse Resp B/P Pulse Ox O2 Delivery O2 Flow Rate FiO2 02/07/17 07:49 98.5 74 18 154/75 100 02/07/17 03:36 2.0 02/05/17 20:00 Room Air 02/04/17 09:00 30 Intake and Output 02/06/17 02/06/17 02/07/17 15:00 23:00 07:00 Intake Total 595 ml 1440 ml 1152 ml Output Total 800 ml 550 ml Balance 595 ml 640 ml 602 ml Exam GENERAL: Well-nourished well-developed gentleman comfortable at rest no acute distress VITAL SIGNS: per chart NECK: Supple. No JVD or lymphadenopathy. CARDIAC EXAM: S1, S2. No added sounds or murmurs. CHEST: clear bilaterally, No added sounds, rales or wheezes ABDOMEN: Soft, nontender. No guarding or rebound. EXTREMITIES: No cyanosis, clubbing or edema. NEUROLOGIC: Generalized weakness. No focal deficits. Results/Medications Result Diagram: 02/06/17 1331 02/07/17 0531 Results 24 hrs Laboratory Tests Test 02/06/17 12:08 02/06/17 13:31 02/06/17 17:18 02/06/17 21:12 Bedside Glucose 126 127 131 White Blood Count 11.2 H Red Blood Count 2.96 L Hemoglobin 9.6 L Hematocrit 28.3 L Mean Corpuscular Volume 95.6 Mean Corpuscular Hemoglobin 32.4 Mean Corpuscular Hemoglobin Concent 33.9 Red Cell Distribution Width 13.8 Platelet Count 109 L Mean Platelet Volume 10.7 H Neutrophils % 85.6 H Lymphocytes % 7.7 L Monocytes % 5.4 Eosinophils % 0.1 Basophils % 0.0 Nucleated Red Blood Cells % 0.0 Neutrophils # 9.6 H Lymphocytes # 0.9 Monocytes # 0.6 Eosinophils # 0.0 Basophils # 0.0 Nucleated Red Blood Cells # 0.0 Test 02/07/17 05:31 02/07/17 07:14 11/24/17 08:04 Sodium Level 135 Potassium Level 3.0 L Chloride Level 99 Carbon Dioxide Level 28 Anion Gap 11 Blood Urea Nitrogen 31 H Creatinine 1.50 H Glucose Level 108 Calcium Level 7.6 L Magnesium Level 1.9 Lab Scanned Report REFERENCE LAB Bedside Glucose 101 Medications Current Medications Hydralazine HCl (Apresoline) 10 mg Q6H PRN IV SBP>170 Last administered on 02:18; Admin Dose 10 MG; Start 01/28/17 at 12:30 Metoprolol Tartrate (Lopressor) 25 mg BID PO Last administered on 02/07/17 08 :08; Admin Dose 25 MG; Start 01/28/17 at 21:00 Morphine Sulfate 2 mg 2 mg Q2H PRN IV PAIN Last administered on 01/30/17 23: 34; Admin Dose 2 MG; Start 01/30/17 at 23:30 Potassium Chloride/Dextrose (KCl/D5W) 1,005 ml @ 60 mls/hr [id number] IV Last administered on 02/07/17 06:26; Admin Dose 60 MLS/HR; Start 01/31/17 at 14:00 Dorzolamide/ Timolol (Cosopt) 1 drop BID BOTH EYES Last administered on 08:09; Admin Dose 1 DROP; Start 02/01/17 at 09:00 Allopurinol (Zyloprim) 300 mg DAILY PO Last administered on 02/07/17 08:08; Admin Dose 300 MG; Start 02/02/17 at 09:00 Atorvastatin Calcium (Lipitor) 20 mg HS PO Last administered on 02/06/17 21: 08; Admin Dose 20 MG; Start 02/01/17 at 21:00 Miscellaneous Information 1 ea NOTE XX ; Start 02/01/17 at 08:00 Glucose (Glutose) 15 gm Q15M PRN PO DECREASED GLUCOSE; Start 02/01/17 at 08:00 Glucose (Glutose) 22.5 gm Q15M PRN PO DECREASED GLUCOSE; Start 02/01/17 at 08: 00 Dextrose (D50w Syringe) 25 ml Q15M PRN IV DECREASED GLUCOSE; Start 02/01/17 at 08:00 Dextrose (D50w Syringe) 50 ml Q15M PRN IV DECREASED GLUCOSE; Start 02/01/17 at 08:00 Glucagon (Glucagen) 1 mg Q15M PRN IM DECREASED GLUCOSE; Start 02/01/17 at 08: 00 Glucose (Glutose) 15 gm Q15M PRN BUCCAL DECREASED GLUCOSE; Start 02/01/17 at 08:00 Hydrocortisone (Cortef) 2.5 mg QHS PO Last administered on 02/06/17 21:08; Admin Dose 2.5 MG; Start 02/06/17 at 21:00 Famotidine (Pepcid) 20 mg DAILY PO Last administered on 02/07/17 08:05; Admin Dose 20 MG; Start 02/07/17 at 09:00 Assessment/Plan Chief Complaint/Hosp Course Assessment 1. Status post resection of pituitary adenoma 2. Postop respiratory failure on mechanical ventilation. Patient castro no safely extubated. Remains comfortable significant apnea despite neurologically intact. 3. Hypokalemia Plan 1. Incentive spirometry 2. Speech therapy recommendations advance diet as tolerated 3. Endocrinology and neurosurgery recommendations 4. Replace potassium DC planning okay from pulmonary standpoint we will follow as needed. Problems: STEF AG[facility]ILAR MD[facility] Feb 07, 2017 09:41
[2017-02-07] MEDS ORDERED: POTASSIUM CHLORIDE (SR) 20 MEQ TAB PO STA (09:57)
--- NOTE | 2017-02-07 10:07 | CONS ---
Date/Time of Note Date/Time of Note DATE: 02/07/17 TIME: 10:02 Assessment/Plan Assessment/Plan Problems: (1) Partial hypopituitarism Status: Chronic Comment: Hydrocortisone decreased to physiologic replacement doses yesterday. Will be continued. (2) Pituitary macroadenoma Status: Chronic Comment: Sodium levels have decreased to 135 mEq but not low enough to be c/w SIADH. Cont. to monitor (3) Hypokalemia Status: Acute Comment: Replace potassium. Potassium recurrently low in the face of mild renal insufficiency w/o diuretic use likely due to magnesium deficiency. Mg deficiency is extremely common and cannot be evaluated on blood sample because 98% total body Mg is intracellular. Mg required for renal tubule to reuptake potassium and Calcium. Given renal insufficiency must replace Mg more gently. Will give 2 g IV bid x 2 days and monitor levels during this time. (4) Diabetes mellitus type 2 in nonobese Status: Chronic Comment: BG normal now that hydrocortisone back to physiologic doses. Consultation Date/Type/Reason Admit Date/Time Jan 28, 2017 at 06:15 Initial Consult Date 01/28/17 Type of Consultation: Endocrinology Reason for Consultation Pituitary macroadenoma Referring Provider: MARIAN CANNON MD 24 HR Interval Summary Constitutional: improved, no complaints Detailed Summary Respiratory: no complaints Cardiovascular: no complaints Gastrointestinal: no complaints Genitourinary: no complaints Musculoskeletal: no complaints Neurologic: no complaints Exam/Review of Systems Vital Signs Vitals VS - Last 72 Hours, by Label Date Time Temp Pulse Resp B/P Pulse Ox O2 Delivery O2 Flow Rate FiO2 02/07/17 07:49 98.5 74 18 154/75 100 02/07/17 03:36 2.0 02/07/17 02:07 98.5 73 18 122/57 99 02/06/17 23:25 2.0 02/06/17 19:38 99.1 84 18 123/60 99 02/06/17 17:46 2.0 02/06/17 14:09 98.5 67 16 143/73 98 02/06/17 07:33 98.1 76 16 135/66 98 02/06/17 02:00 98.1 68 20 122/59 98 02/05/17 23:13 2.0 02/05/17 20:49 98.7 83 20 151/87 98 02/05/17 20:00 98.0 66 12 138/62 98 Room Air 02/05/17 19:00 61 10 145/65 97 Room Air 02/05/17 18:00 64 12 141/81 97 Room Air 02/05/17 17:00 68 15 124/76 100 Room Air 02/05/17 16:08 2.0 02/05/17 16:00 98.0 74 16 139/77 100 Room Air 02/05/17 16:00 80 02/05/17 15:00 76 14 136/83 100 Nasal Cannula 2.0 02/05/17 14:00 83 21 135/89 100 Nasal Cannula 2.0 02/05/17 13:00 74 12 138/76 100 Nasal Cannula 2.0 02/05/17 12:00 74 02/05/17 12:00 97.8 72 12 181/100 100 Nasal Cannula 2.0 02/05/17 11:00 63 10 183/91 100 Nasal Cannula 2.0 02/05/17 10:00 65 23 146/76 100 Nasal Cannula 2.0 02/05/17 09:00 68 17 156/79 100 Nasal Cannula 2.0 02/05/17 08:30 59 12 100 02/05/17 08:00 98.4 65 12 163/83 100 Nasal Cannula 2.0 02/05/17 08:00 Nasal Cannula 2.0 02/05/17 08:00 63 02/05/17 07:30 63 13 100 02/05/17 07:00 64 15 159/87 100 Nasal Cannula 2.0 02/05/17 06:30 2.0 02/05/17 06:00 68 14 147/81 100 Nasal Cannula 2.0 02/05/17 05:30 62 13 100 02/05/17 05:00 77 19 140/78 100 02/05/17 04:30 73 13 100 02/05/17 04:00 98.0 75 12 142/80 100 Nasal Cannula 02/05/17 04:00 72 02/05/17 03:30 62 13 100 02/05/17 03:00 75 12 152/93 100 Nasal Cannula 02/05/17 02:30 72 13 100 02/05/17 02:00 63 13 151/90 100 Nasal Cannula 02/05/17 01:30 76 14 100 02/05/17 01:00 76 14 156/97 100 Nasal Cannula 02/05/17 00:30 77 13 100 02/05/17 00:00 76 02/05/17 00:00 98.0 76 14 158/92 100 Nasal Cannula 02/04/17 23:58 2.0 02/04/17 23:30 78 12 100 02/04/17 23:00 71 13 159/91 100 Nasal Cannula 2.0 02/04/17 22:30 81 11 100 02/04/17 22:00 78 18 172/89 100 Nasal Cannula 2.0 02/04/17 21:30 78 17 100 02/04/17 21:00 68 15 151/82 100 Nasal Cannula 2.0 02/04/17 20:30 73 14 100 02/04/17 20:00 Nasal Cannula 2.0 02/04/17 20:00 77 02/04/17 20:00 98.0 75 13 158/89 100 Nasal Cannula 2.0 02/04/17 19:30 70 12 100 02/04/17 19:00 69 14 163/81 100 Nasal Cannula 2.0 02/04/17 18:33 131/85 02/04/17 18:30 69 15 100 02/04/17 18:15 81 20 100 02/04/17 18:00 70 12 165/90 100 02/04/17 17:45 77 14 100 02/04/17 17:30 68 14 100 02/04/17 17:30 68 14 100 02/04/17 17:22 100 2.0 02/04/17 17:15 77 13 100 02/04/17 17:15 77 13 100 02/04/17 17:00 69 13 164/88 100 02/04/17 17:00 69 13 164/88 100 02/04/17 16:45 68 16 100 02/04/17 16:30 72 15 100 02/04/17 16:15 71 12 100 02/04/17 16:00 70 02/04/17 16:00 72 15 157/88 100 02/04/17 15:54 98.2 02/04/17 15:49 Nasal Cannula 2.0 02/04/17 15:49 Nasal Cannula 2.0 02/04/17 15:45 70 13 100 02/04/17 15:30 74 31 100 02/04/17 15:30 74 31 100 02/04/17 15:15 72 13 100 02/04/17 15:00 71 22 100 02/04/17 15:00 71 22 100 02/04/17 14:45 71 9 100 02/04/17 14:37 Nasal Cannula 2.0 02/04/17 14:37 Nasal Cannula 2.0 02/04/17 14:30 68 10 100 02/04/17 14:30 68 10 100 02/04/17 14:30 68 10 100 02/04/17 14:15 66 100 02/04/17 14:00 72 168/93 100 02/04/17 14:00 72 168/93 100 02/04/17 14:00 72 168/93 100 02/04/17 13:30 67 100 02/04/17 13:00 66 160/81 100 Nasal Cannula 02/04/17 13:00 66 160/81 100 02/04/17 12:00 98.4 65 155/80 100 Nasal Cannula 02/04/17 12:00 66 02/04/17 11:00 69 153/85 100 Nasal Cannula 02/04/17 10:20 100 2.0 Vital Signs Date Time Temp Pulse Resp B/P Pulse Ox O2 Delivery O2 Flow Rate FiO2 02/07/17 07:49 98.5 74 18 154/75 100 02/07/17 03:36 2.0 02/05/17 20:00 Room Air 02/04/17 09:00 30 Intake and Output 02/06/17 02/06/17 02/07/17 14:59 22:59 06:59 Intake Total 595 ml 1440 ml 1152 ml Output Total 800 ml 550 ml Balance 595 ml 640 ml 602 ml Exam Constitutional: alert, oriented, well developed Psych: nl mood/affect, no complaints Respiratory: clear to auscultation, normal air movement Cardiovascular: nl pulses, regular rate and rhythm, No edema, No murmurs/extra sounds, No rub Gastrointestinal: bowel sounds, nl liver, spleen, non-tender, soft, No mass, No rebound or guarding Musculoskeletal: nl extremities to inspection Extremities: normal pulses, No clubbing, No cyanosis, No edema Neurological: TREE PULLER II-XII intact, nl mental status, nl speech, nl strength Additional Comments Bedside Glucose - 72 Hours Test 02/04/17 11:31 02/04/17 16:49 02/05/17 01:07 02/05/17 05:41 Bedside Glucose 162mg/dL (70-220) 151mg/dL (70-220) 148mg/dL (70-220) 143mg/dL (70-220) Test 02/05/17 12:12 02/05/17 18:14 02/06/17 00:56 02/06/17 06:38 Bedside Glucose 158mg/dL (70-220) 115mg/dL (70-220) 116mg/dL (70-220) 113mg/dL (70-220) Test 02/06/17 12:08 02/06/17 17:18 02/06/17 21:12 02/07/17 08:04 Bedside Glucose 126mg/dL (70-220) 127mg/dL (70-220) 131mg/dL (70-220) 101mg/dL (70-220) Results Result Diagram: 02/06/17 1331 02/07/17 0531 Results 24 hrs Laboratory Tests Test 02/06/17 12:08 02/06/17 13:31 02/06/17 17:18 02/06/17 21:12 Bedside Glucose 126 127 131 White Blood Count 11.2 H Red Blood Count 2.96 L Hemoglobin 9.6 L Hematocrit 28.3 L Mean Corpuscular Volume 95.6 Mean Corpuscular Hemoglobin 32.4 Mean Corpuscular Hemoglobin Concent 33.9 Red Cell Distribution Width 13.8 Platelet Count 109 L Mean Platelet Volume 10.7 H Neutrophils % 85.6 H Lymphocytes % 7.7 L Monocytes % 5.4 Eosinophils % 0.1 Basophils % 0.0 Nucleated Red Blood Cells % 0.0 Neutrophils # 9.6 H Lymphocytes # 0.9 Monocytes # 0.6 Eosinophils # 0.0 Basophils # 0.0 Nucleated Red Blood Cells # 0.0 Test 02/07/17 05:31 02/07/17 07:14 02/07/17 08:04 Sodium Level 135 Potassium Level 3.0 L Chloride Level 99 Carbon Dioxide Level 28 Anion Gap 11 Blood Urea Nitrogen 31 H Creatinine 1.50 H Glucose Level 108 Calcium Level 7.6 L Magnesium Level 1.9 Lab Scanned Report REFERENCE LAB Bedside Glucose 101 Medications Medications Current Medications Hydralazine HCl (Apresoline) 10 mg Q6H PRN IV SBP>170 Last administered on 02:18; Admin Dose 10 MG; Start 01/28/17 at 12:30 Metoprolol Tartrate (Lopressor) 25 mg BID PO Last administered on 02/07/17 08 :08; Admin Dose 25 MG; Start 01/28/17 at 21:00 Morphine Sulfate 2 mg 2 mg Q2H PRN IV PAIN Last administered on 01/30/17 23: 34; Admin Dose 2 MG; Start 01/30/17 at 23:30 Potassium Chloride/Dextrose (KCl/D5W) 1,005 ml @ 60 mls/hr [id number] IV Last administered on 02/07/17 06:26; Admin Dose 60 MLS/HR; Start 01/31/17 at 14:00 Dorzolamide/ Timolol (Cosopt) 1 drop BID BOTH EYES Last administered on 08:09; Admin Dose 1 DROP; Start 02/01/17 at 09:00 Allopurinol (Zyloprim) 300 mg DAILY PO Last administered on 02/07/17 08:08; Admin Dose 300 MG; Start 02/02/17 at 09:00 Atorvastatin Calcium (Lipitor) 20 mg HS PO Last administered on 02/06/17 21: 08; Admin Dose 20 MG; Start 02/01/17 at 21:00 Miscellaneous Information 1 ea NOTE XX ; Start 02/01/17 at 08:00 Glucose (Glutose) 15 gm Q15M PRN PO DECREASED GLUCOSE; Start 02/01/17 at 08:00 Glucose (Glutose) 22.5 gm Q15M PRN PO DECREASED GLUCOSE; Start 02/01/17 at 08: 00 Dextrose (D50w Syringe) 25 ml Q15M PRN IV DECREASED GLUCOSE; Start 02/01/17 at 08:00 Dextrose (D50w Syringe) 50 ml Q15M PRN IV DECREASED GLUCOSE; Start 02/01/17 at 08:00 Glucagon (Glucagen) 1 mg Q15M PRN IM DECREASED GLUCOSE; Start 02/01/17 at 08: 00 Glucose (Glutose) 15 gm Q15M PRN BUCCAL DECREASED GLUCOSE; Start 02/01/17 at 08:00 Hydrocortisone (Cortef) 2.5 mg QHS PO Last administered on 02/06/17 21:08; Admin Dose 2.5 MG; Start 02/06/17 at 21:00 Famotidine 20 mg 20 mg DAILY PO Last administered on 02/07/17t 08:05; Admin Dose 20 MG; Start 02/07/17 at 09:00 Magnesium Sulfate (Magnesium Sulfate 2 Gm/50 ml) 50 ml @ 25 mls/hr BID IVPB ; Start 02/07/17 at 10:00; Stop 02/08/17 at 23:00; Status KING HECTOR MD Feb 07, 2017 10:07
[2017-02-07] MEDS: MAGNESIUM SULFATE 2 GM/50 ML 50 ML IVPB SCH ×2 (12:12→21:24)
--- NOTE | 2017-02-07 13:49 | PN ---
Date/Time of Note Date/Time of Note DATE: 02/07/17 TIME: 13:48 Assessment/Plan VTE Prophylaxis VTE Prophylaxis Intervention: SCD's Lines/Catheters [facility] Mid Line Central line still needed: Yes Urinary Cath still in place: Yes Reason Cath still needed: urinary retention Assessment/Plan Chief Complaint/Hosp Course Potassium is 3.0 replaced, continue to monitor electrolytes, remains hemodynamically stable, pending PT evaluation and treatment. Assessment/Plan - Transsphenoidal pituitary adenoma, s/p transsphenoidal tumor resection on by Dr. Rodriguez. - Partial hypopituitarism. Dr. Choe is following in endocrinology consultation. - Postoperative respiratory failure requiring reintubation, resolved. Dr. Ospina is following in pulmonology consultation. - S/p code blue - Metabolic acidosis, resolved. - Pancreatic cancer. The patient follows with oncologist as an outpatient. Patient is aware that he will not be able to receive any treatment for 10 days after surgery. - Hypertension. Continue metoprolol and hydralazine p.r.n. - Hyperlipidemia. Continue simvastatin. - Chronic kidney disease stage III. Continue to monitor BUN and creatinine. Dr. Yan is following in nephrology consultation. Further recommendations based on clinical course. Plan of care discussed with Dr. Schulte. Problems: Exam/Review of Systems Vital Signs Vitals Vital Signs Date Time Temp Pulse Resp B/P Pulse Ox O2 Delivery O2 Flow Rate FiO2 02/07/17 07:49 98.5 74 18 154/75 100 02/07/17 03:36 2.0 02/05/17 20:00 Room Air 02/04/17 09:00 30 Intake and Output 02/06/17 02/06/17 02/07/17 15:00 23:00 07:00 Intake Total 595 ml 1440 ml 1152 ml Output Total 800 ml 550 ml Balance 595 ml 640 ml 602 ml Exam Constitutional: alert, oriented Head: normocephalic Neck: supple Cardiovascular: nl pulses, regular rate and rhythm Gastrointestinal: non-tender, soft Extremities: normal pulses Neurological: nl mental status Results Result Diagram: 02/06/17 1331 02/07/17 0531 Results 24 hrs Laboratory Tests Test 02/06/17 17:18 02/06/17 21:12 02/07/17 05:31 02/07/17 07:14 Bedside Glucose 127 131 Sodium Level 135 Potassium Level 3.0 L Chloride Level 99 Carbon Dioxide Level 28 Anion Gap 11 Blood Urea Nitrogen 31 H Creatinine 1.50 H Glucose Level 108 Calcium Level 7.6 L Magnesium Level 1.9 Lab Scanned Report REFERENCE LAB Test 02/07/17 08:04 02/07/17 12:04 Bedside Glucose 101 148 Medications Medications Current Medications Hydralazine HCl (Apresoline) 10 mg Q6H PRN IV SBP>170 Last administered on 02:18; Admin Dose 10 MG; Start 01/28/17 at 12:30 Metoprolol Tartrate (Lopressor) 25 mg BID PO Last administered on 02/07/17 08 :08; Admin Dose 25 MG; Start 01/28/17 at 21:00 Morphine Sulfate 2 mg 2 mg Q2H PRN IV PAIN Last administered on 01/30/17 23: 34; Admin Dose 2 MG; Start 01/30/17 at 23:30 Potassium Chloride/Dextrose (KCl/D5W) 1,005 ml @ 60 mls/hr [id number] IV Last administered on 02/07/17 06:26; Admin Dose 60 MLS/HR; Start 01/31/17 at 14:00 Dorzolamide/ Timolol (Cosopt) 1 drop BID BOTH EYES Last administered on 08:09; Admin Dose 1 DROP; Start 02/01/17 at 09:00 Allopurinol (Zyloprim) 300 mg DAILY PO Last administered on 02/07/17 08:08; Admin Dose 300 MG; Start 02/02/17 at 09:00 Atorvastatin Calcium (Lipitor) 20 mg HS PO Last administered on 02/06/17 21: 08; Admin Dose 20 MG; Start 02/01/17 at 21:00 Miscellaneous Information 1 ea NOTE XX ; Start 02/01/17 at 08:00 Glucose (Glutose) 15 gm Q15M PRN PO DECREASED GLUCOSE; Start 02/01/17 at 08:00 Glucose (Glutose) 22.5 gm Q15M PRN PO DECREASED GLUCOSE; Start 02/01/17 at 08: 00 Dextrose (D50w Syringe) 25 ml Q15M PRN IV DECREASED GLUCOSE; Start 02/01/17 at 08:00 Dextrose (D50w Syringe) 50 ml Q15M PRN IV DECREASED GLUCOSE; Start 02/01/17 at 08:00 Glucagon (Glucagen) 1 mg Q15M PRN IM DECREASED GLUCOSE; Start 02/01/17 at 08: 00 Glucose (Glutose) 15 gm Q15M PRN BUCCAL DECREASED GLUCOSE; Start 02/01/17 at 08:00 Hydrocortisone (Cortef) 2.5 mg QHS PO Last administered on 02/06/17 21:08; Admin Dose 2.5 MG; Start 02/06/17 at 21:00 Famotidine 20 mg 20 mg DAILY PO Last administered on 02/07/17 08:05; Admin Dose 20 MG; Start 02/07/17 at 09:00 Magnesium Sulfate (Magnesium Sulfate 2 Gm/50 ml) 50 ml @ 25 mls/hr BID IVPB Last administered on 02/07/17 12:12; Admin Dose 25 MLS/HR; Start 02/07/17 at 10:30; Stop 02/08/17 at 23:00 TITUS JAIMES Feb 07, 2017 13:49
[2017-02-07 14:14] VITALS: BP 140/73; RESP 14
[2017-02-07 19:28] VITALS: BP 149/70; RESP 20
[2017-02-07] MEDS: ATORVASTATIN 20 MG TAB PO SCH (21:23)
--- NOTE | 2017-02-07 22:50 | CONS ---
Date/Time of Note Date/Time of Note DATE: 02/07/17 TIME: 22:46 Assessment/Plan Assessment/Plan Additional Assessment/Plan 1. Acute kidney injury vs DEJON on CKD III, No previous Cr available to compare 2. Transsphenoidal pituitary adenoma, s/p Transsphenoidal resection of pituitary adenoma on 01/30/17 2. Pancreatic cancer. The patient follows with oncologist as an outpatient. 3. Hypertension. 4. Hyperlipidemia. 5. Hypernatremia 6. Metabolic acidosis 7. Post Surgery Failed extubation- pt had a code blue and required reintubation - s/p Extubation 02/04/17 Plan: Cr 1.5, K 3.0- KCL replaced , cotinue D5W with KCl at 60 ccr , good urine output 1.3 liter s/p extubation doing well, Passed swallow evaluation will continue follow up Consultation Date/Type/Reason Admit Date/Time Jan 28, 2017 at 06:15 Initial Consult Date 01/28/17 Type of Consultation: NEPHROLOGY Referring Provider: MARIAN CANNON MD 24 HR Interval Summary Free Text/Dictation K low, Cr 1.5, BP stable Exam/Review of Systems Vital Signs Vitals Vital Signs Date Time Temp Pulse Resp B/P Pulse Ox O2 Delivery O2 Flow Rate FiO2 02/07/17 19:28 98.3 84 20 149/70 98 02/07/17 03:36 2.0 02/05/17 20:00 Room Air 02/04/17 09:00 30 Intake and Output 02/06/17 02/06/17 02/07/17 15:00 23:00 07:00 Intake Total 595 ml 1440 ml 1152 ml Output Total 800 ml 550 ml Balance 595 ml 640 ml 602 ml Exam GENERAL: awake,alert no acute distress NECK: Supple. No JVD or lymphadenopathy. CARDIAC EXAM: S1, S2. No added sounds or murmurs. CHEST: clear bilaterally, No added sounds, rales or wheezes ABDOMEN: Soft, nontender. No guarding or rebound. EXTREMITIES: No cyanosis, clubbing or edema. NEUROLOGIC: Generalized weakness. No focal deficits Results Result Diagram: 02/06/17 1331 02/07/17 0531 Results 24 hrs Laboratory Tests Test 02/07/17 05:31 02/07/17 07:14 02/07/17 08:04 02/07/17 12:04 Sodium Level 135 Potassium Level 3.0 L Chloride Level 99 Carbon Dioxide Level 28 Anion Gap 11 Blood Urea Nitrogen 31 H Creatinine 1.50 H Glucose Level 108 Calcium Level 7.6 L Magnesium Level 1.9 Lab Scanned Report REFERENCE LAB Bedside Glucose 101 148 Medications Medications Current Medications Hydralazine HCl (Apresoline) 10 mg Q6H PRN IV SBP>170 Last administered on 02:18; Admin Dose 10 MG; Start 01/28/17 at 12:30 Metoprolol Tartrate (Lopressor) 25 mg BID PO Last administered on 02/07/17 21 :25; Admin Dose 25 MG; Start 01/28/17 at 21:00 Morphine Sulfate 2 mg 2 mg Q2H PRN IV PAIN Last administered on 01/30/17 23: 34; Admin Dose 2 MG; Start 01/30/17 at 23:30 Potassium Chloride/Dextrose (KCl/D5W) 1,005 ml @ 60 mls/hr [id number] IV Last administered on 02/07/17 06:26; Admin Dose 60 MLS/HR; Start 01/31/17 at 14:00 Dorzolamide/ Timolol (Cosopt) 1 drop BID BOTH EYES Last administered on 21:25; Admin Dose 1 DROP; Start 02/01/17 at 09:00 Allopurinol (Zyloprim) 300 mg DAILY PO Last administered on 02/07/17 08:08; Admin Dose 300 MG; Start 02/02/17 at 09:00 Atorvastatin Calcium (Lipitor) 20 mg HS PO Last administered on 02/07/17 21: 23; Admin Dose 20 MG; Start 02/01/17 at 21:00 Miscellaneous Information 1 ea NOTE XX ; Start 02/01/17 at 08:00 Glucose (Glutose) 15 gm Q15M PRN PO DECREASED GLUCOSE; Start 02/01/17 at 08:00 Glucose (Glutose) 22.5 gm Q15M PRN PO DECREASED GLUCOSE; Start 02/01/17 at 08: 00 Dextrose (D50w Syringe) 25 ml Q15M PRN IV DECREASED GLUCOSE; Start 02/01/17 at 08:00 Dextrose (D50w Syringe) 50 ml Q15M PRN IV DECREASED GLUCOSE; Start 02/01/17 at 08:00 Glucagon (Glucagen) 1 mg Q15M PRN IM DECREASED GLUCOSE; Start 02/01/17 at 08: 00 Glucose (Glutose) 15 gm Q15M PRN BUCCAL DECREASED GLUCOSE; Start 02/01/17 at 08:00 Hydrocortisone (Cortef) 2.5 mg QHS PO Last administered on 02/07/17 21:24; Admin Dose 2.5 MG; Start 02/06/17 at 21:00 Famotidine 20 mg 20 mg DAILY PO Last administered on 02/07/17 08:05; Admin Dose 20 MG; Start 02/07/17 at 09:00 Magnesium Sulfate (Magnesium Sulfate 2 Gm/50 ml) 50 ml @ 25 mls/hr BID IVPB Last administered on 02/07/17 21:24; Admin Dose 25 MLS/HR; Start 02/07/17 at 10:30; Stop 02/08/17 at 23:00 ISRAEL OJEDA MD Feb 07, 2017 22:50
[2017-02-08 02:00] VITALS: BP 155/84; RESP 20
[2017-02-08] MEDS: POTASSIUM CHLORIDE 10 MEQ in DEXTROSE 5% 1,000 ML IV SCH (03:44)
[2017-02-08 06:46] LABS: EOSINOPHILS # 0.1 10^3/ul (0.0-0.5); EOSINOPHILS % 1.3 % (0.0-7.0); HEMATOCRIT 29.7 % (42.0-52.0); HEMOGLOBIN 10.2 g/dl (14.0-18.0); LYMPHOCYTES # 1.8 10^3/ul (0.8-2.9); LYMPHOCYTES % 17.6 % (15.0-51.0); MEAN CORPUSCULAR HEMOGLOBIN 32.7 pg (29.0-33.0); MEAN CORPUSCULAR HGB CONC 34.3 g/dl (32.0-37.0); MEAN CORPUSCULAR VOLUME 95.2 fl (82.0-101.0); MEAN PLATELET VOLUME 11.2 fl (7.4-10.4); MONOCYTES % 9.9 % (0.0-11.0); NEUTROPHIL # 7.3 10^3/ul (1.6-7.5); NEUTROPHILS % 70.2 % (39.0-77.0); PLATELET COUNT 130 10^3/UL (140-415); RED BLOOD COUNT 3.12 10^6/ul (4.70-6.10); RED CELL DISTRIBUTION WIDTH 13.2 % (11.5-14.5); WHITE BLOOD COUNT 10.4 10^3/ul (4.8-10.8)
[2017-02-08 06:56] LABS: ALBUMIN 2.8 g/dl (3.3-4.9); CALCIUM 7.8 mg/dl (8.4-10.2); CREATININE 1.55 mg/dl (0.61-1.24); MAGNESIUM 3.1 mg/dl (1.7-2.5); PHOSPHORUS 2.1 mg/dl (2.5-4.9); POTASSIUM 3.4 mmol/L (3.5-5.1)
[2017-02-08 07:36] VITALS: BP 162/79; RESP 20
[2017-02-08] MEDS ORDERED: POTASSIUM CHLORIDE (SR) 20 MEQ TAB PO STA (07:37)
[2017-02-08] MEDS: INSULIN ASPART [NOVOLOG] 3 ML PEN SC SCH (08:00)
[2017-02-08] MEDS: CREON (12k-38k-60k) 1 CAP PO SCH ×3 (08:05→17:58)
[2017-02-08] MEDS: HYDROCORTISONE 5 MG TAB PO SCH ×3 (08:05→21:45)
[2017-02-08] MEDS: DORZOLAMIDE/TIMOLOL 10 ML OPH BOTH EYES SCH ×2 (09:05→21:47)
[2017-02-08] MEDS: ALLOPURINOL 300 MG TAB PO SCH (09:05)
[2017-02-08] MEDS: FAMOTIDINE 20 MG TAB PO SCH (09:05)
[2017-02-08] MEDS: METOPROLOL 25 MG TAB PO SCH ×2 (09:09→21:47)
--- NOTE | 2017-02-08 09:40 | CONS ---
Date/Time of Note Date/Time of Note DATE: 02/08/17 TIME: 09:35 Assessment/Plan Assessment/Plan Problems: (1) Pituitary macroadenoma Status: Chronic Comment: Sodium remains normal post transsphenoidal craniotomy. Will monitor. (2) Partial hypopituitarism Status: Chronic Comment: Pt. now on maintenance dosage of hydrocortisone and doing well. Should be checked in future for thyroid function to see if thyroid hormone replacement required. Given his age and other chronic medical problems, growth hormone supplementation probably unnecessary but testosterone could still have benefit in the future as an outpatient. (3) Hypokalemia Status: Acute Comment: Potassium improved but still sub-normal. Hold magnesium while level is elevated but will give another dose tonight once blood levels of Mg allowed to redistribute. Gently replace K again today. (4) Diabetes mellitus type 2 in nonobese Status: Chronic Comment: Euglycemic on physiologic steroid doses. Will stop FS. Consultation Date/Type/Reason Admit Date/Time Jan 28, 2017 at 06:15 Initial Consult Date 01/28/17 Type of Consultation: Endocrinology Reason for Consultation Pituitary macroadenoma Referring Provider: MARIAN CANNON MD 24 HR Interval Summary Constitutional: improved, no complaints Detailed Summary Respiratory: no complaints Cardiovascular: no complaints Gastrointestinal: no complaints Genitourinary: no complaints Musculoskeletal: no complaints Neurologic: no complaints Exam/Review of Systems Vital Signs Vitals VS - Last 72 Hours, by Label Date Time Temp Pulse Resp B/P Pulse Ox O2 Delivery O2 Flow Rate FiO2 02/08/17 07:36 98.1 60 20 162/79 98 02/08/17 02:00 98.2 75 20 155/84 98 02/07/17 19:28 98.3 84 20 149/70 98 02/07/17 14:14 97.5 74 14 140/73 97 02/07/17 07:49 98.5 74 18 154/75 100 02/07/17 03:36 2.0 02/07/17 02:07 98.5 73 18 122/57 99 02/06/17 23:25 2.0 02/06/17 19:38 99.1 84 18 123/60 99 02/06/17 17:46 2.0 02/06/17 14:09 98.5 67 16 143/73 98 02/06/17 07:33 98.1 76 16 135/66 98 02/06/17 02:00 98.1 68 20 122/59 98 02/05/17 23:13 2.0 02/05/17 20:49 98.7 83 20 151/87 98 02/05/17 20:00 98.0 66 12 138/62 98 Room Air 02/05/17 19:00 61 10 145/65 97 Room Air 02/05/17 18:00 64 12 141/81 97 Room Air 02/05/17 17:00 68 15 124/76 100 Room Air 02/05/17 16:08 2.0 02/05/17 16:00 98.0 74 16 139/77 100 Room Air 02/05/17 16:00 80 02/05/17 15:00 76 14 136/83 100 Nasal Cannula 2.0 02/05/17 14:00 83 21 135/89 100 Nasal Cannula 2.0 02/05/17 13:00 74 12 138/76 100 Nasal Cannula 2.0 02/05/17 12:00 74 02/05/17 12:00 97.8 72 12 181/100 100 Nasal Cannula 2.0 02/05/17 11:00 63 10 183/91 100 Nasal Cannula 2.0 02/05/17 10:00 65 23 146/76 100 Nasal Cannula 2.0 Vital Signs Date Time Temp Pulse Resp B/P Pulse Ox O2 Delivery O2 Flow Rate FiO2 02/08/17 07:36 98.1 60 20 162/79 98 02/07/17 03:36 2.0 02/05/17 20:00 Room Air 02/04/17 09:00 30 Intake and Output 02/07/17 02/07/17 02/08/17 14:59 22:59 06:59 Intake Total 50 ml 1760 ml 1175 ml Output Total 1300 ml Balance 50 ml 460 ml 1175 ml Exam Constitutional: alert, oriented, well developed Psych: nl mood/affect, no complaints Respiratory: clear to auscultation, normal air movement Cardiovascular: nl pulses, regular rate and rhythm, No edema, No murmurs/extra sounds, No rub Gastrointestinal: bowel sounds, nl liver, spleen, non-tender, soft, No mass, No rebound or guarding Musculoskeletal: nl extremities to inspection Extremities: normal pulses, No clubbing, No cyanosis, No edema Neurological: VOCAL ARTIST II-XII intact, nl mental status, nl speech, nl strength Additional Comments Bedside Glucose - 72 Hours Test 02/05/17 12:12 02/05/17 18:14 02/06/17 00:56 02/06/17 06:38 Bedside Glucose 158mg/dL (70-220) 115mg/dL (70-220) 116mg/dL (70-220) 113mg/dL (70-220) Test 02/06/17 12:08 02/06/17 17:18 02/06/17 21:12 02/07/17 08:04 Bedside Glucose 126mg/dL (70-220) 127mg/dL (70-220) 131mg/dL (70-220) 101mg/dL (70-220) Test 02/07/17 12:04 02/08/17 08:04 Bedside Glucose 148mg/dL (70-220) 109mg/dL (70-220) Results Result Diagram: 02/08/17 0534 02/08/17 0534 Results 24 hrs Laboratory Tests Test 02/07/17 12:04 02/08/17 05:34 02/08/17 08:04 Bedside Glucose 148 109 White Blood Count 10.4 Red Blood Count 3.12 L Hemoglobin 10.2 L Hematocrit 29.7 L Mean Corpuscular Volume 95.2 Mean Corpuscular Hemoglobin 32.7 Mean Corpuscular Hemoglobin Concent 34.3 Red Cell Distribution Width 13.2 Platelet Count 130 L Mean Platelet Volume 11.2 H Neutrophils % 70.2 Lymphocytes % 17.6 Monocytes % 9.9 Eosinophils % 1.3 Basophils % 0.0 Nucleated Red Blood Cells % 0.0 Neutrophils # 7.3 Lymphocytes # 1.8 Monocytes # 1.0 H Eosinophils # 0.1 Basophils # 0.0 Nucleated Red Blood Cells # 0.0 Sodium Level 136 Potassium Level 3.4 L Chloride Level 99 Carbon Dioxide Level 30 Anion Gap 10 Blood Urea Nitrogen 27 H Creatinine 1.55 H Glucose Level 115 Calcium Level 7.8 L Phosphorus Level 2.1 L Magnesium Level 3.1 H Albumin 2.8 L Medications Medications Current Medications Hydralazine HCl (Apresoline) 10 mg Q6H PRN IV SBP>170 Last administered on t 02:18; Admin Dose 10 MG; Start 01/28/17 at 12:30 Metoprolol Tartrate (Lopressor) 25 mg BID PO Last administered on 02/08/17 09 :09; Admin Dose 25 MG; Start 01/28/17 at 21:00 Morphine Sulfate 2 mg 2 mg Q2H PRN IV PAIN Last administered on 01/30/17 23: 34; Admin Dose 2 MG; Start 01/30/17 at 23:30 Potassium Chloride/Dextrose (KCl/D5W) 1,005 ml @ 60 mls/hr [id number] IV Last administered on 02/08/17 03:44; Admin Dose 60 MLS/HR; Start 01/31/17 at 14:00 Dorzolamide/ Timolol (Cosopt) 1 drop BID BOTH EYES Last administered on 09:05; Admin Dose 1 DROP; Start 02/01/17 at 09:00 Allopurinol (Zyloprim) 300 mg DAILY PO Last administered on 02/08/17 09:05; Admin Dose 300 MG; Start 02/02/17 at 09:00 Atorvastatin Calcium (Lipitor) 20 mg HS PO Last administered on 02/07/17 21: 23; Admin Dose 20 MG; Start 02/01/17 at 21:00 Miscellaneous Information 1 ea NOTE XX ; Start 02/01/17 at 08:00 Glucose (Glutose) 15 gm Q15M PRN PO DECREASED GLUCOSE; Start 02/01/17 at 08:00 Glucose (Glutose) 22.5 gm Q15M PRN PO DECREASED GLUCOSE; Start 02/01/17 at 08: 00 Dextrose (D50w Syringe) 25 ml Q15M PRN IV DECREASED GLUCOSE; Start 02/01/17 at 08:00 Dextrose (D50w Syringe) 50 ml Q15M PRN IV DECREASED GLUCOSE; Start 02/01/17 at 08:00 Glucagon (Glucagen) 1 mg Q15M PRN IM DECREASED GLUCOSE; Start 02/01/17 at 08: 00 Glucose (Glutose) 15 gm Q15M PRN BUCCAL DECREASED GLUCOSE; Start 02/01/17 at 08:00 Hydrocortisone (Cortef) 2.5 mg QHS PO Last administered on 02/07/17 21:24; Admin Dose 2.5 MG; Start 02/06/17 at 21:00 Famotidine 20 mg 20 mg DAILY PO Last administered on 02/08/17 09:05; Admin Dose 20 MG; Start 02/07/17 at 09:00 Magnesium Sulfate (Magnesium Sulfate 2 Gm/50 ml) 50 ml @ 25 mls/hr BID IVPB Last administered on 02/07/17 21:24; Admin Dose 25 MLS/HR; Start 02/07/17 at 10:30; Stop 02/08/17 at 23:00; Status Future hold KING RAO MD Feb 08, 2017 09:40
--- NOTE | 2017-02-08 11:02 | PN ---
Date/Time of Note Date/Time of Note DATE: 02/08/17 TIME: 11:01 Assessment/Plan VTE Prophylaxis VTE Prophylaxis Intervention: other Lines/Catheters [facility] Urinary Cath still in place: Yes Reason Cath still needed: skin wounds contaminated by urine Assessment/Plan Chief Complaint/Hosp Course - Transsphenoidal pituitary adenoma, s/p transsphenoidal tumor resection on by Dr. Rodriguez. - Partial hypopituitarism. Dr. Choe is following in endocrinology consultation. - Postoperative respiratory failure requiring reintubation, resolved. Dr. Ospina is following in pulmonology consultation. - S/p code blue - Metabolic acidosis, resolved. - Pancreatic cancer. The patient follows with oncologist as an outpatient. Patient is aware that he will not be able to receive any treatment for 10 days after surgery. - Hypertension. Continue metoprolol and hydralazine p.r.n. - Hyperlipidemia. Continue simvastatin. - Chronic kidney disease stage III. Continue to monitor BUN and creatinine. Dr. Yan is following in nephrology consultation. Problems: Subjective 24 Hr Interval Summary Free Text/Dictation Patient has no complaints, denies pain, visual problems Exam/Review of Systems Vital Signs Vitals Vital Signs Date Time Temp Pulse Resp B/P Pulse Ox O2 Delivery O2 Flow Rate FiO2 02/08/17 07:36 98.1 60 20 162/79 98 02/07/17 03:36 2.0 02/05/17 20:00 Room Air 02/04/17 09:00 30 Intake and Output 02/07/17 02/07/17 02/08/17 15:00 23:00 07:00 Intake Total 50 ml 1760 ml 1175 ml Output Total 1300 ml Balance 50 ml 460 ml 1175 ml Exam Constitutional: well developed Head: atraumatic, normocephalic Neck: supple Respiratory: clear to auscultation Cardiovascular: regular rate and rhythm Gastrointestinal: non-tender, soft Extremities: normal pulses Results Result Diagram: 02/08/17 0534 02/08/17 0534 Results 24 hrs Laboratory Tests Test 02/07/17 12:04 02/08/17 05:34 02/08/17 08:04 Bedside Glucose 148 109 White Blood Count 10.4 Red Blood Count 3.12 L Hemoglobin 10.2 L Hematocrit 29.7 L Mean Corpuscular Volume 95.2 Mean Corpuscular Hemoglobin 32.7 Mean Corpuscular Hemoglobin Concent 34.3 Red Cell Distribution Width 13.2 Platelet Count 130 L Mean Platelet Volume 11.2 H Neutrophils % 70.2 Lymphocytes % 17.6 Monocytes % 9.9 Eosinophils % 1.3 Basophils % 0.0 Nucleated Red Blood Cells % 0.0 Neutrophils # 7.3 Lymphocytes # 1.8 Monocytes # 1.0 H Eosinophils # 0.1 Basophils # 0.0 Nucleated Red Blood Cells # 0.0 Sodium Level 136 Potassium Level 3.4 L Chloride Level 99 Carbon Dioxide Level 30 Anion Gap 10 Blood Urea Nitrogen 27 H Creatinine 1.55 H Glucose Level 115 Calcium Level 7.8 L Phosphorus Level 2.1 L Magnesium Level 3.1 H Albumin 2.8 L Medications Medications Current Medications Hydralazine HCl (Apresoline) 10 mg Q6H PRN IV SBP>170 Last administered on 02:18; Admin Dose 10 MG; Start 01/28/17 at 12:30 Metoprolol Tartrate (Lopressor) 25 mg BID PO Last administered on 02/08/17 09 :09; Admin Dose 25 MG; Start 01/28/17 at 21:00 Morphine Sulfate (morphine) 2 mg Q2H PRN IV PAIN Last administered on 23:34; Admin Dose 2 MG; Start 01/30/17 at 23:30 Dorzolamide/ Timolol (Cosopt) 1 drop BID BOTH EYES Last administered on 09:05; Admin Dose 1 DROP; Start 02/01/17 at 09:00 Allopurinol (Zyloprim) 300 mg DAILY PO Last administered on 02/08/17 09:05; Admin Dose 300 MG; Start 02/02/17 at 09:00 Atorvastatin Calcium (Lipitor) 20 mg HS PO Last administered on 02/07/17 21: 23; Admin Dose 20 MG; Start 02/01/17 at 21:00 Miscellaneous Information 1 ea NOTE XX ; Start 02/01/17 at 08:00 Glucose (Glutose) 15 gm Q15M PRN PO DECREASED GLUCOSE; Start 02/01/17 at 08:00 Glucose (Glutose) 22.5 gm Q15M PRN PO DECREASED GLUCOSE; Start 02/01/17 at 08: 00 Dextrose (D50w Syringe) 25 ml Q15M PRN IV DECREASED GLUCOSE; Start 02/01/17 at 08:00 Dextrose (D50w Syringe) 50 ml Q15M PRN IV DECREASED GLUCOSE; Start 02/01/17 at 08:00 Glucagon (Glucagen) 1 mg Q15M PRN IM DECREASED GLUCOSE; Start 02/01/17 at 08: 00 Glucose (Glutose) 15 gm Q15M PRN BUCCAL DECREASED GLUCOSE; Start 02/01/17 at 08:00 Hydrocortisone (Cortef) 2.5 mg QHS PO Last administered on 02/07/17 21:24; Admin Dose 2.5 MG; Start 02/06/17 at 21:00 Famotidine 20 mg 20 mg DAILY PO Last administered on 02/08/17 09:05; Admin Dose 20 MG; Start 02/07/17 at 09:00 Magnesium Sulfate (Magnesium Sulfate 2 Gm/50 ml) 50 ml @ 25 mls/hr BID IVPB Last administered on 02/07/17 21:24; Admin Dose 25 MLS/HR; Start 02/07/17 at 10:30; Stop 02/08/17 at 23:00; Status Future hold RANDALL CURRIE Feb 08, 2017 11:02
[2017-02-08 13:09] VITALS: BP 142/66; RESP 20
--- NOTE | 2017-02-08 13:44 | CONS ---
Date/Time of Note Date/Time of Note DATE: 02/08/17 TIME: 13:38 Assessment/Plan Assessment/Plan Additional Assessment/Plan 1. Acute kidney injury vs DEJON on CKD III, No previous Cr available to compare 2. Transsphenoidal pituitary adenoma, s/p Transsphenoidal resection of pituitary adenoma on 01/30/17 2. Pancreatic cancer. The patient follows with oncologist as an outpatient. 3. Hypertension. 4. Hyperlipidemia. 5. Hypernatremia-resolved 6. Metabolic acidosis - resolved 7. Post Surgery Failed extubation- pt had a code blue and required reintubation - s/p Extubation 02/04/17 8. Hypokalemia- replet K, Plan: - Cr 1.55, K 3.4- KCL replaced , continue D5W with KCl at 60 ccr - good urine output 1.3 liter / 24 hr - s/p extubation doing well, Passed swallow evaluation will continue follow up - Plan of care dw Dr Lurdes Yan/ staff Consultation Date/Type/Reason Admit Date/Time Jan 28, 2017 at 06:15 Initial Consult Date 01/28/17 Type of Consultation: Endocrinology Referring Provider: MARIAN CANNON MD 24 HR Interval Summary Free Text/Dictation - NAD - afebrile - Feels better - K low- 3.4 - Cr 1.5 - BP142/66 Exam/Review of Systems Vital Signs Vitals Vital Signs Date Time Temp Pulse Resp B/P Pulse Ox O2 Delivery O2 Flow Rate FiO2 02/08/17 13:09 98.0 67 20 142/66 98 02/07/17 03:36 2.0 02/05/17 20:00 Room Air 02/04/17 09:00 30 Intake and Output 02/07/17 02/07/17 02/08/17 14:59 22:59 06:59 Intake Total 50 ml 1760 ml 1175 ml Output Total 1300 ml Balance 50 ml 460 ml 1175 ml Exam Constitutional: alert, well developed Respiratory: clear to auscultation, normal air movement Cardiovascular: nl pulses, other (s1s2) Gastrointestinal: non-tender, soft Musculoskeletal: nl extremities to inspection Extremities: normal pulses Neurological: nl speech Results Result Diagram: 02/08/17 0534 02/08/17 0534 Results 24 hrs Laboratory Tests Test 02/08/17 05:34 02/08/17 08:04 White Blood Count 10.4 Red Blood Count 3.12 L Hemoglobin 10.2 L Hematocrit 29.7 L Mean Corpuscular Volume 95.2 Mean Corpuscular Hemoglobin 32.7 Mean Corpuscular Hemoglobin Concent 34.3 Red Cell Distribution Width 13.2 Platelet Count 130 L Mean Platelet Volume 11.2 H Neutrophils % 70.2 Lymphocytes % 17.6 Monocytes % 9.9 Eosinophils % 1.3 Basophils % 0.0 Nucleated Red Blood Cells % 0.0 Neutrophils # 7.3 Lymphocytes # 1.8 Monocytes # 1.0 H Eosinophils # 0.1 Basophils # 0.0 Nucleated Red Blood Cells # 0.0 Sodium Level 136 Potassium Level 3.4 L Chloride Level 99 Carbon Dioxide Level 30 Anion Gap 10 Blood Urea Nitrogen 27 H Creatinine 1.55 H Glucose Level 115 Calcium Level 7.8 L Phosphorus Level 2.1 L Magnesium Level 3.1 H Albumin 2.8 L Bedside Glucose 109 Medications Medications Current Medications Hydralazine HCl (Apresoline) 10 mg Q6H PRN IV SBP>170 Last administered on 02:18; Admin Dose 10 MG; Start 01/28/17 at 12:30 Metoprolol Tartrate (Lopressor) 25 mg BID PO Last administered on 02/08/17 09 :09; Admin Dose 25 MG; Start 01/28/17 at 21:00 Morphine Sulfate (morphine) 2 mg Q2H PRN IV PAIN Last administered on 23:34; Admin Dose 2 MG; Start 01/30/17 at 23:30 Dorzolamide/ Timolol (Cosopt) 1 drop BID BOTH EYES Last administered on 09:05; Admin Dose 1 DROP; Start 02/01/17 at 09:00 Allopurinol (Zyloprim) 300 mg DAILY PO Last administered on 02/08/17 09:05; Admin Dose 300 MG; Start 02/02/17 at 09:00 Atorvastatin Calcium (Lipitor) 20 mg HS PO Last administered on 02/07/17 21: 23; Admin Dose 20 MG; Start 02/01/17 at 21:00 Miscellaneous Information 1 ea NOTE XX ; Start 02/01/17 at 08:00 Glucose (Glutose) 15 gm Q15M PRN PO DECREASED GLUCOSE; Start 02/01/17 at 08:00 Glucose (Glutose) 22.5 gm Q15M PRN PO DECREASED GLUCOSE; Start 02/01/17 at 08: 00 Dextrose (D50w Syringe) 25 ml Q15M PRN IV DECREASED GLUCOSE; Start 02/01/17 at 08:00 Dextrose (D50w Syringe) 50 ml Q15M PRN IV DECREASED GLUCOSE; Start 02/01/17 at 08:00 Glucagon (Glucagen) 1 mg Q15M PRN IM DECREASED GLUCOSE; Start 02/01/17 at 08: 00 Glucose (Glutose) 15 gm Q15M PRN BUCCAL DECREASED GLUCOSE; Start 02/01/17 at 08:00 Hydrocortisone (Cortef) 2.5 mg QHS PO Last administered on 02/07/17 21:24; Admin Dose 2.5 MG; Start 02/06/17 at 21:00 Famotidine 20 mg 20 mg DAILY PO Last administered on 02/08/17 09:05; Admin Dose 20 MG; Start 02/07/17 at 09:00 Magnesium Sulfate (Magnesium Sulfate 2 Gm/50 ml) 50 ml @ 25 mls/hr BID IVPB Last administered on 02/07/17 21:24; Admin Dose 25 MLS/HR; Start 02/07/17 at 10:30; Stop 02/08/17 at 23:00; Status Future hold MARIE LANE Feb 08, 2017 13:44
[2017-02-08 19:43] VITALS: BP 129/70; RESP 20
[2017-02-08] MEDS: ATORVASTATIN 20 MG TAB PO SCH (21:46)
[2017-02-08] MEDS: MAGNESIUM SULFATE 2 GM/50 ML 50 ML IVPB SCH (22:26)
[2017-02-09 02:03] VITALS: BP 116/62; RESP 20
[2017-02-09 06:50] LABS: ALBUMIN 2.4 g/dl (3.3-4.9); CALCIUM 7.5 mg/dl (8.4-10.2); CREATININE 1.48 mg/dl (0.61-1.24); MAGNESIUM 2.4 mg/dl (1.7-2.5); PHOSPHORUS 2.4 mg/dl (2.5-4.9); POTASSIUM 3.7 mmol/L (3.5-5.1)
[2017-02-09 08:07] VITALS: BP 129/80; RESP 16
[2017-02-09] MEDS: CREON (12k-38k-60k) 1 CAP PO SCH ×3 (08:15→17:21)
[2017-02-09] MEDS: ALLOPURINOL 300 MG TAB PO SCH (08:16)
[2017-02-09] MEDS: HYDROCORTISONE 5 MG TAB PO SCH ×3 (08:16→20:51)
[2017-02-09] MEDS: FAMOTIDINE 20 MG TAB PO SCH (08:16)
[2017-02-09] MEDS: METOPROLOL 25 MG TAB PO SCH ×2 (08:16→20:53)
[2017-02-09] MEDS: DORZOLAMIDE/TIMOLOL 10 ML OPH BOTH EYES SCH ×2 (08:17→20:51)
--- NOTE | 2017-02-09 10:11 | CONS ---
Date/Time of Note Date/Time of Note DATE: 02/09/17 TIME: 10:08 Assessment/Plan Assessment/Plan Problems: (1) Pituitary macroadenoma Status: Chronic Comment: Doing well post-TSC. Sodium remains normal. Doubt there will be episode of DI or SIADH at this point. (2) Partial hypopituitarism Status: Chronic Comment: On home doses of hydrocortisone. Will continue this maintenance dose. Possibly LT4 or T will be required in the future (3) Hypokalemia Status: Acute Comment: Improved s/p replacement of Mg. Mg no longer elevated. May continue to receive Mg if K falls again. Consultation Date/Type/Reason Admit Date/Time Jan 28, 2017 at 06:15 Initial Consult Date 01/28/17 Type of Consultation: Endocrinology Reason for Consultation Pituitary macroadenoma Referring Provider: MARIAN CANNON MD 24 HR Interval Summary Constitutional: improved, no complaints Detailed Summary Respiratory: no complaints Cardiovascular: no complaints Gastrointestinal: no complaints Genitourinary: no complaints Musculoskeletal: no complaints Neurologic: no complaints Exam/Review of Systems Vital Signs Vitals VS - Last 72 Hours, by Label Date Time Temp Pulse Resp B/P Pulse Ox O2 Delivery O2 Flow Rate FiO2 02/09/17 08:07 98.0 72 16 129/80 97 02/09/17 02:03 97.8 62 20 116/62 95 02/08/17 19:43 98.3 82 20 129/70 98 02/08/17 13:09 98.0 67 20 142/66 98 02/08/17 07:36 98.1 60 20 162/79 98 02/08/17 02:00 98.2 75 20 155/84 98 02/07/17 19:28 98.3 84 20 149/70 98 02/07/17 14:14 97.5 74 14 140/73 97 02/07/17 07:49 98.5 74 18 154/75 100 02/07/17 03:36 2.0 02/07/17 02:07 98.5 73 18 122/57 99 02/06/17 23:25 2.0 02/06/17 19:38 99.1 84 18 123/60 99 02/06/17 17:46 2.0 02/06/17 14:09 98.5 67 16 143/73 98 Vital Signs Date Time Temp Pulse Resp B/P Pulse Ox O2 Delivery O2 Flow Rate FiO2 02/09/17 08:07 98.0 72 16 129/80 97 02/07/17 03:36 2.0 02/05/17 20:00 Room Air Intake and Output 02/08/17 02/08/17 02/09/17 14:59 22:59 06:59 Intake Total 1580 ml 400 ml Output Total 900 ml 700 ml Balance 680 ml -300 ml Exam Constitutional: alert, oriented, well developed Psych: nl mood/affect, no complaints Respiratory: clear to auscultation, normal air movement Cardiovascular: nl pulses, regular rate and rhythm, No edema, No murmurs/extra sounds, No rub Gastrointestinal: bowel sounds, nl liver, spleen, non-tender, soft, No mass, No rebound or guarding Musculoskeletal: nl extremities to inspection Extremities: normal pulses, No clubbing, No cyanosis, No edema Neurological: WAX POT TENDER II-XII intact, nl mental status, nl speech, nl strength Results Result Diagram: 02/08/17 0534 02/09/17 0548 Results 24 hrs Laboratory Tests Test 02/09/17 05:48 Sodium Level 136 Potassium Level 3.7 Chloride Level 104 Carbon Dioxide Level 26 Anion Gap 10 Blood Urea Nitrogen 24 H Creatinine 1.48 H Glucose Level 94 Calcium Level 7.5 L Phosphorus Level 2.4 L Magnesium Level 2.4 Albumin 2.4 L Medications Medications Current Medications Hydralazine HCl (Apresoline) 10 mg Q6H PRN IV SBP>170 Last administered on 02:18; Admin Dose 10 MG; Start 01/28/17 at 12:30 Metoprolol Tartrate (Lopressor) 25 mg BID PO Last administered on 02/09/17 08 :16; Admin Dose 25 MG; Start 01/28/17 at 21:00 Morphine Sulfate (morphine) 2 mg Q2H PRN IV PAIN Last administered on 23:34; Admin Dose 2 MG; Start 01/30/17 at 23:30 Dorzolamide/ Timolol (Cosopt) 1 drop BID BOTH EYES Last administered on 08:17; Admin Dose 1 DROP; Start 02/01/17 at 09:00 Allopurinol (Zyloprim) 300 mg DAILY PO Last administered on 02/09/17 08:16; Admin Dose 300 MG; Start 02/02/17 at 09:00 Atorvastatin Calcium (Lipitor) 20 mg HS PO Last administered on 02/08/17 21: 46; Admin Dose 20 MG; Start 02/01/17 at 21:00 Miscellaneous Information 1 ea NOTE XX ; Start 02/01/17 at 08:00 Glucose (Glutose) 15 gm Q15M PRN PO DECREASED GLUCOSE; Start 02/01/17 at 08:00 Glucose (Glutose) 22.5 gm Q15M PRN PO DECREASED GLUCOSE; Start 02/01/17 at 08: 00 Dextrose (D50w Syringe) 25 ml Q15M PRN IV DECREASED GLUCOSE; Start 02/01/17 at 08:00 Dextrose (D50w Syringe) 50 ml Q15M PRN IV DECREASED GLUCOSE; Start 02/01/17 at 08:00 Glucagon (Glucagen) 1 mg Q15M PRN IM DECREASED GLUCOSE; Start 02/01/17 at 08: 00 Glucose (Glutose) 15 gm Q15M PRN BUCCAL DECREASED GLUCOSE; Start 02/01/17 at 08:00 Hydrocortisone (Cortef) 2.5 mg QHS PO Last administered on 02/08/17 21:45; Admin Dose 2.5 MG; Start 02/06/17 at 21:00 Famotidine (Pepcid) 20 mg DAILY PO Last administered on 02/09/17 08:16; Admin Dose 20 MG; Start 02/07/17 at 09:00 KING RAO MD Feb 09, 2017 10:11
--- NOTE | 2017-02-09 10:45 | PN ---
Date/Time of Note Date/Time of Note DATE: 02/09/17 TIME: 10:44 Assessment/Plan VTE Prophylaxis VTE Prophylaxis Intervention: other Lines/Catheters IV [facility]from [facility] Urinary Cath still in place: Yes Reason Cath still needed: skin wounds contaminated by urine Assessment/Plan Chief Complaint/Hosp Course - Transsphenoidal pituitary adenoma, s/p transsphenoidal tumor resection on by Dr. Rodriguez. - Partial hypopituitarism. Dr. Choe is following in endocrinology consultation. - Postoperative respiratory failure requiring reintubation, resolved. Dr. Ospina is following in pulmonology consultation. - S/p code blue - Metabolic acidosis, resolved. - Pancreatic cancer. The patient follows with oncologist as an outpatient. Patient is aware that he will not be able to receive any treatment for 10 days after surgery. - Hypertension. Continue metoprolol and hydralazine p.r.n. - Hyperlipidemia. Continue simvastatin. - Chronic kidney disease stage III. Continue to monitor BUN and creatinine. Dr. Yan is following in nephrology consultation. Problems: Subjective 24 Hr Interval Summary Free Text/Dictation Patient has no complaints Exam/Review of Systems Vital Signs Vitals Vital Signs Date Time Temp Pulse Resp B/P Pulse Ox O2 Delivery O2 Flow Rate FiO2 02/09/17 08:07 98.0 72 16 129/80 97 02/07/17 03:36 2.0 02/05/17 20:00 Room Air Intake and Output 02/08/17 02/08/17 02/09/17 15:00 23:00 07:00 Intake Total 1580 ml 400 ml Output Total 900 ml 700 ml Balance 680 ml -300 ml Exam Constitutional: well developed Head: atraumatic, normocephalic Neck: supple Respiratory: clear to auscultation Cardiovascular: regular rate and rhythm Gastrointestinal: non-tender, soft Extremities: normal pulses Results Result Diagram: 02/08/17 0534 02/09/17 0548 Results 24 hrs Laboratory Tests Test 02/09/17 05:48 Sodium Level 136 Potassium Level 3.7 Chloride Level 104 Carbon Dioxide Level 26 Anion Gap 10 Blood Urea Nitrogen 24 H Creatinine 1.48 H Glucose Level 94 Calcium Level 7.5 L Phosphorus Level 2.4 L Magnesium Level 2.4 Albumin 2.4 L Medications Medications Current Medications Hydralazine HCl (Apresoline) 10 mg Q6H PRN IV SBP>170 Last administered on 02:18; Admin Dose 10 MG; Start 01/28/17 at 12:30 Metoprolol Tartrate (Lopressor) 25 mg BID PO Last administered on 02/09/17 08 :16; Admin Dose 25 MG; Start 01/28/17 at 21:00 Morphine Sulfate (morphine) 2 mg Q2H PRN IV PAIN Last administered on 23:34; Admin Dose 2 MG; Start 01/30/17 at 23:30 Dorzolamide/ Timolol (Cosopt) 1 drop BID BOTH EYES Last administered on 08:17; Admin Dose 1 DROP; Start 02/01/17 at 09:00 Allopurinol (Zyloprim) 300 mg DAILY PO Last administered on 02/09/17 08:16; Admin Dose 300 MG; Start 02/02/17 at 09:00 Atorvastatin Calcium (Lipitor) 20 mg HS PO Last administered on 02/08/17 21: 46; Admin Dose 20 MG; Start 02/01/17 at 21:00 Miscellaneous Information 1 ea NOTE XX ; Start 02/01/17 at 08:00 Glucose (Glutose) 15 gm Q15M PRN PO DECREASED GLUCOSE; Start 02/01/17 at 08:00 Glucose (Glutose) 22.5 gm Q15M PRN PO DECREASED GLUCOSE; Start 02/01/17 at 08: 00 Dextrose (D50w Syringe) 25 ml Q15M PRN IV DECREASED GLUCOSE; Start 02/01/17 at 08:00 Dextrose (D50w Syringe) 50 ml Q15M PRN IV DECREASED GLUCOSE; Start 02/01/17 at 08:00 Glucagon (Glucagen) 1 mg Q15M PRN IM DECREASED GLUCOSE; Start 02/01/17 at 08: 00 Glucose (Glutose) 15 gm Q15M PRN BUCCAL DECREASED GLUCOSE; Start 02/01/17 at 08:00 Hydrocortisone (Cortef) 2.5 mg QHS PO Last administered on 02/08/17 21:45; Admin Dose 2.5 MG; Start 02/06/17 at 21:00 Famotidine (Pepcid) 20 mg DAILY PO Last administered on 02/09/17 08:16; Admin Dose 20 MG; Start 02/07/17 at 09:00 RANDALL CURRIE Feb 09, 2017 10:45
--- NOTE | 2017-02-09 14:59 | CONS ---
Date/Time of Note Date/Time of Note DATE: 02/09/17 TIME: 14:44 Assessment/Plan Assessment/Plan Additional Assessment/Plan 1. Acute kidney injury vs DEJON on CKD III, No previous Cr available to compare 2. Transsphenoidal pituitary adenoma, s/p Transsphenoidal resection of pituitary adenoma on 01/30/17 2. Pancreatic cancer. The patient follows with oncologist as an outpatient. 3. Hypertension. 4. Hyperlipidemia. 5. Hypernatremia-resolved 6. Metabolic acidosis - resolved 7. Post Surgery Failed extubation- pt had a code blue and required reintubation - s/p Extubation 02/04/17 8. Hypokalemia- resolved Plan: - Cr 1.48, continue D5W with KCl at 60 ccr - good urine output 1.6 liter / 24 hr - s/p extubation doing well, Passed swallow evaluation will continue follow up Plan of care dw Dr Lurdes Yan/staff Consultation Date/Type/Reason Admit Date/Time Jan 28, 2017 at 06:15 Initial Consult Date 01/28/17 Type of Consultation: Nephrology Referring Provider: MARIAN CANNON MD 24 HR Interval Summary Free Text/Dictation Resting in bed, feels, afebrile. denies any headache. N/V. DW staff Constitutional: improved Detailed Summary Respiratory: no complaints Cardiovascular: no complaints Gastrointestinal: no complaints Genitourinary: no complaints Musculoskeletal: no complaints Exam/Review of Systems Vital Signs Vitals Vital Signs Date Time Temp Pulse Resp B/P Pulse Ox O2 Delivery O2 Flow Rate FiO2 02/09/17 08:07 98.0 72 16 129/80 97 02/07/17 03:36 2.0 02/05/17 20:00 Room Air Intake and Output 02/08/17 02/08/17 02/09/17 15:00 23:00 07:00 Intake Total 1580 ml 400 ml Output Total 900 ml 700 ml Balance 680 ml -300 ml Exam Constitutional: alert, well developed Respiratory: clear to auscultation, normal air movement Cardiovascular: nl pulses Gastrointestinal: non-tender, soft Musculoskeletal: nl extremities to inspection Extremities: normal pulses Neurological: nl mental status, nl speech Results Result Diagram: 02/08/17 0534 02/09/17 0548 Results 24 hrs Laboratory Tests Test 02/09/17 05:48 Sodium Level 136 Potassium Level 3.7 Chloride Level 104 Carbon Dioxide Level 26 Anion Gap 10 Blood Urea Nitrogen 24 H Creatinine 1.48 H Glucose Level 94 Calcium Level 7.5 L Phosphorus Level 2.4 L Magnesium Level 2.4 Albumin 2.4 L Medications Medications Current Medications Hydralazine HCl (Apresoline) 10 mg Q6H PRN IV SBP>170 Last administered on 02:18; Admin Dose 10 MG; Start 01/28/17 at 12:30 Metoprolol Tartrate (Lopressor) 25 mg BID PO Last administered on 02/09/17 08 :16; Admin Dose 25 MG; Start 01/28/17 at 21:00 Morphine Sulfate (morphine) 2 mg Q2H PRN IV PAIN Last administered on 23:34; Admin Dose 2 MG; Start 01/30/17 at 23:30 Dorzolamide/ Timolol (Cosopt) 1 drop BID BOTH EYES Last administered on 08:17; Admin Dose 1 DROP; Start 02/01/17 at 09:00 Allopurinol (Zyloprim) 300 mg DAILY PO Last administered on 02/09/17 08:16; Admin Dose 300 MG; Start 02/02/17 at 09:00 Atorvastatin Calcium (Lipitor) 20 mg HS PO Last administered on 02/08/17 21: 46; Admin Dose 20 MG; Start 02/01/17 at 21:00 Miscellaneous Information 1 ea NOTE XX ; Start 02/01/17 at 08:00 Glucose (Glutose) 15 gm Q15M PRN PO DECREASED GLUCOSE; Start 02/01/17 at 08:00 Glucose (Glutose) 22.5 gm Q15M PRN PO DECREASED GLUCOSE; Start 02/01/17 at 08: 00 Dextrose (D50w Syringe) 25 ml Q15M PRN IV DECREASED GLUCOSE; Start 02/01/17 at 08:00 Dextrose (D50w Syringe) 50 ml Q15M PRN IV DECREASED GLUCOSE; Start 02/01/17 at 08:00 Glucagon (Glucagen) 1 mg Q15M PRN IM DECREASED GLUCOSE; Start 02/01/17 at 08: 00 Glucose (Glutose) 15 gm Q15M PRN BUCCAL DECREASED GLUCOSE; Start 02/01/17 at 08:00 Hydrocortisone (Cortef) 2.5 mg QHS PO Last administered on 02/08/17 21:45; Admin Dose 2.5 MG; Start 02/06/17 at 21:00 Famotidine (Pepcid) 20 mg DAILY PO Last administered on 02/09/17 08:16; Admin Dose 20 MG; Start 02/07/17 at 09:[address] Feb 09, 2017 14:[address] Feb 09, 2017 14:56
[2017-02-09 15:13] VITALS: BP 116/63; RESP 14
[2017-02-09 19:29] VITALS: BP 114/66; RESP 18
[2017-02-09] MEDS: ATORVASTATIN 20 MG TAB PO SCH (20:50)
[2017-02-10 02:11] VITALS: BP 133/68; RESP 18
[2017-02-10 06:45] LABS: BASOPHILS % 0.1 % (0.0-2.0); EOSINOPHILS # 0.1 10^3/ul (0.0-0.5); EOSINOPHILS % 1.1 % (0.0-7.0); HEMATOCRIT 26.6 % (42.0-52.0); LYMPHOCYTES # 2.5 10^3/ul (0.8-2.9); LYMPHOCYTES % 21.7 % (15.0-51.0); MEAN CORPUSCULAR HEMOGLOBIN 32.8 pg (29.0-33.0); MEAN CORPUSCULAR HGB CONC 33.8 g/dl (32.0-37.0); MEAN CORPUSCULAR VOLUME 97.1 fl (82.0-101.0); MEAN PLATELET VOLUME 10.4 fl (7.4-10.4); MONOCYTE # 1.1 10^3/ul (0.3-0.9); MONOCYTES % 9.8 % (0.0-11.0); NEUTROPHIL # 7.6 10^3/ul (1.6-7.5); NEUTROPHILS % 66.5 % (39.0-77.0); PLATELET COUNT 126 10^3/UL (140-415); RED BLOOD COUNT 2.74 10^6/ul (4.70-6.10); RED CELL DISTRIBUTION WIDTH 13.1 % (11.5-14.5); WHITE BLOOD COUNT 11.5 10^3/ul (4.8-10.8)
[2017-02-10 07:15] LABS: CALCIUM 7.7 mg/dl (8.4-10.2); CREATININE 1.64 mg/dl (0.61-1.24); POTASSIUM 3.7 mmol/L (3.5-5.1)
[2017-02-10 07:43] VITALS: BP 131/67; RESP 16
[2017-02-10] MEDS: DORZOLAMIDE/TIMOLOL 10 ML OPH BOTH EYES SCH ×2 (08:22→21:09)
[2017-02-10] MEDS: FAMOTIDINE 20 MG TAB PO SCH (08:23)
[2017-02-10] MEDS: CREON (12k-38k-60k) 1 CAP PO SCH ×3 (08:23→17:21)
[2017-02-10] MEDS: HYDROCORTISONE 5 MG TAB PO SCH ×3 (08:23→21:09)
[2017-02-10] MEDS: ALLOPURINOL 300 MG TAB PO SCH (08:23)
[2017-02-10] MEDS: METOPROLOL 25 MG TAB PO SCH ×2 (08:24→21:09)
--- NOTE | 2017-02-10 13:38 | PN ---
Date/Time of Note Date/Time of Note DATE: 02/10/17 TIME: 13:34 Assessment/Plan VTE Prophylaxis VTE Prophylaxis Intervention: SCD's Lines/Catheters [facility] Urinary Cath still in place: Yes Reason Cath still needed: urinary retention Assessment/Plan Chief Complaint/Hosp Course Patient looks comfortable, remains afebrile, pending PT eval. Assessment/Plan - Transsphenoidal pituitary adenoma, s/p transsphenoidal tumor resection on by Dr. Rodriguez. - Partial hypopituitarism. Dr. Choe is following in endocrinology consultation. - Postoperative respiratory failure requiring reintubation, resolved. Dr. Ospina is following in pulmonology consultation. - S/p code blue - Metabolic acidosis, resolved. - Pancreatic cancer. The patient follows with oncologist as an outpatient. Patient is aware that he will not be able to receive any treatment for 10 days after surgery. - Hypertension. Continue metoprolol and hydralazine p.r.n. - Hyperlipidemia. Continue simvastatin. - Chronic kidney disease stage III. Continue to monitor BUN and creatinine. Dr. Yan is following in nephrology consultation. Further recommendations based on clinical course. Plan of care discussed with Dr. Schulte. Problems: Exam/Review of Systems Vital Signs Vitals Vital Signs Date Time Temp Pulse Resp B/P Pulse Ox O2 Delivery O2 Flow Rate FiO2 02/10/17 07:43 97.7 65 16 131/67 98 02/07/17 03:36 2.0 Intake and Output 02/09/17 02/09/17 02/10/17 15:00 23:00 07:00 Intake Total 1420 ml 480 ml Output Total 1000 ml 600 ml Balance 420 ml -120 ml Exam Constitutional: alert, oriented Head: normocephalic Neck: supple Cardiovascular: nl pulses, regular rate and rhythm Gastrointestinal: non-tender, soft Extremities: normal pulses Neurological: nl mental status Results Result Diagram: 02/10/17 0600 02/10/17 0600 Results 24 hrs Laboratory Tests Test 02/10/17 06:00 White Blood Count 11.5 H Red Blood Count 2.74 L Hemoglobin 9.0 L Hematocrit 26.6 L Mean Corpuscular Volume 97.1 Mean Corpuscular Hemoglobin 32.8 Mean Corpuscular Hemoglobin Concent 33.8 Red Cell Distribution Width 13.1 Platelet Count 126 L Mean Platelet Volume 10.4 Neutrophils % 66.5 Lymphocytes % 21.7 Monocytes % 9.8 Eosinophils % 1.1 Basophils % 0.1 Nucleated Red Blood Cells % 0.0 Neutrophils # 7.6 H Lymphocytes # 2.5 Monocytes # 1.1 H Eosinophils # 0.1 Basophils # 0.0 Nucleated Red Blood Cells # 0.0 Sodium Level 137 Potassium Level 3.7 Chloride Level 104 Carbon Dioxide Level 24 Anion Gap 13 Blood Urea Nitrogen 28 H Creatinine 1.64 H Glucose Level 98 Calcium Level 7.7 L Medications Medications Current Medications Hydralazine HCl (Apresoline) 10 mg Q6H PRN IV SBP>170 Last administered on 02:18; Admin Dose 10 MG; Start 01/28/17 at 12:30 Metoprolol Tartrate (Lopressor) 25 mg BID PO Last administered on 02/10/17 08 :24; Admin Dose 25 MG; Start 01/28/17 at 21:00 Morphine Sulfate (morphine) 2 mg Q2H PRN IV PAIN Last administered on 23:34; Admin Dose 2 MG; Start 01/30/17 at 23:30 Dorzolamide/ Timolol (Cosopt) 1 drop BID BOTH EYES Last administered on 08:22; Admin Dose 1 DROP; Start 02/01/17 at 09:00 Allopurinol (Zyloprim) 300 mg DAILY PO Last administered on 02/10/17 08:23; Admin Dose 300 MG; Start 02/02/17 at 09:00 Atorvastatin Calcium (Lipitor) 20 mg HS PO Last administered on 02/09/17 20: 50; Admin Dose 20 MG; Start 02/01/17 at 21:00 Miscellaneous Information 1 ea NOTE XX ; Start 02/01/17 at 08:00 Glucose (Glutose) 15 gm Q15M PRN PO DECREASED GLUCOSE; Start 02/01/17 at 08:00 Glucose (Glutose) 22.5 gm Q15M PRN PO DECREASED GLUCOSE; Start 02/01/17 at 08: 00 Dextrose (D50w Syringe) 25 ml Q15M PRN IV DECREASED GLUCOSE; Start 02/01/17 at 08:00 Dextrose (D50w Syringe) 50 ml Q15M PRN IV DECREASED GLUCOSE; Start 02/01/17 at 08:00 Glucagon (Glucagen) 1 mg Q15M PRN IM DECREASED GLUCOSE; Start 02/01/17 at 08: 00 Glucose (Glutose) 15 gm Q15M PRN BUCCAL DECREASED GLUCOSE; Start 02/01/17 at 08:00 Hydrocortisone (Cortef) 2.5 mg QHS PO Last administered on 02/09/17 20:51; Admin Dose 2.5 MG; Start 02/06/17 at 21:00 Famotidine (Pepcid) 20 mg DAILY PO Last administered on 02/10/17 08:23; Admin Dose 20 MG; Start 02/07/17 at 09:00 TITUS JAIMES Feb 10, 2017 13:37
[2017-02-10 14:20] VITALS: BP 114/64; RESP 16
--- NOTE | 2017-02-10 17:19 | CONS ---
Date/Time of Note Date/Time of Note DATE: 02/10/17 TIME: 17:16 Assessment/Plan Assessment/Plan Problems: (1) Pituitary macroadenoma Status: Chronic Comment: Doing well now 11 days post-TSC. Sodium stable. (2) Partial hypopituitarism Status: Chronic Comment: Cont. home dosage of hydrocortisone. F/u thyroid function and testosterone in 6 weeks Consultation Date/Type/Reason Admit Date/Time Jan 28, 2017 at 06:15 Initial Consult Date 01/28/17 Type of Consultation: Endocrinology Reason for Consultation Pituitary macroadenoma Referring Provider: MARIAN CANNON MD 24 HR Interval Summary Constitutional: improved, no complaints Detailed Summary Respiratory: no complaints Cardiovascular: no complaints Gastrointestinal: no complaints Genitourinary: no complaints Musculoskeletal: no complaints Neurologic: no complaints Exam/Review of Systems Vital Signs Vitals VS - Last 72 Hours, by Label Date Time Temp Pulse Resp B/P Pulse Ox O2 Delivery O2 Flow Rate FiO2 02/10/17 14:20 98.5 81 16 114/64 98 02/10/17 07:43 97.7 65 16 131/67 98 02/10/17 02:11 98.8 75 18 133/68 98 02/09/17 19:29 98.9 69 18 114/66 98 02/09/17 15:13 98.6 64 14 116/63 98 02/09/17 08:07 98.0 72 16 129/80 97 02/09/17 02:03 97.8 62 20 116/62 95 02/08/17 19:43 98.3 82 20 129/70 98 02/08/17 13:09 98.0 67 20 142/66 98 02/08/17 07:36 98.1 60 20 162/79 98 02/08/17 02:00 98.2 75 20 155/84 98 02/07/17 19:28 98.3 84 20 149/70 98 Vital Signs Date Time Temp Pulse Resp B/P Pulse Ox O2 Delivery O2 Flow Rate FiO2 02/10/17 14:20 98.5 81 16 114/64 98 02/07/17 03:36 2.0 Intake and Output 02/09/17 02/09/17 02/10/17 15:00 23:00 07:00 Intake Total 1420 ml 480 ml Output Total 1000 ml 600 ml Balance 420 ml -120 ml Exam Constitutional: alert, oriented, well developed Psych: nl mood/affect, no complaints Respiratory: clear to auscultation, normal air movement Cardiovascular: nl pulses, regular rate and rhythm, No edema, No murmurs/extra sounds, No rub Gastrointestinal: bowel sounds, nl liver, spleen, non-tender, soft, No mass, No rebound or guarding Musculoskeletal: nl extremities to inspection Extremities: normal pulses, No clubbing, No cyanosis, No edema Neurological: [employer]RENCY EXAMINER II-XII intact, nl mental status, nl speech, nl strength Results Result Diagram: 02/10/17 0600 02/10/17 06 Results 24 hrs Laboratory Tests Test 02/10/17 06:00 White Blood Count 11.5 H Red Blood Count 2.74 L Hemoglobin 9.0 L Hematocrit 26.6 L Mean Corpuscular Volume 97.1 Mean Corpuscular Hemoglobin 32.8 Mean Corpuscular Hemoglobin Concent 33.8 Red Cell Distribution Width 13.1 Platelet Count 126 L Mean Platelet Volume 10.4 Neutrophils % 66.5 Lymphocytes % 21.7 Monocytes % 9.8 Eosinophils % 1.1 Basophils % 0.1 Nucleated Red Blood Cells % 0.0 Neutrophils # 7.6 H Lymphocytes # 2.5 Monocytes # 1.1 H Eosinophils # 0.1 Basophils # 0.0 Nucleated Red Blood Cells # 0.0 Sodium Level 137 Potassium Level 3.7 Chloride Level 104 Carbon Dioxide Level 24 Anion Gap 13 Blood Urea Nitrogen 28 H Creatinine 1.64 H Glucose Level 98 Calcium Level 7.7 L Medications Medications Current Medications Hydralazine HCl (Apresoline) 10 mg Q6H PRN IV SBP>170 Last administered on 02:18; Admin Dose 10 MG; Start 01/28/17 at 12:30 Metoprolol Tartrate (Lopressor) 25 mg BID PO Last administered on 02/10/17 08 :24; Admin Dose 25 MG; Start 01/28/17 at 21:00 Morphine Sulfate (morphine) 2 mg Q2H PRN IV PAIN Last administered on 23:34; Admin Dose 2 MG; Start 01/30/17 at 23:30 Dorzolamide/ Timolol (Cosopt) 1 drop BID BOTH EYES Last administered on 08:22; Admin Dose 1 DROP; Start 02/01/17 at 09:00 Allopurinol (Zyloprim) 300 mg DAILY PO Last administered on 02/10/17 08:23; Admin Dose 300 MG; Start 02/02/17 at 09:00 Atorvastatin Calcium (Lipitor) 20 mg HS PO Last administered on 02/09/17 20: 50; Admin Dose 20 MG; Start 02/01/17 at 21:00 Miscellaneous Information 1 ea NOTE XX ; Start 02/01/17 at 08:00 Glucose (Glutose) 15 gm Q15M PRN PO DECREASED GLUCOSE; Start 02/01/17 at 08:00 Glucose (Glutose) 22.5 gm Q15M PRN PO DECREASED GLUCOSE; Start 02/01/17 at 08: 00 Dextrose (D50w Syringe) 25 ml Q15M PRN IV DECREASED GLUCOSE; Start 02/01/17 at 08:00 Dextrose (D50w Syringe) 50 ml Q15M PRN IV DECREASED GLUCOSE; Start 02/01/17 at 08:00 Glucagon (Glucagen) 1 mg Q15M PRN IM DECREASED GLUCOSE; Start 02/01/17 at 08: 00 Glucose (Glutose) 15 gm Q15M PRN BUCCAL DECREASED GLUCOSE; Start 02/01/17 at 08:00 Hydrocortisone (Cortef) 2.5 mg QHS PO Last administered on 02/09/17 20:51; Admin Dose 2.5 MG; Start 02/06/17 at 21:00 Famotidine (Pepcid) 20 mg DAILY PO Last administered on 02/10/17 08:23; Admin Dose 20 MG; Start 02/07/17 at 09:00 KING RAO MD Feb 10, 2017 17:18
[2017-02-10 20:26] VITALS: BP 124/70; RESP 18
--- NOTE | 2017-02-10 20:40 | CONS ---
Date/Time of Note Date/Time of Note DATE: 02/10/17 TIME: 20:38 Assessment/Plan Assessment/Plan Additional Assessment/Plan 1. DEJON on CKD III, No previous Cr available to compare 2. Transsphenoidal pituitary adenoma, s/p Transsphenoidal resection of pituitary adenoma on 01/30/17 2. Pancreatic cancer. The patient follows with oncologist as an outpatient. 3. Hypertension. 4. Hyperlipidemia. 5. Hypernatremia 6. Metabolic acidosis 7. Post Surgery Failed extubation- pt had a code blue and required reintubation - s/p Extubation 02/04/17 Plan: Cr 1.67, Electrolytes stable, on home dose of Hydrocortisoine, off IVF now will follow up no new recommendation today. Consultation Date/Type/Reason Admit Date/Time Jan 28, 2017 at 06:15 Initial Consult Date 01/28/17 Type of Consultation: NEPHROLOGY Referring Provider: MARIAN CANNON MD 24 HR Interval Summary Free Text/Dictation Cr 1.64, afebrile, BP stable, on Home dose of hydrocortisone Exam/Review of Systems Vital Signs Vitals Vital Signs Date Time Temp Pulse Resp B/P Pulse Ox O2 Delivery O2 Flow Rate FiO2 02/10/17 20:26 98.3 85 18 124/70 97 02/07/17 03:36 2.0 Intake and Output 02/09/17 02/09/17 02/10/17 15:00 23:00 07:00 Intake Total 1420 ml 480 ml Output Total 1000 ml 600 ml Balance 420 ml -120 ml Results Result Diagram: 02/10/17 0600 02/10/17 0600 Results 24 hrs Laboratory Tests Test 02/10/17 06:00 White Blood Count 11.5 H Red Blood Count 2.74 L Hemoglobin 9.0 L Hematocrit 26.6 L Mean Corpuscular Volume 97.1 Mean Corpuscular Hemoglobin 32.8 Mean Corpuscular Hemoglobin Concent 33.8 Red Cell Distribution Width 13.1 Platelet Count 126 L Mean Platelet Volume 10.4 Neutrophils % 66.5 Lymphocytes % 21.7 Monocytes % 9.8 Eosinophils % 1.1 Basophils % 0.1 Nucleated Red Blood Cells % 0.0 Neutrophils # 7.6 H Lymphocytes # 2.5 Monocytes # 1.1 H Eosinophils # 0.1 Basophils # 0.0 Nucleated Red Blood Cells # 0.0 Sodium Level 137 Potassium Level 3.7 Chloride Level 104 Carbon Dioxide Level 24 Anion Gap 13 Blood Urea Nitrogen 28 H Creatinine 1.64 H Glucose Level 98 Calcium Level 7.7 L Medications Medications Current Medications Hydralazine HCl (Apresoline) 10 mg Q6H PRN IV SBP>170 Last administered on 02:18; Admin Dose 10 MG; Start 01/28/17 at 12:30 Metoprolol Tartrate (Lopressor) 25 mg BID PO Last administered on 02/10/17 08 :24; Admin Dose 25 MG; Start 01/28/17 at 21:00 Morphine Sulfate (morphine) 2 mg Q2H PRN IV PAIN Last administered on 23:34; Admin Dose 2 MG; Start 01/30/17 at 23:30 Dorzolamide/ Timolol (Cosopt) 1 drop BID BOTH EYES Last administered on 08:22; Admin Dose 1 DROP; Start 02/01/17 at 09:00 Allopurinol (Zyloprim) 300 mg DAILY PO Last administered on 02/10/17 08:23; Admin Dose 300 MG; Start 02/02/17 at 09:00 Atorvastatin Calcium (Lipitor) 20 mg HS PO Last administered on 02/09/17 20: 50; Admin Dose 20 MG; Start 02/01/17 at 21:00 Miscellaneous Information 1 ea NOTE XX ; Start 02/01/17 at 08:00 Glucose (Glutose) 15 gm Q15M PRN PO DECREASED GLUCOSE; Start 02/01/17 at 08:00 Glucose (Glutose) 22.5 gm Q15M PRN PO DECREASED GLUCOSE; Start 02/01/17 at 08: 00 Dextrose (D50w Syringe) 25 ml Q15M PRN IV DECREASED GLUCOSE; Start 02/01/17 at 08:00 Dextrose (D50w Syringe) 50 ml Q15M PRN IV DECREASED GLUCOSE; Start 02/01/17 at 08:00 Glucagon (Glucagen) 1 mg Q15M PRN IM DECREASED GLUCOSE; Start 02/01/17 at 08: 00 Glucose (Glutose) 15 gm Q15M PRN BUCCAL DECREASED GLUCOSE; Start 02/01/17 at 08:00 Hydrocortisone (Cortef) 2.5 mg QHS PO Last administered on 02/09/17 20:51; Admin Dose 2.5 MG; Start 02/06/17 at 21:00 Famotidine (Pepcid) 20 mg DAILY PO Last administered on 02/10/17t 08:23; Admin Dose 20 MG; Start 02/07/17 at 09:00 ISRAEL OJEDA MD Feb 10, 2017 20:40
[2017-02-10] MEDS: ATORVASTATIN 20 MG TAB PO SCH (21:08)
[2017-02-11 02:00] VITALS: BP 116/69; RESP 18
[2017-02-11 06:36] LABS: BASOPHILS % 0.1 % (0.0-2.0); EOSINOPHILS # 0.1 10^3/ul (0.0-0.5); EOSINOPHILS % 0.8 % (0.0-7.0); HEMATOCRIT 25.2 % (42.0-52.0); HEMOGLOBIN 8.3 g/dl (14.0-18.0); LYMPHOCYTES % 19.2 % (15.0-51.0); MEAN CORPUSCULAR HEMOGLOBIN 32.5 pg (29.0-33.0); MEAN CORPUSCULAR HGB CONC 32.9 g/dl (32.0-37.0); MEAN CORPUSCULAR VOLUME 98.8 fl (82.0-101.0); MEAN PLATELET VOLUME 10.5 fl (7.4-10.4); MONOCYTE # 1.1 10^3/ul (0.3-0.9); MONOCYTES % 10.4 % (0.0-11.0); NEUTROPHIL # 7.3 10^3/ul (1.6-7.5); NEUTROPHILS % 68.8 % (39.0-77.0); PLATELET COUNT 143 10^3/UL (140-415); RED BLOOD COUNT 2.55 10^6/ul (4.70-6.10); RED CELL DISTRIBUTION WIDTH 13.3 % (11.5-14.5); WHITE BLOOD COUNT 10.6 10^3/ul (4.8-10.8)
[2017-02-11 06:59] LABS: CALCIUM 7.8 mg/dl (8.4-10.2); CREATININE 1.65 mg/dl (0.61-1.24); POTASSIUM 3.8 mmol/L (3.5-5.1)
[2017-02-11 07:49] VITALS: BP 136/70; RESP 16
[2017-02-11] MEDS: FAMOTIDINE 20 MG TAB PO SCH (08:51)
[2017-02-11] MEDS: HYDROCORTISONE 5 MG TAB PO SCH ×3 (08:52→20:29)
[2017-02-11] MEDS: ALLOPURINOL 300 MG TAB PO SCH (08:52)
[2017-02-11] MEDS: CREON (12k-38k-60k) 1 CAP PO SCH ×3 (08:53→18:00)
[2017-02-11] MEDS: METOPROLOL 25 MG TAB PO SCH ×2 (08:53→20:30)
[2017-02-11] MEDS: DORZOLAMIDE/TIMOLOL 10 ML OPH BOTH EYES SCH ×2 (08:53→20:29)
--- NOTE | 2017-02-11 12:37 | CONS ---
Date/Time of Note Date/Time of Note DATE: 02/11/17 TIME: 12:34 Assessment/Plan Assessment/Plan Problems: (1) Partial hypopituitarism Status: Chronic Comment: Continue home dose of hydrocortisone. Will sign off for now. Pt. seems ready for d/c from endo standpoint. Consultation Date/Type/Reason Admit Date/Time Jan 28, 2017 at 06:15 Initial Consult Date 01/28/17 Type of Consultation: Endocrinology Reason for Consultation Pituitary macroadenoma Referring Provider: MARIAN CANNON MD 24 HR Interval Summary Constitutional: improved, no complaints Detailed Summary Respiratory: no complaints Cardiovascular: no complaints Gastrointestinal: no complaints Genitourinary: no complaints Musculoskeletal: no complaints Neurologic: no complaints Exam/Review of Systems Vital Signs Vitals VS - Last 72 Hours, by Label Date Time Temp Pulse Resp B/P Pulse Ox O2 Delivery O2 Flow Rate FiO2 02/11/17 07:49 98.3 71 16 136/70 97 02/11/17 02:00 98.6 65 18 116/69 98 02/10/17 20:26 98.3 85 18 124/70 97 02/10/17 14:20 98.5 81 16 114/64 98 02/10/17 07:43 97.7 65 16 131/67 98 02/10/17 02:11 98.8 75 18 133/68 98 02/09/17 19:29 98.9 69 18 114/66 98 02/09/17 15:13 98.6 64 14 116/63 98 02/09/17 08:07 98.0 72 16 129/80 97 02/09/17 02:03 97.8 62 20 116/62 95 02/08/17 19:43 98.3 82 20 129/70 98 02/08/17 13:09 98.0 67 20 142/66 98 Vital Signs Date Time Temp Pulse Resp B/P Pulse Ox O2 Delivery O2 Flow Rate FiO2 02/11/17 07:49 98.3 71 16 136/70 97 Intake and Output 02/10/17 02/10/17 02/11/17 15:00 23:00 07:00 Intake Total 1180 ml 240 ml Output Total 850 ml 700 ml Balance 330 ml -460 ml Exam Constitutional: alert, oriented, well developed Psych: nl mood/affect, no complaints Respiratory: clear to auscultation, normal air movement Cardiovascular: nl pulses, regular rate and rhythm, No edema, No murmurs/extra sounds, No rub Gastrointestinal: bowel sounds, nl liver, spleen, non-tender, soft, No mass, No rebound or guarding Musculoskeletal: nl extremities to inspection Extremities: normal pulses, No clubbing, No cyanosis, No edema Neurological: [employer] II-XII intact, nl mental status, nl speech, nl strength Results Result Diagram: 02/11/1753202/11/17532 Results 24 hrs Laboratory Tests Test 02/11/17 05:33 White Blood Count 10.6 Red Blood Count 2.55 L Hemoglobin 8.3 L Hematocrit 25.2 L Mean Corpuscular Volume 98.8 Mean Corpuscular Hemoglobin 32.5 Mean Corpuscular Hemoglobin Concent 32.9 Red Cell Distribution Width 13.3 Platelet Count 143 Mean Platelet Volume 10.5 H Neutrophils % 68.8 Lymphocytes % 19.2 Monocytes % 10.4 Eosinophils % 0.8 Basophils % 0.1 Nucleated Red Blood Cells % 0.0 Neutrophils # 7.3 Lymphocytes # 2.0 Monocytes # 1.1 H Eosinophils # 0.1 Basophils # 0.0 Nucleated Red Blood Cells # 0.0 Sodium Level 140 Potassium Level 3.8 Chloride Level 105 Carbon Dioxide Level 26 Anion Gap 13 Blood Urea Nitrogen 28 H Creatinine 1.65 H Glucose Level 132 Calcium Level 7.8 L Medications Medications Current Medications Hydralazine HCl (Apresoline) 10 mg Q6H PRN IV SBP>170 Last administered on 02:18; Admin Dose 10 MG; Start 01/28/17 at 12:30 Metoprolol Tartrate (Lopressor) 25 mg BID PO Last administered on 02/11/17 08 :53; Admin Dose 25 MG; Start 01/28/17 at 21:00 Morphine Sulfate (morphine) 2 mg Q2H PRN IV PAIN Last administered on 23:34; Admin Dose 2 MG; Start 01/30/17 at 23:30 Dorzolamide/ Timolol (Cosopt) 1 drop BID BOTH EYES Last administered on 08:53; Admin Dose 1 DROP; Start 02/01/17 at 09:00 Allopurinol (Zyloprim) 300 mg DAILY PO Last administered on 02/11/17 08:52; Admin Dose 300 MG; Start 02/02/17 at 09:00 Atorvastatin Calcium (Lipitor) 20 mg HS PO Last administered on 02/10/17 21: 08; Admin Dose 20 MG; Start 02/01/17 at 21:00 Miscellaneous Information 1 ea NOTE XX ; Start 02/01/17 at 08:00 Glucose (Glutose) 15 gm Q15M PRN PO DECREASED GLUCOSE; Start 02/01/17 at 08:00 Glucose (Glutose) 22.5 gm Q15M PRN PO DECREASED GLUCOSE; Start 02/01/17 at 08: 00 Dextrose (D50w Syringe) 25 ml Q15M PRN IV DECREASED GLUCOSE; Start 02/01/17 at 08:00 Dextrose (D50w Syringe) 50 ml Q15M PRN IV DECREASED GLUCOSE; Start 02/01/17 at 08:00 Glucagon (Glucagen) 1 mg Q15M PRN IM DECREASED GLUCOSE; Start 02/01/17 at 08: 00 Glucose (Glutose) 15 gm Q15M PRN BUCCAL DECREASED GLUCOSE; Start 02/01/17 at 08:00 Hydrocortisone (Cortef) 2.5 mg QHS PO Last administered on 02/10/17 21:09; Admin Dose 2.5 MG; Start 02/06/17 at 21:00 Famotidine (Pepcid) 20 mg DAILY PO Last administered on 02/11/17 08:51; Admin Dose 20 MG; Start 02/07/17 at 09:00 KING RAO MD Feb 11, 2017 12:37
[2017-02-11 13:51] VITALS: BP 124/63; RESP 16
--- NOTE | 2017-02-11 15:50 | PN ---
Date/Time of Note Date/Time of Note DATE: 02/11/17 TIME: 15:49 Assessment/Plan VTE Prophylaxis VTE Prophylaxis Intervention: SCD's Lines/Catheters IV Catheter Type (from [facility] Mid Line Central line still needed: Yes Urinary Cath still in place: Yes Reason Cath still needed: urinary retention Assessment/Plan Chief Complaint/Hosp Course DC Galvin, continue physical therapy, DC planning if cleared by neurosurgery. Assessment/Plan - Transsphenoidal pituitary adenoma, s/p transsphenoidal tumor resection on by Dr. Rodriguez. - Partial hypopituitarism. Dr. Choe is following in endocrinology consultation. - Postoperative respiratory failure requiring reintubation, resolved. Dr. Ospina is following in pulmonology consultation. - S/p code blue - Metabolic acidosis, resolved. - Pancreatic cancer. The patient follows with oncologist as an outpatient. Patient is aware that he will not be able to receive any treatment for 10 days after surgery. - Hypertension. Continue metoprolol and hydralazine p.r.n. - Hyperlipidemia. Continue simvastatin. - Chronic kidney disease stage III. Continue to monitor BUN and creatinine. Dr. Yan is following in nephrology consultation. Further recommendations based on clinical course. Plan of care discussed with Dr. Schulte. Problems: Exam/Review of Systems Vital Signs Vitals Vital Signs Date Time Temp Pulse Resp B/P Pulse Ox O2 Delivery O2 Flow Rate FiO2 02/11/17 13:51 97.5 73 16 124/63 98 Intake and Output 02/10/17 02/10/17 02/11/17 15:00 23:00 07:00 Intake Total 1180 ml 240 ml Output Total 850 ml 700 ml Balance 330 ml -460 ml Exam Constitutional: alert, oriented Head: normocephalic Neck: supple Cardiovascular: nl pulses, regular rate and rhythm Gastrointestinal: non-tender, soft Extremities: normal pulses Neurological: nl mental status Results Result Diagram: 02/11/17 0533 02/11/17 0533 Results 24 hrs Laboratory Tests Test 02/11/17 05:33 White Blood Count 10.6 Red Blood Count 2.55 L Hemoglobin 8.3 L Hematocrit 25.2 L Mean Corpuscular Volume 98.8 Mean Corpuscular Hemoglobin 32.5 Mean Corpuscular Hemoglobin Concent 32.9 Red Cell Distribution Width 13.3 Platelet Count 143 Mean Platelet Volume 10.5 H Neutrophils % 68.8 Lymphocytes % 19.2 Monocytes % 10.4 Eosinophils % 0.8 Basophils % 0.1 Nucleated Red Blood Cells % 0.0 Neutrophils # 7.3 Lymphocytes # 2.0 Monocytes # 1.1 H Eosinophils # 0.1 Basophils # 0.0 Nucleated Red Blood Cells # 0.0 Sodium Level 140 Potassium Level 3.8 Chloride Level 105 Carbon Dioxide Level 26 Anion Gap 13 Blood Urea Nitrogen 28 H Creatinine 1.65 H Glucose Level 132 Calcium Level 7.8 L Medications Medications Current Medications Hydralazine HCl (Apresoline) 10 mg Q6H PRN IV SBP>170 Last administered on 02:18; Admin Dose 10 MG; Start 01/28/17 at 12:30 Metoprolol Tartrate (Lopressor) 25 mg BID PO Last administered on 02/11/17 08 :53; Admin Dose 25 MG; Start 01/28/17 at 21:00 Morphine Sulfate (morphine) 2 mg Q2H PRN IV PAIN Last administered on 23:34; Admin Dose 2 MG; Start 01/30/17 at 23:30 Dorzolamide/ Timolol (Cosopt) 1 drop BID BOTH EYES Last administered on 08:53; Admin Dose 1 DROP; Start 02/01/17 at 09:00 Allopurinol (Zyloprim) 300 mg DAILY PO Last administered on 02/11/17 08:52; Admin Dose 300 MG; Start 02/02/17 at 09:00 Atorvastatin Calcium (Lipitor) 20 mg HS PO Last administered on 02/10/17 21: 08; Admin Dose 20 MG; Start 02/01/17 at 21:00 Miscellaneous Information 1 ea NOTE XX ; Start 02/01/17 at 08:00 Glucose (Glutose) 15 gm Q15M PRN PO DECREASED GLUCOSE; Start 02/01/17 at 08:00 Glucose (Glutose) 22.5 gm Q15M PRN PO DECREASED GLUCOSE; Start 02/01/17 at 08: 00 Dextrose (D50w Syringe) 25 ml Q15M PRN IV DECREASED GLUCOSE; Start 02/01/17 at 08:00 Dextrose (D50w Syringe) 50 ml Q15M PRN IV DECREASED GLUCOSE; Start 02/01/17 at 08:00 Glucagon (Glucagen) 1 mg Q15M PRN IM DECREASED GLUCOSE; Start 02/01/17 at 08: 00 Glucose (Glutose) 15 gm Q15M PRN BUCCAL DECREASED GLUCOSE; Start 02/01/17 at 08:00 Hydrocortisone (Cortef) 2.5 mg QHS PO Last administered on 02/10/17 21:09; Admin Dose 2.5 MG; Start 02/06/17 at 21:00 Famotidine (Pepcid) 20 mg DAILY PO Last administered on 02/11/17 08:51; Admin Dose 20 MG; Start 02/07/17 at 09:00 TITUS JAIMES Feb 11, 2017 15:50
--- NOTE | 2017-02-11 16:24 | CONS ---
Date/Time of Note Date/Time of Note DATE: 02/11/17 TIME: 16:21 Assessment/Plan Assessment/Plan Additional Assessment/Plan 1. DEJON on CKD III, No previous Cr available to compare - now back to pssible baseline of 1.6 2. Transsphenoidal pituitary adenoma, s/p Transsphenoidal resection of pituitary adenoma on 01/30/17 2. Pancreatic cancer. The patient follows with oncologist as an outpatient. 3. Hypertension. 4. Hyperlipidemia. 5. Hypernatremia 6. Metabolic acidosis 7. Post Surgery Failed extubation- pt had a code blue and required reintubation - s/p Extubation 02/04/17 Plan: Cr 1.6, Electrolytes stable, on home dose of Hydrocortisoine, off IVF now will follow up making adequate urine BP stable Consultation Date/Type/Reason Admit Date/Time Jan 28, 2017 at 06:15 Initial Consult Date 01/28/17 Type of Consultation: NEPHROLOGY Referring Provider: MARIAN CANNON MD 24 HR Interval Summary Free Text/Dictation Cr 1.6, adquate urine, BP stable, C/o nausea, back pain, leg cramps Exam/Review of Systems Vital Signs Vitals Vital Signs Date Time Temp Pulse Resp B/P Pulse Ox O2 Delivery O2 Flow Rate FiO2 02/11/17 13:51 97.5 73 16 124/63 98 Intake and Output 02/10/17 02/10/17 02/11/17 15:00 23:00 07:00 Intake Total 1180 ml 240 ml Output Total 850 ml 700 ml Balance 330 ml -460 ml Exam GENERAL: awake,alert no acute distress NECK: Supple. No JVD or lymphadenopathy. CARDIAC EXAM: S1, S2. No added sounds or murmurs. CHEST: clear bilaterally, No added sounds, rales or wheezes ABDOMEN: Soft, nontender. No guarding or rebound. EXTREMITIES: No cyanosis, clubbing or edema. NEUROLOGIC: Generalized weakness. No focal deficits Results Result Diagram: 02/11/17 0533 02/11/17 0533 Results 24 hrs Laboratory Tests Test 02/11/17 05:33 White Blood Count 10.6 Red Blood Count 2.55 L Hemoglobin 8.3 L Hematocrit 25.2 L Mean Corpuscular Volume 98.8 Mean Corpuscular Hemoglobin 32.5 Mean Corpuscular Hemoglobin Concent 32.9 Red Cell Distribution Width 13.3 Platelet Count 143 Mean Platelet Volume 10.5 H Neutrophils % 68.8 Lymphocytes % 19.2 Monocytes % 10.4 Eosinophils % 0.8 Basophils % 0.1 Nucleated Red Blood Cells % 0.0 Neutrophils # 7.3 Lymphocytes # 2.0 Monocytes # 1.1 H Eosinophils # 0.1 Basophils # 0.0 Nucleated Red Blood Cells # 0.0 Sodium Level 140 Potassium Level 3.8 Chloride Level 105 Carbon Dioxide Level 26 Anion Gap 13 Blood Urea Nitrogen 28 H Creatinine 1.65 H Glucose Level 132 Calcium Level 7.8 L Medications Medications Current Medications Hydralazine HCl (Apresoline) 10 mg Q6H PRN IV SBP>170 Last administered on 02:18; Admin Dose 10 MG; Start 01/28/17 at 12:30 Metoprolol Tartrate (Lopressor) 25 mg BID PO Last administered on 02/11/17 08 :53; Admin Dose 25 MG; Start 01/28/17 at 21:00 Morphine Sulfate (morphine) 2 mg Q2H PRN IV PAIN Last administered on 23:34; Admin Dose 2 MG; Start 01/30/17 at 23:30 Dorzolamide/ Timolol (Cosopt) 1 drop BID BOTH EYES Last administered on 08:53; Admin Dose 1 DROP; Start 02/01/17 at 09:00 Allopurinol (Zyloprim) 300 mg DAILY PO Last administered on 02/11/17 08:52; Admin Dose 300 MG; Start 02/02/17 at 09:00 Atorvastatin Calcium (Lipitor) 20 mg HS PO Last administered on 02/10/17 21: 08; Admin Dose 20 MG; Start 02/01/17 at 21:00 Miscellaneous Information 1 ea NOTE XX ; Start 02/01/17 at 08:00 Glucose (Glutose) 15 gm Q15M PRN PO DECREASED GLUCOSE; Start 02/01/17 at 08:00 Glucose (Glutose) 22.5 gm Q15M PRN PO DECREASED GLUCOSE; Start 02/01/17 at 08: 00 Dextrose (D50w Syringe) 25 ml Q15M PRN IV DECREASED GLUCOSE; Start 02/01/17 at 08:00 Dextrose (D50w Syringe) 50 ml Q15M PRN IV DECREASED GLUCOSE; Start 02/01/17 at 08:00 Glucagon (Glucagen) 1 mg Q15M PRN IM DECREASED GLUCOSE; Start 02/01/17 at 08: 00 Glucose (Glutose) 15 gm Q15M PRN BUCCAL DECREASED GLUCOSE; Start 02/01/17 at 08:00 Hydrocortisone (Cortef) 2.5 mg QHS PO Last administered on 02/10/17 21:09; Admin Dose 2.5 MG; Start 02/06/17 at 21:00 Famotidine (Pepcid) 20 mg DAILY PO Last administered on 02/11/17 08:51; Admin Dose 20 MG; Start 02/07/17 at 09:00 ISRAEL OJEDA MD Feb 11, 2017 16:24
[2017-02-11 20:00] VITALS: BP 98/55; RESP 20
[2017-02-11] MEDS: ATORVASTATIN 20 MG TAB PO SCH (20:29)
[2017-02-12 02:00] VITALS: BP 109/50; RESP 19
[2017-02-12 06:33] LABS: BASOPHILS % 0.1 % (0.0-2.0); EOSINOPHILS # 0.1 10^3/ul (0.0-0.5); EOSINOPHILS % 0.9 % (0.0-7.0); HEMATOCRIT 24.4 % (42.0-52.0); HEMOGLOBIN 8.2 g/dl (14.0-18.0); LYMPHOCYTES # 2.4 10^3/ul (0.8-2.9); LYMPHOCYTES % 21.5 % (15.0-51.0); MEAN CORPUSCULAR HEMOGLOBIN 32.8 pg (29.0-33.0); MEAN CORPUSCULAR HGB CONC 33.6 g/dl (32.0-37.0); MEAN CORPUSCULAR VOLUME 97.6 fl (82.0-101.0); MONOCYTE # 1.2 10^3/ul (0.3-0.9); MONOCYTES % 10.7 % (0.0-11.0); NEUTROPHIL # 7.4 10^3/ul (1.6-7.5); PLATELET COUNT 137 10^3/UL (140-415); RED CELL DISTRIBUTION WIDTH 13.2 % (11.5-14.5); WHITE BLOOD COUNT 11.3 10^3/ul (4.8-10.8)
[2017-02-12 07:00] LABS: CALCIUM 7.9 mg/dl (8.4-10.2); CREATININE 1.66 mg/dl (0.61-1.24); POTASSIUM 3.8 mmol/L (3.5-5.1)
[2017-02-12 07:33] VITALS: BP 127/71; RESP 16
[2017-02-12] MEDS: ALLOPURINOL 300 MG TAB PO SCH (08:49)
[2017-02-12] MEDS: DORZOLAMIDE/TIMOLOL 10 ML OPH BOTH EYES SCH ×2 (08:50→20:42)
[2017-02-12] MEDS: CREON (12k-38k-60k) 1 CAP PO SCH ×3 (08:50→17:33)
[2017-02-12] MEDS: METOPROLOL 25 MG TAB PO SCH ×2 (08:50→20:43)
[2017-02-12] MEDS: HYDROCORTISONE 5 MG TAB PO SCH ×3 (08:50→20:42)
[2017-02-12] MEDS: FAMOTIDINE 20 MG TAB PO SCH (08:50)
--- NOTE | 2017-02-12 09:22 | CONS ---
Date/Time of Note Date/Time of Note DATE: 02/12/17 TIME: 09:20 Assessment/Plan Assessment/Plan Additional Assessment/Plan 1. DEJON on CKD III, No previous Cr available to compare - now back to pssible baseline of 1.6 2. Transsphenoidal pituitary adenoma, s/p Transsphenoidal resection of pituitary adenoma on 01/30/17 2. Pancreatic cancer. The patient follows with oncologist as an outpatient. 3. Hypertension. 4. Hyperlipidemia. 5. Hypernatremia 6. Metabolic acidosis 7. Post Surgery Failed extubation- pt had a code blue and required reintubation - s/p Extubation 02/04/17 Plan: Cr 1.66, Electrolytes stable, on home dose of Hydrocortisoine, Galvin discontinued, Good urine output will follow up Consultation Date/Type/Reason Admit Date/Time Jan 28, 2017 at 06:15 Initial Consult Date 01/28/17 Type of Consultation: NEPHROLOGY Referring Provider: MARIAN CANNON MD 24 HR Interval Summary Free Text/Dictation Galvin discontinued, U/O 2.7 Liter, BP stable, c/o pain in groin, scrotum, Cr 1.6, Na normal Exam/Review of Systems Vital Signs Vitals Vital Signs Date Time Temp Pulse Resp B/P Pulse Ox O2 Delivery O2 Flow Rate FiO2 02/12/17 07:33 98.4 64 16 127/71 97 Intake and Output 02/11/17 02/11/17 02/12/17 15:00 23:00 07:00 Intake Total 1950 ml 800 ml Output Total 2200 ml 550 ml Balance -250 ml 250 ml Exam GENERAL: awake,alert no acute distress NECK: Supple. No JVD or lymphadenopathy. CARDIAC EXAM: S1, S2. No added sounds or murmurs. CHEST: clear bilaterally, No added sounds, rales or wheezes ABDOMEN: Soft, nontender. No guarding or rebound. EXTREMITIES: No cyanosis, clubbing or edema. NEUROLOGIC: Generalized weakness. No focal deficits Results Result Diagram: 02/12/17 0541 02/12/17 0541 Results 24 hrs Laboratory Tests Test 02/12/17 05:41 White Blood Count 11.3 H Red Blood Count 2.50 L Hemoglobin 8.2 L Hematocrit 24.4 L Mean Corpuscular Volume 97.6 Mean Corpuscular Hemoglobin 32.8 Mean Corpuscular Hemoglobin Concent 33.6 Red Cell Distribution Width 13.2 Platelet Count 137 L Mean Platelet Volume 10.0 Neutrophils % 66.0 Lymphocytes % 21.5 Monocytes % 10.7 Eosinophils % 0.9 Basophils % 0.1 Nucleated Red Blood Cells % 0.0 Neutrophils # 7.4 Lymphocytes # 2.4 Monocytes # 1.2 H Eosinophils # 0.1 Basophils # 0.0 Nucleated Red Blood Cells # 0.0 Sodium Level 141 Potassium Level 3.8 Chloride Level 107 Carbon Dioxide Level 24 Anion Gap 14 Blood Urea Nitrogen 29 H Creatinine 1.66 H Glucose Level 101 Calcium Level 7.9 L Phosphorus Level 2.0 L Medications Medications Current Medications Hydralazine HCl (Apresoline) 10 mg Q6H PRN IV SBP>170 Last administered on 02:18; Admin Dose 10 MG; Start 01/28/17 at 12:30 Metoprolol Tartrate (Lopressor) 25 mg BID PO Last administered on 02/12/17 08 :50; Admin Dose 25 MG; Start 01/28/17 at 21:00 Morphine Sulfate (morphine) 2 mg Q2H PRN IV PAIN Last administered on 23:34; Admin Dose 2 MG; Start 01/30/17 at 23:30 Dorzolamide/ Timolol (Cosopt) 1 drop BID BOTH EYES Last administered on 08:50; Admin Dose 1 DROP; Start 02/01/17 at 09:00 Allopurinol (Zyloprim) 300 mg DAILY PO Last administered on 02/12/17 08:49; Admin Dose 300 MG; Start 02/02/17 at 09:00 Atorvastatin Calcium (Lipitor) 20 mg HS PO Last administered on 02/11/17 20: 29; Admin Dose 20 MG; Start 02/01/17 at 21:00 Miscellaneous Information 1 ea NOTE XX ; Start 02/01/17 at 08:00 Glucose (Glutose) 15 gm Q15M PRN PO DECREASED GLUCOSE; Start 02/01/17 at 08:00 Glucose (Glutose) 22.5 gm Q15M PRN PO DECREASED GLUCOSE; Start 02/01/17 at 08: 00 Dextrose (D50w Syringe) 25 ml Q15M PRN IV DECREASED GLUCOSE; Start 02/01/17 at 08:00 Dextrose (D50w Syringe) 50 ml Q15M PRN IV DECREASED GLUCOSE; Start 02/01/17 at 08:00 Glucagon (Glucagen) 1 mg Q15M PRN IM DECREASED GLUCOSE; Start 02/01/17 at 08: 00 Glucose (Glutose) 15 gm Q15M PRN BUCCAL DECREASED GLUCOSE; Start 02/01/17 at 08:00 Hydrocortisone (Cortef) 2.5 mg QHS PO Last administered on 02/11/17 20:29; Admin Dose 2.5 MG; Start 02/06/17 at 21:00 Famotidine (Pepcid) 20 mg DAILY PO Last administered on 02/12/17 08:50; Admin Dose 20 MG; Start 02/07/17 at 09:00 ISRAEL OJEDA MD Feb 12, 2017 09:22
[2017-02-12 14:25] VITALS: BP 107/60; RESP 16
[2017-02-12] MEDS ORDERED: HYDR5TAB2 PO ×2 (17:32)
[2017-02-12] MEDS ORDERED: CALC600T5 PO (17:32)
[2017-02-12] MEDS ORDERED: SODIUM PHOSPHATE 15 MMOL in SOD CHLORIDE 0.9% 250 ML IVPB ONE (18:00)
--- NOTE | 2017-02-12 18:24 | DS ---
Date/Time of Note Date/Time of Note DATE: 02/12/17 TIME: 18:23 Discharge Summary Admission/Discharge Info Admit Date/Time Jan 28, 2017 at 06:15 Discharge Date/Time Patient Condition: Stable Hx of Present Illness The patient is a 81-year-old very pleasant gentleman with medical history including hypertension, hyperlipidemia, pancreatic cancer, chronic kidney disease. Patient also with a pituitary adenoma that was diagnosed in 2012. Patient underwent transsphenoidal pituitary adenoma resection by Dr. Rodriguez, which was followed by yearly MRI. The patient noted has mass increased per last MRI. 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 Patient is admitted for transsphenoidal pituitary adenoma resection, and the patient will undergo MRI for further mapping and will undergo surgery tomorrow. Patient currently is awake, alert, denies any fever or chills. Denies any nausea, vomiting. Denies diarrhea, constipation. Denies any chest pain, denies shortness of breath. Hospital Course - Transsphenoidal pituitary adenoma, s/p transsphenoidal tumor resection on by Dr. Rodriguez. - Partial hypopituitarism. Dr. Choe is following in endocrinology consultation. - Postoperative respiratory failure requiring reintubation, resolved. Dr. Ospina is following in pulmonology consultation. - S/p code blue - Metabolic acidosis, resolved. - Pancreatic cancer. The patient follows with oncologist as an outpatient. Patient is aware that he will not be able to receive any treatment for 10 days after surgery. - Hypertension. Continue metoprolol and hydralazine p.r.n. - Hyperlipidemia. Continue simvastatin. - Chronic kidney disease stage III. Continue to monitor BUN and creatinine. Dr. Yan is following in nephrology consultation. Home Meds Active Scripts Calcium Carbonate (CALCIUM) 600 Mg Tablet, 600 MG PO BID for 30 Days, TAB Prov:TITUS JAIMES 02/12/17 Hydrocortisone (Hydrocortisone) 5 Mg Tablet, 5 MG PO AC LUNCH for 30 Days, TAB Prov:MAGNOLIA JAIMESA 02/12/17 Hydrocortisone (Hydrocortisone) 5 Mg Tablet, 15 MG PO AC BREAKFAST for 30 Days, TAB Prov:TITUS JAIMES 02/12/17 Reported Medications Multivitamin (Daily Multiple Vitamin) 1 Each Tablet, 1 EACH PO, TAB 01/28/17 Vitamin E Acetate (Vitamin E) 600 Unit Capsule, 400 UNIT PO, CAP 01/28/17 Cholecalciferol (Vitamin D) 400 Unit Tablet, 2000 UNIT PO, TAB 01/28/17 Vit C-Ascorbate Ca-Ascorb Sod (Vitamin C) 500 Mg/15 Ml Liquid, 1000 MG PO DAILY , ML 01/28/17 [place]-3/Dha/Epa/Fish Oil (FISH OIL 1,000 MG SOFTGEL) 1 Each Capsule, 1 EACH PO, CAP 01/28/17 Allopurinol* (Allopurinol*) 300 Mg Tablet, 300 MG PO DAILY, TAB 01/28/17 Gkfgez-Pwkxlnih-Aabfpmt* (Wendy DR* 12,000) 12,000 L-38,000-60,000 Unit Capsule.dr, 1 CAP PO WITH MEALS, CAP 01/28/17 Simvastatin (Simvastatin) 20 Mg Tablet, 20 MG PO DAILY, #30 TAB 01/28/17 Follow-up Plan follow up in [address] Rodriguez pt advised not to blow nose x 3 months f/up with Dr Choe, endocrinology in 1-2 weeks Primary Care Provider Not On Staff Doctor Pending Labs Laboratory Tests Test 02/12/17 05:41 White Blood Count 11.310^3/ul (4.8-10.8) Red Blood Count 2.5010^6/ul (4.70-6.10) Hemoglobin 8.2g/dl (14.0-18.0) Hematocrit 24.4% (42.0-52.0) Mean Corpuscular Volume 97.6fl (82.0-101.0) Mean Corpuscular Hemoglobin 32.8pg (29.0-33.0) Mean Corpuscular Hemoglobin Concent 33.6g/dl (32.0-37.0) Red Cell Distribution Width 13.2% (11.5-14.5) Platelet Count 08401^3/UL (140-415) Mean Platelet Volume 10.0fl (7.4-10.4) Neutrophils % 66.0% (39.0-77.0) Lymphocytes % 21.5% (15.0-51.0) Monocytes % 10.7% (0.0-11.0) Eosinophils % 0.9% (0.0-7.0) Basophils % 0.1% (0.0-2.0) Nucleated Red Blood Cells % 0.0/100WBC (0.0-0.0) Neutrophils # 7.410^3/ul (1.6-7.5) Lymphocytes # 2.410^3/ul (0.8-2.9) Monocytes # 1.210^3/ul (0.3-0.9) Eosinophils # 0.110^3/ul (0.0-0.5) Basophils # 0.010^3/ul (0.0-0.1) Nucleated Red Blood Cells # 0.010^3/ul (0.0-0.0) Sodium Level 141mmol/L (135-144) Potassium Level 3.8mmol/L (3.5-5.1) Chloride Level 107mmol/L (97-110) Carbon Dioxide Level 24mmol/L (21-31) Anion Gap 14 (8-16) Blood Urea Nitrogen 29mg/dl (7-20) Creatinine 1.66mg/dl (0.61-1.24) Glucose Level 101mg/dl (70-220) Calcium Level 7.9mg/dl (8.4-10.2) Phosphorus Level 2.0mg/dl (2.5-4.9) TITUS JAIMES Feb 12, 2017 18:24
[2017-02-12 20:00] VITALS: BP 96/59; RESP 16
[2017-02-12] MEDS ORDERED: POTASSIUM PHOSPHATE 15 MM in SOD CHLORIDE 0.9% 250 ML IV SCH (20:30)
[2017-02-12] MEDS: ATORVASTATIN 20 MG TAB PO SCH (20:40)
[2017-02-13 02:02] VITALS: BP 103/63; RESP 16
[2017-02-13 06:29] LABS: CREATININE 1.59 mg/dl (0.61-1.24); MAGNESIUM 1.9 mg/dl (1.7-2.5); PHOSPHORUS 3.3 mg/dl (2.5-4.9); POTASSIUM 3.8 mmol/L (3.5-5.1)
[2017-02-13 07:57] VITALS: BP 120/65; RESP 16
[2017-02-13] MEDS: FAMOTIDINE 20 MG TAB PO SCH (08:21)
[2017-02-13] MEDS: METOPROLOL 25 MG TAB PO SCH (08:21)
[2017-02-13] MEDS: ALLOPURINOL 300 MG TAB PO SCH (08:21)
[2017-02-13] MEDS: CREON (12k-38k-60k) 1 CAP PO SCH ×3 (08:21→17:24)
[2017-02-13] MEDS: HYDROCORTISONE 5 MG TAB PO SCH ×2 (08:21→12:03)
[2017-02-13] MEDS: DORZOLAMIDE/TIMOLOL 10 ML OPH BOTH EYES SCH (08:22)
--- NOTE | 2017-02-13 12:24 | PN ---
Date/Time of Note Date/Time of Note DATE: 02/13/17 TIME: 12:24 Assessment/Plan VTE Prophylaxis VTE Prophylaxis Intervention: SCD's Lines/Catheters IV C[facility]ter Type (from [facility] Mid Line Urinary Cath still in place: No Assessment/Plan Chief Complaint/Hosp Course No acute events overnight, pending arrangement for home health prior to discharge Assessment/Plan - Hypophosphatemia, status post replacement last night - Transsphenoidal pituitary adenoma, s/p transsphenoidal tumor resection on by Dr. Rodriguez. - Partial hypopituitarism. Dr. Choe is following in endocrinology consultation. - Postoperative respiratory failure requiring reintubation, resolved. Dr. Ospina is following in pulmonology consultation. - S/p code blue - Metabolic acidosis, resolved. - Pancreatic cancer. The patient follows with oncologist as an outpatient. Patient is aware that he will not be able to receive any treatment for 10 days after surgery. - Hypertension. Continue metoprolol and hydralazine p.r.n. - Hyperlipidemia. Continue simvastatin. - Chronic kidney disease stage III. Continue to monitor BUN and creatinine. Dr. Yan is following in nephrology consultation. Further recommendations based on clinical course. Plan of care discussed with Dr. Schulte. Problems: Exam/Review of Systems Vital Signs Vitals Vital Signs Date Time Temp Pulse Resp B/P Pulse Ox O2 Delivery O2 Flow Rate FiO2 02/13/17 07:57 97.9 88 16 120/65 98 Intake and Output 02/12/17 02/12/17 02/13/17 15:00 23:00 07:00 Intake Total 1440 ml 735 ml Output Total 1100 ml Balance 340 ml 735 ml Exam Constitutional: alert, oriented Head: normocephalic Neck: supple Cardiovascular: nl pulses, Gastrointestinal: non-tender, soft Extremities: normal pulses Neurological: nl mental status Results Result Diagram: 02/12/17 0541 02/13/17 0509 Results 24 hrs Laboratory Tests Test 02/13/17 05:09 Sodium Level 142 Potassium Level 3.8 Chloride Level 111 H Carbon Dioxide Level 25 Anion Gap 10 Blood Urea Nitrogen 31 H Creatinine 1.59 H Glucose Level 105 Calcium Level 8.0 L Phosphorus Level 3.3 Magnesium Level 1.9 Medications Medications Current Medications Hydralazine HCl (Apresoline) 10 mg Q6H PRN IV SBP>170 Last administered on 02:18; Admin Dose 10 MG; Start 01/28/17 at 12:30 Metoprolol Tartrate (Lopressor) 25 mg BID PO Last administered on 02/13/17 08 :21; Admin Dose 25 MG; Start 01/28/17 at 21:00 Morphine Sulfate (morphine) 2 mg Q2H PRN IV PAIN Last administered on 23:34; Admin Dose 2 MG; Start 01/30/17 at 23:30 Dorzolamide/ Timolol (Cosopt) 1 drop BID BOTH EYES Last administered on 08:22; Admin Dose 1 DROP; Start 02/01/17 at 09:00 Allopurinol (Zyloprim) 300 mg DAILY PO Last administered on 02/13/17 08:21; Admin Dose 300 MG; Start 02/02/17 at 09:00 Atorvastatin Calcium (Lipitor) 20 mg HS PO Last administered on 02/12/17 20: 40; Admin Dose 20 MG; Start 02/01/17 at 21:00 Miscellaneous Information 1 ea NOTE XX ; Start 02/01/17 at 08:00 Glucose (Glutose) 15 gm Q15M PRN PO DECREASED GLUCOSE; Start 02/01/17 at 08:00 Glucose (Glutose) 22.5 gm Q15M PRN PO DECREASED GLUCOSE; Start 02/01/17 at 08: 00 Dextrose (D50w Syringe) 25 ml Q15M PRN IV DECREASED GLUCOSE; Start 02/01/17 at 08:00 Dextrose (D50w Syringe) 50 ml Q15M PRN IV DECREASED GLUCOSE; Start 02/01/17 at 08:00 Glucagon (Glucagen) 1 mg Q15M PRN IM DECREASED GLUCOSE; Start 02/01/17 at 08: 00 Glucose (Glutose) 15 gm Q15M PRN BUCCAL DECREASED GLUCOSE; Start 02/01/17 at 08:00 Hydrocortisone (Cortef) 2.5 mg QHS PO Last administered on 02/12/17 20:42; Admin Dose 2.5 MG; Start 02/06/17 at 21:00 Famotidine (Pepcid) 20 mg DAILY PO Last administered on 02/13/17 08:21; Admin Dose 20 MG; Start 11/24/17 at 09:00 TITUS JAIMES Feb 13, 2017 12:24
[2017-02-13 15:00] VITALS: BP 118/58; RESP 16
--- NOTE | 2017-02-13 16:07 | CONS ---
Date/Time of Note Date/Time of Note DATE: 02/13/17 TIME: 16:06 Assessment/Plan Assessment/Plan Additional Assessment/Plan 1. DEJON on CKD III, No previous Cr available to compare - now back to pssible baseline of 1.6 2. Transsphenoidal pituitary adenoma, s/p Transsphenoidal resection of pituitary adenoma on 01/30/17 2. Pancreatic cancer. The patient follows with oncologist as an outpatient. 3. Hypertension. 4. Hyperlipidemia. 5. Hypernatremia 6. Metabolic acidosis 7. Post Surgery Failed extubation- pt had a code blue and required reintubation - s/p Extubation 02/04/17 Plan: Cr 1.59 Electrolytes stable, on home dose of Hydrocortisoine, good urine output will follow up Consultation Date/Type/Reason Admit Date/Time Jan 28, 2017 at 06:15 Initial Consult Date 01/28/17 Type of Consultation: NEPHROLOGY Referring Provider: MARIAN CANNON MD 24 HR Interval Summary Free Text/Dictation Cr 1.59, BP stable Exam/Review of Systems Vital Signs Vitals Vital Signs Date Time Temp Pulse Resp B/P Pulse Ox O2 Delivery O2 Flow Rate FiO2 02/13/17 15:00 98.2 71 16 118/58 98 Intake and Output 02/12/17 02/12/17 02/13/17 14:59 22:59 06:59 Intake Total 1440 ml 735 ml Output Total 1100 ml Balance 340 ml 735 ml Exam GENERAL: awake,alert no acute distress NECK: Supple. No JVD or lymphadenopathy. CARDIAC EXAM: S1, S2. No added sounds or murmurs. CHEST: clear bilaterally, No added sounds, rales or wheezes ABDOMEN: Soft, nontender. No guarding or rebound. EXTREMITIES: No cyanosis, clubbing or edema. NEUROLOGIC: Generalized weakness. No focal deficits Results Result Diagram: 02/12/17 0541 02/13/17 0509 Results 24 hrs Laboratory Tests Test 02/13/17 05:09 Sodium Level 142 Potassium Level 3.8 Chloride Level 111 H Carbon Dioxide Level 25 Anion Gap 10 Blood Urea Nitrogen 31 H Creatinine 1.59 H Glucose Level 105 Calcium Level 8.0 L Phosphorus Level 3.3 Magnesium Level 1.9 Medications Medications Current Medications Hydralazine HCl (Apresoline) 10 mg Q6H PRN IV SBP>170 Last administered on 02:18; Admin Dose 10 MG; Start 01/28/17 at 12:30 Metoprolol Tartrate (Lopressor) 25 mg BID PO Last administered on 02/13/17 08 :21; Admin Dose 25 MG; Start 01/28/17 at 21:00 Morphine Sulfate (morphine) 2 mg Q2H PRN IV PAIN Last administered on 23:34; Admin Dose 2 MG; Start 01/30/17 at 23:30 Dorzolamide/ Timolol (Cosopt) 1 drop BID BOTH EYES Last administered on 08:22; Admin Dose 1 DROP; Start 02/01/17 at 09:00 Allopurinol (Zyloprim) 300 mg DAILY PO Last administered on 02/13/17 08:21; Admin Dose 300 MG; Start 02/02/17 at 09:00 Atorvastatin Calcium (Lipitor) 20 mg HS PO Last administered on 02/12/17 20: 40; Admin Dose 20 MG; Start 02/01/17 at 21:00 Miscellaneous Information 1 ea NOTE XX ; Start 02/01/17 at 08:00 Glucose (Glutose) 15 gm Q15M PRN PO DECREASED GLUCOSE; Start 02/01/17 at 08:00 Glucose (Glutose) 22.5 gm Q15M PRN PO DECREASED GLUCOSE; Start 02/01/17 at 08: 00 Dextrose (D50w Syringe) 25 ml Q15M PRN IV DECREASED GLUCOSE; Start 02/01/17 at 08:00 Dextrose (D50w Syringe) 50 ml Q15M PRN IV DECREASED GLUCOSE; Start 02/01/17 at 08:00 Glucagon (Glucagen) 1 mg Q15M PRN IM DECREASED GLUCOSE; Start 02/01/17 at 08: 00 Glucose (Glutose) 15 gm Q15M PRN BUCCAL DECREASED GLUCOSE; Start 02/01/17 at 08:00 Hydrocortisone (Cortef) 2.5 mg QHS PO Last administered on 02/12/17 20:42; Admin Dose 2.5 MG; Start 02/06/17 at 21:00 Famotidine (Pepcid) 20 mg DAILY PO Last administered on 02/13/17 08:21; Admin Dose 20 MG; Start 02/07/17 at 09:00 ISRAEL OJEDA MD Feb 13, 2017 16:07
== END 2017-02-13 18:25 | disposition home health service (06) | DRG 614 ==
LOC: REC 01-28 06:15 → MS2 01-28 10:30 → ICU 01-30 18:25 → MS2 02-05 20:00
PROVIDERS: ADMIT Neurological Surgery; ATTEND Internal Medicine
PROC: 8E09XBH Computer Assisted Procedure of Head and Neck Region, With Magnetic Resonance Imaging (ICD-10-PCS; 2017-01-30)
PROC: 0BH17EZ Insertion of Endotracheal Airway into Trachea, Via Natural or Artificial Opening (ICD-10-PCS; 2017-01-30)
PROC: 5A1955Z Respiratory Ventilation, Greater than 96 Consecutive Hours (ICD-10-PCS; 2017-01-30)
PROC: 0GB Endocrine System, Excision (ICD-10-PCS; principal; 2017-01-30 14:30)
DX: D35.2 Benign neoplasm of pituitary gland (principal); I46.9 Cardiac arrest, cause unspecified; J95.821 Acute postprocedural respiratory failure; E87.2 Acidosis; E87.0 Hyperosmolality and hypernatremia; E11.21 Type 2 diabetes mellitus with diabetic nephropathy; D69.6 Thrombocytopenia, unspecified; N18.3 Chronic kidney disease, stage 3 (moderate); N39.0 Urinary tract infection, site not specified; E27.40 Unspecified adrenocortical insufficiency; H47.49 Disorders of optic chiasm in (due to) other disorders; E23.0 Hypopituitarism; E11.22 Type 2 diabetes mellitus with diabetic chronic kidney disease; I12.9 Hypertensive chronic kidney disease with stage 1 through stage 4 chronic kidney disease, or unspecified chronic kidney disease; C61 Malignant neoplasm of prostate; E78.5 Hyperlipidemia, unspecified; Y83.8 Other surgical procedures as the cause of abnormal reaction of the patient, or of later complication, without mention of misadventure at the time of the procedure; Y92.239 Unspecified place in hospital as the place of occurrence of the external cause; H40.10X0 Unspecified open-angle glaucoma, stage unspecified; M10.9 Gout, unspecified; D64.9 Anemia, unspecified; B96.20 Unspecified Escherichia coli [E. coli] as the cause of diseases classified elsewhere; E87.6 Hypokalemia; E83.39 Other disorders of phosphorus metabolism
CPT/HCPCS: 31500; 36600; 70450; 70553; 71010; 76775; 80048; 80053; 80069; 81003; 82550; 82570; 82803; 82962; 83735; 84100; 84295; 84300; 84560; 85025; 85730; 86850; 86900; 86901; 87086; 88307; 88331; 89190; 92526; 92610; 92950; 94002; 94003; 94770; 97110; 97116; 97162; 97530; J0171; J0360; J0696; J1644; J1720; J1815; J2250; J2270; J2370; J2405; J2710; J2765; J3010; J3475; J3480; J7030; J7050; J7070